=== PATIENT | female | born 1980 | race Caucasian/White ===

== ENCOUNTER 2020-04-23 13:45 | Outpatient (RCR) | payer OTHER, SELFPAY | END 2021-01-07 09:58 | disposition home or self-care (01) | LOC: HO.WCC 13:45 | PROVIDERS: PCP Internal Medicine; Visit Provider Physician Assistant | DX: I87.332 Chronic venous hypertension (idiopathic) with ulcer and inflammation of left lower extremity (principal); L97.822 Non-pressure chronic ulcer of other part of left lower leg with fat layer exposed; L89.624 Pressure ulcer of left heel, stage 4; L89.529 Pressure ulcer of left ankle, unspecified stage; S31.109D Unspecified open wound of abdominal wall, unspecified quadrant without penetration into peritoneal cavity, subsequent encounter; L02.611 Cutaneous abscess of right foot; D59.9 Acquired hemolytic anemia, unspecified; F17.210 Nicotine dependence, cigarettes, uncomplicated; B19.20 Unspecified viral hepatitis C without hepatic coma; K74.60 Unspecified cirrhosis of liver; G62.9 Polyneuropathy, unspecified; Z79.899 Other long term (current) drug therapy | CPT/HCPCS: 10061; 11042; 11043; 11045; 11046; 15271; 15272; 87071; 87186; 87205; 97597; Q4101 ==

== ENCOUNTER 2020-07-30 15:37 | Inpatient (IN) | payer OTHER, SELFPAY ==
[2020-07-30 16:34] VITALS: BP 113/55; PULSE 68; RESP 97; TEMP 37.2; O2SAT 96; BMI 27.4
--- NOTE | 2020-07-30 17:58 | ED.WOUNDLAC ---
HPI - Wound/Laceration General Chief Complaint: Wound/Laceration Stated Complaint: infection? Time Seen by Provider: 07/30/20 23:55 Source: patient Mode of arrival: ambulatory Limitations: no limitations History of Present Illness HPI narrative: 40-year-old female with past medical history of MRSA, end-stage liver disease, CHF, cirrhosis, history of IV drug use and opioid dependence, history of EtOH abuse, history of pelvic fracture from fall, chronic cellulitis and chronic wounds presents with chronic bilateral lower extremity wounds that have not been healing well with foul purulent drainage as well as an umbilical wound that has been chronic since 2019. Patient noted increased swelling and pain as well as copious amounts of purulent drainage pouring from the umbilical site. She states to feel weak, has had chills, and fatigue. Onset (ago): unknown Location: abdomen Extremity Location: bilateral: lower leg Patient tetanus UTD: Yes Associated symptoms: pain and fever Related Data Home Medications Medication Instructions Recorded Confirmed clonidine HCl 0.1 mg PO DAILY 07/30/20 07/30/20 folic acid 1 mg PO DAILY 07/30/20 07/31/20 furosemide 20 mg PO BID 07/30/20 07/31/20 gabapentin 600 mg PO QID 07/30/20 07/31/20 lactulose 10 g PO TID 07/30/20 07/31/20 omeprazole 40 mg PO DAILY 07/30/20 07/31/20 potassium chloride 20 meq PO DAILY 07/30/20 07/31/20 spironolactone 25 mg PO DAILY@0630 07/30/20 07/31/20 topiramate 25 mg PO BID 07/30/20 07/31/20 Allergies Allergy/AdvReac Type Severity Reaction Status Date / Time No Known Allergies Allergy Unverified 03/18/20 14:51 [No Known Allergies*] morphine AdvReac Unknown N/V Verified 04/08/15 00:00 antibiotic ? Allergy Unknown Uncoded 01/05/20 00:00 Review of Systems Review of Systems: Constitutional: Positive Fever, positive Chills ENT/Mouth: No Ear Pain, No Hoarseness, No sore throat Eyes: No Eye Pain, No Swelling, No Redness, No Foreign Body Cardiovascular: No Chest Pain, No SOB Respiratory: No Cough, No Dyspnea Gastrointestinal: No Nausea, No Vomiting, No Diarrhea, positive abdominal Pain secondary to umbilical abscess and lesion which is chronic Genitourinary: No Dysuria, No Hematuria Musculoskeletal: positive joint pain, No Myalgias, No Joint Swelling Skin: Positive bilateral lower extremity wounds that have been chronic, No Skin lacerations, No rash Neuro: No Weakness, No Numbness, No Paresthesias, No Loss of Consciousness, No Dizziness, No Headache Psych: No Anxiety/Panic, No Depression Heme/Lymph: no easy bruising, no Lymphadenopathy Endocrine: No Polyuria, No Polydipsia Yes all other systems are reviewed and are negative [facility] Past Medical History Attestation statement: The following information was validated with the patient. Source: old records reviewed Social History Social History Smoking Status: Current every day smoker Use of substances other than those prescribed or required for medical reasons: Yes Substance Use Type: Opiates Advance Directives: Yes Advance Directives on File: Yes Advance Directives Date on File: 04/02/20 Physical Exam Vital Signs: Vital Signs: Last Vital Signs Temp 99.6 F 07/31/20 00:12 Pulse 74 07/31/20 00:02 Resp 16 07/31/20 00:02 BP 115/51 L 07/31/20 00:02 Pulse Ox 95 07/31/20 00:02 Body Mass Index 27.4 Appearance: Alert. Oriented X3. Moderate distress. Eyes: Pupils equal, round and reactive to light. ENT: Pharynx normal. Neck: Normal inspection. Neck supple. CVS: Normal heart rate and rhythm. Pulses normal. Respiratory: No respiratory distress. Breath sounds normal. Abdomen: Soft and tender, 2 cm in diameter wound circumferential to the umbilicus with serous purulent drainage Skin: Bilateral lower extremity chronic wounds, venous stasis, purulent malodorous drainage noted bilaterally Skin warm and dry. Poor skin condition dry, flaky, onychomycosis to all digits lower extremities Extremities: Bilateral lower extremity edema Neuro: No motor deficit. No sensory deficit. Course Course Course Narrative: 40-year-old female with chronic wounds to the abdomen and bilateral lower extremities presents for evaluation for purulent drainage from all wounds. She has experienced fevers, chills, and fatigue over the past several days. She had her [facility], I did take down the outer layer of dressing that did not remove the blue foam dressing as we do not have the ability to replace this. There is purulent drainage that is malodorous greater weeping to the left than the right. Bilateral lower extremities discolored secondary to hemosiderin venous stasis and lymphedema. Wound to the abdomen is approximately 2 cm in diameter circumferential to the umbilicus, thick purulent malodorous drainage from the site noted. Will order CBC, Chem 7, urinalysis, lactic and cultures. Patient is hypokalemic at 2.7 will replete with 40 mEq p.o., magnesium 1.5 will replete with 2 g IV, patient does have chronic liver disease, cirrhosis and CHF is expected that her liver enzymes are elevated but consistent with prior lab values. Alk-phos is elevated at 268 which is higher than her normal values, urinalysis indicates UTI. As patient does have several sources of infection will treat with ceftriaxone and vancomycin. CT scan of abdomen is negative for abscess. Discussion with hospitalist regarding plan of care, will admit for cellulitis. Consultations Consultation #1: Jacky Kelly Time: 21:37 MDM - Wound/Laceration MDM Narrative Medical decision making narrative: Cellulitis Differential Diagnosis Differential diagnosis: Likely abscess Medical Records Attestation: I reviewed the patient's medical records. Lab Data Attestation: I reviewed the patient's lab results. Result diagrams: 07/30/20 18:34 07/30/20 18:34 Labs: Lab Results 07/30/20 07/30/20 07/30/20 Range/Units 18:34 18:34 18:34 WBC 5.1 (4.8-10.8) X10*3/uL RBC 2.92 L (4.20-5.50) X10*6/uL Hgb 9.0 L (12.0-16.0) g/dl Hct 28.2 L (37-47) % MCV 96.6 (80-98) fL MCH 30.8 (27.0-33.0) pg MCHC 31.9 (31.0-35.0) g/dl RDW 18.2 H (11.0-16.0) % Plt Count 57 L (160-400) X10*3/uL MPV Not Reportable Immature Gran % (Auto) 0.4 (0.0-0.4) % Neut % (Auto) 76.2 H (45-73) % Lymph % (Auto) 14.8 L (20-40) % [place] % (Auto) 7.4 (2-11) % Eos % (Auto) 1.0 (0-4) % Baso % (Auto) 0.2 (0-2) % Lymph # (Auto) 0.8 L (1.2-4.9) X10*3/uL [place] # (Auto) 0.4 (0.1-1.2) X10*3/uL Eos # (Auto) 0.1 (0.0-0.4) X10*3/uL Baso # (Auto) 0.0 (0.0-0.2) X10*3/uL Abs Immat Gran (auto) 0.02 (0.00-0.03) X10*3/uL Absolute Neuts (auto) 3.9 (2.0-8.3) X10*3/uL Absolute Nucleated RBC 0.000 (0.0-0.012) X10*3/uL Nucleated RBC % (auto) 0.0 (0.0-0.2) /100WBC Smear Tech's Comments VERIFIED PT 17.4 H (10.8-13.0) SEC INR 1.5 H (0.9-1.1) APTT 54.5 H (24.1-38.0) SEC Sodium 139 (135-145) mmol/L Potassium 2.7 L (3.3-5.1) mmol/L Chloride 98 (96-108) mmol/L Carbon Dioxide 32 H (22-29) mmol/L Anion Gap 12 (12-20) BUN 7 L (9-16) mg/dL Creatinine 0.63 (0.5-1.4) mg/dL Estim Creat Clear Calc 105.1 Estimated GFR > 60 Random Glucose 67 (60-115) mg/dL Lactic Acid (0.5-2.0) mmol/L Calcium 8.6 (8.4-10.2) mg/dL Magnesium 1.5 L (1.6-2.6) mg/dL Total Bilirubin 2.7 H (0.0-1.0) mg/dL Direct Bilirubin 1.4 H (0.0-0.5) mg/dL AST 131 H (5-31) U/L ALT 18 (0-31) U/L Alkaline Phosphatase 268 H (39-117) U/L Troponin I High Sens (<3.5-17.0) ng/L Total Protein 9.7 H (6.5-8.0) g/dL Albumin 3.0 L (3.5-5.0) g/dL Lipase 93 H (8-78) U/L Urine Color Urine Appearance Urine pH (5.0-8.0) Ur Specific [place] (1.005-1.025) Urine Protein (NEG-TRACE) MG/DL Urine Glucose (UA) (NEG) MG/DL Urine Ketones (NEG) MG/DL Urine Blood (NEG) Urine Nitrite (NEG) Ur Leukocyte Esterase (NEG) Urine RBC (0) /HPF Urine WBC (0-4) /HPF Ur Squamous Epith Cells /LPF Amorphous Sediment /LPF Urine Bacteria /LPF COVID-19 ([facility]) (Negative) COVID-19 Clin Com 07/30/20 07/30/20 07/30/20 Range/Units 18:34 18:34 18:53 WBC (4.8-10.8) X10*3/uL RBC (4.20-5.50) X10*6/uL Hgb (12.0-16.0) g/dl Hct (37-47) % MCV (80-98) fL MCH (27.0-33.0) pg MCHC (31.0-35.0) g/dl RDW (11.0-16.0) % Plt Count (160-400) X10*3/uL MPV Immature Gran % (Auto) (0.0-0.4) % Neut % (Auto) (45-73) % Lymph % (Auto) (20-40) % [place] % (Auto) (2-11) % Eos % (Auto) (0-4) % Baso % (Auto) (0-2) % Lymph # (Auto) (1.2-4.9) X10*3/uL [place] # (Auto) (0.1-1.2) X10*3/uL Eos # (Auto) (0.0-0.4) X10*3/uL Baso # (Auto) (0.0-0.2) X10*3/uL Abs Immat Gran (auto) (0.00-0.03) X10*3/uL Absolute Neuts (auto) (2.0-8.3) X10*3/uL Absolute Nucleated RBC (0.0-0.012) X10*3/uL Nucleated RBC % (auto) (0.0-0.2) /100WBC Smear Tech's Comments PT (10.8-13.0) SEC INR (0.9-1.1) APTT (24.1-38.0) SEC Sodium (135-145) mmol/L Potassium (3.3-5.1) mmol/L Chloride (96-108) mmol/L Carbon Dioxide (22-29) mmol/L Anion Gap (12-20) BUN (9-16) mg/dL Creatinine (0.5-1.4) mg/dL Estim Creat Clear Calc Estimated GFR Random Glucose (60-115) mg/dL Lactic Acid 1.6 (0.5-2.0) mmol/L Calcium (8.4-10.2) mg/dL Magnesium (1.6-2.6) mg/dL Total Bilirubin (0.0-1.0) mg/dL Direct Bilirubin (0.0-0.5) mg/dL AST (5-31) U/L ALT (0-31) U/L Alkaline Phosphatase (39-117) U/L Troponin I High Sens 13.3 (<3.5-17.0) ng/L Total Protein (6.5-8.0) g/dL Albumin (3.5-5.0) g/dL Lipase (8-78) U/L Urine Color YELLOW Urine Appearance HAZY Urine pH 7.0 (5.0-8.0) Ur Specific [place] 1.010 (1.005-1.025) Urine Protein NEG (NEG-TRACE) MG/DL Urine Glucose (UA) NEG (NEG) MG/DL Urine Ketones NEG (NEG) MG/DL Urine Blood NEG (NEG) Urine Nitrite POS H (NEG) Ur Leukocyte Esterase TRACE H (NEG) Urine RBC 0 (0) /HPF Urine WBC 0-2 (0-4) /HPF Ur Squamous Epith Cells TRACE /LPF Amorphous Sediment 1+ /LPF Urine Bacteria 1+ /LPF COVID-19 ([facility]) (Negative) COVID-19 Clin Com 07/31/20 Range/Units 00:36 WBC (4.8-10.8) X10*3/uL RBC (4.20-5.50) X10*6/uL Hgb (12.0-16.0) g/dl Hct (37-47) % MCV (80-98) fL MCH (27.0-33.0) pg MCHC (31.0-35.0) g/dl RDW (11.0-16.0) % Plt Count (160-400) X10*3/uL MPV Immature Gran % (Auto) (0.0-0.4) % Neut % (Auto) (45-73) % Lymph % (Auto) (20-40) % [place] % (Auto) (2-11) % Eos % (Auto) (0-4) % Baso % (Auto) (0-2) % Lymph # (Auto) (1.2-4.9) X10*3/uL [place] # (Auto) (0.1-1.2) X10*3/uL Eos # (Auto) (0.0-0.4) X10*3/uL Baso # (Auto) (0.0-0.2) X10*3/uL Abs Immat Gran (auto) (0.00-0.03) X10*3/uL Absolute Neuts (auto) (2.0-8.3) X10*3/uL Absolute Nucleated RBC (0.0-0.012) X10*3/uL Nucleated RBC % (auto) (0.0-0.2) /100WBC Smear Tech's Comments PT (10.8-13.0) SEC INR (0.9-1.1) APTT (24.1-38.0) SEC Sodium (135-145) mmol/L Potassium (3.3-5.1) mmol/L Chloride (96-108) mmol/L Carbon Dioxide (22-29) mmol/L Anion Gap (12-20) BUN (9-16) mg/dL Creatinine (0.5-1.4) mg/dL Estim Creat Clear Calc Estimated GFR Random Glucose (60-115) mg/dL Lactic Acid (0.5-2.0) mmol/L Calcium (8.4-10.2) mg/dL Magnesium (1.6-2.6) mg/dL Total Bilirubin (0.0-1.0) mg/dL Direct Bilirubin (0.0-0.5) mg/dL AST (5-31) U/L ALT (0-31) U/L Alkaline Phosphatase (39-117) U/L Troponin I High Sens (<3.5-17.0) ng/L Total Protein (6.5-8.0) g/dL Albumin (3.5-5.0) g/dL Lipase (8-78) U/L Urine Color Urine Appearance Urine pH (5.0-8.0) Ur Specific [place] (1.005-1.025) Urine Protein (NEG-TRACE) MG/DL Urine Glucose (UA) (NEG) MG/DL Urine Ketones (NEG) MG/DL Urine Blood (NEG) Urine Nitrite (NEG) Ur Leukocyte Esterase (NEG) Urine RBC (0) /HPF Urine WBC (0-4) /HPF Ur Squamous Epith Cells /LPF Amorphous Sediment /LPF Urine Bacteria /LPF COVID-19 ([facility]) Negative (Negative) COVID-19 Clin Com See Note Imaging Data CT abdomen with contrast: Attestation: I personally reviewed and interpreted this imaging study as follows: Radiologist's impression: EXAMINATION: CT ABDOMEN AND PELVIS WITH CONTRAST CLINICAL INFORMATION: Abdominal abscess. COMPARISON: CT abdomen and pelvis 09/19/2019, hip films 01/14/2020 and lumbar spine radiographs 01/14/2020. TECHNIQUE: Multidetector volumetric images were obtained from the superior aspect of the liver through the pubic symphysis following administration 85 mL of Omnipaque 350 intravenous contrast. Sagittal and coronal reformatted images were obtained on the technologist's workstation. Oral contrast: No This CT examination was performed using dose optimization techniques as appropriate, variously including the following: *Automated exposure control *Adjustment of mA and/or kV according to patient size (this includes techniques or standardized protocols for targeted exams where dose is matched to indication/reason for exam; i.e. extremities or head) *Use of iterative reconstruction technique DLP: 434 mGy-cm FINDINGS: LUNG BASES: The visualized lung bases are unremarkable. LIVER, GALLBLADDER, AND BILIARY TREE: The liver is enlarged measuring 21 cm in greatest length. A tiny cyst is noted in the left lobe of the liver. No focal hepatic lesion or intrahepatic biliary ductal dilatation is present. The common bile duct is dilated at 1.3 cm. Some prominent varices are present behind the umbilicus and I suspect that there is recanalization of the umbilical vein. The gallbladder contains layering gallstones but is otherwise unremarkable with no evidence of wall thickening or obvious pericholecystic inflammatory changes. PANCREAS: Unremarkable. SPLEEN: There is marked splenomegaly with the spleen measuring 16.5 cm in greatest length. ADRENAL GLANDS: Unremarkable. KIDNEYS AND URETERS: The kidneys are normal in size, shape, and attenuation. No hydronephrosis, hydroureter, or calculi seen. No perinephric stranding. BLADDER: Unremarkable. GASTROINTESTINAL TRACT: The small and large bowel are unremarkable. The appendix is unremarkable. ABDOMINAL WALL: Some inflammatory changes are noted in the abdominal wall just above the umbilicus as well as just below the umbilicus. Some surgical clips are present in these regions. No discrete abscess is seen however. LYMPH NODES: Normal. VASCULAR: Unremarkable. PELVIC VISCERA: An anteverted uterus is present. An abnormal adnexal mass is not seen. No free intraperitoneal fluid is present. OSSEOUS STRUCTURES: There is a subacute fracture involving the inferior pubic ramus on the right. There is an associated fracture of the superior pubic ramus on the right as well. These fractures were acute on 01/14/2020. There is sclerosis in the right hemisacrum which is new when compared to the 09/19/2019 study. This could be secondary to healing of an occult fracture. There are endplate compression fractures with depression of the superior endplates of L3 and L4. The L3 fracture was present on the 01/14/2020 study but the L4 fracture was not. There is a large Schmorl's node on the inferior endplate of L5. . CT/CT abdomen pelvis w con IMPRESSION: 1. Marked hepatosplenomegaly with some small periumbilical varices. 2. Inflammatory changes in the abdominal wall around the umbilicus without discrete abscess. 3. Old compression fracture L3 with new compression fracture L4. 4. Chronic pubic rami fracture on the right. 5. Chronic vertebral compression fractures with new compression fractures seen at L4. 6. Possible occult healing right hemisacrum fracture. 7. Cholelithiasis and dilated common bile duct without intrahepatic biliary ductal dilatation. Chest x-ray: Attestation: I personally reviewed and interpreted this imaging study as follows: Radiologist's impression: EXAMINATION: XR CHEST CLINICAL INFORMATION: Abdominal abscess COMPARISON: Chest x-ray 11/23/2019 TECHNIQUE: Frontal portable view of the chest was obtained. 6:53 PM FINDINGS: Heart size enlarged. Mild central pulmonary vascular prominence similar to prior chest x-ray. No acute airspace opacities. No pleural effusion or pneumothorax. XR/XR chest 1V IMPRESSION: No acute abnormality of chest. Cardiomegaly with chronic mild increased central pulmonary vascular markings. No overt pulmonary edema. ECG Data Attestation: I personally reviewed and interpreted this ECG as follows: ECG interpretation date: 07/30/20 ECG interpretation time: 18:32 Prior ECG tracings: available for review Interpretation: Vent. Rate : 068 BPM Atrial Rate : 068 BPM P-R Int : 150 ms QRS Dur : 098 ms QT Int : 524 ms P-R-T Axes : 033 049 027 degrees QTc Int : 557 ms Normal sinus rhythm Left ventricular hypertrophy with repolarization abnormality Prolonged QT Abnormal ECG When compared with ECG of 25-OCT-2019 18:46, Nonspecific T wave abnormality no longer evident in Lateral leads QT has lengthened Discharge Plan Discharge Clinical Impression: Cellulitis, UTI (urinary tract infection) Patient Disposition: Admitted As Inpatient
--- NOTE | 2020-07-30 18:13 | XR_ITS ---
EXAMINATION: XR CHEST CLINICAL INFORMATION: Abdominal abscess COMPARISON: Chest x-ray 11/23/2019 TECHNIQUE: Frontal portable view of the chest was obtained. 6:53 PM FINDINGS: Heart size enlarged. Mild central pulmonary vascular prominence similar to prior chest x-ray. No acute airspace opacities. No pleural effusion or pneumothorax. XR/XR chest 1V IMPRESSION: No acute abnormality of chest. Cardiomegaly with chronic mild increased central pulmonary vascular markings. No overt pulmonary edema.
--- NOTE | 2020-07-30 18:13 | ECG_ITS ---
Test Reason : ABDOM PAIN Blood Pressure : / mmHG Vent. Rate : 068 BPM Atrial Rate : 068 BPM P-R Int : 150 ms QRS Dur : 098 ms QT Int : 524 ms P-R-T Axes : 033 049 027 degrees QTc Int : 557 ms Normal sinus rhythm Left ventricular hypertrophy with repolarization abnormality Prolonged QT Abnormal ECG When compared with ECG of 25-OCT-2019 18:46, Nonspecific T wave abnormality no longer evident in Lateral leads QT has lengthened Referred By: Nay Bangura Electronically Signed By:Jaylen Abad
--- NOTE | 2020-07-30 18:13 | CT_ITS ---
EXAMINATION: CT ABDOMEN AND PELVIS WITH CONTRAST CLINICAL INFORMATION: Abdominal abscess. COMPARISON: CT abdomen and pelvis 09/19/2019, hip films 01/14/2020 and lumbar spine radiographs 01/14/2020. TECHNIQUE: Multidetector volumetric images were obtained from the superior aspect of the liver through the pubic symphysis following administration 85 mL of Omnipaque 350 intravenous contrast. Sagittal and coronal reformatted images were obtained on the technologist's workstation. Oral contrast: No This CT examination was performed using dose optimization techniques as appropriate, variously including the following: *Automated exposure control *Adjustment of mA and/or kV according to patient size (this includes techniques or standardized protocols for targeted exams where dose is matched to indication/reason for exam; i.e. extremities or head) *Use of iterative reconstruction technique DLP: 434 mGy-cm FINDINGS: LUNG BASES: The visualized lung bases are unremarkable. LIVER, GALLBLADDER, AND BILIARY TREE: The liver is enlarged measuring 21 cm in greatest length. A tiny cyst is noted in the left lobe of the liver. No focal hepatic lesion or intrahepatic biliary ductal dilatation is present. The common bile duct is dilated at 1.3 cm. Some prominent varices are present behind the umbilicus and I suspect that there is recanalization of the umbilical vein. The gallbladder contains layering gallstones but is otherwise unremarkable with no evidence of wall thickening or obvious pericholecystic inflammatory changes. PANCREAS: Unremarkable. SPLEEN: There is marked splenomegaly with the spleen measuring 16.5 cm in greatest length. ADRENAL GLANDS: Unremarkable. KIDNEYS AND URETERS: The kidneys are normal in size, shape, and attenuation. No hydronephrosis, hydroureter, or calculi seen. No perinephric stranding. BLADDER: Unremarkable. GASTROINTESTINAL TRACT: The small and large bowel are unremarkable. The appendix is unremarkable. ABDOMINAL WALL: Some inflammatory changes are noted in the abdominal wall just above the umbilicus as well as just below the umbilicus. Some surgical clips are present in these regions. No discrete abscess is seen however. LYMPH NODES: Normal. VASCULAR: Unremarkable. PELVIC VISCERA: An anteverted uterus is present. An abnormal adnexal mass is not seen. No free intraperitoneal fluid is present. OSSEOUS STRUCTURES: There is a subacute fracture involving the inferior pubic ramus on the right. There is an associated fracture of the superior pubic ramus on the right as well. These fractures were acute on 01/14/2020. There is sclerosis in the right hemisacrum which is new when compared to the 09/19/2019 study. This could be secondary to healing of an occult fracture. There are endplate compression fractures with depression of the superior endplates of L3 and L4. The L3 fracture was present on the 01/14/2020 study but the L4 fracture was not. There is a large Schmorl's node on the inferior endplate of L5. . CT/CT abdomen pelvis w con IMPRESSION: 1. Marked hepatosplenomegaly with some small periumbilical varices. 2. Inflammatory changes in the abdominal wall around the umbilicus without discrete abscess. 3. Old compression fracture L3 with new compression fracture L4. 4. Chronic pubic rami fracture on the right. 5. Chronic vertebral compression fractures with new compression fractures seen at L4. 6. Possible occult healing right hemisacrum fracture. 7. Cholelithiasis and dilated common bile duct without intrahepatic biliary ductal dilatation.
[2020-07-30 18:48] LABS: Eosinophils Absolute Auto 0.1 X10*3/uL (0.0-0.4); Imm Gran Abs Auto 0.02 X10*3/uL (0.00-0.03); Imm Gran Pct Auto 0.4 % (0.0-0.4); MANUAL DIFF FLAG SCAN; Neutrophils Percent Auto 76.2 % (45-73); SCAN SMEAR FLAG 1
[2020-07-30 18:49] LABS: Basophils Percent Auto 0.2 % (0-2); Hematocrit 28.2 % (37-47); Lymphocytes Absolute Auto 0.8 X10*3/uL (1.2-4.9); Lymphocytes Percent Auto 14.8 % (20-40); Mean Corpuscular HGB Conc 31.9 g/dl (31.0-35.0); Mean Corpuscular Hemoglobin 30.8 pg (27.0-33.0); Mean Corpuscular Volume 96.6 fL (80-98); Monocytes Absolute Auto 0.4 X10*3/uL (0.1-1.2); Monocytes Percent Auto 7.4 % (2-11); Neutrophils Absolute Auto 3.9 X10*3/uL (2.0-8.3); Red Blood Count 2.92 X10*6/uL (4.20-5.50); Red Cell Distribution Width 18.2 % (11.0-16.0); White Blood Count 5.1 X10*3/uL (4.8-10.8)
[2020-07-30 18:50] LABS: PLT ABN DIST 1; Platelet Count 57 X10*3/uL (160-400)
[2020-07-30 18:52] LABS: INTERNATIONAL NORM RATIO 1.5 (0.9-1.1); Prothrombin Time 17.4 SEC (10.8-13.0)
[2020-07-30 18:54] LABS: Partial Thromboplastin Time 54.5 SEC (24.1-38.0)
[2020-07-30 19:00] LABS: Glucose Urine UA NEG (NEG); Leukocyte Esterase Urine TRACE (NEG); Nitrite Urine POS (NEG); UACC Culture Trigger YES; Urine Blood NEG (NEG); Urine Ketones NEG (NEG); Urine Protein NEG (NEG-TRACE)
[2020-07-30 19:05] LABS: Lactic Acid 1.6 mmol/L (0.5-2.0)
[2020-07-30 19:11] LABS: SLIDE REVIEW VERIFIED
[2020-07-30 19:17] LABS: Alanine Aminotransferase 18 U/L (0-31); Alkaline Phosphatase 268 U/L (39-117); Aspartate Amino Transferase 131 U/L (5-31); Bilirubin Direct 1.4 mg/dL (0.0-0.5); Bilirubin Total 2.7 mg/dL (0.0-1.0); Blood Urea Nitrogen 7 mg/dL (9-16); Calcium 8.6 mg/dL (8.4-10.2); Creatinine Clr Calc Pharmacy 105.1; Estimated Glomerular Filt Rate > 60; Glucose Random 67 mg/dL (60-115); Magnesium 1.5 mg/dL (1.6-2.6); Total Protein 9.7 g/dL (6.5-8.0)
[2020-07-30 19:17] LABS: Appearance Urine HAZY; Color Urine YELLOW
[2020-07-30 19:18] LABS: Bacteria Urine 1+ /LPF; RBC Urine 0 /HPF (0); Squamous Epithelial Cell Urine TRACE /LPF; WBC Urine 0-2 /HPF (0-4)
[2020-07-30 19:19] LABS: Amorphous Sediment Urine 1+ /LPF
[2020-07-30 19:20] LABS: Troponin-I High Sensitivity 13.3 ng/L (<3.5-17.0)
[2020-07-30 19:30] LABS: Anion Gap 12 (12-20); Carbon Dioxide 32 mmol/L (22-29); Chloride 98 mmol/L (96-108); Lipase 93 U/L (8-78); Potassium 2.7 mmol/L (3.3-5.1); Sodium 139 mmol/L (135-145)
--- NOTE | 2020-07-30 19:39 | PC.NURSE ---
wound wash at bedside.
[2020-07-30] MEDS: iohexoL 350 MG/ML 100 ML INFUS..BTL IV (19:42)
[2020-07-30] MEDS: cefTRIAXone sodium 1 GM in 0.9 % Sodium Chloride 50 ML IV (20:42)
[2020-07-30] MEDS: 0.9 % Sodium Chloride 1,000 ML 999 ML IVCONT (20:43)
[2020-07-30 21:27] VITALS: BP 120/61; PULSE 74; RESP 18; O2SAT 97
[2020-07-30] MEDS: Magnesium Sulfate/H2O 2 GM/50 ML PIGGYBACK IV (21:27)
[2020-07-30] MEDS: vancomycin HCL 750 MG in 0.9 % Sodium Chloride 250 ML 265 MG IV (22:38)
[2020-07-30 22:47] VITALS: BP 120/64; PULSE 64; RESP 18; O2SAT 96
[2020-07-31] VITALS (10 sets, daily range): BP systolic 115–143; BP diastolic 51–82; PULSE 65–90; RESP 16–18; TEMP 36.3–37.6; O2SAT 95–99
--- NOTE | 2020-07-31 | US_ITS ---
EXAMINATION: US ABDOMEN LIMITED CLINICAL INFORMATION: Dilated CBD on CAT scan. COMPARISON: CT abdomen and pelvis 07/30/2020. TECHNIQUE: Real-time imaging of the right upper quadrant abdominal viscera. FINDINGS: PANCREAS: Normal. LIVER: The liver is enlarged with increased echogenicity The liver contour is normal. No focal hepatic lesion. There is no intrahepatic biliary duct dilatation seen. GALLBLADDER: The gallbladder is physiologically distended. Multiple mobile gallstones are present. No evidence of gallbladder wall thickening or pericholecystic fluid. COMMON BILE DUCT: Normal in caliber measuring 1.1 cm in diameter. RIGHT KIDNEY: Normal. No hydronephrosis. No renal calculi or focal parenchymal lesions. The kidney measures 12.8 cm in maximum dimension. FREE FLUID: None. US/US abdomen limited IMPRESSION: Hepatomegaly with hepatic steatosis noted no focal lesion seen. Visualized pancreas, gallbladder, CBD and right kidney is unremarkable
--- NOTE | 2020-07-31 | ECG_ITS ---
Test Reason : ABDOM PAIN Blood Pressure : / mmHG Vent. Rate : 069 BPM Atrial Rate : 069 BPM P-R Int : 152 ms QRS Dur : 088 ms QT Int : 524 ms P-R-T Axes : 061 043 038 degrees QTc Int : 561 ms Normal sinus rhythm Possible Left atrial enlargement Left ventricular hypertrophy with repolarization abnormality Prolonged QT Abnormal ECG When compared with ECG of 30-JUL-2020 18:32, No significant change was found Referred By: Lorenzo Holman Electronically Signed By:Jaylen Abad
--- NOTE | 2020-07-31 00:05 | PC.NURSE ---
PATEINT UP TO COMMODE WITH 2 STAFF. SKIN HOT TO TOUCH.
[2020-07-31 01:01] LABS: COVID-19 Test Negative (Negative)
--- NOTE | 2020-07-31 03:43 | PC.NURSE ---
BACK IN BED AFTER USING COMMODE. SMALL AMOUNT OF BLEEDING NOTED FROM UMBILICUS. BLEEDING ALREADY STOPPED BY TIME PATIENT WAS BACK IN BED. REQUESTING CLONIDINE.
[2020-07-31] MEDS: cloNIDine HCL 0.1 MG TABLET PO ×2 (03:57→08:33)
--- NOTE | 2020-07-31 04:56 | P.HPHOSP_ITS ---
History of Present Illness Date of Service: 07/31/20 Chief Complaint: Bilateral LE cellulitis / Periumbilical 40 y/o female 40-year-old female with extensive PMHX who presented from home due to Bilateral LE and periumbilical wounds for evaluation. Patient has a known hx of chronic bilateral lower extremity wounds and periumbilical wound which has been taking care of at the wound care clinic. Patient reports that this has been going one for more than a year without any improvement. Has noticed that recently her wounds have become more painful and associated with a malodorous discharge. Also reports chill and generalized fatigue in the past few days. Patient has a significant hx of End-stage liver disease. Patient denies any chest pain, SOB, nausea or vomiting at present. Patient was seen in the ED, wound dressings were replaced but was noted a malodorous discharge coming from bilateral LE wounds as well as bloody discharge from her periumbilical wound. Patient was given one dose of Vanco and Rocephin. Hgb if 9.0, WBC normal, Platelet of 57, K of 2.7, mag of 1.5. Patient was given 2 g of Mag and 40 mEq of KCL per ED attending. Decision for admission was given. Patient seen and examined at the bedside, laying down in bed in no acute distress. ROS as above otherwise negative. Physical exam positive for Bilateral LE infected wound with surrounding erythema / skin discoloration due to venous s tasis. Periumbilical wound draining bloody discharge and surrounding erythema. PMHX: MRSA, ESLD, CHF, Cirrhosis, Pelvic fracture, chronic cellulitis BLE and chronic wounds PSx: none Toxic habits: IVDA, Alcohol abuse, opioid dependence, Review of Systems Constitutional: Constitutional: Reports as per HPI PMFSH Functional capacity: independent ambulation Social History Smoking Status: Current every day smoker Use of substances other than those prescribed or required for medical reasons: Yes Substance Use Type: Opiates Advance Directives: Yes Advance Directives on File: Yes Advance Directives Date on File: 04/02/20 Meds Allergies Allergy/AdvReac Type Severity Reaction Status Date / Time No Known Allergies Allergy Unverified 03/18/20 14:51 [No Known Allergies*] morphine AdvReac Unknown N/V Verified 04/08/15 00:00 antibiotic ? Allergy Unknown Uncoded 01/05/20 00:00 Home Medications Medication Instructions Recorded Confirmed Type clonidine HCl 0.1 mg PO DAILY 07/30/20 07/30/20 History folic acid 1 mg PO DAILY 07/30/20 07/31/20 History furosemide 20 mg PO BID 07/30/20 07/31/20 History gabapentin 600 mg PO QID 07/30/20 07/31/20 History lactulose 10 g PO TID 07/30/20 07/31/20 History omeprazole 40 mg PO DAILY 07/30/20 07/31/20 History potassium chloride 20 meq PO DAILY 07/30/20 07/31/20 History spironolactone 25 mg PO DAILY@0630 07/30/20 07/31/20 History topiramate 25 mg PO BID 07/30/20 07/31/20 History Physical Exam Vital Signs and Narrative: Vital Signs: Last Vital Signs Temp 99.6 F 07/31/20 00:12 Pulse 90 07/31/20 03:57 Resp 18 07/31/20 03:49 BP 143/67 H 07/31/20 03:57 Pulse Ox 96 07/31/20 03:49 Body Mass Index 27.4 Const: General: cooperative, comfortable and no acute distress Orientation/consciousness: oriented to person, oriented to place and oriented to time HENMT: Head: Yes normal to inspection Eyes: General: appearance normal, both eyes and all related structures Neck: Yes normal visual inspection Chest: Chest palpation & inspection: normal inspection of the chest Resp: Effort & Inspection: normal respiratory effort Auscultation: clear to auscultation bilaterally Cardio: Jugular venous distension: no JVD Rate: regular rate Rhythm: regular rhythm Heart sounds: S1 normal heart sound present and S2 normal heart sound present GI: Inspection: Yes normal to inspection Skin: General skin exam: other (periumbilical wound of approximately 2 cm drcharlene gatito serosanguineous fluid) Wounds: wounds noted (Wounds in bilateral LE draining pus material ) Neuro: General: oriented to person, oriented to place and oriented to time Cognition (Neuro): normal cognition Results Labs CBC and Chem 7: 07/30/20 18:34 07/30/20 18:34 Labs: Laboratory Results - last 24 hr 07/30/20 07/30/20 07/30/20 18:34 18:34 18:34 MCV 96.6 MCH 30.8 MCHC 31.9 RDW 18.2 H Plt Count 57 L MPV Not Reportable Immature Gran % (Auto) 0.4 Neut % (Auto) 76.2 H Lymph % (Auto) 14.8 L [place] % (Auto) 7.4 Eos % (Auto) 1.0 Baso % (Auto) 0.2 Lymph # (Auto) 0.8 L [place] # (Auto) 0.4 Eos # (Auto) 0.1 Baso # (Auto) 0.0 Abs Immat Gran (auto) 0.02 Absolute Neuts (auto) 3.9 Absolute Nucleated RBC 0.000 Nucleated RBC % (auto) 0.0 Smear Tech's Comments VERIFIED PT 17.4 H INR 1.5 H APTT 54.5 H Anion Gap 12 Estim Creat Clear Calc 105.1 Estimated GFR > 60 Random Glucose 67 Lactic Acid Calcium 8.6 Magnesium 1.5 L Total Bilirubin 2.7 H Direct Bilirubin 1.4 H AST 131 H ALT 18 Alkaline Phosphatase 268 H Troponin I High Sens Total Protein 9.7 H Albumin 3.0 L Lipase 93 H Urine Color Urine Appearance Urine pH Ur Specific [place] Urine Protein Urine Glucose (UA) Urine Ketones Urine Blood Urine Nitrite Ur Leukocyte Esterase Urine RBC Urine WBC Ur Squamous Epith Cells Amorphous Sediment Urine Bacteria COVID-19 ([facility]) COVID-19 Clin Com 07/30/20 07/30/20 07/30/20 18:34 18:34 18:53 MCV MCH MCHC RDW Plt Count MPV Immature Gran % (Auto) Neut % (Auto) Lymph % (Auto) [place] % (Auto) Eos % (Auto) Baso % (Auto) Lymph # (Auto) [place] # (Auto) Eos # (Auto) Baso # (Auto) Abs Immat Gran (auto) Absolute Neuts (auto) Absolute Nucleated RBC Nucleated RBC % (auto) Smear Tech's Comments PT INR APTT Anion Gap Estim Creat Clear Calc Estimated GFR Random Glucose Lactic Acid 1.6 Calcium Magnesium Total Bilirubin Direct Bilirubin AST ALT Alkaline Phosphatase Troponin I High Sens 13.3 Total Protein Albumin Lipase Urine Color YELLOW Urine Appearance HAZY Urine pH 7.0 Ur Specific [place] 1.010 Urine Protein NEG Urine Glucose (UA) NEG Urine Ketones NEG Urine Blood NEG Urine Nitrite POS H Ur Leukocyte Esterase TRACE H Urine RBC 0 Urine WBC 0-2 Ur Squamous Epith Cells TRACE Amorphous Sediment 1+ Urine Bacteria 1+ COVID-19 ([facility]) COVID-19 Clin Com 07/31/20 00:36 MCV MCH MCHC RDW Plt Count MPV Immature Gran % (Auto) Neut % (Auto) Lymph % (Auto) [place] % (Auto) Eos % (Auto) Baso % (Auto) Lymph # (Auto) [place] # (Auto) Eos # (Auto) Baso # (Auto) Abs Immat Gran (auto) Absolute Neuts (auto) Absolute Nucleated RBC Nucleated RBC % (auto) Smear Tech's Comments PT INR APTT Anion Gap Estim Creat Clear Calc Estimated GFR Random Glucose Lactic Acid Calcium Magnesium Total Bilirubin Direct Bilirubin AST ALT Alkaline Phosphatase Troponin I High Sens Total Protein Albumin Lipase Urine Color Urine Appearance Urine pH Ur Specific [place] Urine Protein Urine Glucose (UA) Urine Ketones Urine Blood Urine Nitrite Ur Leukocyte Esterase Urine RBC Urine WBC Ur Squamous Epith Cells Amorphous Sediment Urine Bacteria COVID-19 ([facility]) Negative COVID-19 Clin Com See Note Imaging Radiologist's Impressions: Impressions Abdomen/Pelvis CT 07/30/20 18:13 IMPRESSION: 1. Marked hepatosplenomegaly with some small periumbilical varices. 2. Inflammatory changes in the abdominal wall around the umbilicus without discrete abscess. 3. Old compression fracture L3 with new compression fracture L4. 4. Chronic pubic rami fracture on the right. 5. Chronic vertebral compression fractures with new compression fractures seen at L4. 6. Possible occult healing right hemisacrum fracture. 7. Cholelithiasis and dilated common bile duct without intrahepatic biliary ductal dilatation. Chest X-Ray 07/30/20 18:13 IMPRESSION: No acute abnormality of chest. Cardiomegaly with chronic mild increased central pulmonary vascular markings. No overt pulmonary edema. Assessment and Plan (1) Bilateral lower leg cellulitis: Status: Acute Continue with Vancomycin and Rocephin for gram positive and gram neg coverage Follow up Bcx Follow up ID recs Follow up Vascular surgery for evaluation of wounds Wound care consult (2) Hypokalemia: Status: Acute Supplemented per ED. monitor closely Magnesium of 1.5 which was supplemented accordingly (3) End stage liver disease: Status: Acute Continue with current management as ordered (4) Anemia of chronic disease: Status: Acute Hgb of 9.0, stable Continue with monitor for now and transfuse if hgb level <7
[2020-07-31 07:21] LABS: Basophils Percent Auto 0.3 % (0-2); Hematocrit 24.4 % (37-47); Hemoglobin 7.8 g/dl (12.0-16.0); Imm Gran Abs Auto 0.01 X10*3/uL (0.00-0.03); Imm Gran Pct Auto 0.3 % (0.0-0.4); Lymphocytes Absolute Auto 0.2 X10*3/uL (1.2-4.9); Lymphocytes Percent Auto 7.8 % (20-40); MANUAL DIFF FLAG SCAN; Mean Corpuscular Hemoglobin 30.6 pg (27.0-33.0); Mean Corpuscular Volume 95.7 fL (80-98); Monocytes Absolute Auto 0.2 X10*3/uL (0.1-1.2); Monocytes Percent Auto 7.1 % (2-11); Neutrophils Absolute Auto 2.6 X10*3/uL (2.0-8.3); Neutrophils Percent Auto 84.5 % (45-73); PLT CLUMP 1; Red Blood Count 2.55 X10*6/uL (4.20-5.50); Red Cell Distribution Width 18.5 % (11.0-16.0); SCAN SMEAR FLAG 1
[2020-07-31 07:50] LABS: Anion Gap 10 (12-20); Blood Urea Nitrogen 6 mg/dL (9-16); Calcium 7.8 mg/dL (8.4-10.2); Carbon Dioxide 30 mmol/L (22-29); Chloride 103 mmol/L (96-108); Creatinine Clr Calc Pharmacy 112.3; Estimated Glomerular Filt Rate > 60; Glucose Random 67 mg/dL (60-115); Sodium 140 mmol/L (135-145)
[2020-07-31 07:59] LABS: Platelet Count 40 X10*3/uL (160-400); White Blood Count 3.1 X10*3/uL (4.8-10.8)
[2020-07-31 08:00] LABS: SLIDE REVIEW VERIFIED
[2020-07-31] MEDS: Gabapentin 600 MG TABLET PO ×4 (08:31→21:24)
[2020-07-31] MEDS: Lactulose 20 GM/30 ML SOLUTION 10 GM PO ×3 (08:31→21:23)
[2020-07-31] MEDS: Spironolactone 25 MG TABLET PO (08:32)
[2020-07-31] MEDS: Topiramate 25 MG TABLET PO ×2 (08:32→21:24)
[2020-07-31] MEDS: Furosemide 20 MG TABLET PO ×2 (08:32→18:33)
[2020-07-31] MEDS: Folic Acid 1 MG TABLET PO (08:32)
[2020-07-31] MEDS: Omeprazole 40 MG CAPSULE.DR PO (08:32)
[2020-07-31] MEDS: 0.9 % Sodium Chloride Flush 3 ML SYRINGE IVFLUSH ×2 (08:36→18:33)
--- NOTE | 2020-07-31 10:17 | PM.EVENT ---
Event Note Date of Service: 07/31/20 Event Note: Daily Team Note in Brief S Seen and examined in the ED this AM. Endorses concern around her wounds. Tells me she sees the wound care clinic every Sunday and was instructed to come here (do not see any wound care notes on EMR). She reports wound are chronically infected. requesting her methadone O Vitals - last documented and stable Gen - NAD CVS- S1S2 Lungs - no distress Abd - non-tender Skin - multiple wounds - abdomen and lower extremities - do not appear to be any drainage A/P 40 yo F with chronic opiate dependence - on methadone, hep C / cirrhosis, chronic wounds, MRSA Bacteremia who presents with worsening of her wounds. Wound appear chronic in nature without any over acute infections. She does have a history of MRSA in the wounds + bacteremia -- however at this time she has no evidence of sepsis / acutely infected changes. Will stop IV antibiotics and await input from ID / wound care prolonged qt -- could be secondary to hypoK/hypoMg. will recheck ekg prior to methadone
[2020-07-31] MEDS: Potassium Chloride ER 20 MEQ TAB.ER.PRT 60 MEQ PO ×2 (11:34→18:51)
[2020-07-31 13:16] LABS: Magnesium 1.7 mg/dL (1.6-2.6)
[2020-07-31] MEDS: oxyCODONE HCl Immed Release 5 MG TABLET 10 MG PO ×2 (14:31→18:37)
[2020-07-31 15:27] LABS: Magnesium 1.5 mg/dL (1.6-2.6); Potassium 3.4 mmol/L (3.3-5.1)
[2020-07-31] MEDS: Magnesium Sulfate/H2O 2 GM/50 ML PIGGYBACK IV (19:08)
--- NOTE | 2020-07-31 22:16 | W.PM.IDCN ---
History of Present Illness Data of Consult Service Date: 07/31/20 Requesting physician: Wiley Lee Primary Care Provider: Vishal Dietrich MD HPI Reason for consult: wound changes,umbilical area concern ?UTI Patient presents says today from Wound Care with reported purulent areas leg and umbilical area infection concerns She has noted urinalysis greater than 100,000 staph aureus but no dysuria and only 0-2 WBC Umbilical area has had intermittent drainage since 2019 She has had reported fever Review of Systems Review of Systems: Yes all other systems are reviewed and are negative [facility] Past Medical History Functional capacity: independent ambulation Social History Social History Household Members: Family and Children Housing: House Do you presently have visiting nurse or other home services: Yes Smoking Status: Current every day smoker Tobacco Type: Cigarette Packs Per Day: 0.5 Cigarettes Per Day: 10.0 Smoked in Last 30 Days: Yes Patient Interested in Nicotine Replacement: No Patient Given Instructions on How to Stop Smoking: Yes Date Education Initiated: 07/31/20 Second Hand Smoke Exposure: No Use of substances other than those prescribed or required for medical reasons: No Substance Use Type: Opiates Currently Displaying Signs/Symptoms of Drug Intoxication Withdrawal: No Any prior treatment program specific to substance use: Yes Have you been hit, kicked, punched, or otherwise hurt by someone within the past year? If so, by whom?: No Do you feel safe in your current relationship?: Yes Is there a partner from a previous relationship who is making you feel unsafe now?: No Are you made to feel afraid or neglected: No Advance Directives: Yes Advance Directives on File: Yes Advance Directives Date on File: 04/02/20 Do you have thoughts of harming others: None Do you have a plan to hurt others: No Plan Recently lost weight without trying: Yes Meds Allergies Allergy/AdvReac Type Severity Reaction Status Date / Time No Known Allergies Allergy Unverified 03/18/20 14:51 [No Known Allergies*] morphine AdvReac Unknown N/V Verified 04/08/15 00:00 antibiotic ? Allergy Unknown Uncoded 01/05/20 00:00 Home Medications Medication Instructions Recorded Confirmed Type clonidine HCl 0.1 mg PO DAILY 07/30/20 07/30/20 History folic acid 1 mg PO DAILY 07/30/20 07/31/20 History furosemide 20 mg PO BID 07/30/20 07/31/20 History gabapentin 600 mg PO QID 07/30/20 07/31/20 History lactulose 10 g PO TID 07/30/20 07/31/20 History omeprazole 40 mg PO DAILY 07/30/20 07/31/20 History potassium chloride 20 meq PO DAILY 07/30/20 07/31/20 History spironolactone 25 mg PO DAILY@0630 07/30/20 07/31/20 History topiramate 25 mg PO BID 07/30/20 07/31/20 History methadone 120 mg PO DAILY 07/31/20 07/31/20 History Physical Exam Vital Signs: Vital Signs: Last Vital Signs Temp 99.3 F 07/31/20 21:28 Pulse 67 07/31/20 19:43 Resp 16 07/31/20 19:43 BP 125/69 07/31/20 19:43 Pulse Ox 98 07/31/20 19:43 Body Mass Index 27.4 Const: General: cooperative HENMT: Head: Yes normal to inspection Mouth: Normal oral and palatal mucosa present Eyes: General: appearance normal, both eyes and all related structures Resp: Effort & Inspection: normal respiratory effort Cardio: Rate: regular rate Rhythm: regular rhythm GI: Other: chronic fistulous are umbilicus,no cellulitis Palpation (GI): Soft to palpation and nontender Skin: General skin exam: no rashes or lesions noted Extrem: Other: chronic left wound leg,blue dressing Assessment and Plan (1) Bilateral lower leg cellulitis: Problem details: The leg wounds have perhaps some small area of cellultis There doesnt seem to be any real acute cellulitis of any degree and no fever or chills of significance There are no urinary symptoms and only 0-2 WBC in urine Status: Acute Would continue antibiotics for now If not bacteremic or temperature over 100 would give po probable Doxycycline 100 mg bid and possibly Levaquin as well tomorrow for two weeks and stop IV antibiotics Results Labs CBC & Chem 7: 07/31/20 06:48 07/31/20 14:30 Labs: Short CBC 07/31/20 Range/Units 06:48 WBC 3.1 L (4.8-10.8) X10*3/uL Hgb 7.8 L (12.0-16.0) g/dl Hct 24.4 L (37-47) % Plt Count 40 L D (160-400) X10*3/uL BMP 07/31/20 07/31/20 06:48 14:30 Sodium 140 Potassium 3.0 L 3.4 Chloride 103 Carbon Dioxide 30 H BUN 6 L Creatinine 0.59 Calcium 7.8 L D Microbiology Microbiology Results: Microbiology 07/30/20 18:34 Blood - Venous Blood Culture - Preliminary No growth after 24 hours. 07/30/20 18:34 Blood - Venous Blood Culture - Preliminary No growth after 24 hours. 07/30/20 Unknown Urine clean catch - Clean Catch Midstream Urine Culture - Preliminary Staphylococcus aureus
[2020-08-01] VITALS (8 sets, daily range): BP systolic 100–139; BP diastolic 54–70; PULSE 65–79; RESP 16–19; TEMP 36.5–39.1; O2SAT 94–99
--- NOTE | 2020-08-01 | ECG_ITS ---
Test Reason : REPEAT Blood Pressure : / mmHG Vent. Rate : 062 BPM Atrial Rate : 062 BPM P-R Int : 138 ms QRS Dur : 092 ms QT Int : 538 ms P-R-T Axes : 021 038 036 degrees QTc Int : 546 ms Normal sinus rhythm Minimal voltage criteria for LVH, may be normal variant Prolonged QT Abnormal ECG When compared with ECG of 31-JUL-2020 10:45, No significant change was found Referred By: Lorenzo Holman Electronically Signed By:HEIDY MORGAN MD
[2020-08-01] MEDS: 0.9 % Sodium Chloride Flush 3 ML SYRINGE IVFLUSH ×4 (00:08→23:29)
[2020-08-01] MEDS: oxyCODONE HCl Immed Release 5 MG TABLET 10 MG PO ×2 (01:23→05:25)
[2020-08-01] MEDS: Spironolactone 25 MG TABLET PO (05:25)
[2020-08-01 07:19] LABS: Anion Gap 13 (12-20); Blood Urea Nitrogen 8 mg/dL (9-16); Calcium 8.1 mg/dL (8.4-10.2); Carbon Dioxide 24 mmol/L (22-29); Chloride 99 mmol/L (96-108); Creatinine Clr Calc Pharmacy 100.4; Estimated Glomerular Filt Rate > 60; Glucose Random 96 mg/dL (60-115); Magnesium 1.7 mg/dL (1.6-2.6); Potassium 3.6 mmol/L (3.3-5.1); Sodium 132 mmol/L (135-145)
[2020-08-01] MEDS: Furosemide 20 MG TABLET PO ×2 (08:16→16:40)
[2020-08-01] MEDS: Omeprazole 40 MG CAPSULE.DR PO (08:16)
[2020-08-01] MEDS: Folic Acid 1 MG TABLET PO (08:17)
[2020-08-01] MEDS: Gabapentin 600 MG TABLET PO ×4 (08:17→20:03)
[2020-08-01] MEDS: Magnesium Oxide 400 MG TABLET PO ×2 (08:17→16:41)
[2020-08-01] MEDS: Topiramate 25 MG TABLET PO ×2 (08:17→20:03)
[2020-08-01] MEDS: cloNIDine HCL 0.1 MG TABLET PO (08:17)
[2020-08-01] MEDS: Potassium Chloride ER 20 MEQ TAB.ER.PRT 60 MEQ PO (08:17)
[2020-08-01] MEDS: Acetaminophen 325 MG TABLET 650 MG PO (08:26)
[2020-08-01] MEDS: LORazepam 2 MG/ML VIAL 0.25 MG IVPUSH (08:26)
[2020-08-01 08:28] LABS: Hematocrit 24.1 % (37-47); Hemoglobin 7.7 g/dl (12.0-16.0); Mean Corpuscular Volume 97.2 fL (80-98); PLT CLUMP 1; Red Blood Count 2.48 X10*6/uL (4.20-5.50); Red Cell Distribution Width 18.6 % (11.0-16.0)
[2020-08-01 08:29] LABS: PLT ABN DIST 1; White Blood Count 2.9 X10*3/uL (4.8-10.8)
[2020-08-01 08:45] LABS: Alanine Aminotransferase 17 U/L (0-31); Albumin Level 2.7 g/dL (3.5-5.0); Alkaline Phosphatase 225 U/L (39-117); Aspartate Amino Transferase 126 U/L (5-31); Bilirubin Direct 2.4 mg/dL (0.0-0.5); Bilirubin Total 4.1 mg/dL (0.0-1.0); Total Protein 8.3 g/dL (6.5-8.0)
--- NOTE | 2020-08-01 09:14 | P.PNIM_ITS ---
Subjective Subjective Date of Service: 08/01/20 Interval History: seen and examined this AM was feeling feverish earlier, noted to have temp of 102.4 reports leg / abodminal wound pain is tolerable reports nausea, but denies vomiting ROS General - +fevers or chills Cardiovascular - no chest pain Respiratory - no shortness of breath or cough Abdominal- no abdominal pain, +nausea, -ve vomiting, -ve diarrhea Physical Exam Vital Signs: Vital Signs: Last Vital Signs Temp 102.4 F H 08/01/20 08:00 Pulse 75 08/01/20 08:00 Resp 17 08/01/20 08:00 BP 139/70 08/01/20 08:00 Pulse Ox 97 08/01/20 08:00 Body Mass Index 27.4 Const: Other: General - no acute distress, appears comfortable Cardiovascular - regular rate and rhythm, S1-S2 Lungs - normal respiratory effort, clear to auscultation bilaterally, no wheezing Abdomen - soft and non-tender; lucy-umbilical open wound -- no drainange this AM Extremities - no edema bilaterally Neuro - awake and alert, no focal deficits Skin - b/l LE with chronic wounds Objective Data Current Medications Generic Name Dose Route Start Last Admin Trade Name Freq PRN Reason Stop Dose Admin Acetaminophen 650 mg 08/01/20 08:11 08/01/20 08:26 Acetaminophen 325 Mg Tablet PO 650 mg Q6H PRN Administration Fever Clonidine HCl 0.1 mg 07/31/20 09:00 08/01/20 08:17 Clonidine Hcl 0.1 Mg Tablet PO 0.1 mg DAILY MARIANN Administration Protocol Folic Acid 1 mg 07/31/20 09:00 08/01/20 08:17 Folic Acid 1 Mg Tablet PO 1 mg DAILY MARIANN Administration Furosemide 20 mg 07/31/20 08:00 08/01/20 08:16 Furosemide 20 Mg Tablet PO 20 mg BIDWM MARIANN Administration Protocol Gabapentin 600 mg 07/31/20 09:00 08/01/20 08:17 Gabapentin 600 Mg Tablet PO 600 mg QID MARIANN Administration Vancomycin HCl 1,000 mg/ 270 mls @ 270 mls/hr 08/01/20 09:00 Sodium Chloride IV Q12H MARIANN Cefepime HCl 2 gm/ Sodium 50 mls @ 100 mls/hr 08/01/20 09:00 Chloride IV Q12H MARIANN Lactulose 10 gm 07/31/20 09:00 08/01/20 08:18 Lactulose 20 Gm/30 Ml Solution PO Not Given TID [facility] Magnesium Oxide 400 mg 08/01/20 08:30 08/01/20 08:17 Magnesium Oxide 400 Mg Tablet PO 400 mg BIDPC MARIANN Administration Omeprazole 40 mg 07/31/20 09:00 08/01/20 08:16 Omeprazole 40 Mg Capsule.Dr PO 40 mg DAILY MARIANN Administration Oxycodone HCl 10 mg 07/31/20 17:40 08/01/20 05:25 Oxycodone Hcl Immed Release 5 Mg Tablet PO 10 mg Q4H PRN Administration Pain, Severe (Pain Scale 7-10) Pharmacy Consult 1 each 07/30/20 21:27 Consult Rx Vancomycin Dosing MISCELLANE DAILY PRN Consult order Sodium Chloride 3 ml 07/31/20 08:00 08/01/20 08:17 0.9 % Sodium Chloride Flush 3 Ml Syringe IVFLUSH 3 ml QSHIFT [facility] Administration Spironolactone 25 mg 07/31/20 06:30 08/01/20 05:25 Spironolactone 25 Mg Tablet PO 25 mg DAILY@0630 [facility] Administration Protocol Topiramate 25 mg 07/31/20 09:00 08/01/20 08:17 Topiramate 25 Mg Tablet PO 25 mg BID MARIANN Administration Labs CBC & Chem 7: 08/01/20 06:18 08/01/20 06:18 Microbiology Microbiology Results: Microbiology 07/30/20 Unknown Urine clean catch - Clean Catch Midstream Urine Culture - Final Methicillin Res Staph Aureus 07/30/20 18:34 Blood - Venous Blood Culture - Preliminary No growth after 24 hours. 07/30/20 18:34 Blood - Venous Blood Culture - Preliminary No growth after 24 hours. Assessment and Plan (1) Anemia of chronic disease: Status: Acute (2) End stage liver disease: Status: Acute (3) Bilateral lower leg cellulitis: Status: Acute Assessment and Plan: This is a 40 yo F who reports she was sent from the [facility] [place] clinic for worsening of her chronic wounds. 1. Chronic bilateral LE and abdominal wounds, cellulitis plan was for transition to PO antibiotics today, however she spiked a temp. Will start vancomcyin / cefepime and redraw blood cx. Initial blood cx negative @ 24 hours ID input appreciate Wound Care consult pending 2. Prolonged QTC suspected secondary to electrolyte abnormalities will recheck EKG and restart Methadone if QTC improved. Continue telemonitor 3. Cirrhosis Compensated at this time; Continue her diuretics + lactulose 4. Chronic Opiate dependence on methadone, will continue pending repeat EKG 5. HypoK / HypoMg keep K > 4 and Mg > 2 replete IV mag and PO K today 6. Pyuria MRSA in the urine -- has no symptoms at this time; in either case -- on vacomcyin for her cellulitis 7. Chronic Anemia monitor no indication for transfusion at this time Full Code Cannot get pharmacological due to low platelets / anemia; Cannot tolerate mechanical due to chronic wounds; will ambulate as much as possible
[2020-08-01] MEDS: cefEPime HCl 2 GM in 0.9 % Sodium Chloride 50 ML IV ×2 (09:49→20:02)
[2020-08-01] MEDS: vancomycin HCL 1,000 MG in 0.9 % Sodium Chloride 250 ML 270 MG IV ×2 (10:35→21:18)
[2020-08-01] MEDS: Lactulose 20 GM/30 ML SOLUTION 10 GM PO ×2 (14:22→20:03)
--- NOTE | 2020-08-01 16:19 | MHC.CM.PN ---
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 SHE USES A CANE, WALKER, AND A WHEEL CHAIR TO GET TO AND FROM WOUND CARE APPOINTMENTS HERE AT [facility] [place]. HER METHADONE IS DELIVERED DAILY, AND SHE IS ACTIVE WITH [facility] REFERRAL PLACED FOR AGENCY TO FOLLOW. HCP IS ON FILE AND VERIFIED. CASE MANAGEMENT FOLLOWING FOR DC NEEDS.
--- NOTE | 2020-08-01 17:00 | PC.NURSE ---
Addendum entered by Sanjana Mina RN 08/01/20 20:16: patient reports nose bleed did not stop throughout a day,spitting blood often,Dr. Rand notified Original Note: P-nose bleed ,small amt of bleeding noted I-patient reports picking her nose and cleaning it e-cold wet compress applied in right nostril,will monitor
--- NOTE | 2020-08-01 20:45 | PM.EVENT ---
Event Note Date of Service: 08/01/20 Event Note: Advised by nursing staff of nosemarielaed. Patient states she scratched her nose earlier in the day and it began bleeding. She states she has had nosebleeds in the past. She was regurgitating some blood/clot-most recently large clot was spit up. Nose is packed now with gauze and bleeding seems to have stopped. Noted anemia and thrombocytopenia on labs. Given the epistaxis have ordered a type and screen and will order platelets and 1 unit of blood overnight. Advised her to leave packing in and to not touch it.
--- NOTE | 2020-08-01 21:10 | PC.NURSE ---
E-patient seen by Dr. Rand,reports nose bleed stpped now,transfusion ordered,type and screen done
[2020-08-02] VITALS (12 sets, daily range): BP systolic 98–129; BP diastolic 52–71; PULSE 61–80; RESP 16–20; TEMP 36–37.2; O2SAT 94–100
--- NOTE | 2020-08-02 | ECG_ITS ---
Test Reason : QTC CHECK Blood Pressure : / mmHG Vent. Rate : 069 BPM Atrial Rate : 069 BPM P-R Int : 154 ms QRS Dur : 098 ms QT Int : 484 ms P-R-T Axes : 035 026 025 degrees QTc Int : 518 ms Normal sinus rhythm Cannot rule out Anterior infarct , age undetermined Prolonged QT Abnormal ECG When compared with ECG of 31-JUL-2020 14:14, No significant change was found Referred By: Lorenzo Holman Electronically Signed By:HEIDY MORGAN MD
[2020-08-02] MEDS: Spironolactone 25 MG TABLET PO (05:30)
[2020-08-02 07:12] LABS: Hemoglobin 8.5 g/dl (12.0-16.0)
[2020-08-02 07:14] LABS: Hematocrit 26.4 % (37-47); Mean Corpuscular HGB Conc 32.2 g/dl (31.0-35.0); Mean Corpuscular Hemoglobin 31.7 pg (27.0-33.0); Mean Corpuscular Volume 98.5 fL (80-98); PLT CLUMP 1; Red Blood Count 2.68 X10*6/uL (4.20-5.50); Red Cell Distribution Width 18.4 % (11.0-16.0)
[2020-08-02 07:40] LABS: PLT ABN DIST 1
[2020-08-02] MEDS: 0.9 % Sodium Chloride Flush 3 ML SYRINGE IVFLUSH ×3 (08:04→23:10)
[2020-08-02] MEDS: Topiramate 25 MG TABLET PO ×2 (08:04→22:01)
[2020-08-02] MEDS: Folic Acid 1 MG TABLET PO (08:05)
[2020-08-02] MEDS: cloNIDine HCL 0.1 MG TABLET PO (08:05)
[2020-08-02] MEDS: Gabapentin 600 MG TABLET PO ×4 (08:05→22:01)
[2020-08-02] MEDS: Lactulose 20 GM/30 ML SOLUTION 10 GM PO ×3 (08:05→22:01)
[2020-08-02] MEDS: Omeprazole 40 MG CAPSULE.DR PO (08:05)
[2020-08-02] MEDS: Furosemide 20 MG TABLET PO ×2 (08:05→18:21)
[2020-08-02] MEDS: Magnesium Oxide 400 MG TABLET PO ×2 (08:05→18:21)
[2020-08-02] MEDS: cefEPime HCl 2 GM in 0.9 % Sodium Chloride 50 ML IV ×2 (08:06→22:01)
[2020-08-02 08:10] LABS: White Blood Count 3.2 X10*3/uL (4.8-10.8)
[2020-08-02 08:11] LABS: Platelet Count 42 X10*3/uL (160-400)
[2020-08-02 08:20] LABS: Magnesium 1.7 mg/dL (1.6-2.6)
[2020-08-02 08:44] LABS: HIV AB/AG Nonreactive (Nonreactive); HIV Num 1 0.21 S/CO (0.00-0.99)
--- NOTE | 2020-08-02 09:49 | HO.WOUNDCONS ---
History of Present Illness Data of Consult Service Date: 08/02/20 Requesting physician: Loren Kelly Primary Care Provider: Vishal Dietrich MD HPI Reason for consult: leg wounds; umbilical wound 40 year old female known to wound clinic for chronic leg wounds getting Apligraf skin substitute weekly, history of liver disease/cirrhosis, chronic anemia, ?IVDA presented to wound clinic Sunday with foul smell eminating from wounds. Abdomen was distended more than usual with dilated umbilicus and new palpable indurated area LUQ adjuxta umbilicus. +BS in lower quadrant. Patient with severe nausea and vomiting x 3 days by report. Concern for abscess and need for ABD CT was expressed. Upon further investigation, the left leg wound had declined since last visit one week ago and at that time necrotic tissue was seen, aggressively debrided in the clinic with strict instructions for proceed directly to the ED. Report was given to ED triage by me. Over the weekend, ABD CT showed no abscess, hepatosplenomegaly on follow up ultrasound. She was seen by ID and placed on empiric Vanco and Rocephin. Notes indicate transition to doxy and Levaquin if improved but patient TMax yesterday 102F. Blood cultures thus far negative but pending in relation to temperature spike. Patient feeling better with appetite. Epistaxis remains intermittently problematic. PMFSH Functional capacity: independent ambulation Social History Household Members: Family and Children Housing: House Do you presently have visiting nurse or other home services: Yes Smoking Status: Current every day smoker Tobacco Type: Cigarette Packs Per Day: 0.5 Cigarettes Per Day: 10.0 Smoked in Last 30 Days: Yes Patient Interested in Nicotine Replacement: No Patient Given Instructions on How to Stop Smoking: Yes Date Education Initiated: 07/31/20 Second Hand Smoke Exposure: No Use of substances other than those prescribed or required for medical reasons: No Substance Use Type: Opiates Currently Displaying Signs/Symptoms of Drug Intoxication Withdrawal: No Any prior treatment program specific to substance use: Yes Have you been hit, kicked, punched, or otherwise hurt by someone within the past year? If so, by whom?: No Do you feel safe in your current relationship?: Yes Is there a partner from a previous relationship who is making you feel unsafe now?: No Are you made to feel afraid or neglected: No Advance Directives: Yes Advance Directives on File: Yes Advance Directives Date on File: 04/02/20 Do you have thoughts of harming others: None Do you have a plan to hurt others: No Plan Recently lost weight without trying: Yes service: No Current occupational status: disabled Meds Allergies Allergy/AdvReac Type Severity Reaction Status Date / Time No Known Allergies Allergy Unverified 03/18/20 14:51 [No Known Allergies*] morphine AdvReac Unknown N/V Verified 04/08/15 00:00 antibiotic ? Allergy Unknown Uncoded 01/05/20 00:00 Home Medications Medication Instructions Recorded Confirmed Type clonidine HCl 0.1 mg PO DAILY 07/30/20 07/30/20 History folic acid 1 mg PO DAILY 07/30/20 07/31/20 History furosemide 20 mg PO BID 07/30/20 07/31/20 History gabapentin 600 mg PO QID 07/30/20 07/31/20 History lactulose 10 g PO TID 07/30/20 07/31/20 History omeprazole 40 mg PO DAILY 07/30/20 07/31/20 History potassium chloride 20 meq PO DAILY 07/30/20 07/31/20 History spironolactone 25 mg PO DAILY@0630 07/30/20 07/31/20 History topiramate 25 mg PO BID 07/30/20 07/31/20 History methadone 120 mg PO DAILY 07/31/20 07/31/20 History Physical Exam Vital Signs and Narrative: Vital Signs: Last Vital Signs Temp 98.7 F 08/02/20 07:30 Pulse 79 08/02/20 07:30 Resp 16 08/02/20 07:30 BP 118/68 08/02/20 07:30 Pulse Ox 95 08/02/20 07:30 Body Mass Index 27.4 Dressing removed by me. Left heel wound unchanged. Patient noted to be appropriately floating heels before removal of dressings. Left anterior tibial wound looking decent, pink base, new tissue along superior edges. No recurrence of necrosis or purulence with hyrdrofera blue about inferior aspect of wound bed. No obvious cellulitis though slight odor is appreciated. Edema of the left leg is londstanding. Left calf wound largely unchanged. The umbilicus does not track. A tissue culture was obtained of purulent material at the base of the umbilicus and will likely be polymicrobial with skin michele. There was no tracking, undermining or full thickness wound identified. Again, no purulence is expressible through the umbilicus. No erythema or edema about the umbilicus to suggest cellulitis. I did not see her right leg today. Results Labs CBC and Chem 7: 08/02/20 06:09 08/01/20 06:18 Labs: Laboratory Results - last 24 hr 08/01/20 08/01/20 08/02/20 21:00 21:00 06:09 MCV 98.5 H MCH 31.7 MCHC 32.2 RDW 18.4 H Plt Count 42 L MPV Not Reportable Absolute Nucleated RBC 0.000 Nucleated RBC % (auto) 0.0 Magnesium HIV 1&2 Ab/P24 Ag 4thGn Nonreactive Blood Type AB Positive Antibody Screen NEGATIVE Crossmatch See Detail 08/02/20 06:09 MCV MCH MCHC RDW Plt Count MPV Absolute Nucleated RBC Nucleated RBC % (auto) Magnesium 1.7 HIV 1&2 Ab/P24 Ag 4thGn Blood Type Antibody Screen Crossmatch Assessment and Plan (1) Non-pressure chronic ulcer of other part of left lower leg with necrosis of muscle: Start date: 08/02/20 Problem details: left anterior tibial leg Status: Acute See wound care instructions to include topical dressings. Avoid maceration of umbilicus using DCD beneath foam and change daily with appropriate topical hygiene with each dressing change. Umbilical culture sent but expected to be polymicrobial. From wound care perspective, no indication to summon general surgery as tibial wound has stabilized. Agree with ID that transition to oral antibiotics appropriate so long as blood cultures remain normal. Anemia, bleeding and liver issues deferred to medical team. Consider application of KRISTEN wrap to left lower extremity to control edema. Wound discharge instructions as per orders. Thank you for the courtesy of this consultation.
[2020-08-02] MEDS: vancomycin HCL 1,000 MG in 0.9 % Sodium Chloride 250 ML 270 MG IV ×2 (10:30→23:03)
--- NOTE | 2020-08-02 12:56 | MHC.CM.PN ---
PATIENT BEING MONITORED FOR HEMODYNAMIC STABILITY PRIOR TO RETURN HOME WITH [facility].
--- NOTE | 2020-08-02 14:03 | P.PNIM_ITS ---
Subjective Subjective Date of Service: 08/02/20 Interval History: seen and examined this AM overnight events reviewed this AM, no further nose bleeds she is hoping for d/c tomorrow if blood cx negative ROS General - +fevers or chills Cardiovascular - no chest pain Respiratory - no shortness of breath or cough Abdominal- no abdominal pain, +nausea, -ve vomiting, -ve diarrhea Physical Exam Vital Signs: Vital Signs: Last Vital Signs Temp 97.7 F 08/02/20 11:23 Pulse 63 08/02/20 11:23 Resp 19 08/02/20 11:23 BP 99/55 L 08/02/20 11:23 Pulse Ox 95 08/02/20 11:23 Body Mass Index 27.4 Const: Other: General - no acute distress, appears comfortable Cardiovascular - regular rate and rhythm, S1-S2 Lungs - normal respiratory effort, clear to auscultation bilaterally, no wheezing Abdomen - soft and non-tender; lucy-umbilical open wound -- no drainange this AM Extremities - no edema bilaterally Neuro - awake and alert, no focal deficits Skin - b/l LE with chronic wounds Objective Data Current Medications Generic Name Dose Route Start Last Admin Trade Name Freq PRN Reason Stop Dose Admin Acetaminophen 650 mg 08/01/20 08:11 08/01/20 08:26 Acetaminophen 325 Mg Tablet PO 650 mg Q6H PRN Administration Fever Clonidine HCl 0.1 mg 07/31/20 09:00 08/02/20 08:05 Clonidine Hcl 0.1 Mg Tablet PO 0.1 mg DAILY MARIANN Administration Protocol Folic Acid 1 mg 07/31/20 09:00 08/02/20 08:05 Folic Acid 1 Mg Tablet PO 1 mg DAILY MARIANN Administration Furosemide 20 mg 07/31/20 08:00 08/02/20 08:05 Furosemide 20 Mg Tablet PO 20 mg BIDWM MARIANN Administration Protocol Gabapentin 600 mg 07/31/20 09:00 08/02/20 08:05 Gabapentin 600 Mg Tablet PO 600 mg QID MARIANN Administration Vancomycin HCl 1,000 mg/ 270 mls @ 270 mls/hr 08/01/20 09:00 08/02/20 11:40 Sodium Chloride IV Infused Q12H MARIANN Infusion Cefepime HCl 2 gm/ Sodium 50 mls @ 100 mls/hr 08/01/20 09:00 08/02/20 10:23 Chloride IV Infused Q12H MARIANN Infusion Lactulose 10 gm 07/31/20 09:00 08/02/20 08:05 Lactulose 20 Gm/30 Ml Solution PO 10 gm TID MARIANN Administration Magnesium Oxide 400 mg 08/01/20 08:30 08/02/20 08:05 Magnesium Oxide 400 Mg Tablet PO 400 mg BIDPC MARIANN Administration Methadone HCl 120 mg 08/01/20 10:25 08/02/20 08:05 Methadone Hcl 1 Mg/0.1 Ml Oral.Conc PO 120 mg DAILY AMRIANN Administration Omeprazole 40 mg 07/31/20 09:00 08/02/20 08:05 Omeprazole 40 Mg Capsule. PO 40 mg DAILY MARIANN Administration Pharmacy Consult 1 each 07/30/20 21:27 Consult Rx Vancomycin Dosing MISCELLANE DAILY PRN Consult order Sodium Chloride 3 ml 07/31/20 08:00 08/02/20 08:04 0.9 % Sodium Chloride Flush 3 Ml Syringe IVFLUSH 3 ml QSHIFT [facility] Administration Spironolactone 25 mg 07/31/20 06:30 08/02/20 05:30 Spironolactone 25 Mg Tablet PO 25 mg DAILY@0630 [facility] Administration Protocol Topiramate 25 mg 07/31/20 09:00 08/02/20 08:04 Topiramate 25 Mg Tablet PO 25 mg BID MARIANN Administration Labs CBC & Chem 7: 08/02/20 14:41 08/02/20 14:41 Microbiology Microbiology Results: Microbiology 08/01/20 08:13 Blood - Venous Blood Culture - Preliminary No growth after 24 hours. 08/01/20 08:10 Blood - Venous Blood Culture - Preliminary No growth after 24 hours. 07/30/20 18:34 Blood - Venous Blood Culture - Preliminary No growth after 48 hours. 07/30/20 18:34 Blood - Venous Blood Culture - Preliminary No growth after 48 hours. 07/30/20 Unknown Urine clean catch - Clean Catch Midstream Urine Culture - Final Methicillin Res Staph Aureus Assessment and Plan (1) Anemia of chronic disease: Status: Acute (2) End stage liver disease: Status: Acute (3) Bilateral lower leg cellulitis: Status: Acute Assessment and Plan: This is a 40 yo F who reports she was sent from the [facility] for worsening of her chronic wounds. 1. Chronic bilateral LE and abdominal wounds, cellulitis repeat cx from 08/01/2019 -- negative @ 24 hours continue vancomcyin/cefepime; monitor renal function / vancomcyin trough ID follow up Wound Care input appreciated 2. Prolonged QTC QTC stable with her methadone monitor on tele monitor lytes -- Keep K > 4, Mg >2 3. Cirrhosis Compensated at this time; Continue her diuretics + lactulose 4. Chronic Opiate dependence continue methadone 5. HypoK / HypoMg keep K > 4 and Mg > 2 po K 6. Pyuria MRSA in the urine -- has no symptoms at this time; in either case -- on vacomcyin for her cellulitis 7. Chronic Anemia, thrombocytpenia s/p 1 unit prbc/plts due to epistaxis Full Code Cannot get pharmacological due to low platelets / anemia; Cannot tolerate mechanical due to chronic wounds; will ambulate as much as possible
[2020-08-02 14:56] LABS: Hematocrit 25.9 % (37-47); Hemoglobin 8.4 g/dl (12.0-16.0); Mean Corpuscular HGB Conc 32.4 g/dl (31.0-35.0); Mean Corpuscular Hemoglobin 32.1 pg (27.0-33.0); Mean Corpuscular Volume 98.9 fL (80-98); Platelet Count 51 X10*3/uL (160-400); Red Blood Count 2.62 X10*6/uL (4.20-5.50); Red Cell Distribution Width 18.4 % (11.0-16.0); White Blood Count 3.2 X10*3/uL (4.8-10.8)
[2020-08-02 15:19] LABS: Alanine Aminotransferase 18 U/L (0-31); Albumin Level 2.7 g/dL (3.5-5.0); Alkaline Phosphatase 205 U/L (39-117); Anion Gap 10 (12-20); Aspartate Amino Transferase 118 U/L (5-31); Bilirubin Direct 3.2 mg/dL (0.0-0.5); Bilirubin Total 5.1 mg/dL (0.0-1.0); Blood Urea Nitrogen 9 mg/dL (9-16); Calcium 8.3 mg/dL (8.4-10.2); Carbon Dioxide 26 mmol/L (22-29); Chloride 101 mmol/L (96-108); Estimated Glomerular Filt Rate > 60; Glucose Random 84 mg/dL (60-115); Potassium 3.6 mmol/L (3.3-5.1); Sodium 133 mmol/L (135-145); Total Protein 8.1 g/dL (6.5-8.0)
[2020-08-02] MEDS: Potassium Chloride ER 20 MEQ TAB.ER.PRT 60 MEQ PO (16:19)
[2020-08-02] MEDS: Sodium Chloride 0.65 % Nasal 44 ML SPRBTL 1 SPRAY NOSTRIL-B (22:16)
[2020-08-02 22:39] LABS: Vancomycin Trough 16.9 mcg/mL (10.0-20.0)
[2020-08-03] VITALS: BP 109/61; PULSE 69; RESP 19; TEMP 36.6; O2SAT 98
[2020-08-03 04:00] VITALS: BP 146/78; PULSE 78; RESP 19; TEMP 36.6; O2SAT 96
[2020-08-03 05:32] VITALS: BP 146/78; PULSE 78
[2020-08-03] MEDS: Spironolactone 25 MG TABLET PO (05:32)
[2020-08-03 08:00] VITALS: BP 107/58; PULSE 62; RESP 18; TEMP 36.4; O2SAT 100
[2020-08-03] MEDS: Folic Acid 1 MG TABLET PO (08:05)
[2020-08-03] MEDS: Omeprazole 40 MG CAPSULE.DR PO (08:05)
[2020-08-03] MEDS: Lactulose 20 GM/30 ML SOLUTION 10 GM PO (08:05)
[2020-08-03] MEDS: Topiramate 25 MG TABLET PO (08:06)
[2020-08-03] MEDS: Gabapentin 600 MG TABLET PO (08:06)
[2020-08-03] MEDS: cloNIDine HCL 0.1 MG TABLET PO (08:06)
[2020-08-03] MEDS: Magnesium Oxide 400 MG TABLET PO (08:06)
[2020-08-03] MEDS: cefEPime HCl 2 GM in 0.9 % Sodium Chloride 50 ML IV (08:06)
[2020-08-03] MEDS: 0.9 % Sodium Chloride Flush 3 ML SYRINGE IVFLUSH (08:06)
[2020-08-03] MEDS: Furosemide 20 MG TABLET PO (08:06)
[2020-08-03] MEDS: vancomycin HCL 1,000 MG in 0.9 % Sodium Chloride 250 ML 270 MG IV (10:51)
--- NOTE | 2020-08-03 11:15 | PM.DS ---
DS: Providers Provider Date of Service: 08/03/20 Date of admission: 07/31/20 04:56 Primary care physician: Vishal Dietrich MD Consults: 07/31/20 06:07 Consult to Infectious Diseases Routine Consulting Provider: Infectious Disease Reason for consultation: Bilateral LE, periumbilical cellulitis Has provider been notified: No Consult to Wound Care Provider Routine Consulting Provider: [facility] Reason for consultation: Bilateral LE and periumbilical wounds Has provider been notified: No DS: Diagnosis Discharge Diagnosis (1) Anemia of chronic disease: Status: Acute (2) End stage liver disease: Status: Acute (3) Bilateral lower leg cellulitis: Status: Acute DS: Medications Discharge Medications Home Medications: Home Medications Medication Instructions Recorded Confirmed clonidine HCl 0.1 mg PO DAILY 07/30/20 07/30/20 folic acid 1 mg PO DAILY 07/30/20 07/31/20 furosemide 20 mg PO BID 07/30/20 07/31/20 gabapentin 600 mg PO QID 07/30/20 07/31/20 lactulose 10 g PO TID 07/30/20 07/31/20 omeprazole 40 mg PO DAILY 07/30/20 07/31/20 potassium chloride 20 meq PO DAILY 07/30/20 07/31/20 spironolactone 25 mg PO DAILY@0630 07/30/20 07/31/20 topiramate 25 mg PO BID 07/30/20 07/31/20 methadone 120 mg PO DAILY 07/31/20 07/31/20 DS: Summary Hospital Course Hospital Course: HPI by Dr. Kelly 40-year-old female with extensive PMHX who presented from home due to Bilateral LE and periumbilical wounds for evaluation. Patient has a known hx of chronic bilateral lower extremity wounds and periumbilical wound which has been taking care of at the wound care clinic. Patient reports that this has been going one for more than a year without any improvement. Has noticed that recently her wounds have become more painful and associated with a malodorous discharge. Also reports chill and generalized fatigue in the past few days. Patient has a significant hx of End-stage liver disease. Patient denies any chest pain, SOB, nausea or vomiting at present. Patient was seen in the ED, wound dressings were replaced but was noted a malodorous discharge coming from bilateral LE wounds as well as bloody discharge from her periumbilical wound. Patient was given one dose of Vanco and Rocephin. Hgb if 9.0, WBC normal, Platelet of 57, K of 2.7, mag of 1.5. Patient was given 2 g of Mag and 40 mEq of KCL per ED attending. Decision for admission was given. Patient seen and examined at the bedside, laying down in bed in no acute distress. ROS as above otherwise negative. Physical exam positive for Bilateral LE infected wound with surrounding erythema / skin discoloration due to venous stasis. Periumbilical wound draining bloody discharge and surrounding erythema. Hospital course: Chronic bilateral LE and abdominal wounds, cellulitis--seen [facility] and sent here. She has been on Vancomycin and Cefepime. Blood cultures have been negative. Wound cultures growing Staph Aureus. Has been seen by ID and given no bacteremia, recommend oral Doxycycline. Will discharge with PO Doxy and follow up with with wound clinic. 2. 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 Cirrhosis Compensated at this time; Continue her diuretics + lactulose 4. Chronic Opiate dependence continue methadone 5. HypoK / HypoMg--Corrected 6. Pyuria MRSA in the urine -- has no symptoms at this time; in either case -- Will treat with Doxy as above 7. Chronic Anemia, thrombocytpenia s/p 1 unit prbc/plts due to epistaxis Time Spent with Patient Time attestation: Total time spent providing and/or coordinating discharge services: Discharge coordination time: Greater than 30 minutes Physical Exam Vital Signs: Vital Signs: Last Vital Signs Temp 97.5 F 08/03/20 08:00 Pulse 62 08/03/20 08:00 Resp 18 08/03/20 08:00 BP 107/58 L 08/03/20 08:00 Pulse Ox 100 08/03/20 08:00 Body Mass Index 27.4 Const: Other: General - no acute distress, appears comfortable Cardiovascular - regular rate and rhythm, S1-S2 Lungs - normal respiratory effort, clear to auscultation bilaterally, no wheezing Abdomen - soft and non-tender; lucy-umbilical open wound -- no drainange this AM Extremities - no edema bilaterally Neuro - awake and alert, no focal deficits Skin - b/l LE with chronic wounds General: cooperative, comfortable and no acute distress Orientation/consciousness: oriented to person, oriented to place and oriented to time Neuro: General: oriented to person, oriented to place and oriented to time DS: Data Data Completed and Pending Labs on day of discharge: Laboratory Tests 07/30/20 07/30/20 07/30/20 18:34 18:34 18:34 WBC 5.1 RBC 2.92 L Hgb 9.0 L Hct 28.2 L MCV 96.6 MCH 30.8 MCHC 31.9 RDW 18.2 H Plt Count 57 L MPV Not Reportable Immature Gran % (Auto) 0.4 Neut % (Auto) 76.2 H Lymph % (Auto) 14.8 L [place] % (Auto) 7.4 Eos % (Auto) 1.0 Baso % (Auto) 0.2 Lymph # (Auto) 0.8 L [place] # (Auto) 0.4 Eos # (Auto) 0.1 Baso # (Auto) 0.0 Abs Immat Gran (auto) 0.02 Absolute Neuts (auto) 3.9 Absolute Nucleated RBC 0.000 Nucleated RBC % (auto) 0.0 Smear Tech's Comments VERIFIED PT 17.4 H INR 1.5 H APTT 54.5 H Sodium 139 Potassium 2.7 L Chloride 98 Carbon Dioxide 32 H Anion Gap 12 BUN 7 L Creatinine 0.63 Estim Creat Clear Calc 105.1 Estimated GFR > 60 Random Glucose 67 Lactic Acid Calcium 8.6 Magnesium 1.5 L Total Bilirubin 2.7 H Direct Bilirubin 1.4 H AST 131 H ALT 18 Alkaline Phosphatase 268 H Troponin I High Sens Total Protein 9.7 H Albumin 3.0 L Lipase 93 H Urine Color Urine Appearance Urine pH Ur Specific [place] Urine Protein Urine Glucose (UA) Urine Ketones Urine Blood Urine Nitrite Ur Leukocyte Esterase Urine RBC Urine WBC Ur Squamous Epith Cells Amorphous Sediment Urine Bacteria Vancomycin Trough COVID-19 ([facility]) COVID-19 Clin Com HIV 1&2 Ab/P24 Ag 4thGn Blood Type Antibody Screen Direct Antiglob Test MIO, Polyspecific Crossmatch Crossmatch ([facility]) 07/30/20 07/30/20 07/30/20 18:34 18:34 18:53 WBC RBC Hgb Hct MCV MCH MCHC RDW Plt Count MPV Immature Gran % (Auto) Neut % (Auto) Lymph % (Auto) [place] % (Auto) Eos % (Auto) Baso % (Auto) Lymph # (Auto) [place] # (Auto) Eos # (Auto) Baso # (Auto) Abs Immat Gran (auto) Absolute Neuts (auto) Absolute Nucleated RBC Nucleated RBC % (auto) Smear Tech's Comments PT INR APTT Sodium Potassium Chloride Carbon Dioxide Anion Gap BUN Creatinine Estim Creat Clear Calc Estimated GFR Random Glucose Lactic Acid 1.6 Calcium Magnesium Total Bilirubin Direct Bilirubin AST ALT Alkaline Phosphatase Troponin I High Sens 13.3 Total Protein Albumin Lipase Urine Color YELLOW Urine Appearance HAZY Urine pH 7.0 Ur Specific [place] 1.010 Urine Protein NEG Urine Glucose (UA) NEG Urine Ketones NEG Urine Blood NEG Urine Nitrite POS H Ur Leukocyte Esterase TRACE H Urine RBC 0 Urine WBC 0-2 Ur Squamous Epith Cells TRACE Amorphous Sediment 1+ Urine Bacteria 1+ Vancomycin Trough COVID-19 ([facility]) COVID-19 Clin Com HIV 1&2 Ab/P24 Ag 4thGn Blood Type Antibody Screen Direct Antiglob Test MIO, Polyspecific Crossmatch Crossmatch ([facility]) 07/31/20 07/31/20 07/31/20 00:36 06:48 06:48 WBC 3.1 L RBC 2.55 L Hgb 7.8 L Hct 24.4 L MCV 95.7 MCH 30.6 MCHC 32.0 RDW 18.5 H Plt Count 40 L D MPV Not Reportable Immature Gran % (Auto) 0.3 Neut % (Auto) 84.5 H Lymph % (Auto) 7.8 L [place] % (Auto) 7.1 Eos % (Auto) 0.0 Baso % (Auto) 0.3 Lymph # (Auto) 0.2 L [place] # (Auto) 0.2 Eos # (Auto) 0.0 Baso # (Auto) 0.0 Abs Immat Gran (auto) 0.01 Absolute Neuts (auto) 2.6 Absolute Nucleated RBC 0.000 Nucleated RBC % (auto) 0.0 Smear Tech's Comments VERIFIED PT INR APTT Sodium 140 Potassium 3.0 L Chloride 103 Carbon Dioxide 30 H Anion Gap 10 L BUN 6 L Creatinine 0.59 Estim Creat Clear Calc 112.3 Estimated GFR > 60 Random Glucose 67 Lactic Acid Calcium 7.8 L D Magnesium 1.7 Total Bilirubin Direct Bilirubin AST ALT Alkaline Phosphatase Troponin I High Sens Total Protein Albumin Lipase Urine Color Urine Appearance Urine pH Ur Specific [place] Urine Protein Urine Glucose (UA) Urine Ketones Urine Blood Urine Nitrite Ur Leukocyte Esterase Urine RBC Urine WBC Ur Squamous Epith Cells Amorphous Sediment Urine Bacteria Vancomycin Trough COVID-19 ([facility]) Negative COVID-19 Clin Com See Note HIV 1&2 Ab/P24 Ag 4thGn Blood Type Antibody Screen Direct Antiglob Test MIO, Polyspecific Crossmatch Crossmatch ([facility]) 07/31/20 08/01/20 08/01/20 14:30 06:18 06:18 WBC 2.9 L RBC 2.48 L Hgb 7.7 L Hct 24.1 L MCV 97.2 MCH 31.0 MCHC 32.0 RDW 18.6 H Plt Count TNP MPV Not Reportable Immature Gran % (Auto) Neut % (Auto) Lymph % (Auto) [place] % (Auto) Eos % (Auto) Baso % (Auto) Lymph # (Auto) [place] # (Auto) Eos # (Auto) Baso # (Auto) Abs Immat Gran (auto) Absolute Neuts (auto) Absolute Nucleated RBC 0.000 Nucleated RBC % (auto) 0.0 Smear Tech's Comments PT INR APTT Sodium 132 L Potassium 3.4 3.6 Chloride 99 Carbon Dioxide 24 Anion Gap 13 BUN 8 L Creatinine 0.66 Estim Creat Clear Calc 100.4 Estimated GFR > 60 Random Glucose 96 D Lactic Acid Calcium 8.1 L Magnesium 1.5 L 1.7 Total Bilirubin 4.1 H Direct Bilirubin 2.4 H AST 126 H ALT 17 Alkaline Phosphatase 225 H Troponin I High Sens Total Protein 8.3 H Albumin 2.7 L Lipase Urine Color Urine Appearance Urine pH Ur Specific [place] Urine Protein Urine Glucose (UA) Urine Ketones Urine Blood Urine Nitrite Ur Leukocyte Esterase Urine RBC Urine WBC Ur Squamous Epith Cells Amorphous Sediment Urine Bacteria Vancomycin Trough COVID-19 ([facility]) COVID-19 Clin Com HIV 1&2 Ab/P24 Ag 4thGn Blood Type Antibody Screen Direct Antiglob Test MIO, Polyspecific Crossmatch Crossmatch ([facility]) 08/01/20 08/01/20 08/02/20 21:00 21:00 06:09 WBC 3.2 L RBC 2.68 L Hgb 8.5 L Hct 26.4 L MCV 98.5 H MCH 31.7 MCHC 32.2 RDW 18.4 H Plt Count 42 L MPV Not Reportable Immature Gran % (Auto) Neut % (Auto) Lymph % (Auto) [place] % (Auto) Eos % (Auto) Baso % (Auto) Lymph # (Auto) [place] # (Auto) Eos # (Auto) Baso # (Auto) Abs Immat Gran (auto) Absolute Neuts (auto) Absolute Nucleated RBC 0.000 Nucleated RBC % (auto) 0.0 Smear Tech's Comments PT INR APTT Sodium Potassium Chloride Carbon Dioxide Anion Gap BUN Creatinine Estim Creat Clear Calc Estimated GFR Random Glucose Lactic Acid Calcium Magnesium Total Bilirubin Direct Bilirubin AST ALT Alkaline Phosphatase Troponin I High Sens Total Protein Albumin Lipase Urine Color Urine Appearance Urine pH Ur Specific [place] Urine Protein Urine Glucose (UA) Urine Ketones Urine Blood Urine Nitrite Ur Leukocyte Esterase Urine RBC Urine WBC Ur Squamous Epith Cells Amorphous Sediment Urine Bacteria Vancomycin Trough COVID-19 ([facility]) COVID-19 Clin Com HIV 1&2 Ab/P24 Ag 4thGn Nonreactive Blood Type AB Positive Antibody Screen NEGATIVE Direct Antiglob Test NEGATIVE MIO, Polyspecific POSITIVE A Crossmatch See Detail Crossmatch ([facility]) See Detail 08/02/20 08/02/20 08/02/20 06:09 14:41 14:41 WBC 3.2 L RBC 2.62 L Hgb 8.4 L Hct 25.9 L MCV 98.9 H MCH 32.1 MCHC 32.4 RDW 18.4 H Plt Count 51 L MPV Not Reportable Immature Gran % (Auto) Neut % (Auto) Lymph % (Auto) [place] % (Auto) Eos % (Auto) Baso % (Auto) Lymph # (Auto) [place] # (Auto) Eos # (Auto) Baso # (Auto) Abs Immat Gran (auto) Absolute Neuts (auto) Absolute Nucleated RBC 0.000 Nucleated RBC % (auto) 0.0 Smear Tech's Comments PT INR APTT Sodium 133 L Potassium 3.6 Chloride 101 Carbon Dioxide 26 Anion Gap 10 L BUN 9 Creatinine 0.69 Estim Creat Clear Calc 96.0 Estimated GFR > 60 Random Glucose 84 Lactic Acid Calcium 8.3 L Magnesium 1.7 Total Bilirubin 5.1 H Direct Bilirubin 3.2 H AST 118 H ALT 18 Alkaline Phosphatase 205 H Troponin I High Sens Total Protein 8.1 H Albumin 2.7 L Lipase Urine Color Urine Appearance Urine pH Ur Specific [place] Urine Protein Urine Glucose (UA) Urine Ketones Urine Blood Urine Nitrite Ur Leukocyte Esterase Urine RBC Urine WBC Ur Squamous Epith Cells Amorphous Sediment Urine Bacteria Vancomycin Trough COVID-19 ([facility]) COVID-19 Clin Com HIV 1&2 Ab/P24 Ag 4thGn Blood Type Antibody Screen Direct Antiglob Test MIO, Polyspecific Crossmatch Crossmatch ([facility]) 08/02/20 21:54 WBC RBC Hgb Hct MCV MCH MCHC RDW Plt Count MPV Immature Gran % (Auto) Neut % (Auto) Lymph % (Auto) [place] % (Auto) Eos % (Auto) Baso % (Auto) Lymph # (Auto) [place] # (Auto) Eos # (Auto) Baso # (Auto) Abs Immat Gran (auto) Absolute Neuts (auto) Absolute Nucleated RBC Nucleated RBC % (auto) Smear Tech's Comments PT INR APTT Sodium Potassium Chloride Carbon Dioxide Anion Gap BUN Creatinine Estim Creat Clear Calc Estimated GFR Random Glucose Lactic Acid Calcium Magnesium Total Bilirubin Direct Bilirubin AST ALT Alkaline Phosphatase Troponin I High Sens Total Protein Albumin Lipase Urine Color Urine Appearance Urine pH Ur Specific [place] Urine Protein Urine Glucose (UA) Urine Ketones Urine Blood Urine Nitrite Ur Leukocyte Esterase Urine RBC Urine WBC Ur Squamous Epith Cells Amorphous Sediment Urine Bacteria Vancomycin Trough 16.9 COVID-19 ([facility]) COVID-19 Clin Com HIV 1&2 Ab/P24 Ag 4thGn Blood Type Antibody Screen Direct Antiglob Test MIO, Polyspecific Crossmatch Crossmatch ([facility]) Preliminary micro results at discharge 08/01/20 08:10 Blood Culture - Preliminary Blood - Venous No growth after 48 hours. 08/01/20 08:13 Blood Culture - Preliminary Blood - Venous No growth after 48 hours. 08/02/20 09:25 Routine Culture - Preliminary Abdomen Staphylococcus aureus 07/30/20 18:34 Blood Culture - Preliminary Blood - Venous No growth after 48 hours. 07/30/20 18:34 Blood Culture - Preliminary Blood - Venous No growth after 48 hours. Discharge Plan Discharge Anticipated Discharge Date/Time: 08/03/20 11:07 Patient Disposition: Home, Self-Care Referrals: [facility] [Outside] Vishal Dietrich MD [Primary Care Provider] - Discharge Medications: New doxycycline hyclate 100 mg capsule 100 mg PO BID Qty: 20 RF: 0 Continued clonidine HCl 0.1 mg tablet 0.1 mg PO DAILY RF: 0 gabapentin 600 mg tablet 600 mg PO QID RF: 0 topiramate 25 mg tablet 25 mg PO BID RF: 0 omeprazole 40 mg capsule,delayed release(DR/EC) 40 mg PO DAILY RF: 0 spironolactone 25 mg tablet 25 mg PO DAILY@0630 RF: 0 folic acid 1 mg tablet 1 mg PO DAILY RF: 0 furosemide 20 mg tablet 20 mg PO BID RF: 0 lactulose 10 gram/15 mL solution 10 g PO TID RF: 0 potassium chloride 20 mEq tablet extended release 20 meq PO DAILY RF: 0 methadone 10 mg/mL Concentrate 120 mg PO DAILY RF: 0 Discharge Orders: Discharge Order (Routine); Ordered 08/03/20 Ordered By: Jose Kemp Diet: advance to usual diet Activity on Discharge: As tolerated Stand Alone Forms: Patient Portal Discharge page Visit Report Forms: Patient Portal Discharge page Care Plan Goals: prevent hospitalization, resolution of infection Health Concerns: history of liver disease and alcohol use Plan of Treatment: Take Doxycyline as recommended and follow up with you Doctor in a week, call for appointment, avoid alcohol at all cost. Return to wound clinic as usual
[2020-08-03 11:40] VITALS: BP 99/56; PULSE 60; RESP 18; TEMP 36.2; O2SAT 98
== END 2020-08-03 15:22 | disposition home or self-care (01) | DRG 383 ==
LOC: HO.ED 23:57 → HO.EDOVER 07-31 05:05 → HO.S3 07-31 15:10
PROVIDERS: Family Medicine; Internal Medicine; Nurse Practitioner Family; Admitting Provider Internal Medicine; Emergency Provider Internal Medicine; PCP Internal Medicine; Visit Provider Internal Medicine
DX: L03.116 Cellulitis of left lower limb (principal); D69.6 Thrombocytopenia, unspecified; F11.20 Opioid dependence, uncomplicated; K72.90 Hepatic failure, unspecified without coma; E83.42 Hypomagnesemia; L97.823 Non-pressure chronic ulcer of other part of left lower leg with necrosis of muscle; N39.0 Urinary tract infection, site not specified; L03.115 Cellulitis of right lower limb; L98.499 Non-pressure chronic ulcer of skin of other sites with unspecified severity; L97.919 Non-pressure chronic ulcer of unspecified part of right lower leg with unspecified severity; R94.31 Abnormal electrocardiogram [ECG] [EKG]; F17.210 Nicotine dependence, cigarettes, uncomplicated; B95.62 Methicillin resistant Staphylococcus aureus infection as the cause of diseases classified elsewhere; Z71.6 Tobacco abuse counseling; Z20.822 Contact with and (suspected) exposure to COVID-19; E87.6 Hypokalemia; D63.8 Anemia in other chronic diseases classified elsewhere; Z79.899 Other long term (current) drug therapy
CPT/HCPCS: 36415; 71045; 74177; 76705; 80048; 80076; 80202; 81001; 81003; 83605; 83690; 83735; 84132; 84484; 85025; 85027; 85610; 85730; 86850; 86880; 86900; 86901; 86920; 86922; 87040; 87071; 87086; 87088; 87147; 87186; 87205; 87389; 87635; 93005; 99285; J0692; J0696; J2060; J3370; J3475; P9016; P9035; Q9967

== ENCOUNTER 2020-11-29 | Outpatient (REF) | payer OTHER, SELFPAY | END 2020-11-29 00:01 | disposition home or self-care (01) | LOC: HO.LNP | PROVIDERS: Visit Provider Internal Medicine Endocrinology, Diabetes & Metabolism | DX: Z13.89 Encounter for screening for other disorder (principal) ==

== ENCOUNTER 2020-11-30 07:49 | Emergency (ER) | payer OTHER, SELFPAY ==
[2020-11-30] VITALS (7 sets, daily range): BP systolic 115–128; BP diastolic 47–59; PULSE 88–95; RESP 15–17; TEMP 37.2–37.6; O2SAT 94–98; BMI 26.6
--- NOTE | ~2020-11-30 | XR_ITS ---
EXAMINATION: XR CHEST CLINICAL INFORMATION: Weakness and lightheadedness COMPARISON: Chest 07/30/2020 TECHNIQUE: Frontal view of the chest was obtained. FINDINGS: The lungs are expanded and clear of acute pneumonic process. There is mild cardiomegaly with increased pulmonary vascularity suggestive congestion. No gross bony abnormality seen. XR/XR chest 1V IMPRESSION: Cardiomegaly with mild pulmonary vascular congestion.
--- NOTE | ~2020-11-30 | CT_ITS ---
EXAMINATION: CT ABDOMEN AND PELVIS WITH CONTRAST CLINICAL INFORMATION: Abdominal pain. Draining wound. Question ascites. COMPARISON: Previous CT of the abdomen and pelvis 07/30/2020 and abdominal ultrasound July 2020 TECHNIQUE: Multidetector volumetric images were obtained from the superior aspect of the liver through the pubic symphysis following administration 85 mL of Omnipaque 350 intravenous contrast. Sagittal and coronal reformatted images were obtained on the technologist's workstation. Oral contrast: Yes This CT examination was performed using dose optimization techniques as appropriate, variously including the following: *Automated exposure control *Adjustment of mA and/or kV according to patient size (this includes techniques or standardized protocols for targeted exams where dose is matched to indication/reason for exam; i.e. extremities or head) *Use of iterative reconstruction technique DLP: 524 mGy-cm FINDINGS: LUNG BASES: There is a 3 mm right lower lobe nodule axial image 26 series 4 and increased peribronchial or centrilobular attenuation in the right lower lobe as well. These findings are new from previous exam July 2020. This may represent airways disease. LIVER, GALLBLADDER, AND BILIARY TREE: The liver is enlarged. The liver is slightly low in attenuation suggestive of fatty infiltration. No focal liver lesion is seen. There are gallstones in the gallbladder. There is no intrahepatic biliary duct dilatation. The common bile duct is slightly dilated measuring 1.2 cm. This is similar to previous exams. Main portal vein is prominent measuring 1.5 cm. There are upper abdominal varices. PANCREAS: Unremarkable. SPLEEN: The spleen is enlarged and measures 17 cm in length. ADRENAL GLANDS: Unremarkable. KIDNEYS AND URETERS: The kidneys are normal in size, shape, and attenuation. No hydronephrosis, hydroureter, or calculi seen. No perinephric stranding. BLADDER: Unremarkable. GASTROINTESTINAL TRACT: The small and large bowel are unremarkable. ABDOMINAL WALL: There is diastasis of the rectus muscles. There is question of previous lower abdominal wall hernia repair. There is asymmetric increased fluid in the right lower abdominal wall overlying the abdominal wall musculature. This measures 3 x 13 x 8 cm in dimension. There is adjacent skin thickening and stranding of the surrounding fat. Appearance is suggestive cellulitis. There are scattered areas of a symmetric appearing subcutaneous edema suggestive of a generalized anasarca. No ascites is seen. LYMPH NODES: There is shotty retroperitoneal lymphadenopathy. No enlarged lymph nodes are seen. VASCULAR: There are varices. The abdominal aorta is normal in caliber. PELVIC VISCERA: Unremarkable. OSSEOUS STRUCTURES: There is old right pubic rami fractures there is an old right sacral fracture. There are compression fractures of the L3-L4 and L5 vertebral bodies that appear unchanged. There are degenerative changes of the spine. CT/CT abdomen pelvis w con IMPRESSION: Cellulitis of the right lower quadrant abdominal wall. There is asymmetric fluid overlying the abdominal wall musculature measuring 3 x 13 x 8 cm questionable for focal abscess. This could be better evaluated with ultrasound to see if this would be amenable to drainage. Hepatosplenomegaly and varices. Gallstones. Stable common bile duct dilatation. No ascites. Stable bone findings.
--- NOTE | 2020-11-30 08:20 | PC.NURSE ---
Midlevel at bed side.
--- NOTE | 2020-11-30 08:32 | ECG_ITS ---
Test Reason : NOSE BLEED Blood Pressure : / mmHG Vent. Rate : 092 BPM Atrial Rate : 092 BPM P-R Int : 150 ms QRS Dur : 084 ms QT Int : 370 ms P-R-T Axes : 043 060 043 degrees QTc Int : 457 ms Normal sinus rhythm Cannot rule out Anterior infarct (cited on or before 02-AUG-2020) Abnormal ECG When compared with ECG of 02-AUG-2020 14:28, Nonspecific T wave abnormality now evident in Lateral leads Referred By: Lynn Sigala Electronically Signed By:Jaylen Abad
--- NOTE | 2020-11-30 08:59 | ED_ITS ---
History of Present Illness General Chief Complaint: Epistaxis Stated Complaint: NOSEBLEED Time Seen by Provider: 11/30/20 07:54 Source: patient Mode of arrival: ambulatory History of Present Illness HPI Narrative: 40-year-old female with past medical history bilateral lower extremity wounds on Doxycycline, periumbilical wound, end-stage liver disease, cirrhosis, chronic opiate dependence, MRSA, CHF, IV drug abuse, EtOH abuse, presenting to the ED complaining of intermittent epistaxis x3 days, fever T-max 102?, generalized fatigue/weakness, lightheadedness, abdominal distension x 2 weeks, and drainage from umbilical wound. Reports fall at home secondary to leg weakness as is mostly wheelchair bound, denies head trauma or LOC, landed on buttock. Denies taking anticoagulation. Admits epistaxis began again around 5:45AM today. Denies CP, SOB, vomiting, diarrhea, LE edema Location: Yes bilateral nares Related Data Home Medications Medication Instructions Recorded Confirmed clonidine HCl 0.1 mg PO DAILY 07/30/20 07/30/20 folic acid 1 mg PO DAILY 07/30/20 07/31/20 furosemide 20 mg PO BID 07/30/20 07/31/20 gabapentin 600 mg PO QID 07/30/20 07/31/20 lactulose 10 g PO TID 07/30/20 07/31/20 omeprazole 40 mg PO DAILY 07/30/20 07/31/20 potassium chloride 20 meq PO DAILY 07/30/20 07/31/20 spironolactone 25 mg PO DAILY@0630 07/30/20 07/31/20 topiramate 25 mg PO BID 07/30/20 07/31/20 methadone 120 mg PO DAILY 07/31/20 07/31/20 Previous Rx's Medication Instructions Recorded doxycycline hyclate 100 mg PO BID #20 cap 08/03/20 Allergies Allergy/AdvReac Type Severity Reaction Status Date / Time No Known Allergies Allergy Unverified 03/18/20 14:51 [No Known Allergies*] morphine AdvReac Unknown N/V Verified 04/08/15 00:00 antibiotic ? Allergy Unknown Uncoded 01/05/20 00:00 Review of Systems Review of Systems: Constitutional: + Fever, No Chills, + Fatigue, + Malaise ENT/Mouth: + epistaxis, No Nasal Congestion, No Sinus Pain, No sore throat, No Rhinorrhea Eyes: No Eye Pain, No Vision Changes Cardiovascular: No Chest Pain, No SOB, No Edema, No Palpitations Respiratory: No Cough, No Dyspnea Gastrointestinal: + Nausea, No Vomiting, No Diarrhea, + Abdominal pain Genitourinary: No Dysuria, No Urinary Frequency, No Hematuria, No Flank Pain Musculoskeletal: No joint pain, No Myalgias, No Joint Swelling Skin: +wounds Neuro: + Weakness, No Numbness, No Loss of Consciousness, + lightheadedness, No Headache Yes all other systems are reviewed and are negative [facility] Past Medical History Attestation statement: The following information was validated with the patient. Social History Social History Household Members: Family and Children Housing: House Do you presently have visiting nurse or other home services: Yes Alcohol intake: current Alcohol intake frequency: 0-2 drinks per day Cigarette Packs Per Day: 0.5 Cigarettes Per Day: 10.0 Second Hand Smoke Exposure: No Use of substances other than those prescribed or required for medical reasons: No Substance Use Type: Opiates Advance Directives: Yes Advance Directives on File: Yes Advance Directives Date on File: 04/02/20 Patient : No service: No Current occupational status: disabled Physical Exam Vital Signs: Vital Signs: Last Vital Signs Temp 99.3 F 11/30/20 12:55 Pulse 94 11/30/20 12:55 Resp 17 11/30/20 12:55 BP 128/57 L 11/30/20 12:55 Pulse Ox 94 11/30/20 12:55 Body Mass Index 26.6 Const: Other: Jaundice General: ill appearing chronically Orientation/consciousness: patient oriented x3 Limitations: no limitations HENMT: Other: Bilateral nare bleeding source not visualize with clot in posterior pharynx with active posterior bleeding. Clot removed with suction and forceps Head: Yes normal to inspection Ears: hearing grossly normal bilaterally General nose exam: Normal external nose present and Epistaxis present bilaterally posterior source, active bleeding, clots present and source not visualized Face and sinus: Yes normal facial exam Throat: Yes uvula midline Eyes: General: appearance normal, both eyes and all related structures EOM: EOMs intact bilaterally Neck: Neck: Yes normal visual inspection and Yes no lymphadenopathy Resp: Effort & Inspection: normal respiratory effort, not labored and no stridor Cardio: Rate: regular rate Heart sounds: S1 normal heart sound present and S2 normal heart sound present GI: Other: Periumbilical wound with drainage. No surrounding cellulitis or erythema. Warm to touch Inspection: Yes normal to inspection Palpation (GI): Soft to palpation, Tenderness to palpation present (GI) (Periumbilical), no guarding and not rigid Skin: Other: Chronic wounds to bilateral lower extremities without cellulitis, drainage, fluctuance or induration. No LE edema Rashes: no rashes Neuro: General: patient oriented x3, tone normal and moves all extremities Extrem: General: Yes no pedal edema Course Course Course Narrative: Patient initially refusing nasal packing. Afrin attempted with slowing of bleed -anemic with H&H of 6.1/17.9, and platelets low 26,000 > 2 units RBCs and 1 unit of platelets ordered. Rhinorocket placed in left nare -lactic acid elevated to 2.1 likely from anemia/ETOH abuse and cirrhosis rather than severe sepsis. Empiric IV Zosyn ordered -Mg low 1.3 >2g IV repletion ordered, bilirubin/AST chronically elevated UA negative, COVID negative XR chest 1V IMPRESSION: Cardiomegaly with mild pulmonary vascular congestion. -1023--still slow bleed to posterior pharynx, TXA used intransally to R nare. Patient is hemodynamically stable -1049--[facility] transfer line called -1107--spoke to ENT Dr. Christine, plan for patient to be ED to ED transfer they will consult on case. Images transferred to [facility]. CTAP pending at this time. -blood consent signed and in patient's chart -1158-- CT abdomen pelvis w con IMPRESSION: Cellulitis of the right lower quadrant abdominal wall. There is asymmetric fluid overlying the abdominal wall musculature measuring 3 x 13 x 8 cm questionable for focal abscess. This could be better evaluated with ultrasound to see if this would be amenable to drainage. Hepatosplenomegaly and varices. Gallstones. Stable common bile duct dilatation. No ascites. Stable bone findings. >> IV Vancomycin added MDM - Epistaxis MDM Narrative Medical decision making narrative: 40-year-old female with past medical history bilateral lower extremity wounds on Doxycycline, periumbilical wound, end-stage liver disease, cirrhosis, chronic opiate dependence, MRSA, CHF, IV drug abuse, EtOH abuse, presenting to the ED complaining of intermittent epistaxis x3 days, fever T-max 102?, generalized fatigue/weakness, lightheadedness, abdominal distension x 2 weeks, and drainage from umbilical wound. On exam VSS, NAD, chronically ill appearing, physical exam as above, bilateral posterior epistaxis with active bleeding, chronic bilateral lower extremity wounds, weeping wound to abdomen. Concern for anemia vs acute on chronically infected wounds vs underlying umbilical/abdomen abscess vs acsites. Low concern for severe sepsis at this time Plan: Labs, UA, CXR, CTAP, lactic/blood cultures, epistaxis control Medical Records Attestation: I reviewed the patient's medical records. Lab Data Attestation: I reviewed the patient's lab results. Result diagrams: 11/30/20 09:03 11/30/20 09:03 Labs: Lab Results 11/30/20 11/30/20 11/30/20 Range/Units 09:03 09:03 09:03 WBC 2.4 L (4.8-10.8) X10*3/uL RBC 1.81 L D (4.20-5.50) X10*6/uL Hgb 6.1 L* D (12.0-16.0) g/dl Hct 17.9 L* D (37-47) % MCV 98.9 H (80-98) fL MCH 33.7 H (27.0-33.0) pg MCHC 34.1 (31.0-35.0) g/dl RDW 19.8 H (11.0-16.0) % Plt Count 26 L D (160-400) X10*3/uL MPV Not Reportable Immature Gran % (Auto) 2.1 H (0.0-0.4) % Neut % (Auto) 70.6 (45-73) % Lymph % (Auto) 12.0 L (20-40) % [place] % (Auto) 14.5 H (2-11) % Eos % (Auto) 0.4 (0-4) % Baso % (Auto) 0.4 (0-2) % Lymph # (Auto) 0.3 L (1.2-4.9) X10*3/uL [place] # (Auto) 0.4 (0.1-1.2) X10*3/uL Eos # (Auto) 0.0 (0.0-0.4) X10*3/uL Baso # (Auto) 0.0 (0.0-0.2) X10*3/uL Abs Immat Gran (auto) 0.05 H (0.00-0.03) X10*3/uL Absolute Neuts (auto) 1.7 L (2.0-8.3) X10*3/uL Absolute Nucleated RBC 0.000 (0.0-0.012) X10*3/uL Nucleated RBC % (auto) 0.0 (0.0-0.2) /100WBC Smear Tech's Comments VERIFIED PT 20.5 H (10.8-13.0) SEC INR 1.7 H (0.9-1.1) APTT 48.3 H (24.1-38.0) SEC Sodium 129 L (135-145) mmol/L Potassium 3.5 (3.3-5.1) mmol/L Chloride 96 (96-108) mmol/L Carbon Dioxide 26 (22-29) mmol/L Anion Gap 11 L (12-20) BUN 7 L (9-16) mg/dL Creatinine 0.67 (0.5-1.4) mg/dL Estim Creat Clear Calc 97.6 Estimated GFR > 60 Random Glucose 77 (60-115) mg/dL Lactic Acid (0.5-2.0) mmol/L Lactic Acid Fup @ 2Hr (0.5-2.0) mmol/L Calcium 8.5 (8.4-10.2) mg/dL Magnesium 1.3 L* (1.6-2.6) mg/dL Total Bilirubin 2.9 H (0.0-1.0) mg/dL Direct Bilirubin 2.0 H (0.0-0.5) mg/dL AST 141 H (5-31) U/L ALT 28 (0-31) U/L Alkaline Phosphatase 178 H (39-117) U/L Troponin I High Sens (<3.5-17.0) ng/L B-Natriuretic Peptide (<100) pg/mL Total Protein 8.3 H (6.5-8.0) g/dL Albumin 2.5 L (3.5-5.0) g/dL Lipase 78 (8-78) U/L Urine Color Urine Appearance Urine pH (5.0-8.0) Ur Specific Edwards (1.005-1.025) Urine Protein (NEG-TRACE) MG/DL Urine Glucose (UA) (NEG) MG/DL Urine Ketones (NEG) MG/DL Urine Blood (NEG) Urine Nitrite (NEG) Ur Leukocyte Esterase (NEG) Urine Opiates Screen (Not Detect) Ur Barbiturates Screen (Not Detect) Ur Phencyclidine Scrn (Not Detect) Ur Amphetamines Screen (Not Detect) U Benzodiazepines Scrn (Not Detect) Urine Cocaine Screen (Not Detect) U Marijuana (THC) Screen (Not Detect) COVID-19 ([facility]UARDO) (Negative) COVID-19 Clin Com Blood Type Antibody Screen Crossmatch (AHG) 11/30/20 11/30/20 11/30/20 Range/Units 09:03 09:03 09:15 WBC (4.8-10.8) X10*3/uL RBC (4.20-5.50) X10*6/uL Hgb (12.0-16.0) g/dl Hct (37-47) % MCV (80-98) fL MCH (27.0-33.0) pg MCHC (31.0-35.0) g/dl RDW (11.0-16.0) % Plt Count (160-400) X10*3/uL MPV Immature Gran % (Auto) (0.0-0.4) % Neut % (Auto) (45-73) % Lymph % (Auto) (20-40) % [place] % (Auto) (2-11) % Eos % (Auto) (0-4) % Baso % (Auto) (0-2) % Lymph # (Auto) (1.2-4.9) X10*3/uL [place] # (Auto) (0.1-1.2) X10*3/uL Eos # (Auto) (0.0-0.4) X10*3/uL Baso # (Auto) (0.0-0.2) X10*3/uL Abs Immat Gran (auto) (0.00-0.03) X10*3/uL Absolute Neuts (auto) (2.0-8.3) X10*3/uL Absolute Nucleated RBC (0.0-0.012) X10*3/uL Nucleated RBC % (auto) (0.0-0.2) /100WBC Smear Tech's Comments PT (10.8-13.0) SEC INR (0.9-1.1) APTT (24.1-38.0) SEC Sodium (135-145) mmol/L Potassium (3.3-5.1) mmol/L Chloride (96-108) mmol/L Carbon Dioxide (22-29) mmol/L Anion Gap (12-20) BUN (9-16) mg/dL Creatinine (0.5-1.4) mg/dL Estim Creat Clear Calc Estimated GFR Random Glucose (60-115) mg/dL Lactic Acid 2.1 H* (0.5-2.0) mmol/L Lactic Acid Fup @ 2Hr (0.5-2.0) mmol/L Calcium (8.4-10.2) mg/dL Magnesium (1.6-2.6) mg/dL Total Bilirubin (0.0-1.0) mg/dL Direct Bilirubin (0.0-0.5) mg/dL AST (5-31) U/L ALT (0-31) U/L Alkaline Phosphatase (39-117) U/L Troponin I High Sens 8.6 (<3.5-17.0) ng/L B-Natriuretic Peptide 88 (<100) pg/mL Total Protein (6.5-8.0) g/dL Albumin (3.5-5.0) g/dL Lipase (8-78) U/L Urine Color YELLOW Urine Appearance CLEAR Urine pH 6.0 (5.0-8.0) Ur Specific Edwards <= 1.005 (1.005-1.025) Urine Protein NEG (NEG-TRACE) MG/DL Urine Glucose (UA) NEG (NEG) MG/DL Urine Ketones NEG (NEG) MG/DL Urine Blood NEG (NEG) Urine Nitrite NEG (NEG) Ur Leukocyte Esterase NEG (NEG) Urine Opiates Screen (Not Detect) Ur Barbiturates Screen (Not Detect) Ur Phencyclidine Scrn (Not Detect) Ur Amphetamines Screen (Not Detect) U Benzodiazepines Scrn (Not Detect) Urine Cocaine Screen (Not Detect) U Marijuana (THC) Screen (Not Detect) COVID-19 ([facility]ARDO) (Negative) COVID-19 Clin Com Blood Type Antibody Screen Crossmatch (AHG) 11/30/20 11/30/20 11/30/20 Range/Units 09:15 09:17 09:55 WBC (4.8-10.8) X10*3/uL RBC (4.20-5.50) X10*6/uL Hgb (12.0-16.0) g/dl Hct (37-47) % MCV (80-98) fL MCH (27.0-33.0) pg MCHC (31.0-35.0) g/dl RDW (11.0-16.0) % Plt Count (160-400) X10*3/uL MPV Immature Gran % (Auto) (0.0-0.4) % Neut % (Auto) (45-73) % Lymph % (Auto) (20-40) % [place] % (Auto) (2-11) % Eos % (Auto) (0-4) % Baso % (Auto) (0-2) % Lymph # (Auto) (1.2-4.9) X10*3/uL [place] # (Auto) (0.1-1.2) X10*3/uL Eos # (Auto) (0.0-0.4) X10*3/uL Baso # (Auto) (0.0-0.2) X10*3/uL Abs Immat Gran (auto) (0.00-0.03) X10*3/uL Absolute Neuts (auto) (2.0-8.3) X10*3/uL Absolute Nucleated RBC (0.0-0.012) X10*3/uL Nucleated RBC % (auto) (0.0-0.2) /100WBC Smear Tech's Comments PT (10.8-13.0) SEC INR (0.9-1.1) APTT (24.1-38.0) SEC Sodium (135-145) mmol/L Potassium (3.3-5.1) mmol/L Chloride (96-108) mmol/L Carbon Dioxide (22-29) mmol/L Anion Gap (12-20) BUN (9-16) mg/dL Creatinine (0.5-1.4) mg/dL Estim Creat Clear Calc Estimated GFR Random Glucose (60-115) mg/dL Lactic Acid (0.5-2.0) mmol/L Lactic Acid Fup @ 2Hr (0.5-2.0) mmol/L Calcium (8.4-10.2) mg/dL Magnesium (1.6-2.6) mg/dL Total Bilirubin (0.0-1.0) mg/dL Direct Bilirubin (0.0-0.5) mg/dL AST (5-31) U/L ALT (0-31) U/L Alkaline Phosphatase (39-117) U/L Troponin I High Sens (<3.5-17.0) ng/L B-Natriuretic Peptide (<100) pg/mL Total Protein (6.5-8.0) g/dL Albumin (3.5-5.0) g/dL Lipase (8-78) U/L Urine Color Urine Appearance Urine pH (5.0-8.0) Ur Specific Edwards (1.005-1.025) Urine Protein (NEG-TRACE) MG/DL Urine Glucose (UA) (NEG) MG/DL Urine Ketones (NEG) MG/DL Urine Blood (NEG) Urine Nitrite (NEG) Ur Leukocyte Esterase (NEG) Urine Opiates Screen Not Detected (Not Detect) Ur Barbiturates Screen Not Detected (Not Detect) Ur Phencyclidine Scrn Not Detected (Not Detect) Ur Amphetamines Screen Not Detected (Not Detect) U Benzodiazepines Scrn Not Detected (Not Detect) Urine Cocaine Screen Not Detected (Not Detect) U Marijuana (THC) Screen Not Detected (Not Detect) COVID-19 ([facility]ARDO) Negative (Negative) COVID-19 Clin Com See Note Blood Type AB Positive Antibody Screen NEGATIVE Crossmatch (AHG) See Detail 11/30/20 Range/Units 11:25 WBC (4.8-10.8) X10*3/uL RBC (4.20-5.50) X10*6/uL Hgb (12.0-16.0) g/dl Hct (37-47) % MCV (80-98) fL MCH (27.0-33.0) pg MCHC (31.0-35.0) g/dl RDW (11.0-16.0) % Plt Count (160-400) X10*3/uL MPV Immature Gran % (Auto) (0.0-0.4) % Neut % (Auto) (45-73) % Lymph % (Auto) (20-40) % [place] % (Auto) (2-11) % Eos % (Auto) (0-4) % Baso % (Auto) (0-2) % Lymph # (Auto) (1.2-4.9) X10*3/uL [place] # (Auto) (0.1-1.2) X10*3/uL Eos # (Auto) (0.0-0.4) X10*3/uL Baso # (Auto) (0.0-0.2) X10*3/uL Abs Immat Gran (auto) (0.00-0.03) X10*3/uL Absolute Neuts (auto) (2.0-8.3) X10*3/uL Absolute Nucleated RBC (0.0-0.012) X10*3/uL Nucleated RBC % (auto) (0.0-0.2) /100WBC Smear Tech's Comments PT (10.8-13.0) SEC INR (0.9-1.1) APTT (24.1-38.0) SEC Sodium (135-145) mmol/L Potassium (3.3-5.1) mmol/L Chloride (96-108) mmol/L Carbon Dioxide (22-29) mmol/L Anion Gap (12-20) BUN (9-16) mg/dL Creatinine (0.5-1.4) mg/dL Estim Creat Clear Calc Estimated GFR Random Glucose (60-115) mg/dL Lactic Acid (0.5-2.0) mmol/L Lactic Acid Fup @ 2Hr 1.2 (0.5-2.0) mmol/L Calcium (8.4-10.2) mg/dL Magnesium (1.6-2.6) mg/dL Total Bilirubin (0.0-1.0) mg/dL Direct Bilirubin (0.0-0.5) mg/dL AST (5-31) U/L ALT (0-31) U/L Alkaline Phosphatase (39-117) U/L Troponin I High Sens (<3.5-17.0) ng/L B-Natriuretic Peptide (<100) pg/mL Total Protein (6.5-8.0) g/dL Albumin (3.5-5.0) g/dL Lipase (8-78) U/L Urine Color Urine Appearance Urine pH (5.0-8.0) Ur Specific Edwards (1.005-1.025) Urine Protein (NEG-TRACE) MG/DL Urine Glucose (UA) (NEG) MG/DL Urine Ketones (NEG) MG/DL Urine Blood (NEG) Urine Nitrite (NEG) Ur Leukocyte Esterase (NEG) Urine Opiates Screen (Not Detect) Ur Barbiturates Screen (Not Detect) Ur Phencyclidine Scrn (Not Detect) Ur Amphetamines Screen (Not Detect) U Benzodiazepines Scrn (Not Detect) Urine Cocaine Screen (Not Detect) U Marijuana (THC) Screen (Not Detect) COVID-19 ([facility]) (Negative) COVID-19 Clin Com Blood Type Antibody Screen Crossmatch (AHG) Critical Care Time Critical Care Time Critical Care Time: Yes Total Critical Care Time: 90 Attestation: I spend 90 minutes of critical care time with this patient, transfu sing, nasal packing, medical consult with ENT, transferring to tertiary care center, reassessing and reevaluating, IVF, IV medications Discharge Plan Discharge Clinical Impression: Epistaxis, Anemia Patient Disposition: er [facility] Transfer Details: ENT Dr. Christine, auto accept transfer to [facility] Prescriptions: No Action clonidine HCl 0.1 mg tablet 0.1 mg PO DAILY RF: 0 gabapentin 600 mg tablet 600 mg PO QID RF: 0 topiramate 25 mg tablet 25 mg PO BID RF: 0 omeprazole 40 mg capsule,delayed release(DR/EC) 40 mg PO DAILY RF: 0 spironolactone 25 mg tablet 25 mg PO DAILY@0630 RF: 0 folic acid 1 mg tablet 1 mg PO DAILY RF: 0 furosemide 20 mg tablet 20 mg PO BID RF: 0 lactulose 10 gram/15 mL solution 10 g PO TID RF: 0 potassium chloride 20 mEq tablet extended release 20 meq PO DAILY RF: 0 methadone 10 mg/mL Concentrate 120 mg PO DAILY RF: 0 doxycycline hyclate 100 mg capsule 100 mg PO BID Qty: 20 RF: 0 Interventions: Acute Care Transfer Worksheet (ED) Last Done: 11/30/20 13:29 Discharge Date/Time: 11/30/20 13:25
--- NOTE | 2020-11-30 09:00 | PC.NURSE ---
Patient has had nose clamp put on multiple times but patient will not leave it on to be effect. Pt is constantly blowing nose and spitting blood. Pt refuses to have nasal packing.
[2020-11-30] MEDS: Oxymetazoline HCl 0.05 % Nasal 15 ML SPRAY 2 SPRAY NOSTRIL-B (09:15)
[2020-11-30 09:19] LABS: Basophils Percent Auto 0.4 % (0-2); Eosinophils Percent Auto 0.4 % (0-4); INTERNATIONAL NORM RATIO 1.7 (0.9-1.1); Imm Gran Abs Auto 0.05 X10*3/uL (0.00-0.03); Imm Gran Pct Auto 2.1 % (0.0-0.4); Lymphocytes Absolute Auto 0.3 X10*3/uL (1.2-4.9); MANUAL DIFF FLAG SCAN; Mean Corpuscular HGB Conc 34.1 g/dl (31.0-35.0); Mean Corpuscular Hemoglobin 33.7 pg (27.0-33.0); Mean Corpuscular Volume 98.9 fL (80-98); Monocytes Absolute Auto 0.4 X10*3/uL (0.1-1.2); Monocytes Percent Auto 14.5 % (2-11); Neutrophils Absolute Auto 1.7 X10*3/uL (2.0-8.3); Neutrophils Percent Auto 70.6 % (45-73); Prothrombin Time 20.5 SEC (10.8-13.0); Red Blood Count 1.81 X10*6/uL (4.20-5.50); Red Cell Distribution Width 19.8 % (11.0-16.0); SCAN SMEAR FLAG 1
[2020-11-30 09:20] LABS: White Blood Count 2.4 X10*3/uL (4.8-10.8)
[2020-11-30 09:21] LABS: Platelet Count 26 X10*3/uL (160-400)
[2020-11-30 09:22] LABS: Partial Thromboplastin Time 48.3 SEC (24.1-38.0)
[2020-11-30 09:25] LABS: Hematocrit 17.9 % (37-47); Hemoglobin 6.1 g/dl (12.0-16.0)
--- NOTE | 2020-11-30 09:30 | PC.NURSE ---
midlevel at bedside working with pt to stop nose bleed. Afrin nasal spray given by midlevel.
[2020-11-30 09:34] LABS: Appearance Urine CLEAR; Color Urine YELLOW; Glucose Urine UA NEG (NEG); Leukocyte Esterase Urine NEG (NEG); Nitrite Urine NEG (NEG); Specific Gravity - Urine <= 1.005 (1.005-1.025); Urine Blood NEG (NEG); Urine Ketones NEG (NEG); Urine Protein NEG (NEG-TRACE)
[2020-11-30 09:41] LABS: Lactic Acid 2.1 mmol/L (0.5-2.0)
[2020-11-30 09:43] LABS: COVID-19 Test Negative (Negative)
[2020-11-30 09:48] LABS: B Type Natriuretic Peptide 88 pg/mL (<100); SLIDE REVIEW VERIFIED; Troponin-I High Sensitivity 8.6 ng/L (<3.5-17.0)
[2020-11-30 09:49] LABS: Alanine Aminotransferase 28 U/L (0-31); Albumin Level 2.5 g/dL (3.5-5.0); Alkaline Phosphatase 178 U/L (39-117); Anion Gap 11 (12-20); Aspartate Amino Transferase 141 U/L (5-31); Bilirubin Total 2.9 mg/dL (0.0-1.0); Blood Urea Nitrogen 7 mg/dL (9-16); Calcium 8.5 mg/dL (8.4-10.2); Carbon Dioxide 26 mmol/L (22-29); Chloride 96 mmol/L (96-108); Creatinine Clr Calc Pharmacy 97.6; Estimated Glomerular Filt Rate > 60; Glucose Random 77 mg/dL (60-115); Lipase 78 U/L (8-78); Magnesium 1.3 mg/dL (1.6-2.6); Potassium 3.5 mmol/L (3.3-5.1); Sodium 129 mmol/L (135-145); Total Protein 8.3 g/dL (6.5-8.0)
[2020-11-30 09:55] LABS: Amphetamine Screen Urine Not Detected (Not Detect); Barbiturates, Urine Not Detected (Not Detect); Benzodiazepines Screen Urine Not Detected (Not Detect); Cannabinoid Screen Urine Not Detected (Not Detect); Cocaine Screen Urine Not Detected (Not Detect); Opiate Screen Urine Not Detected (Not Detect); Phencyclidine Screen Urine Not Detected (Not Detect)
--- NOTE | 2020-11-30 10:45 | PC.NURSE ---
Nose bleed has slowed down significantly after left nare was packed per midlevel, and tranexamic acid per midlevel. pt tolerated well
[2020-11-30] MEDS: iohexoL 350 MG/ML 100 ML INFUS..BTL IV (10:49)
--- NOTE | 2020-11-30 10:51 | PC.NURSE ---
@1049AM LETTY GRUBBS REQUESTS CALL OUT TO [facility] PT [place] LINE KRISHNA ANSWERS, TAKES PT INFO, CALL BACK NUMBER AND ASKS TO SPEAK WITH ROMIE. ROMIE TAKES OVER CALL RIGHT AWAY.
[2020-11-30] MEDS: Tranexamic Acid 1,000 MG/10 ML VIAL 500 MG INTRANASAL (10:52)
[2020-11-30] MEDS: Piperacillin Sodium/Tazobactam 3.375 GM in 0.9 % Sodium Chloride 50 ML IV (10:59)
[2020-11-30] MEDS: ondansetron HCL 4 MG/2 ML VIAL IVPUSH (10:59)
[2020-11-30 11:12] LABS: Reflex Lactate? Lactic Acid Added
[2020-11-30] MEDS: Magnesium Sulfate/H2O 2 GM/50 ML PIGGYBACK IV (11:41)
--- NOTE | 2020-11-30 11:55 | PC.NURSE ---
Patient is lying in bed resting quietly. blood transfusion continues to infuse. No adverse reactions noted.
[2020-11-30 12:03] LABS: ~Lactic Acid-LAB USE ONLY 1.2 mmol/L (0.5-2.0)
--- NOTE | 2020-11-30 12:10 | PC.NURSE ---
Patient remains in bed resting quietly. pt shows no adverse reaction noted to transfusion. Nose bleed controlled at this time.
[2020-11-30] MEDS: Morphine Sulfate 2 MG/ML CARTRIDGE IVPUSH (12:31)
[2020-11-30] MEDS: 0.9 % Sodium Chloride 250 ML 999 ML IV (12:38)
[2020-11-30] MEDS: Metoclopramide HCl 10 MG/2 ML VIAL IVPUSH (12:41)
--- NOTE | 2020-11-30 13:11 | PC.NURSE ---
[facility] here to transport patient to [facility]. Report given to ems crew. Blood continues to infuse. Pt is alert and oriented. Pt states pain is better after the morphine after morpine.
--- NOTE | 2020-11-30 13:27 | PC.NURSE ---
Report called to NOELLE Harrison at [facility].
== END 2020-11-30 13:25 | disposition short-term general hospital (02) ==
PROVIDERS: Physician Assistant; Emergency Provider Emergency Medicine
DX: R04.0 Epistaxis (principal); D64.9 Anemia, unspecified; R60.0 Localized edema; I50.9 Heart failure, unspecified; F11.20 Opioid dependence, uncomplicated; F17.210 Nicotine dependence, cigarettes, uncomplicated; Z71.6 Tobacco abuse counseling; Z79.899 Other long term (current) drug therapy; Z20.822 Contact with and (suspected) exposure to COVID-19
CPT/HCPCS: 36415; 36430; 71045; 74177; 80048; 80076; 80307; 81003; 83605; 83690; 83735; 83880; 84484; 85025; 85610; 85730; 86850; 86900; 86901; 86920; 86922; 87040; 87635; 93005; 96361; 96365; 96375; 99285; J2270; J2405; J2543; J2765; J3475; P9016; Q9967

== ENCOUNTER 2020-12-21 08:15 | Inpatient (IN) | payer OTHER, SELFPAY ==
[2020-12-21] VITALS (29 sets, daily range): BP systolic 82–127; BP diastolic 34–66; PULSE 14–116; RESP 14–27; TEMP 36.9–38.1; O2SAT 97–99; BMI 45.7; BMI 27.4
--- NOTE | ~2020-12-21 | CT_ITS ---
EXAMINATION: CT CHEST WITH CONTRAST CLINICAL INFORMATION: Sepsis. Rule out pneumonia. COMPARISON: Previous chest x-ray 11/30/2020 TECHNIQUE: Multidetector volumetric CT imaging of the chest was obtained after the administration of 85 mL of Omnipaque [address] of the chest, abdomen and pelvis without immediate adverse reactions. Axial MIP volume rendering provided. Sagittal and coronal reformatted images were obtained. This CT examination was performed using dose optimization techniques as appropriate, variously including the following: *Automated exposure control *Adjustment of mA and/or kV according to patient size (this includes techniques or standardized protocols for targeted exams where dose is matched to indication/reason for exam; i.e. extremities or head) *Use of iterative reconstruction technique DLP: 214 mGy-cm FINDINGS: ROLLED GOLD PLATER: Unremarkable LUNGS: There is dependent atelectasis at the lung bases. No evidence of pneumonia is seen. There is a 4 mm right lower lobe nodule axial image 22 series 5. There is a 3 mm peripheral or subpleural right lower lobe nodule adjacent to the fissure axial image 22 series 5. There is a 3 mm left lower lobe nodule axial image 21 series 5. There is a 2 mm right lower lobe nodule axial image 33 series 5. MEDIASTINUM: The heart is slightly enlarged. The mediastinum is otherwise normal. PLEURA: There is no pleural effusion. No pleural mass or thickening. AXILLA: No lymphadenopathy. OSSEOUS STRUCTURES: There are mild T7 and T8 vertebral body compression fractures. There are old left lateral rib fractures. CT/CT chest w con IMPRESSION: No evidence of pneumonia. Subsegmental atelectasis at the lung bases. Small bilateral lower lobe nodules, largest measuring 4 mm in the right lower lobe. According to the UPDATED 2017 Fleischner Society recommendations, the advised follow-up imaging for less than 6 mm nodule: Low risk, no chest CT follow up high-risk, optional chest CT follow-up in one year. Enlarged heart. Mild T7 and T8 vertebral body compression fractures.
--- NOTE | ~2020-12-21 | CT_ITS ---
EXAMINATION: CT ABDOMEN AND PELVIS WITH CONTRAST CLINICAL INFORMATION: Sepsis. Evaluate for source of infection. History of abdominal wall abscess. COMPARISON: Previous CT of the abdomen and pelvis 11/30/2020 TECHNIQUE: Multidetector volumetric images were obtained from the superior aspect of the liver through the pubic symphysis following administration 85 mL of Omnipaque 350 intravenous contrast. Sagittal and coronal reformatted images were obtained on the technologist's workstation. Oral contrast: Yes This CT examination was performed using dose optimization techniques as appropriate, variously including the following: *Automated exposure control *Adjustment of mA and/or kV according to patient size (this includes techniques or standardized protocols for targeted exams where dose is matched to indication/reason for exam; i.e. extremities or head) *Use of iterative reconstruction technique DLP: 576 mGy-cm FINDINGS: LIVER, GALLBLADDER, AND BILIARY TREE: The liver is enlarged. There is hypertrophy of the left lobe and caudate lobe. There is a small 5 mm low-attenuation lesion in the lateral segment of the left lobe of the liver. This is stable from previous exams and may represent a cyst. No other focal liver lesion is seen. There are gallstones in the gallbladder. Gallbladder wall is normal-appearing. The gallbladder is upper normal in size. There is no intrahepatic biliary duct dilatation. Common bile duct is prominent measuring 10 mm. No common bile duct stone is seen by CT. The main portal vein is prominent measuring 15 mm. There are upper abdominal varices. Findings are suggestive of portal hypertension. PANCREAS: Unremarkable. SPLEEN: The spleen is enlarged measuring 16.5 cm in length. ADRENAL GLANDS: Unremarkable. KIDNEYS AND URETERS: The kidneys are normal in size, shape, and attenuation. No hydronephrosis, hydroureter, or calculi seen. No perinephric stranding. BLADDER: There is a Dubois catheter in the bladder. The bladder is empty. GASTROINTESTINAL TRACT: The small and large bowel are unremarkable. The appendix ABDOMINAL WALL: There is diastasis of the rectus muscles. There is question of previous lower abdominal wall hernia repair. There is evidence of diffuse anasarca. There is a increased skin thickening and stranding of the fat in the periumbilical region questionable for cellulitis. A focal fluid collection/abscess is not seen. LYMPH NODES: There is shotty retroperitoneal lymphadenopathy in the abdomen, pelvis and bilateral inguinal regions. No enlarged lymph nodes are seen. VASCULAR: The abdominal aorta is normal in caliber. There is evidence of portal hypertension and varices. PELVIC VISCERA: Unremarkable. OSSEOUS STRUCTURES: There are old L3, L4 and L5 vertebral body compression fractures. There are old right superior and inferior pubic rami fractures. There is an old right sacral fracture. These appear unchanged. CT/CT abdomen pelvis w con IMPRESSION: Enlarged liver and spleen, portal hypertension and varices. No ascites. Upper normal-size gallbladder with gallstones. Slightly dilated common bile duct similar to previous exam. No common bile duct stone seen by CT. If there is clinical concern for cholecystitis, HIDA scan or ultrasound would be recommended. Skin thickening and stranding of the fat in the periumbilical region questionable for cellulitis. There is diffuse anasarca. No focal abdominal wall fluid collection seen. Old lumbar, sacral and right pubic ramus fractures.
--- NOTE | ~2020-12-21 | CT_ITS ---
EXAMINATION: CT LEFT LOWER LEG CLINICAL INFORMATION: Ulcer on the heel. Concern for osteomyelitis COMPARISON: Plain film exam left lower leg 02/12/2020 TECHNIQUE: Axial images obtained from the through the hindfoot. Coronal and sagittal reformatted images are performed at CT scanner. No IV contrast was given. FINDINGS: There is soft tissue gas at the plantar surface of the foot at the heel with focal ulceration of the soft tissues. This is a deep ulceration extending to the cortical surface of the calcaneus. There is no focal abscess. No focal fluid collection. There is generalized edema throughout the lower leg. There is diffuse osteopenia. The deep ulceration of the heel extends to the surface of the calcaneus. There is subtle loss of the cortical line of the calcaneus in this area concerning for early osteomyelitis, image 192/216 series 7, sagittal image 81/123 series 8. No other area of bone destruction. CT/CT lower leg LT wo con IMPRESSION: Deep soft tissue ulceration at the heel extending to the cortical surface of the calcaneus. There is focal bone destruction of the cortex at this area consistent with osteomyelitis of the calcaneus.
[2020-12-21 08:47] LABS: White Blood Count 11.8 X10*3/uL (4.8-10.8)
[2020-12-21 08:49] LABS: Mean Corpuscular HGB Conc 35.2 g/dl (31.0-35.0); Mean Corpuscular Hemoglobin 33.8 pg (27.0-33.0); Mean Corpuscular Volume 96.2 fL (80-98); Red Cell Distribution Width 25.1 % (11.0-16.0)
[2020-12-21 09:01] LABS: Hemoglobin 4.4 g/dl (12.0-16.0)
[2020-12-21 09:02] LABS: Hematocrit 12.5 % (37-47); PLT ABN DIST 1; Platelet Count 28 X10*3/uL (160-400)
[2020-12-21 09:19] LABS: Alkaline Phosphatase 255 U/L (39-117); Anion Gap 16 (12-20); Bilirubin Total 3.6 mg/dL (0.0-1.0); Blood Urea Nitrogen 11 mg/dL (9-16); Carbon Dioxide 17 mmol/L (22-29); Chloride 98 mmol/L (96-108); Creatinine Clr Calc Pharmacy 119.5; Estimated Glomerular Filt Rate > 60; Glucose Random 118 mg/dL (60-115); Potassium 3.5 mmol/L (3.3-5.1); Sodium 127 mmol/L (135-145); Total Protein 7.2 g/dL (6.5-8.0)
[2020-12-21 09:22] LABS: Troponin-I High Sensitivity 16.5 ng/L (<3.5-17.0)
[2020-12-21 09:24] LABS: Band Neutrophils Percent 7 % (3-5); Lymphocytes Absolute Manual 0.2 X10*3/uL (0.6-4.8); Lymphocytes Percent Manual 2 % (20-40); Monocytes Absolute Manual 0.1 X10*3/uL (0.0-1.2); Monocytes Percent Manual 1 % (2-11); Neutrophils Absolute Manual 11.4 X10*3/uL (2.2-7.9); Neutrophils Percent Manual 90 % (45-73)
[2020-12-21 09:27] LABS: Hypochromasia 2+ (15-30) /OIF; Macrocytosis 2+ (15-30) /OIF; Polychromasia 1+ (0-2) /OIF; RBC Morphology NOTED
[2020-12-21 09:28] LABS: Ovalocytes 1+ (5-14) /OIF
[2020-12-21 09:29] LABS: Target Cells 1+ (5-14) /OIF; Tear Drop Cells 1+ (0-2) /OIF
[2020-12-21 09:31] LABS: Platelet Estimate DECREASED (NORMAL); Platelet Morphology Comment NORMAL
[2020-12-21 09:32] LABS: Schistocytes 1+ (0-2) /OIF
[2020-12-21 09:50] LABS: Alanine Aminotransferase 42 U/L (0-31); Aspartate Amino Transferase 223 U/L (5-31)
--- NOTE | 2020-12-21 10:17 | ECG_ITS ---
Test Reason : WEAKNESS Blood Pressure : / mmHG Vent. Rate : 112 BPM Atrial Rate : 112 BPM P-R Int : 146 ms QRS Dur : 088 ms QT Int : 350 ms P-R-T Axes : 061 057 029 degrees QTc Int : 477 ms Sinus tachycardia Otherwise normal ECG When compared with ECG of 30-NOV-2020 08:52, Nonspecific T wave abnormality no longer evident in Lateral leads Referred By: Presley Carter Electronically Signed By:Jaylen Abad
--- NOTE | 2020-12-21 10:19 | ED.GENADULT ---
HPI - General Adult General Chief complaint: Wound/Laceration Stated complaint: LLL WOUND/?INF, ? DT'S,BLEEDING FROM MOUTH Time Seen by Provider: 12/21/20 09:07 Source: patient Mode of arrival: EMS Limitations: no limitations History of Present Illness HPI narrative: 40-year-old female with cirrhosis of the liver who presents emergency department for evaluation of weakness, increased peripheral lower extremity edema, dark stools and fever. The patient states that she has been feeling very weak over the last 3-4 days. She has noted dark tarry stools. She states that she has chronic anemia and gets transfusions when her hemoglobin drops below 7.9. She states that approximately 1 and half weeks prior she had 3 units of blood transfused by her regulatory and compliance technician. She states that she is feeling extremely weak and is having difficulty getting out of bed secondary to her weakness. She has had constant nausea with 2-3 episodes of vomiting per day. She states that yesterday she developed a fever of 101.4? F orally. The patient has chronic leg wounds and is in wound care. She states she was on antibiotics approximately 1 month ago for leg infections. The patient continues to drink alcohol. She states she drinks 7 nips per day. Related Data Home Medications Medication Instructions Recorded Confirmed clonidine HCl 0.1 mg PO DAILY 07/30/20 12/21/20 folic acid 1 mg PO DAILY 07/30/20 12/21/20 furosemide 20 mg PO BID 07/30/20 12/21/20 gabapentin 600 mg PO QID 07/30/20 12/21/20 lactulose 10 g PO TID 07/30/20 12/21/20 potassium chloride 20 meq PO BID 07/30/20 12/21/20 spironolactone 25 mg PO BID 07/30/20 12/21/20 topiramate 25 mg PO BID 07/30/20 12/21/20 omeprazole 20 mg PO BID 12/21/20 12/21/20 ondansetron HCl 1 tab PO Q8H PRN 12/21/20 12/21/20 Allergies Allergy/AdvReac Type Severity Reaction Status Date / Time No Known Allergies Allergy Unverified 03/18/20 14:51 [No Known Allergies*] morphine AdvReac Unknown N/V Verified 04/08/15 00:00 antibiotic ? Allergy Unknown Uncoded 07/06/20 00:00 Review of Systems Review of Systems: Yes all other systems are reviewed and are negative [facility] Past Medical History [facility] Narrative: Past medical history: Anemia of chronic disease, end-stage liver disease, hypokalemia, bilateral lower extremity edema, bilateral lower extremity cellulitis, UTIs, alcohol use disorder. Social history: The patient does smoke cigarettes daily, she drinks alcohol daily and states she has 7 nips of alcohol per day, she denies drug use but does have a history of opiate abuse and was on methadone in the past which she states was recently stopped. Social History Social History Household Members: Family and Children Housing: House Do you presently have visiting nurse or other home services: Yes Alcohol intake: current Alcohol intake frequency: 0-2 drinks per day Patient Tobacco Use Status: Current everyday Tobacco user Cigarette Packs Per Day: 0.5 Cigarettes Per Day: 10.0 Second Hand Smoke Exposure: No Use of substances other than those prescribed or required for medical reasons: No Substance Use Type: Opiates Advance Directives: Yes Advance Directives Information Provided: Yes Advance Directives on File: No Advance Directives Date on File: 04/02/20 service: No Current occupational status: disabled Physical Exam Vital Signs: Vital Signs: Last Vital Signs Temp 98.7 F 12/21/20 17:29 Pulse 90 12/21/20 17:29 Resp 18 12/21/20 17:29 BP 101/41 L 12/21/20 17:29 Pulse Ox 99 12/21/20 08:24 Body Mass Index 27.4 Const: Other: Very pleasant and cooperative, chronically ill-appearing, icteric sclera, jaundice, answers all questions appropriately HENMT: Head: Yes normal to inspection, Yes normocephalic and Yes atraumatic Ears: external ears normal General nose exam: Normal external nose present Face and sinus: Yes normal facial exam Mouth: Normal oral and palatal mucosa present Throat: Yes posterior oropharynx normal Eyes: Periorbital: periorbital findings normal Eyelids: Yes eyelids normal Conjunctivae: conjunctivae normal Sclerae: scleral abnormal bilateral (Icteric) Corneas: corneas normal Pupils: Equal, round and reactive pupils present Direct Ophthalmoscopy: normal light reflex Neck: Neck: Yes full ROM, Yes no lymphadenopathy, Yes no meningeal signs, Yes trachea midline and Yes supple Chest: Chest palpation & inspection: normal inspection of the chest and normal palpation of entire chest wall Resp: Effort & Inspection: normal respiratory effort and able to speak in complete sentences Auscultation: clear to auscultation bilaterally Cardio: Rate: regular rate Rhythm: regular rhythm Heart sounds: S1 normal heart sound present, S2 normal heart sound present and Murmur heart sound present systolic II/ and at the left sternal border GI: Inspection: Yes normal to inspection Palpation (GI): Soft to palpation, nontender, no guarding, not rigid and No hepatosplenomegaly present Rectal Exam - Female: Abnormal stool present (Brown stool, Hemoccult positive) : General: Yes no CVA tenderness Back/Spine/Pelvis: Back: no CVA tenderness Cervical Spine: normal cervical lordosis Thoracic/Lumbar Spine: thoracic and lumbar spine normal to inspection Neuro: General: no meningeal signs Cranial nerves: Yes CN's II-XII intact bilaterally and Yes Equal, round and reactive pupils present Cognition (Neuro): normal cognition Motor exam (neuro): 5/5 motor strength present throughout Extrem: Other: 2+ pitting edema, symmetric, skin very dry and flaking in both legs, left lower extremity has 2 pretibial wound which do not appear to be affected, left heel has a ulcer with necrotic appearing tissue, no clear erythema or increased warmth Psych: Appearance: well kempt Mental Status: mental status grossly normal Speech and movement: Normal speech and movement present Affect: normal affect Attitude: cooperative Thought process: Normal thought process present Thought content: Normal thought content present Course Course Course Narrative: 40-year-old female with history of end-stage liver disease, cirrhosis who continues to drink alcohol who presents emergency department for evaluation of severe weakness, nausea, dark stools and fever. Temperature of 100.6? and elevated pulse of 116, she has a low blood pressure of 106/48 with a map of 67. Physical examination is consistent with her end-stage liver disease, rectal exam did reveal brown stool which was Hemoccult positive. Patient has significant lower extremity swelling with breakdown of the skin bilateral with no obvious signs of cellulitis. I ordered a CBC, CMP, PT/INR, PTT, lactic acid, COVID-19 test, and blood cultures x2. 1034: Laboratory evaluation The patient is severely anemic with an H&H of 4.4 and 12.5 the low platelet count of 28. The patient has chronic anemia and her regulatory and compliance technician transfuse as her when her hemoglobin drops below 7.9. Patient's sodium is low at 127, this is probably secondary to fluid retention caused by her cirrhosis. Patient's LFTs were elevated with an AST of 223, ALT of 42 and alk-phos of 255. These elevations are consistent with her continued alcohol use. Lactic acid is markedly elevated at 5.0 I suspect that this is multifactorial secondary to her cirrhosis and secondary to sepsis. The patient will need to be transfused, I ordered 3 units of packed red blood cells to be transfused. I will give each unit over 1 hour. She will probably need some IV Lasix after the 2nd unit is started. Given her fluid overload status, I do not think that a normal saline fluid boluses appropriate and blood is the more appropriate fluid to correct her deficits and to treat potential hypotension from sepsis. The patient was ordered to get Zosyn 4.5 mg IV and vancomycin 1500 mg IV for sepsis. I will discuss the patient's presentation with the covering hospitalist. 1337: I did discuss the patient's presentation with the covering hospitalist, Christelle Smith and with the covering pressurizer, Dr. Cordoba. The pressurizer recommended that the patient receive Protonix bolus and drip and octreotide bolus and drip. The patient will be admitted to the [facility] for further treatment. 1731: The patient did receive 3 units of packed red blood cells and the patient still having episodes hypotension. I did discuss the patient's presentation with the covering splicing supervisor, Dr. Carrasco who recommended that the patient get a 4th unit packed red blood cells, 1 unit of FFP and 1 unit of platelets. At the end of my shift, a disposition is not been recent on this patient and the patient's care was turned over to my colleague, Dr. Samantha Deal. Medical Decision Making Lab Data Result diagrams: 12/21/20 08:39 12/21/20 08:39 Labs: Lab Results 12/21/20 12/21/20 12/21/20 Range/Units 08:39 08:39 08:39 WBC 11.8 H (4.8-10.8) X10*3/uL RBC 1.30 L D (4.20-5.50) X10*6/uL Hgb 4.4 L* D (12.0-16.0) g/dl Hct 12.5 L* D (37-47) % MCV 96.2 (80-98) fL MCH 33.8 H (27.0-33.0) pg MCHC 35.2 H (31.0-35.0) g/dl RDW 25.1 H (11.0-16.0) % Plt Count 28 L (160-400) X10*3/uL MPV Not Reportable Immature Gran % (Auto) Cancelled Neut % (Auto) Cancelled Lymph % (Auto) Cancelled Mcleod % (Auto) Cancelled Eos % (Auto) Cancelled Baso % (Auto) Cancelled Lymph # (Auto) Cancelled Mcleod # (Auto) Cancelled Eos # (Auto) Cancelled Baso # (Auto) Cancelled Abs Immat Gran (auto) Cancelled Absolute Neuts (auto) Cancelled Absolute Nucleated RBC 0.000 (0.0-0.012) X10*3/uL Nucleated RBC % (auto) 0.0 (0.0-0.2) /100WBC Neutrophils % (Manual) 90 H (45-73) % Band Neutrophils % 7 H (3-5) % Lymphocytes % (Manual) 2 L (20-40) % Monocytes % (Manual) 1 L (2-11) % Abs Neuts (Manual) 11.4 H (2.2-7.9) X10*3/uL Lymphocytes # (Manual) 0.2 L (0.6-4.8) X10*3/uL Monocytes # (Manual) 0.1 (0.0-1.2) X10*3/uL Platelet Estimate DECREASED (NORMAL) Plt Morphology Comment NORMAL RBC Morphology NOTED Polychromasia 1+ (0-2) /OIF Hypochromasia 2+ (15-30) /OIF Macrocytosis 2+ (15-30) /OIF Target Cells 1+ (5-14) /OIF Tear Drop Cells 1+ (0-2) /OIF Ovalocytes 1+ (5-14) /OIF [place] Cells 1+ ( /OIF Schistocytes 1+ (0-2) /OIF Absolute Retic 0.058 (0.026-0.095) X10*6/uL Percent Retic 4.3 H (0.5-1.8) % Immature Retic Fraction 21.9 H (3.0-15.9) % Retic Hgb Equivalent 32.8 (30.0-35.0) pg Sodium 127 L (135-145) mmol/L Potassium 3.5 (3.3-5.1) mmol/L Chloride 98 (96-108) mmol/L Carbon Dioxide 17 L (22-29) mmol/L Anion Gap 16 (12-20) BUN 11 D (9-16) mg/dL Creatinine 0.73 (0.5-1.4) mg/dL Estim Creat Clear Calc 119.5 Estimated GFR > 60 Random Glucose 118 H D (60-115) mg/dL Lactic Acid 5.0 H* (0.5-2.0) mmol/L Lactic Acid Fup @ 2Hr (0.5-2.0) mmol/L Calcium 7.0 L D (8.4-10.2) mg/dL Total Bilirubin 3.6 H (0.0-1.0) mg/dL AST 223 H (5-31) U/L ALT 42 H (0-31) U/L Alkaline Phosphatase 255 H D (39-117) U/L Lactate Dehydrogenase 232 H (122-220) U/L Troponin I High Sens (<3.5-17.0) ng/L Total Protein 7.2 (6.5-8.0) g/dL Albumin 2.0 L (3.5-5.0) g/dL Urine Color Urine Appearance Urine pH (5.0-8.0) Ur Specific Dell (1.005-1.025) Urine Protein (NEG-TRACE) MG/DL Urine Glucose (UA) (NEG) MG/DL Urine Ketones (NEG) MG/DL Urine Blood (NEG) Urine Nitrite (NEG) Ur Leukocyte Esterase (NEG) COVID-19 ([facility]UARDO) (Negative) COVID-19 Clin Com Blood Type Antibody Screen MIO, Polyspecific Positive MIO Work-up Crossmatch (AHG) 12/21/20 12/21/20 12/21/20 Range/Units 08:39 09:09 10:38 WBC (4.8-10.8) X10*3/uL RBC (4.20-5.50) X10*6/uL Hgb (12.0-16.0) g/dl Hct (37-47) % MCV (80-98) fL MCH (27.0-33.0) pg MCHC (31.0-35.0) g/dl RDW (11.0-16.0) % Plt Count (160-400) X10*3/uL MPV Immature Gran % (Auto) Neut % (Auto) Lymph % (Auto) Mcleod % (Auto) Eos % (Auto) Baso % (Auto) Lymph # (Auto) Mcleod # (Auto) Eos # (Auto) Baso # (Auto) Abs Immat Gran (auto) Absolute Neuts (auto) Absolute Nucleated RBC (0.0-0.012) X10*3/uL Nucleated RBC % (auto) (0.0-0.2) /100WBC Neutrophils % (Manual) (45-73) % Band Neutrophils % (3-5) % Lymphocytes % (Manual) (20-40) % Monocytes % (Manual) (2-11) % Abs Neuts (Manual) (2.2-7.9) X10*3/uL Lymphocytes # (Manual) (0.6-4.8) X10*3/uL Monocytes # (Manual) (0.0-1.2) X10*3/uL Platelet Estimate (NORMAL) Plt Morphology Comment RBC Morphology Polychromasia /OIF Hypochromasia /OIF Macrocytosis /OIF Target Cells /OIF Tear Drop Cells /OIF Ovalocytes /OIF [place] Cells /OIF Schistocytes /OIF Absolute Retic (0.026-0.095) X10*6/uL Percent Retic (0.5-1.8) % Immature Retic Fraction (3.0-15.9) % Retic Hgb Equivalent (30.0-35.0) pg Sodium (135-145) mmol/L Potassium (3.3-5.1) mmol/L Chloride (96-108) mmol/L Carbon Dioxide (22-29) mmol/L Anion Gap (12-20) BUN (9-16) mg/dL Creatinine (0.5-1.4) mg/dL Estim Creat Clear Calc Estimated GFR Random Glucose (60-115) mg/dL Lactic Acid (0.5-2.0) mmol/L Lactic Acid Fup @ 2Hr (0.5-2.0) mmol/L Calcium (8.4-10.2) mg/dL Total Bilirubin (0.0-1.0) mg/dL AST (5-31) U/L ALT (0-31) U/L Alkaline Phosphatase (39-117) U/L Lactate Dehydrogenase (122-220) U/L Troponin I High Sens 16.5 D (<3.5-17.0) ng/L Total Protein (6.5-8.0) g/dL Albumin (3.5-5.0) g/dL Urine Color Urine Appearance Urine pH (5.0-8.0) Ur Specific Dell (1.005-1.025) Urine Protein (NEG-TRACE) MG/DL Urine Glucose (UA) (NEG) MG/DL Urine Ketones (NEG) MG/DL Urine Blood (NEG) Urine Nitrite (NEG) Ur Leukocyte Esterase (NEG) COVID-19 (EDUARDO) Negative (Negative) COVID-19 Clin Com See Note Blood Type AB Positive Antibody Screen NEGATIVE MIO, Polyspecific NEGATIVE Positive MIO Work-up TNP Crossmatch (AHG) See Detail 12/21/20 12/21/20 Range/Units 11:45 12:42 WBC (4.8-10.8) X10*3/uL RBC (4.20-5.50) X10*6/uL Hgb (12.0-16.0) g/dl Hct (37-47) % MCV (80-98) fL MCH (27.0-33.0) pg MCHC (31.0-35.0) g/dl RDW (11.0-16.0) % Plt Count (160-400) X10*3/uL MPV Immature Gran % (Auto) Neut % (Auto) Lymph % (Auto) Mcleod % (Auto) Eos % (Auto) Baso % (Auto) Lymph # (Auto) Mcleod # (Auto) Eos # (Auto) Baso # (Auto) Abs Immat Gran (auto) Absolute Neuts (auto) Absolute Nucleated RBC (0.0-0.012) X10*3/uL Nucleated RBC % (auto) (0.0-0.2) /100WBC Neutrophils % (Manual) (45-73) % Band Neutrophils % (3-5) % Lymphocytes % (Manual) (20-40) % Monocytes % (Manual) (2-11) % Abs Neuts (Manual) (2.2-7.9) X10*3/uL Lymphocytes # (Manual) (0.6-4.8) X10*3/uL Monocytes # (Manual) (0.0-1.2) X10*3/uL Platelet Estimate (NORMAL) Plt Morphology Comment RBC Morphology Polychromasia /OIF Hypochromasia /OIF Macrocytosis /OIF Target Cells /OIF Tear Drop Cells /OIF Ovalocytes /OIF [place] Cells /OIF Schistocytes /OIF Absolute Retic (0.026-0.095) X10*6/uL Percent Retic (0.5-1.8) % Immature Retic Fraction (3.0-15.9) % Retic Hgb Equivalent (30.0-35.0) pg Sodium (135-145) mmol/L Potassium (3.3-5.1) mmol/L Chloride (96-108) mmol/L Carbon Dioxide (22-29) mmol/L Anion Gap (12-20) BUN (9-16) mg/dL Creatinine (0.5-1.4) mg/dL Estim Creat Clear Calc Estimated GFR Random Glucose (60-115) mg/dL Lactic Acid (0.5-2.0) mmol/L Lactic Acid Fup @ 2Hr 3.6 H* (0.5-2.0) mmol/L Calcium (8.4-10.2) mg/dL Total Bilirubin (0.0-1.0) mg/dL AST (5-31) U/L ALT (0-31) U/L Alkaline Phosphatase (39-117) U/L Lactate Dehydrogenase (122-220) U/L Troponin I High Sens (<3.5-17.0) ng/L Total Protein (6.5-8.0) g/dL Albumin (3.5-5.0) g/dL Urine Color YELLOW Urine Appearance CLEAR Urine pH 6.5 (5.0-8.0) Ur Specific Dell <= 1.005 (1.005-1.025) Urine Protein NEG (NEG-TRACE) MG/DL Urine Glucose (UA) NEG (NEG) MG/DL Urine Ketones NEG (NEG) MG/DL Urine Blood NEG (NEG) Urine Nitrite NEG (NEG) Ur Leukocyte Esterase NEG (NEG) COVID-19 ([facility]) (Negative) COVID-19 Clin Com Blood Type Antibody Screen MIO, Polyspecific Positive MIO Work-up Crossmatch (AHG) ECG Data Attestation: I personally reviewed and interpreted this ECG as follows: Interpretation: 1102: Sinus tachycardia with a rate of 112, normal IL interval, QRS duration with a prolonged QTC interval of 477 milliseconds, no ST segment elevation, no ST segment depression, no T-wave abnormalities, no PACs, no PVCs, besides the tachycardia this is a normal EKG. Critical Care Time Critical Care Time Critical Care Time: Yes Total Critical Care Time: 80 Attestation: Critical Care: The patient was critically ill with a high probability of imminent or life threatening deterioration. I spent greater than 30 minutes of discontinuous time evaluating the patient,delivering critical care at the bedside, discussing and evaluating pertinent data with consultants. Critical care time does not include time spent performing separately billable procedures or teaching. Total time spent performing critical care was 80 minutes. Discharge Plan Discharge Clinical Impression: Acute gastrointestinal bleeding, End stage liver disease, Acute anemia, Acute hypotension Patient Disposition: Admitted As Inpatient
[2020-12-21] MEDS: Piperacillin Sodium/Tazobactam 4.5 GM in 0.9 % Sodium Chloride 100 ML IV (10:30)
[2020-12-21 10:43] LABS: Reflex Lactate? Lactic Acid Added
[2020-12-21] MEDS: vancomycin HCL 1,500 MG in 0.9 % Sodium Chloride 500 ML 333.33 MG IV (10:58)
[2020-12-21] MEDS: ondansetron HCL 4 MG/2 ML VIAL IVPUSH ×3 (10:58→22:49)
[2020-12-21 11:40] LABS: COVID-19 Test Negative (Negative)
[2020-12-21] MEDS: Acetaminophen 325 MG TABLET 975 MG PO (11:58)
[2020-12-21 12:12] LABS: ~Lactic Acid-LAB USE ONLY 3.6 mmol/L (0.5-2.0)
[2020-12-21 12:54] LABS: Glucose Urine UA NEG (NEG); Leukocyte Esterase Urine NEG (NEG); Nitrite Urine NEG (NEG); PH 6.5 (5.0-8.0); Specific Gravity - Urine <= 1.005 (1.005-1.025); Urine Blood NEG (NEG); Urine Ketones NEG (NEG); Urine Protein NEG (NEG-TRACE)
[2020-12-21 12:58] LABS: Appearance Urine CLEAR; Color Urine YELLOW
[2020-12-21] MEDS: Pantoprazole Sodium 40 MG/10 ML VIAL 80 MG IVPUSH (13:12)
[2020-12-21] MEDS: Octreotide Acetate 100 MCG/ML AMPUL 50 MCG IVPUSH (13:12)
[2020-12-21] MEDS: Furosemide 40 MG/4 ML VIAL IVPUSH (13:12)
[2020-12-21] MEDS: Octreotide Acetate 500 MCG in 0.9 % Sodium Chloride 500 ML 50.1 MCG IVCONT (13:25)
[2020-12-21] MEDS: Pantoprazole Sodium 80 MG in 0.9 % Sodium Chloride 80 ML 10 MG IV (13:25)
[2020-12-21 13:46] LABS: Reflex Lactate? 2 Y
--- NOTE | 2020-12-21 13:48 | PM.GICN ---
History of Present Illness Data of Consult Service Date: 12/21/20 Requesting physician: Christelle Smith Primary Care Provider: Antoine Ghosh MD HPI Reason for consult: anemia 40-year-old female with hx of substance abuse, alcohol use, cirrhosis, hemolytic anemia and splenomegaly who I am seeing for assessment of anemia. Patient said she came today as she felt tired and weak over last few days. She gets intermittent blood transfusions at [facility] and last one was 2-3 weeks ago. she had episodes of unprovoked bilious emesis with no coffee grounds. She admits to daily nose bleeds and bleeding gums sometimes. she has poor mobility due to her leg edema and has VNA twice a week, relatives cook food for her. She has mild lower abdominal discomfort, denies urine retention although >200 cc urine when brown placed. she denies dysphagia or heartburn. she said she has intermittent black stools but no fresh rectal bleeding. The patient continues to drink alcohol. She states she drinks 7 nips per day. Prior tests: EGD/colon 08/2019--?gastric varix vs fold, internal hemorrhoids, tortuous colon CTA 08/2019--cirrhosis, with hepatosplenomegaly, small gastric varices, gastrorenal shunt Review of Systems Review of Systems: Constitutional : No Weight loss, No Fever, No Chills ENT/Mouth : No sore throat, No Rhinorrhea Eyes: No Swelling, No Redness Cardiovascular : No Chest Pain, No SOB, No Edema Respiratory : No Cough, No Sputum, No Wheezing Gastrointestinal : see HPI Genitourinary : NO Dysuria, No Urinary Frequency, No Hematuria, No Urgency Musculoskeletal : No joint pain, No Myalgias, No Joint Swelling Skin : + Skin Lesions, + rash Neuro : + Weakness, No Numbness, + Dizziness, No Headache Psych : No Anxiety/Panic, No Depression Heme/Lymph: + Bruising, No Lymphadenopathy Endocrine : No Polyuria, No Polydipsia All other systems reviewed and are negative. Yes all other systems are reviewed and are negative [facility] Social History Social History Household Members: Family and Children Housing: House Do you presently have visiting nurse or other home services: Yes Alcohol intake: current Alcohol intake frequency: 0-2 drinks per day Patient Tobacco Use Status: Current everyday Tobacco user Cigarette Packs Per Day: 0.5 Cigarettes Per Day: 10.0 Second Hand Smoke Exposure: No Use of substances other than those prescribed or required for medical reasons: No Substance Use Type: Opiates Advance Directives: Yes Advance Directives Information Provided: Yes Advance Directives on File: No Advance Directives Date on File: 04/02/20 service: No Current occupational status: disabled Meds Allergies Allergy/AdvReac Type Severity Reaction Status Date / Time No Known Allergies Allergy Unverified 03/18/20 14:51 [No Known Allergies*] morphine AdvReac Unknown N/V Verified 04/08/15 00:00 antibiotic ? Allergy Unknown Uncoded 01/05/20 00:00 Active Medications: Current Medications Generic Name Dose Route Start Last Admin Trade Name Freq PRN Reason Stop Dose Admin Pantoprazole Sodium 80 mg/ 100 mls @ 10 mls/hr 12/21/20 12:30 12/21/20 13:25 Sodium Chloride IV 8 mg/hr .Q10H MARIANN 10 mls/hr Administration 8 MG/HR Octreotide Acetate 500 mcg/ 501 mls @ 50.1 mls/hr 12/21/20 13:00 12/21/20 13:25 Sodium Chloride IVCONT 50 mcg/hr .Q10H MARIANN 50.1 mls/hr Administration 50 MCG/HR Pharmacy Consult 1 each 12/21/20 10:20 Consult Rx Vancomycin Dosing MISCELLANE DAILY PRN Consult order Pharmacy Consult 1 each 12/21/20 12:37 Consult Rx Perform Med Rec MISCELLANE ONCE PRN Consult order Home Medications Medication Instructions Recorded Confirmed Last Taken Type clonidine HCl 0.1 mg PO DAILY 07/30/20 12/21/20 12/21/20 History folic acid 1 mg PO DAILY 07/30/20 12/21/20 12/21/20 History furosemide 20 mg PO BID 07/30/20 12/21/20 12/21/20 History gabapentin 600 mg PO QID 07/30/20 12/21/20 12/21/20 History lactulose 10 g PO TID 07/30/20 12/21/20 12/21/20 History potassium chloride 20 meq PO BID 07/30/20 12/21/20 12/21/20 History spironolactone 25 mg PO BID 07/30/20 12/21/20 12/21/20 History topiramate 25 mg PO BID 07/30/20 12/21/20 12/21/20 History omeprazole 20 mg PO BID 12/21/20 12/21/20 12/21/20 History ondansetron HCl 1 tab PO Q8H PRN 12/21/20 12/21/20 Unknown History Physical Exam Vital Signs: Vital Signs: Last Vital Signs Temp 100.4 F 12/21/20 11:54 Pulse 116 H 12/21/20 11:54 Resp 20 12/21/20 11:54 BP 109/48 L 12/21/20 11:54 Pulse Ox 99 12/21/20 08:24 Body Mass Index 27.4 Const: Other: pleasant and cooperative, chronically ill-appearing, icteric sclera, jaundice, answers all questions appropriately HENMT: Head: Yes normal to inspection, Yes normocephalic and Yes atraumatic Ears: external ears normal General nose exam: Normal external nose present Face and sinus: Yes normal facial exam Mouth: Normal oral and palatal mucosa present Throat: Yes posterior oropharynx normal Eyes: Periorbital: periorbital findings normal Eyelids: Yes eyelids normal Conjunctivae: conjunctivae normal Sclerae: scleral abnormal bilateral (Icteric) Corneas: corneas normal Pupils: Equal, round and reactive pupils present Direct Ophthalmoscopy: normal light reflex Neck: Neck: Yes full ROM, Yes no lymphadenopathy, Yes no meningeal signs, Yes trachea midline and Yes supple Chest: Chest palpation & inspection: normal inspection of the chest and normal palpation of entire chest wall Resp: Effort & Inspection: normal respiratory effort and able to speak in complete sentences Auscultation: clear to auscultation bilaterally Cardio: Rate: regular rate Rhythm: regular rhythm Heart sounds: S1 normal heart sound present, S2 normal heart sound present and Murmur heart sound present systolic II/ and at the left sternal border GI: Other: shifting dullness Inspection: Yes distended Palpation (GI): Soft to palpation, nontender, no guarding, not rigid and No hepatosplenomegaly present Rectal Exam - Female: Abnormal stool present (Brown stool, Hemoccult positive) : General: Yes no CVA tenderness Back/Spine/Pelvis: Back: no CVA tenderness Cervical Spine: normal cervical lordosis Thoracic/Lumbar Spine: thoracic and lumbar spine normal to inspection Neuro: General: no meningeal signs Cranial nerves: Yes CN's II-XII intact bilaterally and Yes Equal, round and reactive pupils present Cognition (Neuro): normal cognition Motor exam (neuro): 5/5 motor strength present throughout Extrem: Other: ulcer over left agustin, lipodermatosclerosis with thickened dry skin Psych: Appearance: well kempt Mental Status: mental status grossly normal Speech and movement: Normal speech and movement present Affect: normal affect Attitude: cooperative Thought process: Normal thought process present Thought content: Normal thought content present Results Labs CBC & Chem 7: 12/21/20 08:39 12/21/20 08:39 Labs: Short CBC 12/21/20 Range/Units 08:39 WBC 11.8 H (4.8-10.8) X10*3/uL Hgb 4.4 L* D (12.0-16.0) g/dl Hct 12.5 L* D (37-47) % Plt Count 28 L (160-400) X10*3/uL BMP 12/21/20 08:39 Sodium 127 L Potassium 3.5 Chloride 98 Carbon Dioxide 17 L BUN 11 D Creatinine 0.73 Calcium 7.0 L D Liver Function 12/21/20 Range/Units 08:39 Total Bilirubin 3.6 H (0.0-1.0) mg/dL AST 223 H (5-31) U/L ALT 42 H (0-31) U/L Alkaline Phosphatase 255 H D (39-117) U/L Albumin 2.0 L (3.5-5.0) g/dL Urine 12/21/20 Range/Units 12:42 Urine Color YELLOW Urine Appearance CLEAR Urine pH 6.5 (5.0-8.0) Ur Specific [place] <= 1.005 (1.005-1.025) Urine Protein NEG (NEG-TRACE) MG/DL Urine Glucose (UA) NEG (NEG) MG/DL CT A/P- prsonally reviewed, cirrhosis noted with varices, enlarged spleen Assessment and Plan (1) Acute anemia: Status: Acute (2) Anemia of chronic disease: Status: Acute (3) End stage liver disease: Status: Acute 1/ Multifactorial 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 She may have GI injury or ulceration from her alcohol use and general debility. PLAN: 1/ octretoide gtt, already given ABx by ED for her leg ulcers 2/ IV PPI BID 3/ transfuse target 8-9 g/dl 4/ check Vit C, iron studies, peripheral smear, LDH, haptoglobin, b12/folate 5/ plan for EGd tomorrow, 6/ may need ENT review if recurrent epistaxis noted in house, but her plts are pretty low, may benefit from doptelet but risk of clots has to be balanced out ---pls give her pack of plts just before her EGD 7/ social work assessment Procedures Date of Service Date of Service: 12/21/20
--- NOTE | 2020-12-21 14:01 | PHA.MEDREC ---
Pharmacy Consult ? Medication Reconciliation Pharmacy has completed the medication reconciliation. PT did not state she takes methadone.
[2020-12-21 14:36] LABS: Eos%MD 0.1 %; IG%MD 1.3 %; Immature Retic Fraction 21.9 % (3.0-15.9); Lymph%MD 3.5 %; Mono%MD 7.1 %; Retic HGB Equivalent 32.8 pg (30.0-35.0); Reticulocyte Percent 4.3 % (0.5-1.8); Reticulocytes Absolute 0.058 X10*6/uL (0.026-0.095)
[2020-12-21 15:02] LABS: Lactate Dehydrogenase 232 U/L (122-220)
--- NOTE | 2020-12-21 15:08 | PC.NURSE ---
bp increasing as blood transfuses. aware.
[2020-12-21] MEDS: iohexoL 350 MG/ML 100 ML INFUS..BTL IV (16:03)
--- NOTE | 2020-12-21 17:10 | PC.NURSE ---
pt aware of plan of care for more blood products. ok to continue to hold protonix per md mobley limited iv access
--- NOTE | 2020-12-21 18:05 | PC.NURSE ---
pt rolled and cleaned. sat up for dinner. 4th rbc continues to infuse
--- NOTE | 2020-12-21 19:49 | PC.NURSE ---
pt is a&o, no sob or chest pain. provider in to assess pt. medicated per mar. will continue to monitor.
--- NOTE | 2020-12-21 20:04 | MHC.CM.PN ---
Cm met with admitted patient, bed assignment pending. Patient admits to daily etoh use and a hx of opiate/heroin with methadone. Pt states she has been off methadone for 16 days. States they kicked her out of the program. States she missed 3 consecutive appointments secondary to being ill. Pt denies that ETOH abuse has caused her illness and debilitated condition. Pt states she lives with her 15 year old son and his father. States her son's father cooks, cleans and shops for food. States he drives her to appointments. States her daughter used to care for her, but has moved to the [facility]. Pt states she has VNA services twice a week from the [facility]. Pt has extensive lower leg wounds and necrosis on her L heel. Pt states she goes to the wound center for care, but has missed appointments secondary to being ill. Pt uses a walker, but states she hasn't been able to ambulate for about 1 1/2 weeks due to swelling in her lower legs. Pt states she would like to speak to someone about drug/ETOH rehab. Explained that staff from the CARE team will see her during her hospital stay. Pt may need STR. Pt may need MAT. D/C plan is unsure at this time, pending PT and CARE team recommendations. CM will follow for d/c needs.
--- NOTE | 2020-12-21 20:12 | PC.NURSE ---
medicated per mar for nausea.
--- NOTE | 2020-12-21 20:41 | P.HPHOSP_ITS ---
History of Present Illness Date of Service: 12/21/20 Chief Complaint: Generalized Weakness 40-year-old female with a past medical history of end-stage liver disease , bilateral lower extremity lymphedema, chronic leg ulcers, history of bilateral leg wounds with cellulitis-follows with Wound Clinic, history of anemia-received blood transfusion past, history of epistaxis, thrombocytopenia, opiate dependence on methadone-lasting and 16 days ago, alcohol abuse; presented to the hospital with a chief complaint of generalized weakness. Patient reports that she has lost taking her methadone about 16 days ago and has been drinking alcohol to counter any withdrawal. Patient reports he has been feeling generalized weakness and subjective fevers at home. Reports that her legs have been swelling gradually worsening over the past week and noted discharge on her left heel ulcer;. Patient mentioned that she missed last 2 appointments for wound clinic. Patient denies any chest pain palpitations. Reports mild lightheadedness and dizziness. Denies any headaches or blurry visions. Denies any focal weakness. Denies any falls or trauma. Patient reported that last night she had an episode of black stool. Patient mentions he has been having nausea vomiting over the past few days complains of abdominal discomfort. Denies any blood in the vomitus. Reports poorl oral intake. denies any urinary symptoms ER course: I spoke to Dr. Samantha Deal in the ER who who mentioned that she received the patient in sign-out. The doctor prior to her noted that patient has severe anemia, brown stool on rectal exam, CT chest showed no evidence of pneumonia Urinalysis negative for infection Leg wound noted to have discharge-concern for cellulitis given vancomycin and Zosyn Patient blood pressure was on the soft side in the ER. Subsequently gradually improved to low 100s systolic. ER physician discussed with the ICU attending Dr. Carrasco; reportedly who has evaluated the patient and recommended admission to the general medical floor; [facility] Medical History (Updated 12/25/20 @ 09:54 by Shyla Trent MD) Bacteremia Ulcer of left heel Social History Household Members: Children Household Members Other:: 1 Housing: House Do you presently have visiting nurse or other home services: Yes Alcohol intake: current Alcohol intake frequency: 3 or more drinks per day Patient Tobacco Use Status: Current everyday Tobacco user Tobacco use type: Cigarette Cigarette Packs Per Day: 0.5 Second Hand Smoke Exposure: No Use of substances other than those prescribed or required for medical reasons: No Substance Use Type: Opiates Currently Displaying Signs/Symptoms of Drug Intoxication Withdrawal: No Have you been hit, kicked, punched, or otherwise hurt by someone within the past year? If so, by whom?: No Are you DNR?: Yes Advance Directives: Yes Advance Directives Information Provided: Yes Advance Directives on File: No Advance Directives Date on File: 04/02/20 Do you have thoughts of harming others: None Do you have a plan to hurt others: No Plan service: No Current occupational status: disabled Meds Allergies Allergy/AdvReac Type Severity Reaction Status Date / Time No Known Allergies Allergy Unverified 03/18/20 14:51 [No Known Allergies*] morphine AdvReac Unknown N/V Verified 04/08/15 00:00 antibiotic ? Allergy Unknown Uncoded 01/05/20 00:00 Active Medications: Current Medications Generic Name Dose Route Start Last Admin Trade Name Anai PRN Reason Stop Dose Admin Clonidine HCl 0.1 mg 12/22/20 09:00 Clonidine Hcl 0.1 Mg Tablet PO DAILY MARIANN Protocol Folic Acid 1 mg 12/22/20 09:00 Folic Acid 1 Mg Tablet PO 12/25/20 08:59 DAILY MARIANN Gabapentin 600 mg 12/21/20 21:00 Gabapentin 600 Mg Tablet PO QID MARIANN Pantoprazole Sodium 80 mg/ 100 mls @ 10 mls/hr 12/21/20 12:30 12/21/20 14:00 Sodium Chloride IV 0 mg/hr .Q10H MARIANN 0 mls/hr Infusion 8 MG/HR Octreotide Acetate 500 mcg/ 501 mls @ 50.1 mls/hr 12/21/20 13:00 12/21/20 13:25 Sodium Chloride IVCONT 50 mcg/hr .Q10H MARIANN 50.1 mls/hr Administration 50 MCG/HR Pantoprazole Sodium 80 mg/ 120 mls @ 12 mls/hr 12/21/20 20:30 Sodium Chloride IV 12/24/20 20:28 .Q10H MARIANN 8 MG/HR Vancomycin HCl 1,000 mg/ 270 mls @ 270 mls/hr 12/21/20 20:30 Sodium Chloride IV Q12H MARIANN Piperacillin Sod/Tazobactam 50 mls @ 100 mls/hr 12/21/20 20:30 Sod 3.375 gm/ Sodium Chloride IV Q6H MARIANN Octreotide Acetate 500 mcg/ 501 mls @ 50.1 mls/hr 12/21/20 20:39 Sodium Chloride IVCONT 12/24/20 20:29 .Q10H MARIANN 50 MCG/HR Lactulose 10 gm 12/21/20 21:00 Lactulose 20 Gm/30 Ml Solution PO TID [facility] Multivitamins 1 tab 12/22/20 09:00 B-Complex With Vitamin C Tablet PO DAILY [facility] Pharmacy Consult 1 each 12/21/20 12:37 Consult Rx Perform Med Rec MISCELLANE ONCE PRN Consult order Potassium Chloride 20 meq 12/21/20 21:00 Potassium Chloride Er 20 Meq Tab.Er.Prt PO BID [facility] Thiamine HCl 100 mg 12/22/20 09:00 Thiamine Hcl 100 Mg Tablet PO 12/25/20 08:59 DAILY [facility] Topiramate 25 mg 12/21/20 21:00 Topiramate 25 Mg Tablet PO BID [facility] Home Medications Medication Instructions Recorded Confirmed Last Taken Type clonidine HCl 0.1 mg PO DAILY 07/30/20 12/21/20 12/21/20 History folic acid 1 mg PO DAILY 07/30/20 12/21/20 12/21/20 History furosemide 20 mg PO BID 07/30/20 12/21/20 12/21/20 History gabapentin 600 mg PO QID 07/30/20 12/21/20 12/21/20 History lactulose 10 g PO TID 07/30/20 12/21/20 12/21/20 History potassium chloride 20 meq PO BID 07/30/20 12/21/20 12/21/20 History spironolactone 25 mg PO BID 07/30/20 12/21/20 12/21/20 History topiramate 25 mg PO BID 07/30/20 12/21/20 12/21/20 History omeprazole 20 mg PO BID 12/21/20 12/21/20 12/21/20 History ondansetron HCl 1 tab PO Q8H PRN 12/21/20 12/21/20 Unknown History Physical Exam Vital Signs and Narrative: Vital Signs: Last Vital Signs Temp 98.9 F 12/21/20 20:30 Pulse 92 12/21/20 20:30 Resp 18 12/21/20 20:30 BP 116/64 12/21/20 20:30 Pulse Ox 99 12/21/20 08:24 Body Mass Index 27.4 Gen: Appears be in no acute distress HEENT: NCAT, Moist mucosa. Pulmonary: Vesicular breath sounds, fair air entry CVS: Normal S1-S2 Abdomen: BS+, Soft, distended, hepatomegaly LEs, diffusely tender, no guarding no rigidity Extremities: Warm well perfused; bilateral chronic leg lymphedema noted; right lower extremity has healing ulcer noted on the dorsum of the foot; Left lower extremity-has multiple ulcers on the anterior agustin; also noted ulcer on the heel of the left foot, open wound, having purulent discharge, noted eschar is tissue, no crepitus on exam but limited exam secondary to severe swell ing/lymphedema. Neuro: Alert and awake. Oriented x3, mentating well, no asterixis, a Results Labs CBC and Chem 7: 12/25/20 03:53 12/25/20 03:53 Labs: Laboratory Results - last 24 hr 12/21/20 12/21/20 12/21/20 08:39 08:39 08:39 MCV 96.2 MCH 33.8 H MCHC 35.2 H RDW 25.1 H Plt Count 28 L MPV Not Reportable Immature Gran % (Auto) Cancelled Neut % (Auto) Cancelled Lymph % (Auto) Cancelled [place] % (Auto) Cancelled Eos % (Auto) Cancelled Baso % (Auto) Cancelled Lymph # (Auto) Cancelled [place] # (Auto) Cancelled Eos # (Auto) Cancelled Baso # (Auto) Cancelled Abs Immat Gran (auto) Cancelled Absolute Neuts (auto) Cancelled Absolute Nucleated RBC 0.000 Nucleated RBC % (auto) 0.0 Neutrophils % (Manual) 90 H Band Neutrophils % 7 H Lymphocytes % (Manual) 2 L Monocytes % (Manual) 1 L Abs Neuts (Manual) 11.4 H Lymphocytes # (Manual) 0.2 L Monocytes # (Manual) 0.1 Platelet Estimate DECREASED Plt Morphology Comment NORMAL RBC Morphology NOTED Polychromasia 1+ (0-2) Hypochromasia 2+ (15-30) Macrocytosis 2+ (15-30) Target Cells 1+ (5-14) Tear Drop Cells 1+ (0-2) Ovalocytes 1+ (5-14) Traer Cells 1+ ( Schistocytes 1+ (0-2) Absolute Retic 0.058 Percent Retic 4.3 H Immature Retic Fraction 21.9 H Retic Hgb Equivalent 32.8 Anion Gap 16 Estim Creat Clear Calc 119.5 Estimated GFR > 60 Random Glucose 118 H D Lactic Acid 5.0 H* Lactic Acid Fup @ 2Hr Calcium 7.0 L D Total Bilirubin 3.6 H AST 223 H ALT 42 H Alkaline Phosphatase 255 H D Lactate Dehydrogenase 232 H Troponin I High Sens Total Protein 7.2 Albumin 2.0 L Urine Color Urine Appearance Urine pH Ur Specific [place] Urine Protein Urine Glucose (UA) Urine Ketones Urine Blood Urine Nitrite Ur Leukocyte Esterase COVID-19 ([facility]) COVID-19 Clin Com Blood Type Antibody Screen MIO, Polyspecific Positive MIO Work-up Crossmatch ([facility]) 12/21/20 12/21/20 12/21/20 08:39 09:09 10:38 MCV MCH MCHC RDW Plt Count MPV Immature Gran % (Auto) Neut % (Auto) Lymph % (Auto) [place] % (Auto) Eos % (Auto) Baso % (Auto) Lymph # (Auto) [place] # (Auto) Eos # (Auto) Baso # (Auto) Abs Immat Gran (auto) Absolute Neuts (auto) Absolute Nucleated RBC Nucleated RBC % (auto) Neutrophils % (Manual) Band Neutrophils % Lymphocytes % (Manual) Monocytes % (Manual) Abs Neuts (Manual) Lymphocytes # (Manual) Monocytes # (Manual) Platelet Estimate Plt Morphology Comment RBC Morphology Polychromasia Hypochromasia Macrocytosis Target Cells Tear Drop Cells Ovalocytes Kevyn Cells Schistocytes Absolute Retic Percent Retic Immature Retic Fraction Retic Hgb Equivalent Anion Gap Estim Creat Clear Calc Estimated GFR Random Glucose Lactic Acid Lactic Acid Fup @ 2Hr Calcium Total Bilirubin AST ALT Alkaline Phosphatase Lactate Dehydrogenase Troponin I High Sens 16.5 D Total Protein Albumin Urine Color Urine Appearance Urine pH Ur Specific [place] Urine Protein Urine Glucose (UA) Urine Ketones Urine Blood Urine Nitrite Ur Leukocyte Esterase COVID-19 ([facility]) Negative COVID-19 Clin Com See Note Blood Type AB Positive Antibody Screen NEGATIVE MIO, Polyspecific NEGATIVE Positive MIO Work-up TNP Crossmatch ([facility]) See Detail 12/21/20 12/21/20 11:45 12:42 MCV MCH MCHC RDW Plt Count MPV Immature Gran % (Auto) Neut % (Auto) Lymph % (Auto) [place] % (Auto) Eos % (Auto) Baso % (Auto) Lymph # (Auto) [place] # (Auto) Eos # (Auto) Baso # (Auto) Abs Immat Gran (auto) Absolute Neuts (auto) Absolute Nucleated RBC Nucleated RBC % (auto) Neutrophils % (Manual) Band Neutrophils % Lymphocytes % (Manual) Monocytes % (Manual) Abs Neuts (Manual) Lymphocytes # (Manual) Monocytes # (Manual) Platelet Estimate Plt Morphology Comment RBC Morphology Polychromasia Hypochromasia Macrocytosis Target Cells Tear Drop Cells Ovalocytes Traer Cells Schistocytes Absolute Retic Percent Retic Immature Retic Fraction Retic Hgb Equivalent Anion Gap Estim Creat Clear Calc Estimated GFR Random Glucose Lactic Acid Lactic Acid Fup @ 2Hr 3.6 H* Calcium Total Bilirubin AST ALT Alkaline Phosphatase Lactate Dehydrogenase Troponin I High Sens Total Protein Albumin Urine Color YELLOW Urine Appearance CLEAR Urine pH 6.5 Ur Specific [place] <= 1.005 Urine Protein NEG Urine Glucose (UA) NEG Urine Ketones NEG Urine Blood NEG Urine Nitrite NEG Ur Leukocyte Esterase NEG COVID-19 ([facility]) COVID-19 Clin Com Blood Type Antibody Screen MIO, Polyspecific Positive MIO Work-up Crossmatch ([facility]) Imaging Radiologist's Impressions: Impressions Abdomen/Pelvis CT 12/21/20 14:16 IMPRESSION: Enlarged liver and spleen, portal hypertension and varices. No ascites. Upper normal-size gallbladder with gallstones. Slightly dilated common bile duct similar to previous exam. No common bile duct stone seen by CT. If there is clinical concern for cholecystitis, HIDA scan or ultrasound would be recommended. Skin thickening and stranding of the fat in the periumbilical region questionable for cellulitis. There is diffuse anasarca. No focal abdominal wall fluid collection seen. Old lumbar, sacral and right pubic ramus fractures. Chest CT 12/21/20 14:16 IMPRESSION: No evidence of pneumonia. Subsegmental atelectasis at the lung bases. Small bilateral lower lobe nodules, largest measuring 4 mm in the right lower lobe. According to the UPDATED 2017 Fleischner Society recommendations, the advised follow-up imaging for less than 6 mm nodule: Low risk, no chest CT follow up high-risk, optional chest CT follow-up in one year. Enlarged heart. Mild T7 and T8 vertebral body compression fractures. Assessment and Plan (1) Acute gastrointestinal bleeding: Status: Acute 40-year-old female with a past medical history of end-stage liver disease , bilateral lower extremity lymphedema, chronic leg ulcers, history of bilateral leg wounds with cellulitis-follows with Wound Clinic, history of anemia-received blood transfusion past, history of epistaxis, thrombocytopenia, opiate dependence on methadone-lasting and 16 days ago, alcohol abuse; presented to the hospital with a chief complaint of generalized weakness. Anemia/ GI bleed: Patient denies any hematemesis. Reports 1 episode of black stool yesterday. Also consult for possible hemolysis. Appears that patient has been chronically losing blood. Patient was initially saw blood pressure. Liver mentating well. Blood pressure improved. Patient received 3 units of PRBC. Patient is also given 1 unit of platelets and 1U fresh frozen plasma. Spoke to the gastroenterology Dr. Cordoba was evaluated the patient at bedside-> mentioned less concern for variceal bleed at the moment. Recommended octreotide drip, Protonix drip. Also concerned for Hemolysis; noted she states diets, tear drop cells, but cells on the peripheral smear; Will consult Hematology. Will obtain iron, folate, B12 levels, LDH, haptoglobin. Severe thrombocytopenia: Patient's platelet currently 28. Patient being transfused 1Uplatelets. Grossly nonfocal exam. Abdominal discomfort/nausea/vomiting: Patient denies any blood in the vomitus. Patient has been drinking alcohol. Likely alcoholic gastritis. Patient is on IV ppi. Patient noted to have hepatomegaly. History of liver cirrhosis/ Transaminitis: Likely in setting of alcohol use. Patient liver enzymes slightly increased compared to prior numbers. Will continue to monitor. Currently patient has no signs of hepatic encephalopathy. Alcohol abuse: Patient reports that she has been drinking alcohol daily prior to coming in. Will give the patient on CIWA protocol with Ativan. Continue thiamine, folate and multivitamins. seizure precautions History of opiate dependence on methadone: Patient reports that her last dose of methadone was 16 days ago. Will consult Addiction Medicine for further recommendations. Monitor for withdrawals. Bilateral leg wounds/left heel ulcer with purulent discharge: No crepitus noted on exam. Dark eschar is tissue noted on the heel ulcer. Patient follows with Wound Clinic. Will consult General surgery. Will obtain CT of the leg/heel----> CT Leg showed findings concerning for osteomyelitis of calcaneus. Continue IV vancomycin and Zosyn pt has Hx MRSA in the Wound Will also consult ID Bacteremia: Blood cx grew GNR; pt on IV Abx. Vitals stable. Periumbilical wound/cellulitis: Patient on antibiotics as mentioned. Hyponatremia: Multifactorial. Patient currently asymptomatic. Will keep the patient on normal saline at 50 cc/hour. Nephrology consult. Repeat levels. Lactic acidosis: Patient on IV fluids hold home diuretics for now Peripheral edema/enlarged heart on the CT scan: Will obtain an echocardiogram. Patient currently denies any chest pain or shortness of breath. Patient also noted to be hypoalbuminemic: Patient would benefit high protein diet once resumed on the right. Patient has chronic lymphedema; patient on diuretics at home Pulmonary nodules: Recommended outpatient follow-up with the PCP for surveillance CT scans. Vertebral compression fractures: Patient currently denies any pain. Grossly nonfocal. Recommended outpatient neurosurgery follow-up. The a Patient currently mentating well. Discussed in detail about the plan of care with the patient. Patient expressed agreement to the above plan. Patient reported that she has gone through a lot and does not want to be resuscitated. Patient decided to be DNR DNI. I also tried to reach the patient's healthcare proxy Ms. Rob on phone number [phone]-not reachable, no voice message available. DVT prophylaxis: Unable to use SCD boots secondary to Leg wounds. Unable to use pharmacologic agents secondary to anemia/thrombocytopenia. Code status: DNR/DNI Quality Stroke Does the patient have a stroke diagnosis?: No VTE Prior VTE?: No VTE Risk Level:: Medical - moderate - high VTE Device Contraindication: N/A - Device Ordered VTE Drug Contraindication: N/A - Med Ordered
--- NOTE | 2020-12-21 20:50 | PC.NURSE ---
pt back from ct. pt placed back on monitor
[2020-12-21 22:15] LABS: Basophils Percent Auto 0.1 % (0-2); Hemoglobin 8.4 g/dl (12.0-16.0); Lymphocytes Absolute Auto 0.3 X10*3/uL (1.2-4.9); MANUAL DIFF FLAG SCAN; Neutrophils Percent Auto 87.2 % (45-73); SCAN SMEAR FLAG 1
[2020-12-21 22:17] LABS: Eosinophils Percent Auto 0.5 % (0-4); Hematocrit 23.9 % (37-47); Imm Gran Abs Auto 0.07 X10*3/uL (0.00-0.03); Imm Gran Pct Auto 0.9 % (0.0-0.4); Lymphocytes Percent Auto 4.1 % (20-40); Mean Corpuscular HGB Conc 35.1 g/dl (31.0-35.0); Mean Corpuscular Hemoglobin 32.1 pg (27.0-33.0); Mean Corpuscular Volume 91.2 fL (80-98); Monocytes Absolute Auto 0.5 X10*3/uL (0.1-1.2); Monocytes Percent Auto 7.2 % (2-11); Neutrophils Absolute Auto 6.6 X10*3/uL (2.0-8.3); PLT ABN DIST 1; Red Blood Count 2.62 X10*6/uL (4.20-5.50); Red Cell Distribution Width 19.5 % (11.0-16.0)
[2020-12-21 22:40] LABS: Platelet Count 28 X10*3/uL (160-400); White Blood Count 7.5 X10*3/uL (4.8-10.8)
[2020-12-21 22:41] LABS: SLIDE REVIEW VERIFIED
[2020-12-21 22:42] LABS: ~Lactic Acid-LAB USE ONLY 2.9 mmol/L (0.5-2.0)
[2020-12-21] MEDS: Piperacillin Sodium/Tazobactam 3.375 GM in 0.9 % Sodium Chloride 50 ML IV (22:53)
[2020-12-21] MEDS: 0.9 % Sodium Chloride 1,000 ML 50 ML IVCONT (22:56)
--- NOTE | 2020-12-21 23:09 | PC.NURSE ---
MEDICATION DELAY DUE TO IV ACCESS/COMPARABILITY AND BLOOD PRODUCTS RUNNING. PT REPOSITIONED FOR COMFORT. DRESSING/REDRESSED, CLEAN DRY AND INTACT.
--- NOTE | 2020-12-21 23:12 | PC.NURSE ---
PT REPOSITIONED FOR COMFORT
[2020-12-22] VITALS (18 sets, daily range): BP systolic 86–126; BP diastolic 41–70; PULSE 85–108; RESP 12–22; TEMP 36.5–37.7; O2SAT 90–100
[2020-12-22] MEDS: vancomycin HCL 1,000 MG in 0.9 % Sodium Chloride 250 ML 270 MG IV (01:04)
[2020-12-22] MEDS: Octreotide Acetate 500 MCG in 0.9 % Sodium Chloride 500 ML 50.1 MCG IVCONT ×3 (01:06→20:13)
--- NOTE | 2020-12-22 01:06 | PC.NURSE ---
zancomycin mixed with ns 25occ and the ns bag will not scan.
[2020-12-22] MEDS: Potassium Chloride ER 20 MEQ TAB.ER.PRT PO ×3 (01:17→20:01)
[2020-12-22] MEDS: Lactulose 20 GM/30 ML SOLUTION 10 GM PO ×4 (01:17→20:00)
[2020-12-22] MEDS: LORazepam 1 MG TABLET PO ×2 (01:17→11:54)
[2020-12-22] MEDS: Gabapentin 600 MG TABLET PO ×4 (01:18→20:01)
[2020-12-22] MEDS: Topiramate 25 MG TABLET PO ×3 (01:18→20:01)
--- NOTE | 2020-12-22 01:23 | PC.NURSE ---
pt vomited yellow, pt has a cough and thick clear sputum .
[2020-12-22] MEDS: Piperacillin Sodium/Tazobactam 3.375 GM in 0.9 % Sodium Chloride 50 ML IV ×3 (03:17→20:00)
[2020-12-22] MEDS: ondansetron HCL 4 MG/2 ML VIAL IVPUSH ×2 (03:23→07:22)
--- NOTE | 2020-12-22 03:33 | PC.NURSE ---
pt medicated for nausea, no vomiting.
[2020-12-22] MEDS: Pantoprazole Sodium 80 MG in 0.9 % Sodium Chloride 80 ML 10 MG IV ×2 (06:41→17:13)
[2020-12-22 07:45] LABS: Iron 42 mcg/dL (30-160); Lactate Dehydrogenase 242 U/L (122-220); Percent Iron Saturation 40 % (15-50); Total Iron Binding Capacity 106 mcg/dL (228-428); Unsaturated Iron Binding 64 ug/dL
--- NOTE | 2020-12-22 08:30 | CA_ITS ---
Transthoracic Echocardiogram Patient (Last, First, Middle): Priscilla Hsu, Gender: Female Date of : 1980 Age: 40 Procedure Date: 12/22/2020 Procedure Type: Transthoracic Echocardiogram Location: [facility] Height: 157.48 cm Weight: 68.04 kg BSA: 1.69 m2 Heart Rate: bpm BP: 121 / 53 mmHg Ems Manager: NICKO Referring MD: Thony Raymond MD Symptoms: SOB; peripheral edema; Cardiomegaly on CT Study Quality: Fair Conclusions: - Normal left ventricular size and systolic function. - Diastolic function is indeterminate on the basis of available data. - Normal right ventricular cavity size and systolic function. - The left atrium is moderately dilated. - Mild pulmonary hypertension is present. Findings Procedure Information Contrast agent, definity, is being given per protocol without apparent complications. Left Ventricle Normal left ventricular size and systolic function. The visually estimated ejection fraction is between 55-60%. There is no evidence of regional wall motion abnormalities. Diastolic function is indeterminate on the basis of available data. Right Ventricle Normal right ventricular cavity size and systolic function. Atria The left atrium is moderately dilated. There is no evidence of interatrial shunt by color Doppler. The right atrium is mildly dilated. Aortic Valve The aortic valve structure and function is likely normal. There is no aortic valve stenosis. There is no aortic valve regurgitation. Mitral Valve Normal mitral valve structure and function. There is mild mitral valve regurgitation. There is no mitral valve stenosis. Pulmonic Valve The pulmonic valve is likely normal. Tricuspid Valve Normal tricuspid valve structure and function. There is trace tricuspid valve regurgitation. Moderately elevated right atrial pressure. Mild pulmonary hypertension is present. Great Vessels All visible segments of the aorta are normal in size. The visualized portions of the pulmonary artery and branches are normal. Venous The inferior vena cava is dilated and collapses less than 50% with inspiration. Pericardium/Pleural There is no evidence of pericardial effusion. Measurements 2D Linear Measurements IVSd: 0.84 0.6-0.9/0.6-1.0 cm LVIDd: 4.99 3.9-5.3/4.2-5.9 cm LVIDd Index: 2.95 2.4-3.2/2.2-3.1 cm/m2 LVIDs: 3.19 2.0-3.6 cm LVPWd: 0.98 0.7-1.1 cm Ao Root: 2.90 2.1-3.5 cm LA Diam: 3.90 2.7-3.8/3.0-4.0 cm LAIDs Index: 2.31 1.5-2.3 cm/m2 LV Mass: 198.65 67-162/88-224 g LV Mass Index: 117.55 43-95/49-115 g/m2 LVOT Diam: 2.00 3.0+(-)1.3 cm 2D Systolic Function EF 4C: 47.60 >55% EF 2C: 61.60 >55% Mitral Valve MV Pk E: 1.34 MV PK A: 1.26 MV Decel Time: 104.00 E/A: 1.10 E'Lateral: 12.40 E'Medial: 7.40 E/E' Med: 18.10 E/E' Lat: 10.80 PHT: 30.00 MVA PHT: 7.33 Decel Crosby: 12.93 Aortic Valve AoV Pk Sha: 2.26 AoV Mn Sha: 1.69 AoV VTI: 0.47 AoV Pk Grad: 20.00 Aov Mn Grad: 12.00 KENJI Cont.VTI: 2.24 LVOT LVOT Pk Sha: 1.77 LVOT Mn Sha: 1.17 LVOT VTI: 0.34 LVOT Pk Grad: 13.00 LVOT Mn Grad: 6.00 LVOT Diam: 2.00 LVOT Area: 3.14 Diastolic Function MV Pk E: 1.34 MV Pk A: 1.26 E/A: 1.10 E'Medial: 7.40 E/E' Med: 18.10 E' Laterial: 12.40 E/E' Lat: 10.80 Tricuspid Valve TR Pk Sha: 2.82 TR Pk Grad: 32.00 RA Press: 8.00 RVSP: 40.00 Great Vessels Aorta Ao Root-2D: 2.90 2.0-3.7 cm Ao Asc: 3.10 2.1-3.4 cm Updated in Other Vendor System with Status of Final Jaylen Abad MD electronically signed on 12/22/2020 1:44:57 PM with status of Final
[2020-12-22 09:29] LABS: Folate 18.5 ng/mL (> or = 4.0); Vitamin B12 > 2000 pg/mL (200-900)
--- NOTE | 2020-12-22 09:58 | PC.NURSE ---
CALLED TO GIVE REPORT RN WILL CALL BACK
--- NOTE | 2020-12-22 10:41 | PC.NURSE ---
repot given to hamilton whitehead
--- NOTE | 2020-12-22 11:09 | HO.ADDICT_ITS ---
History of Present Illness Date of Service: 12/22/2020 Chief Complaint: Anemia Reason for Consult: Alcohol use disorder hx of opioid use disorder--previously on methadone Discussed with referring provider: No Sources of Information: patient interviewed and chart reviewed HPI Narrative: Per hospitalist H&P: Course Narrative: 40-year-old female with history of end-stage liver disease, cirrhosis who continues to drink alcohol who presents emergency department for evaluation of severe weakness, nausea, dark stools and fever. Temperature of 100.6? and elevated pulse of 116, she has a low blood pressure of 106/48 with a map of 67. Physical examination is consistent with her end-stage liver disease, rectal exam did reveal brown stool which was Hemoccult positive. Patient has significant lower extremity swelling with breakdown of the skin bilateral with no obvious signs of cellulitis Consult requested to eval and treat AUD and OUD. Patient seen in room 19 of ED. she is awake, alert, pleasant and engaged in interview. Patient sitting upright in a recliner with legs elevated, wounds on her legs were recently wrapped. Patient appearing much older than stated age. Substance use history: -patient reports that she was prescribed long-term opioids following surgery, and was suddenly unable to continue receiving prescriptions as her providers office was abruptly closed (2007) -she reports that she started using heroin when she could not find a provider and he used heroin for about 7 months before starting methadone in 2008. -she reports she has been on methadone up until a little over 2 weeks ago when she reports she was unable to go to the clinic due to her health issues and states that she was ?discharged?. At that time she was on 110 mg of methadone -patient reports that she experienced significant opioid withdrawal at home, states that she bought ?a couple of Percocet since to help me out but that in work ?. She denies any heroin use and denies any additional opioid use -she reports that this is when she started to increase her drinking and is currently drinking anywhere from 7-20 nips of absolute vodka every day. Prior to that she reports that she was a ?social drinker? but was not drinking quite as much as she is now She denies any opioid withdrawal symptoms, denies cravings, and reports that she does not want to restart methadone. Denies alcohol withdrawal sx Review of Systems Constitutional: Reports difficulty sleeping, Reports malaise and Reports weakness Comments: difficulty ambulating r/t wounds/edema on lower legs Skin/Breast: Reports as per HPI Reports weakness Diagnostics Vital Signs (24Hr): Vital Signs - 24 hr 12/21/20 11:54 12/21/20 14:17 12/21/20 14:20 Temperature 100.4 F 99.3 F 99.3 F Pulse Rate 116 H 100 100 Respiratory Rate 20 18 18 Blood Pressure 109/48 L 82/34 L 82/34 L Pulse Oximetry 12/21/20 14:21 12/21/20 14:36 12/21/20 15:40 Temperature 99.3 F 99.3 F 99.2 F Pulse Rate 100 92 92 Respiratory Rate 18 18 18 Blood Pressure 82/34 L 92/36 L 100/42 L Pulse Oximetry 12/21/20 15:42 12/21/20 16:13 12/21/20 16:28 Temperature 99.2 F 99.3 F 99.3 F Pulse Rate 92 90 95 Respiratory Rate 18 18 18 Blood Pressure 100/42 L 95/36 L 95/37 L Pulse Oximetry 12/21/20 16:55 12/21/20 16:57 12/21/20 17:29 Temperature 98.7 F 98.7 F 98.7 F Pulse Rate 90 90 90 Respiratory Rate 14 14 18 Blood Pressure 100/43 L 100/43 L 101/41 L Pulse Oximetry 12/21/20 17:45 12/21/20 17:48 12/21/20 18:25 Temperature 98.7 F 98.7 F 98.7 F Pulse Rate 91 91 91 Respiratory Rate 14 14 20 Blood Pressure 98/47 L 98/47 L 116/58 L Pulse Oximetry 12/21/20 18:27 12/21/20 18:49 12/21/20 19:20 Temperature 98.7 F Pulse Rate 91 93 Respiratory Rate 20 21 H Blood Pressure 116/58 L 109/55 L 116/65 Pulse Oximetry 12/21/20 19:42 12/21/20 20:02 12/21/20 20:30 Temperature 98.8 F 98.5 F 98.9 F Pulse Rate 95 14 L 92 Respiratory Rate 27 H 18 18 Blood Pressure 123/66 116/59 L 116/64 Pulse Oximetry 12/21/20 21:01 12/21/20 23:01 12/21/20 23:14 Temperature 98.7 F 99.7 F 99.4 F Pulse Rate 96 100 102 H Respiratory Rate 22 H 18 16 Blood Pressure 116/66 125/65 127/65 Pulse Oximetry 97 12/21/20 23:30 12/21/20 23:42 12/22/20 02:27 Temperature 99.4 F 99.4 F Pulse Rate 98 99 108 H Respiratory Rate 16 16 20 Blood Pressure 127/65 120/64 126/60 Pulse Oximetry 98 12/22/20 02:53 12/22/20 07:18 12/22/20 07:27 Temperature 99.5 F Pulse Rate 104 H 102 H 99 Respiratory Rate 16 15 13 Blood Pressure 121/53 L 119/70 125/63 Pulse Oximetry 92 92 100 Body Mass Index 27.4 Labs Results: 12/21/20 22:08 12/21/20 08:39 Labs: Laboratory Results - last 48 hr 12/21/20 12/21/20 12/21/20 08:39 08:39 08:39 WBC 11.8 H RBC 1.30 L D Hgb 4.4 L* D Hct 12.5 L* D MCV 96.2 MCH 33.8 H MCHC 35.2 H RDW 25.1 H Plt Count 28 L MPV Not Reportable Immature Gran % (Auto) Cancelled Neut % (Auto) Cancelled Lymph % (Auto) Cancelled [place] % (Auto) Cancelled Eos % (Auto) Cancelled Baso % (Auto) Cancelled Lymph # (Auto) Cancelled [place] # (Auto) Cancelled Eos # (Auto) Cancelled Baso # (Auto) Cancelled Abs Immat Gran (auto) Cancelled Absolute Neuts (auto) Cancelled Absolute Nucleated RBC 0.000 Nucleated RBC % (auto) 0.0 Neutrophils % (Manual) 90 H Band Neutrophils % 7 H Lymphocytes % (Manual) 2 L Monocytes % (Manual) 1 L Abs Neuts (Manual) 11.4 H Lymphocytes # (Manual) 0.2 L Monocytes # (Manual) 0.1 Platelet Estimate DECREASED Plt Morphology Comment NORMAL RBC Morphology NOTED Polychromasia 1+ (0-2) Hypochromasia 2+ (15-30) Macrocytosis 2+ (15-30) Target Cells 1+ (5-14) Tear Drop Cells 1+ (0-2) Ovalocytes 1+ (5-14) Bruno Cells 1+ ( Schistocytes 1+ (0-2) Smear Tech's Comments Absolute Retic 0.058 Percent Retic 4.3 H Immature Retic Fraction 21.9 H Retic Hgb Equivalent 32.8 Sodium 127 L Potassium 3.5 Chloride 98 Carbon Dioxide 17 L Anion Gap 16 BUN 11 D Creatinine 0.73 Estim Creat Clear Calc 119.5 Estimated GFR > 60 Random Glucose 118 H D Lactic Acid 5.0 H* Lactic Acid Fup @ 2Hr Lactic Acid Fup @ 4Hr Calcium 7.0 L D Iron TIBC % Saturation Unsat Iron Binding Total Bilirubin 3.6 H AST 223 H ALT 42 H Alkaline Phosphatase 255 H D Lactate Dehydrogenase 232 H Troponin I High Sens Total Protein 7.2 Albumin 2.0 L Vitamin B12 Folate Urine Color Urine Appearance Urine pH Ur Specific [place] Urine Protein Urine Glucose (UA) Urine Ketones Urine Blood Urine Nitrite Ur Leukocyte Esterase COVID-19 ([facility]) COVID-19 Clin Com Blood Type Antibody Screen MIO, Polyspecific Positive MIO Work-up Crossmatch ([facility]) 12/21/20 12/21/20 12/21/20 08:39 09:09 10:38 WBC RBC Hgb Hct MCV MCH MCHC RDW Plt Count MPV Immature Gran % (Auto) Neut % (Auto) Lymph % (Auto) [place] % (Auto) Eos % (Auto) Baso % (Auto) Lymph # (Auto) [place] # (Auto) Eos # (Auto) Baso # (Auto) Abs Immat Gran (auto) Absolute Neuts (auto) Absolute Nucleated RBC Nucleated RBC % (auto) Neutrophils % (Manual) Band Neutrophils % Lymphocytes % (Manual) Monocytes % (Manual) Abs Neuts (Manual) Lymphocytes # (Manual) Monocytes # (Manual) Platelet Estimate Plt Morphology Comment RBC Morphology Polychromasia Hypochromasia Macrocytosis Target Cells Tear Drop Cells Ovalocytes Bruno Cells Schistocytes Smear Tech's Comments Absolute Retic Percent Retic Immature Retic Fraction Retic Hgb Equivalent Sodium Potassium Chloride Carbon Dioxide Anion Gap BUN Creatinine Estim Creat Clear Calc Estimated GFR Random Glucose Lactic Acid Lactic Acid Fup @ 2Hr Lactic Acid Fup @ 4Hr Calcium Iron TIBC % Saturation Unsat Iron Binding Total Bilirubin AST ALT Alkaline Phosphatase Lactate Dehydrogenase Troponin I High Sens 16.5 D Total Protein Albumin Vitamin B12 Folate Urine Color Urine Appearance Urine pH Ur Specific [place] Urine Protein Urine Glucose (UA) Urine Ketones Urine Blood Urine Nitrite Ur Leukocyte Esterase COVID-19 ([facility]) Negative COVID-19 Clin Com See Note Blood Type AB Positive Antibody Screen NEGATIVE MIO, Polyspecific NEGATIVE Positive MIO Work-up TNP Crossmatch ([facility]) See Detail 12/21/20 12/21/20 12/21/20 11:45 12:42 22:08 WBC 7.5 RBC 2.62 L D Hgb 8.4 L D Hct 23.9 L D MCV 91.2 D MCH 32.1 MCHC 35.1 H RDW 19.5 H Plt Count 28 L MPV TNP Immature Gran % (Auto) 0.9 H Neut % (Auto) 87.2 H Lymph % (Auto) 4.1 L [place] % (Auto) 7.2 Eos % (Auto) 0.5 Baso % (Auto) 0.1 Lymph # (Auto) 0.3 L [place] # (Auto) 0.5 Eos # (Auto) 0.0 Baso # (Auto) 0.0 Abs Immat Gran (auto) 0.07 H Absolute Neuts (auto) 6.6 Absolute Nucleated RBC 0.000 Nucleated RBC % (auto) 0.0 Neutrophils % (Manual) Band Neutrophils % Lymphocytes % (Manual) Monocytes % (Manual) Abs Neuts (Manual) Lymphocytes # (Manual) Monocytes # (Manual) Platelet Estimate Plt Morphology Comment RBC Morphology Polychromasia Hypochromasia Macrocytosis Target Cells Tear Drop Cells Ovalocytes Bruno Cells Schistocytes Smear Tech's Comments VERIFIED Absolute Retic Percent Retic Immature Retic Fraction Retic Hgb Equivalent Sodium Potassium Chloride Carbon Dioxide Anion Gap BUN Creatinine Estim Creat Clear Calc Estimated GFR Random Glucose Lactic Acid Lactic Acid Fup @ 2Hr 3.6 H* Lactic Acid Fup @ 4Hr Calcium Iron TIBC % Saturation Unsat Iron Binding Total Bilirubin AST ALT Alkaline Phosphatase Lactate Dehydrogenase Troponin I High Sens Total Protein Albumin Vitamin B12 Folate Urine Color YELLOW Urine Appearance CLEAR Urine pH 6.5 Ur Specific [place] <= 1.005 Urine Protein NEG Urine Glucose (UA) NEG Urine Ketones NEG Urine Blood NEG Urine Nitrite NEG Ur Leukocyte Esterase NEG COVID-19 ([facility]) COVID-19 Clin Com Blood Type Antibody Screen MIO, Polyspecific Positive MIO Work-up Crossmatch ([facility]) 12/21/20 12/22/20 12/22/20 22:09 06:46 06:46 WBC RBC Hgb Hct MCV MCH MCHC RDW Plt Count MPV Immature Gran % (Auto) Neut % (Auto) Lymph % (Auto) [place] % (Auto) Eos % (Auto) Baso % (Auto) Lymph # (Auto) [place] # (Auto) Eos # (Auto) Baso # (Auto) Abs Immat Gran (auto) Absolute Neuts (auto) Absolute Nucleated RBC Nucleated RBC % (auto) Neutrophils % (Manual) Band Neutrophils % Lymphocytes % (Manual) Monocytes % (Manual) Abs Neuts (Manual) Lymphocytes # (Manual) Monocytes # (Manual) Platelet Estimate Plt Morphology Comment RBC Morphology Polychromasia Hypochromasia Macrocytosis Target Cells Tear Drop Cells Ovalocytes Bruno Cells Schistocytes Smear Tech's Comments Absolute Retic Percent Retic Immature Retic Fraction Retic Hgb Equivalent Sodium Potassium Chloride Carbon Dioxide Anion Gap BUN Creatinine Estim Creat Clear Calc Estimated GFR Random Glucose Lactic Acid Lactic Acid Fup @ 2Hr Lactic Acid Fup @ 4Hr 2.9 H* Calcium Iron 42 TIBC 106 L % Saturation 40 Unsat Iron Binding 64 Total Bilirubin AST ALT Alkaline Phosphatase Lactate Dehydrogenase 242 H Troponin I High Sens Total Protein Albumin Vitamin B12 > 2000 H Folate 18.5 Urine Color Urine Appearance Urine pH Ur Specific [place] Urine Protein Urine Glucose (UA) Urine Ketones Urine Blood Urine Nitrite Ur Leukocyte Esterase COVID-19 ([facility]) COVID-19 Clin Com Blood Type Antibody Screen MIO, Polyspecific Positive MIO Work-up Crossmatch ([facility]) Imaging Radiology Impressions: ITS Impressions Abdomen/Pelvis CT 12/21/20 14:16 IMPRESSION: Enlarged liver and spleen, portal hypertension and varices. No ascites. Upper normal-size gallbladder with gallstones. Slightly dilated common bile duct similar to previous exam. No common bile duct stone seen by CT. If there is clinical concern for cholecystitis, HIDA scan or ultrasound would be recommended. Skin thickening and stranding of the fat in the periumbilical region questionable for cellulitis. There is diffuse anasarca. No focal abdominal wall fluid collection seen. Old lumbar, sacral and right pubic ramus fractures. Chest CT 12/21/20 14:16 IMPRESSION: No evidence of pneumonia. Subsegmental atelectasis at the lung bases. Small bilateral lower lobe nodules, largest measuring 4 mm in the right lower lobe. According to the UPDATED 2017 Fleischner Society recommendations, the advised follow-up imaging for less than 6 mm nodule: Low risk, no chest CT follow up high-risk, optional chest CT follow-up in one year. Enlarged heart. Mild T7 and T8 vertebral body compression fractures. Lower Extremity CT 12/21/20 20:55 IMPRESSION: Deep soft tissue ulceration at the heel extending to the cortical surface of the calcaneus. There is focal bone destruction of the cortex at this area consistent with osteomyelitis of the calcaneus. Mental Status Exam Mental Status Exam Patient Appearance: Unkempt Patient Orientation: Person, Place, Time and Situation Level of Consciousness: Awake, Appropriate and Alert Patient Behavior: Appropriate Mood Description: Appropriate Affect Description: Appropriate Speech Pattern: Clear Thought Content: positive for Circumstantial and positive for Goal Oriented Judgement: Fair Medications Medications Current Medications Generic Name Dose Route Start Last Admin Trade Name Adanq PRN Reason Stop Dose Admin Clonidine HCl 0.1 mg 12/22/20 09:00 Clonidine Hcl 0.1 Mg Tablet PO DAILY MARIANN Protocol Folic Acid 1 mg 12/22/20 09:00 Folic Acid 1 Mg Tablet PO 12/25/20 08:59 DAILY MARIANN Gabapentin 600 mg 12/21/20 21:00 12/22/20 01:18 Gabapentin 600 Mg Tablet PO 600 mg QID MARIANN Administration Piperacillin Sod/Tazobactam 50 mls @ 100 mls/hr 12/21/20 20:30 12/22/20 07:04 Sod 3.375 gm/ Sodium Chloride IV Infused Q6H MARIANN Infusion Octreotide Acetate 500 mcg/ 501 mls @ 50.1 mls/hr 12/21/20 23:00 12/22/20 10:11 Sodium Chloride IVCONT 50 mcg/hr .Q10H MARIANN 50.1 mls/hr Administration 50 MCG/HR Sodium Chloride 1,000 mls @ 50 mls/hr 12/21/20 21:00 12/21/20 22:56 Ns IVCONT 50 mls/hr .Q20H MARIANN Administration Pantoprazole Sodium 80 mg/ 100 mls @ 10 mls/hr 12/21/20 21:00 12/22/20 06:41 Sodium Chloride IV 8 mg/hr .Q10H MARIANN 10 mls/hr Administration 8 MG/HR Vancomycin HCl 1,000 mg/ 270 mls @ 270 mls/hr 12/22/20 13:00 Sodium Chloride IV Q12H MARIANN Lactulose 10 gm 12/21/20 21:00 12/22/20 01:17 Lactulose 20 Gm/30 Ml Solution PO 10 gm TID MARIANN Administration Lorazepam 1 mg 12/21/20 20:55 12/22/20 01:17 Lorazepam 1 Mg Tablet PO 12/25/20 20:54 1 mg Q4H PRN Administration Breakthrough alcohol withdrawa Multivitamins 1 tab 12/22/20 09:00 B-Complex With Vitamin C Tablet PO DAILY MARIANN Ondansetron HCl 4 mg 12/22/20 01:27 12/22/20 07:22 Ondansetron Hcl 4 Mg/2 Ml Vial IVPUSH 4 mg Q8H PRN Administration Nausea and Vomiting Pharmacy Consult 1 each 12/21/20 12:37 Consult Rx Perform Med Rec MISCELLANE ONCE PRN Consult order Potassium Chloride 20 meq 12/21/20 21:00 12/22/20 01:17 Potassium Chloride Er 20 Meq Tab.Er.Prt PO 20 meq BID MARIANN Administration Sodium Chloride 3 ml 12/22/20 00:00 12/22/20 01:20 0.9 % Sodium Chloride Flush 3 Ml Syringe IVFLUSH Not Given QSHIFT MARIANN Thiamine HCl 100 mg 12/22/20 09:00 Thiamine Hcl 100 Mg Tablet PO 12/25/20 08:59 DAILY MARIANN Topiramate 25 mg 12/21/20 21:00 12/22/20 01:18 Topiramate 25 Mg Tablet PO 25 mg BID MARIANN Administration Allergies Allergies Allergy/AdvReac Type Severity Reaction Status Date / Time No Known Allergies Allergy Unverified 03/18/20 14:51 [No Known Allergies*] morphine AdvReac Unknown N/V Verified 04/08/15 00:00 antibiotic ? Allergy Unknown Uncoded 01/05/20 00:00 Assessment & Plan Assessment & Plan (1) Opioid use disorder: Status: Acute Code(s): F11.99 - Opioid use, unspecified with unspecified opioid-induced disorder Recommendations: * no acute withdrawal sx. declines any MOUD. * Will reassess once on medical floor and provide resources as appropriate (2) Alcohol use disorder: Status: Acute Recommendations: * Currently on CIWA * will follow up on medical floor regarding appropriate tx options including recovery supports Greater than 50% of the session was spent on counseling and/or coordination of care [facility] Social History Social History Household Members: Family and Children Housing: House Do you presently have visiting nurse or other home services: Yes Alcohol intake: current Alcohol intake frequency: 0-2 drinks per day Patient Tobacco Use Status: Current everyday Tobacco user Cigarette Packs Per Day: 0.5 Cigarettes Per Day: 10.0 Second Hand Smoke Exposure: No Use of substances other than those prescribed or required for medical reasons: No Substance Use Type: Opiates Advance Directives: Yes Advance Directives Information Provided: Yes Advance Directives on File: No Advance Directives Date on File: 04/02/20 service: No Current occupational status: disabled
[2020-12-22] MEDS: 0.9 % Sodium Chloride Flush 3 ML SYRINGE IVFLUSH ×3 (11:22→20:01)
[2020-12-22] MEDS: cloNIDine HCL 0.1 MG TABLET PO (11:55)
[2020-12-22] MEDS: Thiamine HCL 100 MG TABLET PO (11:56)
--- NOTE | 2020-12-22 11:56 | P.PNIM_ITS ---
Subjective Subjective Date of Service: 12/22/20 Interval History: leg pain Cardiovascular Cardiovascular: Reports no additional cardiovascular complaints Genitourinary Genitourinary: Reports no additional female genitourinary complaints Physical Exam Vital Signs: Vital Signs: Last Vital Signs Temp 97.7 F 12/22/20 11:17 Pulse 97 12/22/20 11:17 Resp 17 12/22/20 11:17 BP 123/67 12/22/20 11:55 Pulse Ox 98 12/22/20 11:17 Body Mass Index 27.4 General: AO X 3, ill appearing Resp: CTA bilateral CVS: S1,S2,RRR GI: soft, non tender, non distended Neuro: motor grossly intact Psych: appropriate affect lymphedema, with RLE ulcer Objective Data Current Medications Generic Name Dose Route Start Last Admin Trade Name Adanq PRN Reason Stop Dose Admin Clonidine HCl 0.1 mg 12/22/20 09:00 12/22/20 11:55 Clonidine Hcl 0.1 Mg Tablet PO 0.1 mg DAILY MARIANN Administration Protocol Folic Acid 1 mg 12/22/20 09:00 Folic Acid 1 Mg Tablet PO 12/25/20 08:59 DAILY MARIANN Gabapentin 600 mg 12/21/20 21:00 12/22/20 01:18 Gabapentin 600 Mg Tablet PO 600 mg QID MARIANN Administration Piperacillin Sod/Tazobactam 50 mls @ 100 mls/hr 12/21/20 20:30 12/22/20 07:04 Sod 3.375 gm/ Sodium Chloride IV Infused Q6H MARIANN Infusion Octreotide Acetate 500 mcg/ 501 mls @ 50.1 mls/hr 12/21/20 23:00 12/22/20 10:11 Sodium Chloride IVCONT 50 mcg/hr .Q10H MARIANN 50.1 mls/hr Administration 50 MCG/HR Sodium Chloride 1,000 mls @ 50 mls/hr 12/21/20 21:00 12/21/20 22:56 Ns IVCONT 50 mls/hr .Q20H MARIANN Administration Pantoprazole Sodium 80 mg/ 100 mls @ 10 mls/hr 12/21/20 21:00 12/22/20 06:41 Sodium Chloride IV 8 mg/hr .Q10H MARIANN 10 mls/hr Administration 8 MG/HR Vancomycin HCl 1,000 mg/ 270 mls @ 270 mls/hr 12/22/20 13:00 Sodium Chloride IV Q12H MARIANN Lactulose 10 gm 12/21/20 21:00 12/22/20 01:17 Lactulose 20 Gm/30 Ml Solution PO 10 gm TID MARIANN Administration Lorazepam 1 mg 12/21/20 20:55 12/22/20 11:54 Lorazepam 1 Mg Tablet PO 12/25/20 20:54 1 mg Q4H PRN Administration Breakthrough alcohol withdrawa Multivitamins 1 tab 12/22/20 09:00 B-Complex With Vitamin C Tablet PO DAILY MARIANN Ondansetron HCl 4 mg 12/22/20 01:27 12/22/20 07:22 Ondansetron Hcl 4 Mg/2 Ml Vial IVPUSH 4 mg Q8H PRN Administration Nausea and Vomiting Pharmacy Consult 1 each 12/21/20 12:37 Consult Rx Perform Med Rec MISCELLANE ONCE PRN Consult order Potassium Chloride 20 meq 12/21/20 21:00 12/22/20 01:17 Potassium Chloride Er 20 Meq Tab.Er.Prt PO 20 meq BID MARIANN Administration Sodium Chloride 3 ml 12/22/20 00:00 12/22/20 11:22 0.9 % Sodium Chloride Flush 3 Ml Syringe IVFLUSH 3 ml QSHIFT MARIANN Administration Thiamine HCl 100 mg 12/22/20 09:00 Thiamine Hcl 100 Mg Tablet PO 12/25/20 08:59 DAILY MARIANN Topiramate 25 mg 12/21/20 21:00 12/22/20 01:18 Topiramate 25 Mg Tablet PO 25 mg BID MARIANN Administration Labs CBC & Chem 7: 12/21/20 22:08 12/21/20 08:39 Labs: Laboratory Results - last 24 hr 12/21/20 12/21/20 12/21/20 08:39 08:39 09:09 WBC 11.8 H RBC 1.30 L D Hgb 4.4 L* D Hct 12.5 L* D MCV 96.2 MCH 33.8 H MCHC 35.2 H RDW 25.1 H Plt Count 28 L MPV Immature Gran % (Auto) Cancelled Neut % (Auto) Cancelled Lymph % (Auto) Cancelled Roberts % (Auto) Cancelled Eos % (Auto) Cancelled Baso % (Auto) Cancelled Lymph # (Auto) Cancelled Roberts # (Auto) Cancelled Eos # (Auto) Cancelled Baso # (Auto) Cancelled Abs Immat Gran (auto) Cancelled Absolute Neuts (auto) Cancelled Absolute Nucleated RBC 0.000 Nucleated RBC % (auto) 0.0 Neutrophils % (Manual) 90 H Band Neutrophils % 7 H Lymphocytes % (Manual) 2 L Monocytes % (Manual) 1 L Abs Neuts (Manual) 11.4 H Lymphocytes # (Manual) 0.2 L Monocytes # (Manual) 0.1 Platelet Estimate DECREASED Plt Morphology Comment NORMAL RBC Morphology NOTED Polychromasia 1+ (0-2) Hypochromasia 2+ (15-30) Macrocytosis 2+ (15-30) Target Cells 1+ (5-14) Tear Drop Cells 1+ (0-2) Ovalocytes 1+ (5-14) Kevyn Cells 1+ ( Schistocytes 1+ (0-2) Smear Tech's Comments Absolute Retic 0.058 Percent Retic 4.3 H Immature Retic Fraction 21.9 H Retic Hgb Equivalent 32.8 Lactic Acid Fup @ 2Hr Lactic Acid Fup @ 4Hr Iron TIBC % Saturation Unsat Iron Binding Lactate Dehydrogenase 232 H Vitamin B12 Folate Urine Color Urine Appearance Urine pH Ur Specific [place] Urine Protein Urine Glucose (UA) Urine Ketones Urine Blood Urine Nitrite Ur Leukocyte Esterase Blood Type AB Positive Antibody Screen NEGATIVE MIO, Polyspecific NEGATIVE Positive MIO Work-up TNP Crossmatch ([facility]) See Detail 12/21/20 12/21/20 12/21/20 11:45 12:42 22:08 WBC 7.5 RBC 2.62 L D Hgb 8.4 L D Hct 23.9 L D MCV 91.2 D MCH 32.1 MCHC 35.1 H RDW 19.5 H Plt Count 28 L MPV TNP Immature Gran % (Auto) 0.9 H Neut % (Auto) 87.2 H Lymph % (Auto) 4.1 L Roberts % (Auto) 7.2 Eos % (Auto) 0.5 Baso % (Auto) 0.1 Lymph # (Auto) 0.3 L Roberts # (Auto) 0.5 Eos # (Auto) 0.0 Baso # (Auto) 0.0 Abs Immat Gran (auto) 0.07 H Absolute Neuts (auto) 6.6 Absolute Nucleated RBC 0.000 Nucleated RBC % (auto) 0.0 Neutrophils % (Manual) Band Neutrophils % Lymphocytes % (Manual) Monocytes % (Manual) Abs Neuts (Manual) Lymphocytes # (Manual) Monocytes # (Manual) Platelet Estimate Plt Morphology Comment RBC Morphology Polychromasia Hypochromasia Macrocytosis Target Cells Tear Drop Cells Ovalocytes Kevyn Cells Schistocytes Smear Tech's Comments VERIFIED Absolute Retic Percent Retic Immature Retic Fraction Retic Hgb Equivalent Lactic Acid Fup @ 2Hr 3.6 H* Lactic Acid Fup @ 4Hr Iron TIBC % Saturation Unsat Iron Binding Lactate Dehydrogenase Vitamin B12 Folate Urine Color YELLOW Urine Appearance CLEAR Urine pH 6.5 Ur Specific [place] <= 1.005 Urine Protein NEG Urine Glucose (UA) NEG Urine Ketones NEG Urine Blood NEG Urine Nitrite NEG Ur Leukocyte Esterase NEG Blood Type Antibody Screen MIO, Polyspecific Positive MIO Work-up Crossmatch ([facility]) 12/21/20 12/22/20 12/22/20 22:09 06:46 06:46 WBC RBC Hgb Hct MCV MCH MCHC RDW Plt Count MPV Immature Gran % (Auto) Neut % (Auto) Lymph % (Auto) Roberts % (Auto) Eos % (Auto) Baso % (Auto) Lymph # (Auto) Roberts # (Auto) Eos # (Auto) Baso # (Auto) Abs Immat Gran (auto) Absolute Neuts (auto) Absolute Nucleated RBC Nucleated RBC % (auto) Neutrophils % (Manual) Band Neutrophils % Lymphocytes % (Manual) Monocytes % (Manual) Abs Neuts (Manual) Lymphocytes # (Manual) Monocytes # (Manual) Platelet Estimate Plt Morphology Comment RBC Morphology Polychromasia Hypochromasia Macrocytosis Target Cells Tear Drop Cells Ovalocytes Ranger Cells Schistocytes Smear Tech's Comments Absolute Retic Percent Retic Immature Retic Fraction Retic Hgb Equivalent Lactic Acid Fup @ 2Hr Lactic Acid Fup @ 4Hr 2.9 H* Iron 42 TIBC 106 L % Saturation 40 Unsat Iron Binding 64 Lactate Dehydrogenase 242 H Vitamin B12 > 2000 H Folate 18.5 Urine Color Urine Appearance Urine pH Ur Specific [place] Urine Protein Urine Glucose (UA) Urine Ketones Urine Blood Urine Nitrite Ur Leukocyte Esterase Blood Type Antibody Screen MIO, Polyspecific Positive MIO Work-up Crossmatch ([facility]) Microbiology Microbiology Results: Microbiology 12/21/20 08:39 Blood Culture - Preliminary Blood - Venous 12/21/20 09:09 Blood Culture - Preliminary Blood - Venous Quality Stroke Does the patient have a stroke diagnosis?: No VTE Prior VTE?: No VTE Risk Level:: Medical - moderate - high VTE Device Contraindication: N/A - Device Ordered VTE Drug Contraindication: Treatment Not Tolerated (gi bleed) Assessment and Plan (1) Acute gastrointestinal bleeding: Status: Acute Assessment and Plan: 40F presented with weakness found to have severe anemia and hypotension acute blood loss anemia with hypotension s/p 3 units prbcs montitor, EGD octreotide, ppi liver cirrhosis stable GNR bacteremia zosyn, follow up cultures opiate dependence addiction team following lower extremity lymphedema and ulcers vanc, zosyn ID eval hyponatremia monitor nephro eval
[2020-12-22] MEDS: Folic Acid 1 MG TABLET PO (11:58)
--- NOTE | 2020-12-22 12:38 | PM.EVENT ---
Event Note Date of Service: 12/22/20 Event Note: 41-year-old female with a past medical history of end-stage liver disease , bilateral lower extremity lymphedema, chronic leg ulcers, history of bilateral leg wounds with cellulitis-follows with Wound Clinic, history of anemia-received blood transfusion past, history of epistaxis, thrombocytopenia, opiate dependence on methadone-lasting and 16 days ago, alcohol abuse; presented to the hospital with a chief complaint of generalized weakness. Hyponatremai : Hypervolemic MEt acidosis - lactic acidosis ESLD with low albumin Sepsis Anemia Urine / serum osm Urine NA ordered Will give NA bicarb 650 TID x 6 doses will help with acidosis and Na ( Retirement pt needs Na restriction ) Fluid restriction of 1.2 liters NA level Q12 hrly F/u Hb Thx Full consult to follow Dr. Terry
[2020-12-22 13:51] LABS: Osmolality, Serum 296 mosm/kg (281-305)
--- NOTE | 2020-12-22 13:51 | P.CONGS_ITS ---
History of Present Illness Consult details Consult date: 12/22/20 Narrative: [age] year female referred to me because of bilateral leg ulcers. She has multiple medical problems including end-stage liver disease and alcohol abuse. She has chronic lymphedema both lower extremities and has multiple ulcers. She is actually following the wound clinic as well. She says that her lower extremity edema worsened about a few days ago. She was also admitted with some episodes of melena. She had anemia and low platelets on admission. She does state that she has had this ulcers on the legs for many months now. She is bed ridden as well. Review of Systems Constitutional: Constitutional: Denies chills and Reports fatigue Cardiovascular: Cardiovascular: Denies chest pain and Reports dyspnea Respiratory: Respiratory: Reports dyspnea Gastrointestinal: Gastrointestinal: Denies abdominal pain Genitourinary: Genitourinary: Denies difficulty voiding Neurologic: Denies confusion Psychiatric: Psychiatric: Denies confusion and Denies paranoia Endocrine: Endocrine: Reports fatigue PMFSH Past Medical History Medical History (Updated 12/25/20 @ 09:54 by Shyla Trent MD) Bacteremia Ulcer of left heel Social History Social History Household Members: Children Household Members Other:: 1 Housing: House Do you presently have visiting nurse or other home services: Yes Alcohol intake: current Alcohol intake frequency: 3 or more drinks per day Patient Tobacco Use Status: Current everyday Tobacco user Tobacco use type: Cigarette Cigarette Packs Per Day: 0.5 Second Hand Smoke Exposure: No Use of substances other than those prescribed or required for medical reasons: No Substance Use Type: Opiates Currently Displaying Signs/Symptoms of Drug Intoxication Withdrawal: No Have you been hit, kicked, punched, or otherwise hurt by someone within the past year? If so, by whom?: No Are you DNR?: Yes Advance Directives: Yes Advance Directives Information Provided: Yes Advance Directives on File: No Advance Directives Date on File: 04/02/20 Do you have thoughts of harming others: None Do you have a plan to hurt others: No Plan service: No Current occupational status: disabled Meds Allergies Allergy/AdvReac Type Severity Reaction Status Date / Time No Known Allergies Allergy Unverified 03/18/20 14:51 [No Known Allergies*] morphine AdvReac Unknown N/V Verified 04/08/15 00:00 antibiotic ? Allergy Unknown Uncoded 01/05/20 00:00 Active Medications: Current Medications Generic Name Dose Route Start Last Admin Trade Name Anai PRN Reason Stop Dose Admin Clonidine HCl 0.1 mg 12/22/20 09:00 12/22/20 11:55 Clonidine Hcl 0.1 Mg Tablet PO 0.1 mg DAILY MARIANN Administration Protocol Folic Acid 1 mg 12/22/20 09:00 12/22/20 11:58 Folic Acid 1 Mg Tablet PO 12/25/20 08:59 1 mg DAILY MARIANN Administration Gabapentin 600 mg 12/21/20 21:00 12/22/20 11:58 Gabapentin 600 Mg Tablet PO 600 mg QID MARIANN Administration Piperacillin Sod/Tazobactam 50 mls @ 100 mls/hr 12/21/20 20:30 12/22/20 12:23 Sod 3.375 gm/ Sodium Chloride IV Not Given Q6H MARIANN Octreotide Acetate 500 mcg/ 501 mls @ 50.1 mls/hr 12/21/20 23:00 12/22/20 10:11 Sodium Chloride IVCONT 50 mcg/hr .Q10H MARIANN 50.1 mls/hr Administration 50 MCG/HR Sodium Chloride 1,000 mls @ 50 mls/hr 12/21/20 21:00 12/21/20 22:56 Ns IVCONT 50 mls/hr .Q20H MARIANN Administration Pantoprazole Sodium 80 mg/ 100 mls @ 10 mls/hr 12/21/20 21:00 12/22/20 06:41 Sodium Chloride IV 8 mg/hr .Q10H MARIANN 10 mls/hr Administration 8 MG/HR Vancomycin HCl 1,000 mg/ 270 mls @ 270 mls/hr 12/22/20 13:00 Sodium Chloride IV Q12H MARIANN Lactulose 10 gm 12/21/20 21:00 12/22/20 12:00 Lactulose 20 Gm/30 Ml Solution PO 10 gm TID MARIANN Administration Lorazepam 1 mg 12/21/20 20:55 12/22/20 11:54 Lorazepam 1 Mg Tablet PO 12/25/20 20:54 1 mg Q4H PRN Administration Breakthrough alcohol withdrawa Multivitamins 1 tab 12/22/20 09:00 12/22/20 12:08 B-Complex With Vitamin C Tablet PO 1 tab DAILY MARIANN Administration Ondansetron HCl 4 mg 12/22/20 01:27 12/22/20 07:22 Ondansetron Hcl 4 Mg/2 Ml Vial IVPUSH 4 mg Q8H PRN Administration Nausea and Vomiting Pharmacy Consult 1 each 12/21/20 12:37 Consult Rx Perform Med Rec MISCELLANE ONCE PRN Consult order Potassium Chloride 20 meq 12/21/20 21:00 12/22/20 11:59 Potassium Chloride Er 20 Meq Tab.Er.Prt PO 20 meq BID MARIANN Administration Sodium Bicarbonate 650 mg 12/22/20 15:00 Sodium Bicarbonate 650 Mg Tablet PO 12/24/20 09:01 TID MARIANN Sodium Chloride 3 ml 12/22/20 00:00 12/22/20 11:22 0.9 % Sodium Chloride Flush 3 Ml Syringe IVFLUSH 3 ml QSHIFT MARIANN Administration Thiamine HCl 100 mg 12/22/20 09:00 12/22/20 11:56 Thiamine Hcl 100 Mg Tablet PO 12/25/20 08:59 100 mg DAILY MARIANN Administration Topiramate 25 mg 12/21/20 21:00 12/22/20 12:08 Topiramate 25 Mg Tablet PO 25 mg BID MARIANN Administration Home Medications Medication Instructions Recorded Confirmed Last Taken Type clonidine HCl 0.1 mg PO DAILY 07/30/20 12/21/20 12/21/20 History folic acid 1 mg PO DAILY 07/30/20 12/21/20 12/21/20 History furosemide 20 mg PO BID 07/30/20 12/21/20 12/21/20 History gabapentin 600 mg PO QID 07/30/20 12/21/20 12/21/20 History lactulose 10 g PO TID 07/30/20 12/21/20 12/21/20 History potassium chloride 20 meq PO BID 07/30/20 12/21/20 12/21/20 History spironolactone 25 mg PO BID 07/30/20 12/21/20 12/21/20 History topiramate 25 mg PO BID 07/30/20 12/21/20 12/21/20 History omeprazole 20 mg PO BID 12/21/20 12/21/20 12/21/20 History ondansetron HCl 1 tab PO Q8H PRN 12/21/20 12/21/20 Unknown History Physical Exam Vital Signs: Vital Signs: Last Vital Signs Temp 97.7 F 12/22/20 11:17 Pulse 97 12/22/20 11:17 Resp 17 12/22/20 11:17 BP 123/67 12/22/20 11:55 Pulse Ox 98 12/22/20 11:17 Body Mass Index 27.4 Const: General: No confusion Orientation/consciousness: No confusion Resp: Effort & Inspection: normal respiratory effort Cardio: Rhythm: regular rhythm GI: Palpation (GI): Soft to palpation and nontender Neuro: General: No confusion Extrem: Other: She has multiple clean ulcers on both lower legs. On the left leg, she has this large ulceration, clean, with good granulation on the anterior aspect, measuring about 8 cm x 4 cm. She has other smaller ulcers on lower leg as above. There was note of left heel ulcer with necrotic tissue, about 3 x 4 cm, with foul smell. On the right foot at the dorsum is note of a small 2 cm ulcer, clean as well but deep and seems to be involving the entire full- thickness skin. Results Labs Result diagrams: 12/27/20 04:28 12/27/20 04:28 Labs: Abnormal lab results 12/21/20 12/21/20 12/21/20 Range/Units 08:39 08:39 09:09 WBC 11.8 H (4.8-10.8) X10*3/uL RBC 1.30 L D (4.20-5.50) X10*6/uL Hgb 4.4 L* D (12.0-16.0) g/dl Hct 12.5 L* D (37-47) % MCH 33.8 H (27.0-33.0) pg MCHC 35.2 H (31.0-35.0) g/dl RDW 25.1 H (11.0-16.0) % Plt Count 28 L (160-400) X10*3/uL Immature Gran % (Auto) (0.0-0.4) % Neut % (Auto) (45-73) % Lymph % (Auto) (20-40) % Lymph # (Auto) (1.2-4.9) X10*3/uL Abs Immat Gran (auto) (0.00-0.03) X10*3/uL Neutrophils % (Manual) 90 H (45-73) % Band Neutrophils % 7 H (3-5) % Lymphocytes % (Manual) 2 L (20-40) % Monocytes % (Manual) 1 L (2-11) % Abs Neuts (Manual) 11.4 H (2.2-7.9) X10*3/uL Lymphocytes # (Manual) 0.2 L (0.6-4.8) X10*3/uL Percent Retic 4.3 H (0.5-1.8) % Immature Retic Fraction 21.9 H (3.0-15.9) % Lactic Acid Fup @ 4Hr (0.5-2.0) mmol/L TIBC (228-428) mcg/dL Lactate Dehydrogenase 232 H (122-220) U/L Vitamin B12 (200-900) pg/mL Crossmatch ([facility]) See Detail 12/21/20 12/21/20 12/22/20 Range/Units 22:08 22:09 06:46 WBC (4.8-10.8) X10*3/uL RBC 2.62 L D (4.20-5.50) X10*6/uL Hgb 8.4 L D (12.0-16.0) g/dl Hct 23.9 L D (37-47) % MCH (27.0-33.0) pg MCHC 35.1 H (31.0-35.0) g/dl RDW 19.5 H (11.0-16.0) % Plt Count 28 L (160-400) X10*3/uL Immature Gran % (Auto) 0.9 H (0.0-0.4) % Neut % (Auto) 87.2 H (45-73) % Lymph % (Auto) 4.1 L (20-40) % Lymph # (Auto) 0.3 L (1.2-4.9) X10*3/uL Abs Immat Gran (auto) 0.07 H (0.00-0.03) X10*3/uL Neutrophils % (Manual) (45-73) % Band Neutrophils % (3-5) % Lymphocytes % (Manual) (20-40) % Monocytes % (Manual) (2-11) % Abs Neuts (Manual) (2.2-7.9) X10*3/uL Lymphocytes # (Manual) (0.6-4.8) X10*3/uL Percent Retic (0.5-1.8) % Immature Retic Fraction (3.0-15.9) % Lactic Acid Fup @ 4Hr 2.9 H* (0.5-2.0) mmol/L TIBC 106 L (228-428) mcg/dL Lactate Dehydrogenase 242 H (122-220) U/L Vitamin B12 (200-900) pg/mL Crossmatch ([facility]) 12/22/20 Range/Units 06:46 WBC (4.8-10.8) X10*3/uL RBC (4.20-5.50) X10*6/uL Hgb (12.0-16.0) g/dl Hct (37-47) % MCH (27.0-33.0) pg MCHC (31.0-35.0) g/dl RDW (11.0-16.0) % Plt Count (160-400) X10*3/uL Immature Gran % (Auto) (0.0-0.4) % Neut % (Auto) (45-73) % Lymph % (Auto) (20-40) % Lymph # (Auto) (1.2-4.9) X10*3/uL Abs Immat Gran (auto) (0.00-0.03) X10*3/uL Neutrophils % (Manual) (45-73) % Band Neutrophils % (3-5) % Lymphocytes % (Manual) (20-40) % Monocytes % (Manual) (2-11) % Abs Neuts (Manual) (2.2-7.9) X10*3/uL Lymphocytes # (Manual) (0.6-4.8) X10*3/uL Percent Retic (0.5-1.8) % Immature Retic Fraction (3.0-15.9) % Lactic Acid Fup @ 4Hr (0.5-2.0) mmol/L TIBC (228-428) mcg/dL Lactate Dehydrogenase (122-220) U/L Vitamin B12 > 2000 H (200-900) pg/mL Crossmatch ([facility]) Short CBC 12/21/20 12/21/20 Range/Units 08:39 22:08 WBC 11.8 H 7.5 (4.8-10.8) X10*3/uL Hgb 4.4 L* D 8.4 L D (12.0-16.0) g/dl Hct 12.5 L* D 23.9 L D (37-47) % Plt Count 28 L 28 L (160-400) X10*3/uL Urine 12/21/20 Range/Units 12:42 Urine Color YELLOW Urine Appearance CLEAR Urine pH 6.5 (5.0-8.0) Ur Specific [place] <= 1.005 (1.005-1.025) Urine Protein NEG (NEG-TRACE) MG/DL Urine Glucose (UA) NEG (NEG) MG/DL All other labs normal. Assessment and Plan (1) Ulcer of left heel: Status: Acute She has multiple chronic ulceration on the left lower leg as well as the right foot. These appear to be clean and are not draining at this time. However, on the left heel is note of a pressure ulcer at least a stage 3-4. The bone is actually palpable ready and this may represent osteomyelitis. This is a pressure ulcer from her being bedbound. There was note of nonviable gangrenous tissue so I had to do sharp excisional debridement add bedside with scissors to excise as much of nonviable tissue as possible including the gangrenous areas. This was about a 3 x 4 cm area on the left heel. I then applied wet to dry dressings and wrapped the area with thick gauze D's. I wrapped the entire leg as well on both sides with Kerlix rolls because of the presence of other multiple ulcers. I have instructed the nursing staff to keep her heel off of the bed with pillows under the calf. I can check on this periodically here while she is in the hospital. Procedures Date of Service Date of Service: 12/27/20
--- NOTE | 2020-12-22 14:14 | PC.NURSE ---
PATIENT HAS NORMAL SALINE RUNNING AT 50 ML/HR, OCTREOTIDE RUNNING AT 50 MCG/HR AND PROTONIX RUNNING AT 8 MG/HR. DR. WINSTON AWARE. PATIENT ARRIIVED TO [facility] WITH A FRESHLY CHANGED DRESSING TO LEFT FOOT AND THIS RN WAS TOLD THE WOUND WAS BLEEDING PROFUSELY. SONIA CURRENTLYL C/D/I.
--- NOTE | 2020-12-22 14:17 | PC.NURSE ---
Skin/wound assessment completed today. Patient has 2 ulcers on left anterior lower extremity, left calcaneus, and right foot. Dr. Polo debrided the left heel removing eschar and tissue. A compression bandage was placed on heel wound due to excessive bleeding, bleeding has slowed down. Silver Alginate was applied to all wounds w/ EPC cream and dressed with gauze and roll gauze.
--- NOTE | 2020-12-22 14:42 | P.BOP_ITS ---
Brief Operative Note Date of Service: 12/22/20 Pre-op diagnosis: anemia Post-op diagnosis: same Procedure: see op note Surgeon: Simon Cordoba MD Anesthesia: MAC Was an Veterinary Virus Serum Inspector used for this Procedure?: No Estimated blood loss (mL): 0 Condition: stable Disposition: PACU
--- NOTE | 2020-12-22 14:42 | MHC.SHP ---
Pre-Procedural Eval Section A The patient is an INPATIENT: Yes The History & Physical has been completed within 30 days and I have reviewed it.: Yes Section B Chief Complaint: Anemia Allergies: Allergies Allergy/AdvReac Type Severity Reaction Status Date / Time No Known Allergies Allergy Unverified 03/18/20 14:51 [No Known Allergies*] morphine AdvReac Unknown N/V Verified 04/08/15 00:00 antibiotic ? Allergy Unknown Uncoded 01/05/20 00:00 Plan Diagnosis/Plan: Unchanged I have reviewed the history and physical and performed a pertinent physical examination on my patient. No changes have occurred unless specified.
--- NOTE | 2020-12-22 14:43 | W.PM.OPN ---
Operative Note Operative Note Date of Service: 12/22/20 Narrative: Procedure Description: EGD FLEXIBLE TRANSORAL UPPER GASTROINTESTINAL ENDOSCOPY UPPER ENDOSCOPY Consent: Indications for the procedure and potential complications of bleeding, perforation, reaction to medications and missed diagnosis were discussed with the patient and informed consent was obtained. Instrument: Olympus GIF H 190 J mid size upper endoscope Monitoring: Vital signs and clinical assessment, continuous EKG monitoring, Pulse oximetry, Carbon Dioxide monitoring and blood pressure monitoring were done throughout the procedure. Procedure: The patient was placed in the left lateral decubitis position and pre-procedure medications were administered and a bite block was placed. The endoscope was inserted into the mouth and advanced under direct vision to the third part of duodenum. A careful inspection was made as the upper endoscope was withdrawn including a retroflexed examination of the proximal stomach; Findings and interventions are described below. Findings: Larynx:normal Esophagus: GE junction at 38 cm, diaphragm hiatus at 38 cm, x 2 flat varices seen, no red smith or bleeding stigmata seen. small inlet patch noted. Stomach: Mosaic pattern noted consistent with portal hypertensive gastropathy. Grade 2 flap valve on retroflexed examination of the cardia., no gastric varix seen Duodenum: Normal bulb and descending duodenum, small fresh clot seen but no bleeding source suspect from oropharyngeal or nasal source Intervention: none Impression/Findings: portal hypertensive gastropathy flat varices inlet patch PLAN: suspect anemia from losses from her wounds, epistaxis and hemolysis, hypersplenism, low plts and poor nutrition,cont supportive care as doing. If overt GI bleeding then would repeat EGD keep on low dose PPI consider saline nasal spray
[2020-12-22 14:46] LABS: Creatinine Urine 69.71 mg/dL
[2020-12-22 14:49] LABS: Osmolality Urine 332 mosm/kg (373-1093)
--- NOTE | 2020-12-22 14:56 | PC.NURSE ---
anesthesiologist had patient sign a form stating she is a full resuscitaiton during the endoscopy. report given to 0R nurse and anesthesiologist.
--- NOTE | 2020-12-22 15:00 | P.CONAN_ITS ---
[facility] Active Problems Active Problems: All Active Problems (Updated 12/22/20 @ 13:57 by Lars barry MD) Ulcer of left heel (Acute) Alcohol use disorder (Acute) Opioid use disorder (Acute) Acute hypotension (Acute) Acute gastrointestinal bleeding (Acute) Acute anemia (Acute) Non-pressure chronic ulcer of other part of left lower leg with necrosis of muscle (Acute) Anemia of chronic disease (Acute) End stage liver disease (Acute) Hypokalemia (Acute) Bilateral lower leg cellulitis (Acute) Cellulitis (Acute) UTI (urinary tract infection) (Acute) Past Medical History Medical History (Updated 12/22/20 @ 13:57 by Lars Polo MD) Ulcer of left heel Social History Social History Household Members: Family and Children Housing: House Do you presently have visiting nurse or other home services: Yes Alcohol intake: current Alcohol intake frequency: 3 or more drinks per day Patient Tobacco Use Status: Current everyday Tobacco user Cigarette Packs Per Day: 0.5 Cigarettes Per Day: 10.0 Second Hand Smoke Exposure: No Use of substances other than those prescribed or required for medical reasons: No Substance Use Type: Opiates Have you been hit, kicked, punched, or otherwise hurt by someone within the past year? If so, by whom?: No Are you DNR?: Yes Advance Directives: Yes Advance Directives Information Provided: Yes Advance Directives on File: No Advance Directives Date on File: 04/02/20 service: No Current occupational status: disabled Meds Allergies Allergy/AdvReac Type Severity Reaction Status Date / Time No Known Allergies Allergy Unverified 03/18/20 14:51 [No Known Allergies*] morphine AdvReac Unknown N/V Verified 04/08/15 00:00 antibiotic ? Allergy Unknown Uncoded 01/05/20 00:00 Active Medications: Current Medications Generic Name Dose Route Start Last Admin Trade Name Adanq PRN Reason Stop Dose Admin Clonidine HCl 0.1 mg 12/22/20 09:00 12/22/20 11:55 Clonidine Hcl 0.1 Mg Tablet PO 0.1 mg DAILY MARIANN Administration Protocol Folic Acid 1 mg 12/22/20 09:00 12/22/20 11:58 Folic Acid 1 Mg Tablet PO 12/25/20 08:59 1 mg DAILY MARIANN Administration Gabapentin 600 mg 12/21/20 21:00 12/22/20 14:21 Gabapentin 600 Mg Tablet PO Not Given QID MARIANN Piperacillin Sod/Tazobactam 50 mls @ 100 mls/hr 12/21/20 20:30 12/22/20 12:23 Sod 3.375 gm/ Sodium Chloride IV Not Given Q6H MARIANN Octreotide Acetate 500 mcg/ 501 mls @ 50.1 mls/hr 12/21/20 23:00 12/22/20 10:11 Sodium Chloride IVCONT 50 mcg/hr .Q10H MARIANN 50.1 mls/hr Administration 50 MCG/HR Sodium Chloride 1,000 mls @ 50 mls/hr 12/21/20 21:00 12/21/20 22:56 Ns IVCONT 50 mls/hr .Q20H MARIANN Administration Pantoprazole Sodium 80 mg/ 100 mls @ 10 mls/hr 12/21/20 21:00 12/22/20 06:41 Sodium Chloride IV 8 mg/hr .Q10H MARIANN 10 mls/hr Administration 8 MG/HR Vancomycin HCl 1,000 mg/ 270 mls @ 270 mls/hr 12/22/20 13:00 Sodium Chloride IV Q12H MARIANN Lactulose 10 gm 12/21/20 21:00 12/22/20 12:00 Lactulose 20 Gm/30 Ml Solution PO 10 gm TID MARIANN Administration Lorazepam 1 mg 12/21/20 20:55 12/22/20 11:54 Lorazepam 1 Mg Tablet PO 12/25/20 20:54 1 mg Q4H PRN Administration Breakthrough alcohol withdrawa Multivitamins 1 tab 12/22/20 09:00 12/22/20 12:08 B-Complex With Vitamin C Tablet PO 1 tab DAILY MARIANN Administration Ondansetron HCl 4 mg 12/22/20 01:27 12/22/20 07:22 Ondansetron Hcl 4 Mg/2 Ml Vial IVPUSH 4 mg Q8H PRN Administration Nausea and Vomiting Pharmacy Consult 1 each 12/21/20 12:37 Consult Rx Perform Med Rec MISCELLANE ONCE PRN Consult order Potassium Chloride 20 meq 12/21/20 21:00 12/22/20 11:59 Potassium Chloride Er 20 Meq Tab.Er.Prt PO 20 meq BID MARIANN Administration Sodium Bicarbonate 650 mg 12/22/20 15:00 Sodium Bicarbonate 650 Mg Tablet PO 12/24/20 09:01 TID [facility] Sodium Chloride 3 ml 12/22/20 00:00 12/22/20 11:22 0.9 % Sodium Chloride Flush 3 Ml Syringe IVFLUSH 3 ml QSHIFT [facility] Administration Thiamine HCl 100 mg 12/22/20 09:00 12/22/20 11:56 Thiamine Hcl 100 Mg Tablet PO 12/25/20 08:59 100 mg DAILY MARIANN Administration Topiramate 25 mg 12/21/20 21:00 12/22/20 12:08 Topiramate 25 Mg Tablet PO 25 mg BID MARIANN Administration Home Medications Medication Instructions Recorded Confirmed Last Taken Type clonidine HCl 0.1 mg PO DAILY 07/30/20 12/21/20 12/21/20 History folic acid 1 mg PO DAILY 07/30/20 12/21/20 12/21/20 History furosemide 20 mg PO BID 07/30/20 12/21/20 12/21/20 History gabapentin 600 mg PO QID 07/30/20 12/21/20 12/21/20 History lactulose 10 g PO TID 07/30/20 12/21/20 12/21/20 History potassium chloride 20 meq PO BID 07/30/20 12/21/20 12/21/20 History spironolactone 25 mg PO BID 07/30/20 12/21/20 12/21/20 History topiramate 25 mg PO BID 07/30/20 12/21/20 12/21/20 History omeprazole 20 mg PO BID 12/21/20 12/21/20 12/21/20 History ondansetron HCl 1 tab PO Q8H PRN 12/21/20 12/21/20 Unknown History Exam Exam Date and Time: December 22, 2020 1500 Height,Weight and Vital Signs: Height 5 ft 2 in Weight 68.039 kg Last Vital Signs Temp 99.2 F 12/22/20 13:59 Pulse 96 12/22/20 13:59 Resp 18 12/22/20 13:59 BP 110/65 12/22/20 13:59 Pulse Ox 95 12/22/20 13:59 Pertinent Lab Results Pertinent Lab Results: Laboratory Tests 12/21/20 12/21/20 12/21/20 08:39 08:39 08:39 WBC 11.8 H RBC 1.30 L D Hgb 4.4 L* D Hct 12.5 L* D MCV 96.2 MCH 33.8 H MCHC 35.2 H RDW 25.1 H Plt Count 28 L MPV Not Reportable Immature Gran % (Auto) Cancelled Neut % (Auto) Cancelled Lymph % (Auto) Cancelled [place] % (Auto) Cancelled Eos % (Auto) Cancelled Baso % (Auto) Cancelled Lymph # (Auto) Cancelled [place] # (Auto) Cancelled Eos # (Auto) Cancelled Baso # (Auto) Cancelled Abs Immat Gran (auto) Cancelled Absolute Neuts (auto) Cancelled Absolute Nucleated RBC 0.000 Nucleated RBC % (auto) 0.0 Neutrophils % (Manual) 90 H Band Neutrophils % 7 H Lymphocytes % (Manual) 2 L Monocytes % (Manual) 1 L Abs Neuts (Manual) 11.4 H Lymphocytes # (Manual) 0.2 L Monocytes # (Manual) 0.1 Platelet Estimate DECREASED Plt Morphology Comment NORMAL RBC Morphology NOTED Polychromasia 1+ (0-2) Hypochromasia 2+ (15-30) Macrocytosis 2+ (15-30) Target Cells 1+ (5-14) Tear Drop Cells 1+ (0-2) Ovalocytes 1+ (5-14) [place] Cells 1+ ( Schistocytes 1+ (0-2) Smear Tech's Comments Absolute Retic 0.058 Percent Retic 4.3 H Immature Retic Fraction 21.9 H Retic Hgb Equivalent 32.8 Sodium 127 L Potassium 3.5 Chloride 98 Carbon Dioxide 17 L Anion Gap 16 BUN 11 D Creatinine 0.73 Estim Creat Clear Calc 119.5 Estimated GFR > 60 Random Glucose 118 H D Osmolality Lactic Acid 5.0 H* Lactic Acid Fup @ 2Hr Lactic Acid Fup @ 4Hr Calcium 7.0 L D Iron TIBC % Saturation Unsat Iron Binding Total Bilirubin 3.6 H AST 223 H ALT 42 H Alkaline Phosphatase 255 H D Lactate Dehydrogenase 232 H Troponin I High Sens Total Protein 7.2 Albumin 2.0 L Vitamin B12 Folate Urine Color Urine Appearance Urine pH Ur Specific [place] Urine Protein Urine Glucose (UA) Urine Ketones Urine Blood Urine Nitrite Ur Leukocyte Esterase Urine Osmolality Ur Random Sodium Urine Creatinine COVID-19 ([facility]) COVID-19 Clin Com Blood Type Antibody Screen MIO, Polyspecific Positive MIO Work-up Crossmatch ([facility]) 12/21/20 12/21/20 12/21/20 08:39 09:09 10:38 WBC RBC Hgb Hct MCV MCH MCHC RDW Plt Count MPV Immature Gran % (Auto) Neut % (Auto) Lymph % (Auto) [place] % (Auto) Eos % (Auto) Baso % (Auto) Lymph # (Auto) [place] # (Auto) Eos # (Auto) Baso # (Auto) Abs Immat Gran (auto) Absolute Neuts (auto) Absolute Nucleated RBC Nucleated RBC % (auto) Neutrophils % (Manual) Band Neutrophils % Lymphocytes % (Manual) Monocytes % (Manual) Abs Neuts (Manual) Lymphocytes # (Manual) Monocytes # (Manual) Platelet Estimate Plt Morphology Comment RBC Morphology Polychromasia Hypochromasia Macrocytosis Target Cells Tear Drop Cells Ovalocytes [place] Cells Schistocytes Smear Tech's Comments Absolute Retic Percent Retic Immature Retic Fraction Retic Hgb Equivalent Sodium Potassium Chloride Carbon Dioxide Anion Gap BUN Creatinine Estim Creat Clear Calc Estimated GFR Random Glucose Osmolality Lactic Acid Lactic Acid Fup @ 2Hr Lactic Acid Fup @ 4Hr Calcium Iron TIBC % Saturation Unsat Iron Binding Total Bilirubin AST ALT Alkaline Phosphatase Lactate Dehydrogenase Troponin I High Sens 16.5 D Total Protein Albumin Vitamin B12 Folate Urine Color Urine Appearance Urine pH Ur Specific [place] Urine Protein Urine Glucose (UA) Urine Ketones Urine Blood Urine Nitrite Ur Leukocyte Esterase Urine Osmolality Ur Random Sodium Urine Creatinine COVID-19 ([facility]) Negative COVID-19 Clin Com See Note Blood Type AB Positive Antibody Screen NEGATIVE MIO, Polyspecific NEGATIVE Positive MIO Work-up TNP Crossmatch ([facility]) See Detail 12/21/20 12/21/20 12/21/20 11:45 12:42 22:08 WBC 7.5 RBC 2.62 L D Hgb 8.4 L D Hct 23.9 L D MCV 91.2 D MCH 32.1 MCHC 35.1 H RDW 19.5 H Plt Count 28 L MPV TNP Immature Gran % (Auto) 0.9 H Neut % (Auto) 87.2 H Lymph % (Auto) 4.1 L [place] % (Auto) 7.2 Eos % (Auto) 0.5 Baso % (Auto) 0.1 Lymph # (Auto) 0.3 L [place] # (Auto) 0.5 Eos # (Auto) 0.0 Baso # (Auto) 0.0 Abs Immat Gran (auto) 0.07 H Absolute Neuts (auto) 6.6 Absolute Nucleated RBC 0.000 Nucleated RBC % (auto) 0.0 Neutrophils % (Manual) Band Neutrophils % Lymphocytes % (Manual) Monocytes % (Manual) Abs Neuts (Manual) Lymphocytes # (Manual) Monocytes # (Manual) Platelet Estimate Plt Morphology Comment RBC Morphology Polychromasia Hypochromasia Macrocytosis Target Cells Tear Drop Cells Ovalocytes [place] Cells Schistocytes Smear Tech's Comments VERIFIED Absolute Retic Percent Retic Immature Retic Fraction Retic Hgb Equivalent Sodium Potassium Chloride Carbon Dioxide Anion Gap BUN Creatinine Estim Creat Clear Calc Estimated GFR Random Glucose Osmolality Lactic Acid Lactic Acid Fup @ 2Hr 3.6 H* Lactic Acid Fup @ 4Hr Calcium Iron TIBC % Saturation Unsat Iron Binding Total Bilirubin AST ALT Alkaline Phosphatase Lactate Dehydrogenase Troponin I High Sens Total Protein Albumin Vitamin B12 Folate Urine Color YELLOW Urine Appearance CLEAR Urine pH 6.5 Ur Specific [place] <= 1.005 Urine Protein NEG Urine Glucose (UA) NEG Urine Ketones NEG Urine Blood NEG Urine Nitrite NEG Ur Leukocyte Esterase NEG Urine Osmolality Ur Random Sodium Urine Creatinine COVID-19 ([facility]) COVID-19 Clin Com Blood Type Antibody Screen MIO, Polyspecific Positive MIO Work-up Crossmatch ([facility]) 12/21/20 12/22/20 12/22/20 22:09 06:46 06:46 WBC RBC Hgb Hct MCV MCH MCHC RDW Plt Count MPV Immature Gran % (Auto) Neut % (Auto) Lymph % (Auto) [place] % (Auto) Eos % (Auto) Baso % (Auto) Lymph # (Auto) [place] # (Auto) Eos # (Auto) Baso # (Auto) Abs Immat Gran (auto) Absolute Neuts (auto) Absolute Nucleated RBC Nucleated RBC % (auto) Neutrophils % (Manual) Band Neutrophils % Lymphocytes % (Manual) Monocytes % (Manual) Abs Neuts (Manual) Lymphocytes # (Manual) Monocytes # (Manual) Platelet Estimate Plt Morphology Comment RBC Morphology Polychromasia Hypochromasia Macrocytosis Target Cells Tear Drop Cells Ovalocytes [place] Cells Schistocytes Smear Tech's Comments Absolute Retic Percent Retic Immature Retic Fraction Retic Hgb Equivalent Sodium Potassium Chloride Carbon Dioxide Anion Gap BUN Creatinine Estim Creat Clear Calc Estimated GFR Random Glucose Osmolality Lactic Acid Lactic Acid Fup @ 2Hr Lactic Acid Fup @ 4Hr 2.9 H* Calcium Iron 42 TIBC 106 L % Saturation 40 Unsat Iron Binding 64 Total Bilirubin AST ALT Alkaline Phosphatase Lactate Dehydrogenase 242 H Troponin I High Sens Total Protein Albumin Vitamin B12 > 2000 H Folate 18.5 Urine Color Urine Appearance Urine pH Ur Specific [place] Urine Protein Urine Glucose (UA) Urine Ketones Urine Blood Urine Nitrite Ur Leukocyte Esterase Urine Osmolality Ur Random Sodium Urine Creatinine COVID-19 ([facility]) COVID-19 Clin Com Blood Type Antibody Screen MIO, Polyspecific Positive MIO Work-up Crossmatch ([facility]) 12/22/20 12/22/20 12/22/20 12:56 Unknown Unknown WBC RBC Hgb Hct MCV MCH MCHC RDW Plt Count MPV Immature Gran % (Auto) Neut % (Auto) Lymph % (Auto) [place] % (Auto) Eos % (Auto) Baso % (Auto) Lymph # (Auto) [place] # (Auto) Eos # (Auto) Baso # (Auto) Abs Immat Gran (auto) Absolute Neuts (auto) Absolute Nucleated RBC Nucleated RBC % (auto) Neutrophils % (Manual) Band Neutrophils % Lymphocytes % (Manual) Monocytes % (Manual) Abs Neuts (Manual) Lymphocytes # (Manual) Monocytes # (Manual) Platelet Estimate Plt Morphology Comment RBC Morphology Polychromasia Hypochromasia Macrocytosis Target Cells Tear Drop Cells Ovalocytes [place]ev[place] Cells Schistocytes Smear Tech's Comments Absolute Retic Percent Retic Immature Retic Fraction Retic Hgb Equivalent Sodium Potassium Chloride Carbon Dioxide Anion Gap BUN Creatinine Estim Creat Clear Calc Estimated GFR Random Glucose Osmolality 296 Lactic Acid Lactic Acid Fup @ 2Hr Lactic Acid Fup @ 4Hr Calcium Iron TIBC % Saturation Unsat Iron Binding Total Bilirubin AST ALT Alkaline Phosphatase Lactate Dehydrogenase Troponin I High Sens Total Protein Albumin Vitamin B12 Folate Urine Color Urine Appearance Urine pH Ur Specific [place] Urine Protein Urine Glucose (UA) Urine Ketones Urine Blood Urine Nitrite Ur Leukocyte Esterase Urine Osmolality 332 L Ur Random Sodium 26.0 Urine Creatinine 69.71 COVID-19 ([facility]) COVID-19 Clin Com Blood Type Antibody Screen MIO, Polyspecific Positive MIO Work-up Crossmatch ([facility]) Airway Mallampati Class: II (No teeth) TM Dist: >3cm Neck ROM: Full Heart: rrr Lungs: cta Assessment and Plan Assessment Anesthesia Assessment: Anesthesia Plan Discussed and Chart Reviewed Final Anesthetic Review NPO: Yes ASA Class: III Final Preanesthetic Review: No Changes in Pt Med Stat and Consent Obtained/Reviewed Patient Risk: Intermediate Procedure Risk: Intermediate Anesthetic Plan Anesthetic Plan: MAC: Disposition: Standard PACU
--- NOTE | 2020-12-22 16:29 | W.PM.IDCN ---
History of Present Illness Data of Consult Service Date: 12/22/20 Requesting physician: Kenny Miller Primary Care Provider: Antoine Ghosh MD HPI Reason for consult: bacteremia She presents with weakness. She has had fatigue for a week. She has no nausea or vomiting. She has leg swelling and redness Review of Systems Review of Systems: Yes all other systems are reviewed and are negative PMFSH Past Medical History Medical History (Updated 12/22/20 @ 16:33 by Mary Gutierrez MD) Bacteremia Ulcer of left heel Family History Family history: reviewed and not pertinent Social History Social History Household Members: Family and Children Housing: House Do you presently have visiting nurse or other home services: Yes Alcohol intake: current Alcohol intake frequency: 3 or more drinks per day Patient Tobacco Use Status: Current everyday Tobacco user Cigarette Packs Per Day: 0.5 Cigarettes Per Day: 10.0 Second Hand Smoke Exposure: No Use of substances other than those prescribed or required for medical reasons: No Substance Use Type: Opiates Have you been hit, kicked, punched, or otherwise hurt by someone within the past year? If so, by whom?: No Are you DNR?: Yes Advance Directives: Yes Advance Directives Information Provided: Yes Advance Directives on File: No Advance Directives Date on File: 04/02/20 service: No Current occupational status: disabled Meds Allergies Allergy/AdvReac Type Severity Reaction Status Date / Time No Known Allergies Allergy Unverified 03/18/20 14:51 [No Known Allergies*] morphine AdvReac Unknown N/V Verified 04/08/15 00:00 antibiotic ? Allergy Unknown Uncoded 01/05/20 00:00 Active Medications: Current Medications Generic Name Dose Route Start Last Admin Trade Name Freq PRN Reason Stop Dose Admin Clonidine HCl 0.1 mg 12/22/20 09:00 12/22/20 11:55 Clonidine Hcl 0.1 Mg Tablet PO 0.1 mg DAILY MARIANN Administration Protocol Folic Acid 1 mg 12/22/20 09:00 12/22/20 11:58 Folic Acid 1 Mg Tablet PO 12/25/20 08:59 1 mg DAILY MARIANN Administration Gabapentin 600 mg 12/21/20 21:00 12/22/20 14:21 Gabapentin 600 Mg Tablet PO Not Given QID MARIANN Piperacillin Sod/Tazobactam 50 mls @ 100 mls/hr 12/21/20 20:30 12/22/20 12:23 Sod 3.375 gm/ Sodium Chloride IV Not Given Q6H MARIANN Octreotide Acetate 500 mcg/ 501 mls @ 50.1 mls/hr 12/21/20 23:00 12/22/20 10:11 Sodium Chloride IVCONT 50 mcg/hr .Q10H MARIANN 50.1 mls/hr Administration 50 MCG/HR Sodium Chloride 1,000 mls @ 50 mls/hr 12/21/20 21:00 12/21/20 22:56 Ns IVCONT 50 mls/hr .Q20H MARIANN Administration Pantoprazole Sodium 80 mg/ 100 mls @ 10 mls/hr 12/21/20 21:00 12/22/20 06:41 Sodium Chloride IV 8 mg/hr .Q10H MARIANN 10 mls/hr Administration 8 MG/HR Vancomycin HCl 1,000 mg/ 270 mls @ 270 mls/hr 12/22/20 13:00 Sodium Chloride IV Q12H MARIANN Lactulose 10 gm 12/21/20 21:00 12/22/20 12:00 Lactulose 20 Gm/30 Ml Solution PO 10 gm TID MARIANN Administration Lorazepam 1 mg 12/21/20 20:55 12/22/20 11:54 Lorazepam 1 Mg Tablet PO 12/25/20 20:54 1 mg Q4H PRN Administration Breakthrough alcohol withdrawa Multivitamins 1 tab 12/22/20 09:00 12/22/20 12:08 B-Complex With Vitamin C Tablet PO 1 tab DAILY MARIANN Administration Ondansetron HCl 4 mg 12/22/20 01:27 12/22/20 07:22 Ondansetron Hcl 4 Mg/2 Ml Vial IVPUSH 4 mg Q8H PRN Administration Nausea and Vomiting Pharmacy Consult 1 each 12/21/20 12:37 Consult Rx Perform Med Rec MISCELLANE ONCE PRN Consult order Potassium Chloride 20 meq 12/21/20 21:00 12/22/20 11:59 Potassium Chloride Er 20 Meq Tab.Er.Prt PO 20 meq BID MARIANN Administration Sodium Bicarbonate 650 mg 12/22/20 15:00 Sodium Bicarbonate 650 Mg Tablet PO 12/24/20 09:01 TID MARIANN Sodium Chloride 3 ml 12/22/20 00:00 12/22/20 11:22 0.9 % Sodium Chloride Flush 3 Ml Syringe IVFLUSH 3 ml QSHIFT MARIANN Administration Thiamine HCl 100 mg 12/22/20 09:00 12/22/20 11:56 Thiamine Hcl 100 Mg Tablet PO 12/25/20 08:59 100 mg DAILY MARIANN Administration Topiramate 25 mg 12/21/20 21:00 12/22/20 12:08 Topiramate 25 Mg Tablet PO 25 mg BID MARIANN Administration Home Medications Medication Instructions Recorded Confirmed Last Taken Type clonidine HCl 0.1 mg PO DAILY 07/30/20 12/21/20 12/21/20 History folic acid 1 mg PO DAILY 07/30/20 12/21/20 12/21/20 History furosemide 20 mg PO BID 07/30/20 12/21/20 12/21/20 History gabapentin 600 mg PO QID 07/30/20 12/21/20 12/21/20 History lactulose 10 g PO TID 07/30/20 12/21/20 12/21/20 History potassium chloride 20 meq PO BID 07/30/20 12/21/20 12/21/20 History spironolactone 25 mg PO BID 07/30/20 12/21/20 12/21/20 History topiramate 25 mg PO BID 07/30/20 12/21/20 12/21/20 History omeprazole 20 mg PO BID 12/21/20 12/21/20 12/21/20 History ondansetron HCl 1 tab PO Q8H PRN 12/21/20 12/21/20 Unknown History Physical Exam Vital Signs: Vital Signs: Last Vital Signs Temp 99.2 F 12/22/20 13:59 Pulse 96 12/22/20 13:59 Resp 18 12/22/20 13:59 BP 110/65 12/22/20 13:59 Pulse Ox 95 12/22/20 13:59 Body Mass Index 27.4 Const: General: cooperative HENMT: Head: Yes normal to inspection Mouth: Normal oral and palatal mucosa present Resp: Effort & Inspection: normal respiratory effort Cardio: Rate: regular rate Rhythm: regular rhythm GI: Palpation (GI): Soft to palpation and nontender Skin: General skin exam: no rashes or lesions noted Results Labs CBC & Chem 7: 12/21/20 22:08 12/21/20 08:39 Labs: Short CBC 12/21/20 Range/Units 22:08 WBC 7.5 (4.8-10.8) X10*3/uL Hgb 8.4 L D (12.0-16.0) g/dl Hct 23.9 L D (37-47) % Plt Count 28 L (160-400) X10*3/uL Microbiology Microbiology Results: Microbiology 12/21/20 08:39 Blood - Venous Blood Culture - Preliminary 12/21/20 09:09 Blood - Venous Blood Culture - Preliminary Assessment and Plan (1) Ulcer of left heel: Status: Acute (2) End stage liver disease: Status: Acute (3) Bilateral lower leg cellulitis: Status: Acute (4) UTI (urinary tract infection): Qualifiers: Hematuria presence: with hematuria Urinary tract infection type: acute cystitis Qualified Code(s): N30.01 - Acute cystitis with hematuria Status: Acute (5) Bacteremia: Status: Acute gram negative bacteremia there is concern over leg or SBP source Would continue Piperacillin/Tazobactam duration to be determined Check eschar eval per Surgery
[2020-12-22] MEDS: 0.9 % Sodium Chloride 1,000 ML 50 ML IVCONT (17:08)
[2020-12-22] MEDS: Sodium Bicarbonate 650 MG TABLET PO ×2 (17:10→20:01)
[2020-12-23] VITALS (9 sets, daily range): BP systolic 88–117; BP diastolic 54–71; PULSE 86–95; RESP 12–19; TEMP 36.4–38.7; O2SAT 94–99; BMI 27.4
[2020-12-23 01:12] LABS: Vancomycin Trough 18.4 mcg/mL (10.0-20.0)
[2020-12-23] MEDS: Piperacillin Sodium/Tazobactam 3.375 GM in 0.9 % Sodium Chloride 50 ML IV ×4 (02:15→20:55)
[2020-12-23] MEDS: Pantoprazole Sodium 80 MG in 0.9 % Sodium Chloride 80 ML 10 MG IV (02:17)
[2020-12-23] MEDS: 0.9 % Sodium Chloride 1,000 ML 50 ML IVCONT (05:40)
[2020-12-23] MEDS: Octreotide Acetate 500 MCG in 0.9 % Sodium Chloride 500 ML 50.1 MCG IVCONT (05:40)
[2020-12-23 06:00] LABS: Hemoglobin 7.4 g/dl (12.0-16.0); PLT ABN DIST 1; Red Blood Count 2.31 X10*6/uL (4.20-5.50)
[2020-12-23 06:01] LABS: Hematocrit 21.5 % (37-47); Mean Corpuscular HGB Conc 34.4 g/dl (31.0-35.0); Mean Corpuscular Volume 93.1 fL (80-98); Red Cell Distribution Width 20.6 % (11.0-16.0); White Blood Count 4.1 X10*3/uL (4.8-10.8)
[2020-12-23 06:12] LABS: Platelet Count 23 X10*3/uL (160-400)
[2020-12-23 06:41] LABS: Anion Gap 9 (12-20); Blood Urea Nitrogen 7 mg/dL (9-16); Carbon Dioxide 21 mmol/L (22-29); Chloride 108 mmol/L (96-108); Creatinine Clr Calc Pharmacy 89.5; Estimated Glomerular Filt Rate > 60; Glucose Fasting 103 mg/dL (60-99); Sodium 135 mmol/L (135-145)
[2020-12-23 07:32] LABS: Alanine Aminotransferase 28 U/L (0-31); Albumin Level 1.9 g/dL (3.5-5.0); Alkaline Phosphatase 187 U/L (39-117); Aspartate Amino Transferase 125 U/L (5-31); Bilirubin Direct 3.5 mg/dL (0.0-0.5); Bilirubin Total 5.4 mg/dL (0.0-1.0); Total Protein 6.4 g/dL (6.5-8.0)
[2020-12-23] MEDS: 0.9 % Sodium Chloride Flush 3 ML SYRINGE IVFLUSH ×3 (07:42→20:55)
[2020-12-23] MEDS: Potassium Chloride ER 20 MEQ TAB.ER.PRT PO ×2 (07:43→20:54)
[2020-12-23] MEDS: cloNIDine HCL 0.1 MG TABLET PO (07:43)
[2020-12-23] MEDS: Thiamine HCL 100 MG TABLET PO (07:44)
[2020-12-23] MEDS: Gabapentin 600 MG TABLET PO ×3 (07:44→20:54)
[2020-12-23] MEDS: Sodium Bicarbonate 650 MG TABLET PO ×3 (07:45→20:54)
[2020-12-23] MEDS: Topiramate 25 MG TABLET PO ×2 (07:45→20:54)
[2020-12-23] MEDS: LORazepam 1 MG TABLET PO ×2 (07:46→20:57)
[2020-12-23] MEDS: Folic Acid 1 MG TABLET PO (07:46)
--- NOTE | 2020-12-23 08:27 | PM.PNGS ---
Subjective Subjective Date of Service: 12/23/20 Interval history: Describes some pain both lower extremities Otherwise says she feels the same No events reported overnight Physical Exam Vital Signs: Vital Signs: Last Vital Signs Temp 99.4 F 12/23/20 07:00 Pulse 88 12/23/20 07:43 Resp 18 12/23/20 07:00 BP 109/57 L 12/23/20 07:43 Pulse Ox 99 12/23/20 07:00 Body Mass Index 27.4 Laboratory Results - last 24 hr 12/21/20 12/22/20 12/22/20 09:09 06:46 12:56 WBC RBC Hgb Hct MCV MCH MCHC RDW Plt Count MPV Absolute Nucleated RBC Nucleated RBC % (a uto) Sodium Potassium Chloride Carbon Dioxide Anion Gap BUN Creatinine Estim Creat Clear Calc Estimated GFR Fasting Glucose Osmolality 296 Calcium Total Bilirubin Direct Bilirubin AST ALT Alkaline Phosphata se Total Protein Albumin Vitamin B12 > 2000 H Folate 18.5 Urine Osmolality Ur Random Sodium Urine Creatinine Vancomycin Trough Blood Type AB Positive Antibody Screen NEGATIVE MIO, Polyspecific NEGATIVE Positive MIO Work- up TNP Crossmatch (G) See Detail 12/22/20 12/22/20 12/23/20 Unknown Unknown 00:11 WBC RBC Hgb Hct MCV MCH MCHC RDW Plt Count MPV Absolute Nucleated RBC Nucleated RBC % (a uto) Sodium Potassium Chloride Carbon Dioxide Anion Gap BUN Creatinine Estim Creat Clear Calc Estimated GFR Fasting Glucose Osmolality Calcium Total Bilirubin Direct Bilirubin AST ALT Alkaline Phosphata se Total Protein Albumin Vitamin B12 Folate Urine Osmolality 332 L Ur Random Sodium 26.0 Urine Creatinine 69.71 Vancomycin Trough 18.4 Blood Type Antibody Screen MIO, Polyspecific Positive MIO Work- up Crossmatch ([facility]) 12/23/20 12/23/20 05:24 05:24 WBC 4.1 L RBC 2.31 L Hgb 7.4 L Hct 21.5 L MCV 93.1 MCH 32.0 MCHC 34.4 RDW 20.6 H Plt Count 23 L MPV TNP Absolute Nucleated RBC 0.000 Nucleated RBC % (a uto) 0.0 Sodium 135 Potassium 3.0 L Chloride 108 Carbon Dioxide 21 L Anion Gap 9 L BUN 7 L Creatinine 0.74 Estim Creat Clear Calc 89.5 Estimated GFR > 60 Fasting Glucose 103 H Osmolality Calcium 6.0 L* D Total Bilirubin 5.4 H Direct Bilirubin 3.5 H AST 125 H ALT 28 Alkaline Phosphata se 187 H D Total Protein 6.4 L Albumin 1.9 L Vitamin B12 Folate Urine Osmolality Ur Random Sodium Urine Creatinine Vancomycin Trough Blood Type Antibody Screen MIO, Polyspecific Positive MIO Work- up Crossmatch ([facility]) Const: Other: Appears very frail but communicative General: no acute distress Resp: Effort & Inspection: normal respiratory effort Cardio: Rate: regular rate GI: Palpation (GI): Soft to palpation Extrem: Other: Left heel ulcer debrided yesterday - looks much better this morning, viable tissue noted, minimal bleeding Progress Note: A&P Assessment and plan (1) Ulcer of left heel: Status: Acute Assessment and Plan: Sharp excisional debridement done yesterday in view of gangrenous tissue Ulcer seems to extend to the calcaneus Better looking and granulating tissue seen today Wet to dry dressings applied Foot wrapped in thick dressings and Kerlix roll Elevate heel off of bed Patient also has anemia and low platelets from chronic liver disease She has multiple other ulcers both lower legs, clean - continue same wound care Fall Risk Details Current Medications: Current Medications Generic Name Dose Route Start Last Admin Trade Name Freq PRN Reason Stop Dose Admin Clonidine HCl 0.1 mg 12/22/20 09:00 12/23/20 07:43 Clonidine Hcl 0.1 Mg Tablet PO 0.1 mg DAILY MARIANN Administration Protocol Folic Acid 1 mg 12/22/20 09:00 12/23/20 07:46 Folic Acid 1 Mg Tablet PO 12/25/20 08:59 1 mg DAILY MARIANN Administration Gabapentin 600 mg 12/21/20 21:00 12/23/20 07:44 Gabapentin 600 Mg Tablet PO 600 mg QID MARIANN Administration Piperacillin Sod/Tazobactam 50 mls @ 100 mls/hr 12/21/20 20:30 12/23/20 07:42 Sod 3.375 gm/ Sodium Chloride IV 100 mls/hr Q6H MARIANN Administration Octreotide Acetate 500 mcg/ 501 mls @ 50.1 mls/hr 12/21/20 23:00 12/23/20 05:40 Sodium Chloride IVCONT 50 mcg/hr .Q10H MARIANN 50.1 mls/hr Administration 50 MCG/HR Sodium Chloride 1,000 mls @ 50 mls/hr 12/21/20 21:00 12/23/20 05:40 Ns IVCONT 50 mls/hr .Q20H MARIANN Administration Pantoprazole Sodium 80 mg/ 100 mls @ 10 mls/hr 12/21/20 21:00 12/23/20 02:17 Sodium Chloride IV 8 mg/hr .Q10H MARIANN 10 mls/hr Administration 8 MG/HR Lactulose 10 gm 12/21/20 21:00 12/23/20 07:43 Lactulose 20 Gm/30 Ml Solution PO Not Given TID MARIANN Lorazepam 1 mg 12/21/20 20:55 12/23/20 07:46 Lorazepam 1 Mg Tablet PO 12/25/20 20:54 1 mg Q4H PRN Administration Breakthrough alcohol withdrawa Multivitamins 1 tab 12/22/20 09:00 12/23/20 07:44 B-Complex With Vitamin C Tablet PO 1 tab DAILY MARIANN Administration Ondansetron HCl 4 mg 12/22/20 01:27 12/22/20 07:22 Ondansetron Hcl 4 Mg/2 Ml Vial IVPUSH 4 mg Q8H PRN Administration Nausea and Vomiting Pharmacy Consult 1 each 12/21/20 12:37 Consult Rx Perform Med Rec MISCELLANE ONCE PRN Consult order Potassium Chloride 20 meq 12/21/20 21:00 12/23/20 07:43 Potassium Chloride Er 20 Meq Tab.Er.Prt PO 20 meq BID MARIANN Administration Sodium Bicarbonate 650 mg 12/22/20 15:00 12/23/20 07:45 Sodium Bicarbonate 650 Mg Tablet PO 12/24/20 09:01 650 mg TID MARIANN Administration Sodium Chloride 3 ml 12/22/20 00:00 12/23/20 07:42 0.9 % Sodium Chloride Flush 3 Ml Syringe IVFLUSH 3 ml QSHIFT MARIANN Administration Thiamine HCl 100 mg 12/22/20 09:00 12/23/20 07:44 Thiamine Hcl 100 Mg Tablet PO 12/25/20 08:59 100 mg DAILY MARIANN Administration Topiramate 25 mg 12/21/20 21:00 12/23/20 07:45 Topiramate 25 Mg Tablet PO 25 mg BID MARIANN Administration Time Spent With Patient Time: Total time spent is greater than 50% in coordination of care (as documented) at patient's floor/unit and/or counseling patient: Time with patient: 15 - 24 minutes Procedures Date of Service Date of Service: 12/23/20 Quality Stroke Does the patient have a stroke diagnosis?: No VTE Prior VTE?: No VTE Risk Level:: Medical - moderate - high VTE Device Contraindication: N/A - Device Ordered VTE Drug Contraindication: Treatment Not Tolerated (gi bleed)
[2020-12-23] MEDS: Omeprazole 40 MG CAPSULE.DR PO (08:43)
--- NOTE | 2020-12-23 10:17 | HO.POSTANES ---
Post Anesthesia Evaluation Post Anesthesia Evaluation Vital Signs: Vital Signs Temp Pulse Resp BP Pulse Ox 12/23/20 07:43 88 109/57 L 12/23/20 07:00 99.4 F 88 18 109/57 L 99 12/23/20 03:00 98.8 F 86 12 107/59 L 97 12/22/20 23:15 99.6 F 93 14 110/54 L 94 Anesthesia: Monitored Mental Status: Awake Pain Control: Satisfactory Nausea/Vomiting: None Hydration: Adequate Anesthesia-Related Issues: No Anes. Related Issues
--- NOTE | 2020-12-23 11:58 | P.PNIM_ITS ---
Subjective Subjective Date of Service: 12/23/20 Interval History: weak Cardiovascular Cardiovascular: Reports no additional cardiovascular complaints Respiratory Respiratory: Reports no additional respiratory complaints Physical Exam Vital Signs: Vital Signs: Last Vital Signs Temp 99.5 F 12/23/20 11:00 Pulse 90 12/23/20 11:00 Resp 18 12/23/20 11:00 BP 104/59 L 12/23/20 11:00 Pulse Ox 94 12/23/20 11:00 Body Mass Index 27.4 General: AO X 3, ill appearing Resp: CTA bilateral CVS: S1,S2,RRR GI: soft, non tender, non distended Neuro: motor grossly intact Psych: appropriate affect lymphedema, with ulcers Objective Data Current Medications Generic Name Dose Route Start Last Admin Trade Name Freq PRN Reason Stop Dose Admin Clonidine HCl 0.1 mg 12/22/20 09:00 12/23/20 07:43 Clonidine Hcl 0.1 Mg Tablet PO 0.1 mg DAILY MARIANN Administration Protocol Folic Acid 1 mg 12/22/20 09:00 12/23/20 07:46 Folic Acid 1 Mg Tablet PO 12/25/20 08:59 1 mg DAILY MARIANN Administration Gabapentin 600 mg 12/21/20 21:00 12/23/20 07:44 Gabapentin 600 Mg Tablet PO 600 mg QID MARIANN Administration Piperacillin Sod/Tazobactam 50 mls @ 100 mls/hr 12/21/20 20:30 12/23/20 08:50 Sod 3.375 gm/ Sodium Chloride IV Infused Q6H MARIANN Infusion Lactulose 10 gm 12/21/20 21:00 12/23/20 07:43 Lactulose 20 Gm/30 Ml Solution PO Not Given TID MARIANN Lorazepam 1 mg 12/21/20 20:55 12/23/20 07:46 Lorazepam 1 Mg Tablet PO 12/25/20 20:54 1 mg Q4H PRN Administration Breakthrough alcohol withdrawa Multivitamins 1 tab 12/22/20 09:00 12/23/20 07:44 B-Complex With Vitamin C Tablet PO 1 tab DAILY MARIANN Administration Omeprazole 40 mg 12/23/20 16:30 12/23/20 08:43 Omeprazole 40 Mg Capsule. PO 40 mg BID@0630,8050 MARIANN Administration Ondansetron HCl 4 mg 12/22/20 01:27 12/22/20 07:22 Ondansetron Hcl 4 Mg/2 Ml Vial IVPUSH 4 mg Q8H PRN Administration Nausea and Vomiting Pharmacy Consult 1 each 12/21/20 12:37 Consult Rx Perform Med Rec MISCELLANE ONCE PRN Consult order Potassium Chloride 20 meq 12/21/20 21:00 12/23/20 07:43 Potassium Chloride Er 20 Meq Tab.Er.Prt PO 20 meq BID MARIANN Administration Sodium Bicarbonate 650 mg 12/22/20 15:00 12/23/20 07:45 Sodium Bicarbonate 650 Mg Tablet PO 12/24/20 09:01 650 mg TID MARIANN Administration Sodium Chloride 3 ml 12/22/20 00:00 12/23/20 07:42 0.9 % Sodium Chloride Flush 3 Ml Syringe IVFLUSH 3 ml QSHIFT MARIANN Administration Spironolactone 25 mg 12/23/20 21:00 Spironolactone 25 Mg Tablet PO BID MARIANN Protocol Thiamine HCl 100 mg 12/22/20 09:00 12/23/20 07:44 Thiamine Hcl 100 Mg Tablet PO 12/25/20 08:59 100 mg DAILY MARIANN Administration Topiramate 25 mg 12/21/20 21:00 12/23/20 07:45 Topiramate 25 Mg Tablet PO 25 mg BID MARIANN Administration Labs CBC & Chem 7: 12/23/20 05:24 12/23/20 05:24 Labs: Laboratory Results - last 24 hr 12/21/20 12/22/20 12/22/20 09:09 12:56 Unknown WBC RBC Hgb Hct MCV MCH MCHC RDW Plt Count MPV Absolute Nucleated RBC Nucleated RBC % (auto) Sodium Potassium Chloride Carbon Dioxide Anion Gap BUN Creatinine Estim Creat Clear Calc Estimated GFR Fasting Glucose Osmolality 296 Calcium Total Bilirubin Direct Bilirubin AST ALT Alkaline Phosphatase Total Protein Albumin Urine Osmolality 332 L Ur Random Sodium Urine Creatinine Vancomycin Trough Blood Type AB Positive Antibody Screen NEGATIVE MIO, Polyspecific NEGATIVE Positive MIO Work-up TNP Crossmatch ([facility]) See Detail 12/22/20 12/23/20 12/23/20 Unknown 00:11 05:24 WBC 4.1 L RBC 2.31 L Hgb 7.4 L Hct 21.5 L MCV 93.1 MCH 32.0 MCHC 34.4 RDW 20.6 H Plt Count 23 L MPV TNP Absolute Nucleated RBC 0.000 Nucleated RBC % (auto) 0.0 Sodium Potassium Chloride Carbon Dioxide Anion Gap BUN Creatinine Estim Creat Clear Calc Estimated GFR Fasting Glucose Osmolality Calcium Total Bilirubin Direct Bilirubin AST ALT Alkaline Phosphatase Total Protein Albumin Urine Osmolality Ur Random Sodium 26.0 Urine Creatinine 69.71 Vancomycin Trough 18.4 Blood Type Antibody Screen MIO, Polyspecific Positive MIO Work-up Crossmatch ([facility]) 12/23/20 05:24 WBC RBC Hgb Hct MCV MCH MCHC RDW Plt Count MPV Absolute Nucleated RBC Nucleated RBC % (auto) Sodium 135 Potassium 3.0 L Chloride 108 Carbon Dioxide 21 L Anion Gap 9 L BUN 7 L Creatinine 0.74 Estim Creat Clear Calc 89.5 Estimated GFR > 60 Fasting Glucose 103 H Osmolality Calcium 6.0 L* D Total Bilirubin 5.4 H Direct Bilirubin 3.5 H AST 125 H ALT 28 Alkaline Phosphatase 187 H D Total Protein 6.4 L Albumin 1.9 L Urine Osmolality Ur Random Sodium Urine Creatinine Vancomycin Trough Blood Type Antibody Screen MIO, Polyspecific Positive MIO Work-up Crossmatch ([facility]) Microbiology Microbiology Results: Microbiology 12/21/20 08:39 Blood Culture - Preliminary Blood - Venous Gram negative bayron 12/21/20 09:09 Blood Culture - Preliminary Blood - Venous Gram negative bayron Quality Stroke Does the patient have a stroke diagnosis?: No VTE Prior VTE?: No VTE Risk Level:: Medical - moderate - high VTE Device Contraindication: N/A - Device Ordered VTE Drug Contraindication: Treatment Not Tolerated (gi bleed) Assessment and Plan (1) Acute gastrointestinal bleeding: Status: Acute Assessment and Plan: 40F presented with weakness found to have severe anemia and hypotension acute blood loss anemia with hypotension s/p 3 units prbcs EGD with no clear bleeding source, stable varices, portal gastropathy change to oral ppi monitori liver cirrhosis aldactone, outpaitent follow up GNR bacteremia zosyn, follow up cultures ?source - skin vs GI - no obsvious ascites to drain opiate dependence addiction team following, does not want ORT lower extremity lymphedema and ulcers zosyn ID and surgery following hyponatremia resolved
--- NOTE | 2020-12-23 12:06 | PM.PNNEP ---
Subjective Subjective Date of Service: 12/23/20 Interval history: weak NA an bicarb better Physical Exam Vital Signs: Vital Signs: Last Vital Signs Temp 99.5 F 12/23/20 11:00 Pulse 90 12/23/20 11:00 Resp 18 12/23/20 11:00 BP 104/59 L 12/23/20 11:00 Pulse Ox 94 12/23/20 11:00 Body Mass Index 27.4 General: AO X 3, ill appearing Resp: CTA bilateral CVS: S1,S2,RRR GI: soft, non tender, non distended Neuro: motor grossly intact Psych: appropriate affect lymphedema, with ulcers Objective Data Labs CBC & Chem 7: 12/23/20 05:24 12/23/20 05:24 Labs: Laboratory Results - last 24 hr 12/21/20 12/22/20 12/22/20 09:09 12:56 Unknown WBC RBC Hgb Hct MCV MCH MCHC RDW Plt Count MPV Absolute Nucleated RBC Nucleated RBC % (auto) Sodium Potassium Chloride Carbon Dioxide Anion Gap BUN Creatinine Estim Creat Clear Calc Estimated GFR Fasting Glucose Osmolality 296 Calcium Total Bilirubin Direct Bilirubin AST ALT Alkaline Phosphatase Total Protein Albumin Urine Osmolality 332 L Ur Random Sodium Urine Creatinine Vancomycin Trough Blood Type AB Positive Antibody Screen NEGATIVE MIO, Polyspecific NEGATIVE Positive MIO Work-up TNP Crossmatch (G) See Detail 12/22/20 12/23/20 12/23/20 Unknown 00:11 05:24 WBC 4.1 L RBC 2.31 L Hgb 7.4 L Hct 21.5 L MCV 93.1 MCH 32.0 MCHC 34.4 RDW 20.6 H Plt Count 23 L MPV TNP Absolute Nucleated RBC 0.000 Nucleated RBC % (auto) 0.0 Sodium Potassium Chloride Carbon Dioxide Anion Gap BUN Creatinine Estim Creat Clear Calc Estimated GFR Fasting Glucose Osmolality Calcium Total Bilirubin Direct Bilirubin AST ALT Alkaline Phosphatase Total Protein Albumin Urine Osmolality Ur Random Sodium 26.0 Urine Creatinine 69.71 Vancomycin Trough 18.4 Blood Type Antibody Screen MIO, Polyspecific Positive MIO Work-up Crossmatch ([facility]) 12/23/20 05:24 WBC RBC Hgb Hct MCV MCH MCHC RDW Plt Count MPV Absolute Nucleated RBC Nucleated RBC % (auto) Sodium 135 Potassium 3.0 L Chloride 108 Carbon Dioxide 21 L Anion Gap 9 L BUN 7 L Creatinine 0.74 Estim Creat Clear Calc 89.5 Estimated GFR > 60 Fasting Glucose 103 H Osmolality Calcium 6.0 L* D Total Bilirubin 5.4 H Direct Bilirubin 3.5 H AST 125 H ALT 28 Alkaline Phosphatase 187 H D Total Protein 6.4 L Albumin 1.9 L Urine Osmolality Ur Random Sodium Urine Creatinine Vancomycin Trough Blood Type Antibody Screen MIO, Polyspecific Positive MIO Work-up Crossmatch ([facility]) Microbiology Microbiology Results: Microbiology 12/21/20 08:39 Blood - Venous Blood Culture - Preliminary Gram negative bayron 12/21/20 09:09 Blood - Venous Blood Culture - Preliminary Gram negative bayron Assessment & Plan Time Spent With Patient Time: 1. Hyponatremia in the setting of ESLD/ diuretic use - resolved Fluid restriction 1.5 liters 2. Metabolic Acidosis in the setting of Lactic acidosis/ Topomax use 3. Hypokalemis Can restart Aldactone F/u mag levels Can restart Lasix before d/c Thx Total time spent is greater than 50% in coordination of care (as documented) at patient's floor/unit and/or counseling patient: Procedures Date of Service Date of Service: 12/23/20 Progress Note: Quality Stroke Does the patient have a stroke diagnosis?: No
[2020-12-23 17:36] LABS: Haptoglobin 115 mg/dL (43-212)
[2020-12-23 17:36] LABS: Haptoglobin 116 mg/dL (43-212)
[2020-12-23] MEDS: Spironolactone 25 MG TABLET PO (20:54)
--- NOTE | 2020-12-23 22:55 | CONS_ITS ---
DATE OF SERVICE: 12/22/2020 REASON FOR CONSULTATION: Consult requested by the medical team to evaluate and help in management of patient with hyponatremia and metabolic acidosis. HISTORY OF PRESENT ILLNESS: Patient is a 40-year-old female with past medical history of end-stage liver disease; history of bilateral lower extremity edema; chronic ulcers, followed up at wound clinic; anemia, receiving blood transfusion; history of epistaxis; thrombocytopenia; opiate dependence, who presented to the hospital with chief complaint of generalized weakness. Patient apparently lost her methadone about 16 days ago and has been drinking alcohol withdrawal. She had generalized weakness and subjective fever. She has had leg swelling, which worsened over the last week. She apparently missed appointments with the wound clinic. She did not have any chest pain or palpitation. She did have mild dizziness and lightheadedness. There is no blurry vision or focal weakness. Patient was evaluated in the ER and apparently she complained of having nausea and vomiting for a few days. She did have 1 episode of black stool. Chest CT did not show any evidence of pneumonia. She was evaluated by the ICU, she was hypotensive, but she was downgraded and advised to be admitted to the floor. Renal consult has been requested as she had hyponatremia. She is also acidotic with an elevated lactic acid level. REVIEW OF SYSTEMS: As noted above. Other systems are reviewed and negative. PAST MEDICAL HISTORY: History of alcohol abuse; end-stage liver disease; bilateral lower extremity lymphedema; chronic ulcers; methadone treatment; anemia, has been chronic and requiring blood transfusion; history of epistaxis; thrombocytopenia; opioid dependence, on methadone. PERSONAL AND SOCIAL HISTORY: Patient continues to smoke. Currently, alcohol user. Does not use drugs at the present time. ALLERGIES: PATIENT HAS ALLERGIES TO MORPHINE AND QUESTION OF ALLERGIES TO SOME ANTIBIOTIC, WE DO NOT KNOW THE NAME OF THE ANTIBIOTICS. HOME MEDICATIONS: Include clonidine, folic acid furosemide, gabapentin, lactulose, potassium chloride, spironolactone, topiramate, omeprazole, and ondansetron. PHYSICAL EXAMINATION: GENERAL: Patient is resting in the bed. Awake, alert, oriented x3, in no significant distress. VITAL SIGNS: Blood pressure was 123/67, pulse 97, afebrile. HEENT: Exam shows pupils equal bilaterally and reactive to light. No jugular venous distention noted. NECK: Supple. No thyromegaly is noted. Mucosa moist. There is no scleral icterus or conjunctival congestion. CARDIOVASCULAR SYSTEM: S1, S2 without rub or murmur. RESPIRATORY SYSTEM: Air entry decreased in the bases. No crepitation or rhonchi is noted. EXTREMITIES: Showed chronic changes with lymphedema. LABORATORY DATA: Labs done today. Sodium 127, potassium 3.5, chloride 98, CO2 of 17, BUN 11, creatinine 0.73, glucose 118. Hemoglobin 8.5, hematocrit 23.9, WBC is 7.5, platelets 28. IMPRESSION: 1. Middle-aged female with hyponatremia. Hyponatremia in this patient is likely hypoosmolar. She probably has increased total body fluid. I do not have serum and urine osmolality and urine sodium to comment on the possibility of syndrome of inappropriate antidiuretic hormone secretion. She was on diuretics, Lasix, and spironolactone, which could have contributed to hyponatremia as she has been on a low-solute diet. We should rule out adrenal disease and thyroid disease. 2. Metabolic acidosis, which is a combination of lactic acidosis plus possibility of Topamax-induced metabolic acidosis. 3. Anemia/thrombocytopenia. 4. End-stage liver disease. 5. Substance abuse in the past with methadone. 6. Alcohol abuse. RECOMMENDATIONS: At this juncture, I have taken the liberty to send urine for sodium osmolality and a serum osmolality. I recommend fluid restriction in this patient of around 1.5 L per day. Spironolactone and Lasix are presently on hold. Antibiotic, as per medical team. We need to give potassium as needed. We will continue to follow the patient closely. Thank you for allowing me to participate in the medical management of this patient. MD JU Severino/JACKIE / [id number]
[2020-12-24] VITALS (12 sets, daily range): BP systolic 94–114; BP diastolic 49–65; PULSE 65–91; RESP 18–20; TEMP 37.1–37.9; O2SAT 94–99
--- NOTE | 2020-12-24 02:06 | PC.NURSE ---
Addendum entered by Mojgan Lane RN 12/24/20 02:44: Left heel dsg reinforced @ 0230. Original Note: Pt's left heel and agustin dsg found to be saturated with sanguineous and purulent drainage upon start to shift. Per day shift RN report, dsg had been last changed by lead caster helper around 1400. Dsg changed at 2100 and reinforced w/ pressure dressing d/t bleeding. Bleeding slowed for now. BP still soft at 104/63. All other VSS.
[2020-12-24] MEDS: Piperacillin Sodium/Tazobactam 3.375 GM in 0.9 % Sodium Chloride 50 ML IV ×2 (02:22→07:45)
[2020-12-24] MEDS: Omeprazole 40 MG CAPSULE.DR PO ×2 (05:27→16:54)
[2020-12-24 06:29] LABS: Mean Corpuscular Volume 93.6 fL (80-98); White Blood Count 3.4 X10*3/uL (4.8-10.8)
[2020-12-24 06:31] LABS: Mean Corpuscular HGB Conc 33.8 g/dl (31.0-35.0); Mean Corpuscular Hemoglobin 31.7 pg (27.0-33.0); Mean Platelet Volume 12.3 fL (9.4-12.3); Red Blood Count 2.18 X10*6/uL (4.20-5.50); Red Cell Distribution Width 20.7 % (11.0-16.0)
[2020-12-24 06:39] LABS: PLT ABN DIST 1; Platelet Count 21 X10*3/uL (160-400)
[2020-12-24 06:41] LABS: Hemoglobin 6.9 g/dl (12.0-16.0)
[2020-12-24 06:42] LABS: Hematocrit 20.4 % (37-47)
[2020-12-24 07:08] LABS: Anion Gap 11 (12-20); Blood Urea Nitrogen 6 mg/dL (9-16); Calcium 6.3 mg/dL (8.4-10.2); Carbon Dioxide 20 mmol/L (22-29); Chloride 107 mmol/L (96-108); Creatinine Clr Calc Pharmacy 93.3; Estimated Glomerular Filt Rate > 60; Glucose Fasting 90 mg/dL (60-99); Potassium 3.5 mmol/L (3.3-5.1); Sodium 134 mmol/L (135-145)
[2020-12-24] MEDS: 0.9 % Sodium Chloride Flush 3 ML SYRINGE IVFLUSH ×3 (07:42→20:29)
[2020-12-24] MEDS: oxyCODONE HCl Immed Release 5 MG TABLET PO ×2 (07:58→12:43)
[2020-12-24] MEDS: Lactulose 20 GM/30 ML SOLUTION 10 GM PO ×3 (07:59→20:28)
[2020-12-24] MEDS: cloNIDine HCL 0.1 MG TABLET PO (07:59)
[2020-12-24] MEDS: Gabapentin 600 MG TABLET PO ×4 (07:59→20:25)
[2020-12-24] MEDS: Topiramate 25 MG TABLET PO ×2 (07:59→20:28)
[2020-12-24] MEDS: Spironolactone 25 MG TABLET PO ×2 (07:59→20:28)
[2020-12-24] MEDS: Potassium Chloride ER 20 MEQ TAB.ER.PRT PO ×2 (07:59→20:25)
[2020-12-24] MEDS: Folic Acid 1 MG TABLET PO (07:59)
[2020-12-24] MEDS: Sodium Bicarbonate 650 MG TABLET PO (07:59)
[2020-12-24] MEDS: Thiamine HCL 100 MG TABLET PO (07:59)
[2020-12-24] MEDS: LORazepam 1 MG TABLET PO ×2 (08:07→12:43)
--- NOTE | 2020-12-24 09:27 | MHC.CM.PN ---
dc plan is to return home c wound ctr visits and vna which are previous svcs vs. STR pending a PT eval. cm to cont. to follow.
--- NOTE | 2020-12-24 11:01 | P.CNHO_ITS ---
Subjective - Subjective Chief complaint: Consult for: Multifactorial anemia. Patient: new to practice Consult date: 12/24/20 Requesting Physician: [place]. Primary Care Provider: Antoine Ghosh MD Medical Summary: DIAGNOSIS: Multifactorial anemia. Hemolytic anemia. Liver disease. HPI - Consult Narrative Reason for consult: Consult for: Hemolytic anemia. Narrative: Priscilla Hsu is an unfortunate 40 year old lady, , alcohol abuse; presented to the hospital with a chief complaint of generalized weakness. Patient last took her methadone about 16 days ago and has been drinking alcohol to counter any withdrawal. Patient has been feeling generalized weakness and subjective fevers at home. Reported lower extremity edema, gradually worsening over the past week. She noted discharge on her left heel ulcer;. Patient mentioned that she missed last 2 appointments for wound clinic. Reports mild lightheadedness and dizziness. Denies any headaches or blurry visions. Patient denies any chest pain palpitations. Denies any focal weakness. Denies any falls or trauma. Patient reported that the night before she came in, she had an episode of black stool. She has been having complains of abdominal discomfort. Denies any blood in the vomitus. Reports poor oral intake.nausea vomiting over the past few days. She denied any urinary symptoms She was noted to have severe anemia, brown stool on rectal exam. CBC on admission: WBC 11.8, HGB 4.4, HCT 12.5, PLT 28. CT chest showed no evidence of pneumonia. Urinalysis negative for infection. Leg wound noted to have discharge-concern for cellulitis given vancomycin and Zosyn Her blood pressure was on the lower side initially. Subsequently gradually improved to low 100s systolic. Past medical history of: End-stage liver disease , bilateral lower extremity lymphedema, chronic leg ulcers, history of bilateral leg wounds with cellulitis-follows with Wound Clinic, history of anemia-received blood transfusion past, history of epistaxis, thrombocytopenia, opiate dependence on methadone-lasting and 16 days ago Review of Systems - Neurologic Reports weakness, Denies confusion PMFSH Medical History: Medical History (Last Updated 12/22/20 @ 16:33 by Mary Gutierrez MD) Bacteremia Ulcer of left heel Family history: reviewed and not pertinent Social History: Social History (Last Reviewed 12/22/20 @ 16:31 by Mary Gutierrez MD) Living Situation History: Household Members: Children Household Members Other:: 1 Housing: House Do you presently have visiting nurse or other home services: Yes Alcohol History: Alcohol intake: current Alcohol History Details: Alcohol intake frequency: 3 or more drinks per day Tobacco History: Patient Tobacco Use Status: Current everyday Tobacco Tobacco use type: Cigarette Cigarette Packs Per Day: 0.5 Second Hand Smoke Exposure: No Substance Use History: Use of substances other than those prescribed or required for medical reasons : No Substance Use Type: Opiates Currently Displaying Signs/Symptoms of Drug Intoxication Withdrawal: No Domestic Abuse History: Have you been hit, kicked, punched, or otherwise hurt by someone within the past year? If so, by whom?: No Advance Directives: Are you DNR?: Yes Advance Directives: Yes Advance Directives Information Provided: Yes Advance Directives on File: No Advance Directives Date on File: 04/02/20 Homicidal Assessment: Do you have thoughts of harming others: None Do you have a plan to hurt others: No Plan Occupation Assessmet: service: No Current occupational status: disabled Home Medications and Allergies Current Medications: Current Medications Generic Name Dose Route Start Last Admin Trade Name Freq PRN Reason Stop Dose Admin Clonidine HCl 0.1 mg 12/22/20 09:00 12/24/20 07:59 Clonidine Hcl 0.1 Mg Tablet PO 0.1 mg DAILY MARIANN Administration Protocol Folic Acid 1 mg 12/22/20 09:00 12/24/20 07:59 Folic Acid 1 Mg Tablet PO 12/25/20 08:59 1 mg DAILY MARIANN Administration Gabapentin 600 mg 12/21/20 21:00 12/24/20 07:59 Gabapentin 600 Mg Tablet PO 600 mg QID MARIANN Administration Piperacillin Sod/Tazobactam 50 mls @ 100 mls/hr 12/21/20 20:30 12/24/20 08:28 Sod 3.375 gm/ Sodium Chloride IV Infused Q6H MARIANN Infusion Lactulose 10 gm 12/21/20 21:00 12/24/20 07:59 Lactulose 20 Gm/30 Ml Solution PO 10 gm TID MARIANN Administration Lorazepam 1 mg 12/21/20 20:55 12/24/20 08:07 Lorazepam 1 Mg Tablet PO 12/25/20 20:54 1 mg Q4H PRN Administration Breakthrough alcohol withdrawa Multivitamins 1 tab 12/22/20 09:00 12/24/20 07:59 B-Complex With Vitamin C Tablet PO 1 tab DAILY MARIANN Administration Omeprazole 40 mg 12/23/20 16:30 12/24/20 05:27 Omeprazole 40 Mg Capsule. PO 40 mg BID@6874,3280 MARIANN Administration Ondansetron HCl 4 mg 12/22/20 01:27 12/22/20 07:22 Ondansetron Hcl 4 Mg/2 Ml Vial IVPUSH 4 mg Q8H PRN Administration Nausea and Vomiting Oxycodone HCl 5 mg 12/24/20 07:47 12/24/20 07:58 Oxycodone Hcl Immed Release 5 Mg Tablet PO 5 mg Q4H PRN Administration Pain, Mild (Pain Scale 1-3) Pharmacy Consult 1 each 12/21/20 12:37 Consult Rx Perform Med Rec MISCELLANE ONCE PRN Consult order Potassium Chloride 20 meq 12/21/20 21:00 12/24/20 07:59 Potassium Chloride Er 20 Meq Tab.Er.Prt PO 20 meq BID MARIANN Administration Sodium Chloride 3 ml 12/22/20 00:00 12/24/20 07:42 0.9 % Sodium Chloride Flush 3 Ml Syringe IVFLUSH 3 ml QSHIFT MARIANN Administration Spironolactone 25 mg 12/23/20 21:00 12/24/20 07:59 Spironolactone 25 Mg Tablet PO 25 mg BID MARIANN Administration Protocol Thiamine HCl 100 mg 12/22/20 09:00 12/24/20 07:59 Thiamine Hcl 100 Mg Tablet PO 12/25/20 08:59 100 mg DAILY MARIANN Administration Topiramate 25 mg 12/21/20 21:00 12/24/20 07:59 Topiramate 25 Mg Tablet PO 25 mg BID MARIANN Administration Home Medications Medication Instructions Recorded Confirmed Type clonidine HCl 0.1 mg PO DAILY 07/30/20 12/21/20 History folic acid 1 mg PO DAILY 07/30/20 12/21/20 History furosemide 20 mg PO BID 07/30/20 12/21/20 History gabapentin 600 mg PO QID 07/30/20 12/21/20 History lactulose 10 g PO TID 07/30/20 12/21/20 History potassium chloride 20 meq PO BID 07/30/20 12/21/20 History spironolactone 25 mg PO BID 07/30/20 12/21/20 History topiramate 25 mg PO BID 07/30/20 12/21/20 History omeprazole 20 mg PO BID 12/21/20 12/21/20 History ondansetron HCl 1 tab PO Q8H PRN 12/21/20 12/21/20 History Allergies Allergy/AdvReac Type Severity Reaction Status Date / Time No Known Allergies Allergy Unverified 03/18/20 14:51 [No Known Allergies*] morphine AdvReac Unknown N/V Verified 04/08/15 00:00 antibiotic ? Allergy Unknown Uncoded 01/05/20 00:00 Physical Exam Vital signs: Vital Signs Temp 99.0 F 12/24/20 10:15 Pulse 81 12/24/20 10:15 Resp 18 12/24/20 10:15 BP 102/53 L 12/24/20 10:15 Pulse Ox 96 12/24/20 07:43 Intake & Output 12/23/20 12/24/20 12/24/20 18:59 06:59 18:59 Intake Total 638.182 / 1258.182 620 / 1258.182 50 / 50 Output Total 250 / 1050 800 / 1050 Balance 388.182 / 208.182 -180 / 208.182 50 / 50 Urine Output (Average ml/kg/hr) 0.31 0.98 0.98 Intake: Intake, Oral Amount 520 / 520 Intake (Blood Product) Amount 0 / 0 Red Blood Cells (E0336) Unit 0 / 0 [id number] Intake, IV Amount 638.182 / 738.182 100 / 738.182 50 / 50 Pantoprazole Sodium 80 mg In 0. 100 / 100 9 % Sodium Chloride 80 ml @ 8 MG/HR 10 mls/hr IV .Q10H MARIANN Rx #:[id number] Piperacillin Sodium/Tazobactam 96.667 / 196.667 100 / 196.667 50 / 50 3.375 gm In 0.9 % Sodium Chloride 50 ml @ 100 mls/hr IV Q6H MARIANN Rx#:[id number] 0.9 % Sodium Chloride 1,000 ml 100 / 100 @ 50 mls/hr IVCONT .Q20H MARIANN Rx #:[id number] Octreotide Acetate 500 mcg In 0 341.515 / 341.515 .9 % Sodium Chloride 500 ml @ 50 MCG/HR 50.1 mls/hr IVCONT . Q10H [facility] Rx#:[id number] Output: Output, Urine Amount (Catheter) 250 / 1050 800 / 1050 Urethral 250 / 1050 800 / 1050 Other: Urine [place] Urine Color Yellow [place] Last Bowel Movement 12/23/20 12/23/20 Weight 68.039 kg Weight 68.039 kg Hem/Onc Consult Result - Labs CBC & Chem 7: 12/27/20 04:28 12/27/20 04:28 Labs: Short CBC 12/24/20 Range/Units 05:37 WBC 3.4 L (4.8-10.8) X10*3/uL Hgb 6.9 L* (12.0-16.0) g/dl Hct 20.4 L* (37-47) % Plt Count 21 L (160-400) X10*3/uL BMP 12/24/20 05:37 Sodium 134 L Potassium 3.5 Chloride 107 Carbon Dioxide 20 L BUN 6 L Creatinine 0.71 Calcium 6.3 L Assessment and Plan (1) Acute anemia Status: Acute This is an unfortunate 40-year-old lady, with history of end-stage liver disease, previous history of anemia and thrombocytopenia. She now presented with acute blood loss anemia with hypotension. Hemoglobin was down to 4.4. Hematocrit 12.5. PLT 28. She has so far received 4 units prbcs She underwent EGD on 12/22, with no clear bleeding source, stable varices, portal gastropathy. She has been switched over 2 oral ppi. She has a history of autoimmune hemolytic anemia, pancytopenia, hepatitis-C and hypersplenism who has frequent admissions to the hospital with severe anemia. She was being followed in Hematology Oncology here, until about 2018. She now follows or Dr. Bowen at [facility]. Apparently, she had a bone marrow last year which was normal. She was advised to discontinue prednisone. She has been on a regimen of weekly to twice a month blood transfusion. Her kidney functions are normal and liver functions are stable. EGD last year revealed nonbleeding gastric varix and colonoscopy revealed hyperplastic polyp. Patient has multifactorial anemia: Combination of he hemolysis, anemia of chronic disease, liver disease and possibly occult GI blood losses. PLAN: Agree with blood transfusion, as you are doing. Her baseline hemoglobin is between 7-9 gram/dL. She can follow-up with her bus driver/monitor at [facility] upon discharge. Thank you for this consultation. CC: Paul Pickard.
--- NOTE | 2020-12-24 11:22 | HO.PM.IMPN ---
Subjective Subjective Date of Service: 12/24/20 Interval History: weak, leg pain Cardiovascular Cardiovascular: Reports no additional cardiovascular complaints Respiratory Respiratory: Reports no additional respiratory complaints Physical Exam Vital Signs: Vital Signs: Last Vital Signs Temp 99.0 F 12/24/20 10:15 Pulse 81 12/24/20 10:15 Resp 18 12/24/20 10:15 BP 102/53 L 12/24/20 10:15 Pulse Ox 96 12/24/20 07:43 Body Mass Index 27.4 General: AO X 3, ill appearing Resp: CTA bilateral CVS: S1,S2,RRR GI: soft, non tender, non distended Neuro: motor grossly intact Psych: appropriate affect lymphedema, with ulcers Objective Data Current Medications Generic Name Dose Route Start Last Admin Trade Name Adanq PRN Reason Stop Dose Admin Clonidine HCl 0.1 mg 12/22/20 09:00 12/24/20 07:59 Clonidine Hcl 0.1 Mg Tablet PO 0.1 mg DAILY MARIANN Administration Protocol Folic Acid 1 mg 12/22/20 09:00 12/24/20 07:59 Folic Acid 1 Mg Tablet PO 12/25/20 08:59 1 mg DAILY MARIANN Administration Gabapentin 600 mg 12/21/20 21:00 12/24/20 07:59 Gabapentin 600 Mg Tablet PO 600 mg QID MARIANN Administration Piperacillin Sod/Tazobactam 50 mls @ 100 mls/hr 12/21/20 20:30 12/24/20 08:28 Sod 3.375 gm/ Sodium Chloride IV Infused Q6H MARIANN Infusion Lactulose 10 gm 12/21/20 21:00 12/24/20 07:59 Lactulose 20 Gm/30 Ml Solution PO 10 gm TID MARIANN Administration Lorazepam 1 mg 12/21/20 20:55 12/24/20 08:07 Lorazepam 1 Mg Tablet PO 12/25/20 20:54 1 mg Q4H PRN Administration Breakthrough alcohol withdrawa Multivitamins 1 tab 12/22/20 09:00 12/24/20 07:59 B-Complex With Vitamin C Tablet PO 1 tab DAILY MARIANN Administration Omeprazole 40 mg 12/23/20 16:30 12/24/20 05:27 Omeprazole 40 Mg Capsule.Dr PO 40 mg BID@0630,9470 MARIANN Administration Ondansetron HCl 4 mg 12/22/20 01:27 12/22/20 07:22 Ondansetron Hcl 4 Mg/2 Ml Vial IVPUSH 4 mg Q8H PRN Administration Nausea and Vomiting Oxycodone HCl 5 mg 12/24/20 07:47 12/24/20 07:58 Oxycodone Hcl Immed Release 5 Mg Tablet PO 5 mg Q4H PRN Administration Pain, Mild (Pain Scale 1-3) Pharmacy Consult 1 each 12/21/20 12:37 Consult Rx Perform Med Rec MISCELLANE ONCE PRN Consult order Potassium Chloride 20 meq 12/21/20 21:00 12/24/20 07:59 Potassium Chloride Er 20 Meq Tab.Er.Prt PO 20 meq BID MARIANN Administration Sodium Chloride 3 ml 12/22/20 00:00 12/24/20 07:42 0.9 % Sodium Chloride Flush 3 Ml Syringe IVFLUSH 3 ml QSHIFT MARIANN Administration Spironolactone 25 mg 12/23/20 21:00 12/24/20 07:59 Spironolactone 25 Mg Tablet PO 25 mg BID MARIANN Administration Protocol Thiamine HCl 100 mg 12/22/20 09:00 12/24/20 07:59 Thiamine Hcl 100 Mg Tablet PO 12/25/20 08:59 100 mg DAILY MARIANN Administration Topiramate 25 mg 12/21/20 21:00 12/24/20 07:59 Topiramate 25 Mg Tablet PO 25 mg BID MARIANN Administration Labs CBC & Chem 7: 12/24/20 05:37 12/24/20 05:37 Labs: Laboratory Results - last 24 hr 12/21/20 12/21/20 12/22/20 08:39 09:09 06:46 WBC RBC Hgb Hct MCV MCH MCHC RDW Plt Count MPV Absolute Nucleated RBC Nucleated RBC % (auto) Haptoglobin 116 115 Sodium Potassium Chloride Carbon Dioxide Anion Gap BUN Creatinine Estim Creat Clear Calc Estimated GFR Fasting Glucose Calcium Blood Type AB Positive Antibody Screen NEGATIVE MIO, Polyspecific NEGATIVE Positive MIO Work-up TNP Crossmatch ([facility]) See Detail 12/24/20 12/24/20 05:37 05:37 WBC 3.4 L RBC 2.18 L Hgb 6.9 L* Hct 20.4 L* MCV 93.6 MCH 31.7 MCHC 33.8 RDW 20.7 H Plt Count 21 L MPV 12.3 Absolute Nucleated RBC 0.000 Nucleated RBC % (auto) 0.0 Haptoglobin Sodium 134 L Potassium 3.5 Chloride 107 Carbon Dioxide 20 L Anion Gap 11 L BUN 6 L Creatinine 0.71 Estim Creat Clear Calc 93.3 Estimated GFR > 60 Fasting Glucose 90 Calcium 6.3 L Blood Type Antibody Screen MIO, Polyspecific Positive MIO Work-up Crossmatch ([facility]) Microbiology Microbiology Results: Microbiology 12/21/20 08:39 Blood Culture - Final Blood - Venous Klebsiella pneumoniae 12/21/20 09:09 Blood Culture - Final Blood - Venous Klebsiella pneumoniae Quality Stroke Does the patient have a stroke diagnosis?: No VTE Prior VTE?: No VTE Risk Level:: Medical - moderate - high VTE Device Contraindication: N/A - Device Ordered VTE Drug Contraindication: Treatment Not Tolerated (gi bleed) Assessment and Plan (1) Acute gastrointestinal bleeding: Status: Acute Assessment and Plan: 40F presented with weakness found to have severe anemia and hypotension acute blood loss anemia with hypotension s/p 3 units prbcs EGD with no clear bleeding source, stable varices, portal gastropathy changed to oral ppi monitor cbc, decreased to 6.9 today, will transfuse 4th unit anemia likely multifactorial, with element of inflammation, blood loss from legs as well as GI, hypersplenism liver cirrhosis aldactone, outpatient follow up klebsiella pneumonia bacteremia will change to ceftriaxone ?source - skin vs GI - no obvious ascites to drain opiate dependence addiction team following, does not want ORT lower extremity lymphedema and ulcers ceftriaxone ID and surgery following hyponatremia resolved
[2020-12-24] MEDS: cefTRIAXone sodium 1 GM in 0.9 % Sodium Chloride 50 ML IV (12:47)
--- NOTE | 2020-12-24 13:17 | MHC.RECOVRN ---
T/w met with pt in 483 to discuss recovery supports and medications for substance use disorders. Pt previously seen by Mary Leyva APRN while in the ED. Pt is currently experiencing pain and nausea. Pt utilizing prn oxycodone. Pt interested in possibly starting Suboxone, pt educated regarding this medication as well as the limited STRs that would accept pt while on MOUD. Pt adamantly states I would go home before I go to [facility]. Pt would like to continue not on MOUD in order to possibly have more options for STRs. Case discussed with pts RN as well as Mary Leyva APRN.
--- NOTE | 2020-12-24 13:54 | MHC.CLN ---
F/U PT WITH INCREASED NUTRITION RISK R/T PRESSURE INJURIES DIET RX: REGULAR-APPROPRIAE PT RECEIVING ENSURE TID AND SALIMA BID TO INCREASE KCALS AND PROMOTE WOUND HEALING SUPPLEMENT PROVIDES 1210KCALS, 65G PROTEIN MONITOR PO INTAKE CLOSELY
--- NOTE | 2020-12-24 14:06 | P.PNID_ITS ---
Subjective Subjective Date of Service: 12/24/20 Interval History: she has no complaints she doesnt want to go to [facility] for IV antibiotics Critical Care Time (minutes): 15 Objective Data Labs CBC & Chem 7: 12/25/20 03:53 12/25/20 03:53 Labs: Laboratory Results - last 24 hr 12/21/20 12/21/20 12/22/20 08:39 09:09 06:46 WBC RBC Hgb Hct MCV MCH MCHC RDW Plt Count MPV Absolute Nucleated RBC Nucleated RBC % (auto) Haptoglobin 116 115 Sodium Potassium Chloride Carbon Dioxide Anion Gap BUN Creatinine Estim Creat Clear Calc Estimated GFR Fasting Glucose Calcium Blood Type AB Positive Antibody Screen NEGATIVE MIO, Polyspecific NEGATIVE Positive MIO Work-up TNP Crossmatch ([facility]) See Detail 12/24/20 12/24/20 05:37 05:37 WBC 3.4 L RBC 2.18 L Hgb 6.9 L* Hct 20.4 L* MCV 93.6 MCH 31.7 MCHC 33.8 RDW 20.7 H Plt Count 21 L MPV 12.3 Absolute Nucleated RBC 0.000 Nucleated RBC % (auto) 0.0 Haptoglobin Sodium 134 L Potassium 3.5 Chloride 107 Carbon Dioxide 20 L Anion Gap 11 L BUN 6 L Creatinine 0.71 Estim Creat Clear Calc 93.3 Estimated GFR > 60 Fasting Glucose 90 Calcium 6.3 L Blood Type Antibody Screen MIO, Polyspecific Positive MIO Work-up Crossmatch ([facility]) Microbiology Microbiology Results: Microbiology 12/21/20 08:39 Blood - Venous Blood Culture - Final Klebsiella pneumoniae 12/21/20 09:09 Blood - Venous Blood Culture - Final Klebsiella pneumoniae Physical Exam Vital Signs: Vital Signs: Last Vital Signs Temp 98.7 F 12/24/20 12:49 Pulse 78 12/24/20 12:49 Resp 18 12/24/20 12:49 BP 100/54 L 12/24/20 12:49 Pulse Ox 96 12/24/20 11:24 Body Mass Index 27.4 Const: General: cooperative HENMT: Head: Yes normal to inspection Mouth: Normal oral and palatal mucosa present Resp: Effort & Inspection: normal respiratory effort Cardio: Rate: regular rate Rhythm: regular rhythm GI: Palpation (GI): Soft to palpation and nontender Extrem: Other: calcaneous dark area Assessment and Plan Assessment and plan (1) Bacteremia: Problem details: Klebsiella blood Osteomyelitis calcaneous Status: Acute Assessment and Plan: Would give IV Ceftriaxone for 6 weeks Would give po antibiotics after as well Surgical debridement as needed (2) Ulcer of left heel: Status: Acute Time Spent With Patient Time: Total time spent is greater than 50% in coordination of care (as documented) at patient's floor/unit and/or counseling patient: Time with patient: 15 - 24 minutes
--- NOTE | 2020-12-24 16:42 | PM.PNGS ---
Subjective Subjective Date of Service: 12/24/20 Interval history: no new events has pain on both lower extremities tolerating oral intake Physical Exam Vital Signs: Vital Signs: Last Vital Signs Temp 100.2 F 12/24/20 15:48 Pulse 83 12/24/20 15:48 Resp 19 12/24/20 15:48 BP 96/57 L 12/24/20 15:48 Pulse Ox 99 12/24/20 15:48 Body Mass Index 27.4 Const: Other: appears frail Resp: Other: a litle short of breath Cardio: Rate: regular rate GI: Palpation (GI): Soft to palpation and nontender Extrem: Other: left heel ulcer - with hematoma, no active bleeding; other ulcers on lower extremities clean Progress Note: A&P Assessment and plan (1) Ulcer of left heel: Status: Acute Assessment and Plan: dressings changed - I applied alginate dressings, wrapped foot in Joshua roll all other ulcers also covered with alginate continue same wound care daily - seen with wound care nurse Yoana has other multiple medical issues related to alcohol liver disease coagulopathic management as per medical service Fall Risk Details Current Medications: Current Medications Generic Name Dose Route Start Last Admin Trade Name Freq PRN Reason Stop Dose Admin Clonidine HCl 0.1 mg 12/22/20 09:00 12/24/20 07:59 Clonidine Hcl 0.1 Mg Tablet PO 0.1 mg DAILY MARIANN Administration Protocol Folic Acid 1 mg 12/22/20 09:00 12/24/20 07:59 Folic Acid 1 Mg Tablet PO 12/25/20 08:59 1 mg DAILY MARIANN Administration Gabapentin 600 mg 12/21/20 21:00 12/24/20 12:43 Gabapentin 600 Mg Tablet PO 600 mg QID MARIANN Administration Ceftriaxone Sodium 1 gm/ 50 mls @ 100 mls/hr 12/24/20 12:00 12/24/20 13:26 Sodium Chloride IV Infused Q24H MARIANN Infusion Lactulose 10 gm 12/21/20 21:00 12/24/20 14:02 Lactulose 20 Gm/30 Ml Solution PO 10 gm TID MARIANN Administration Lorazepam 1 mg 12/21/20 20:55 12/24/20 12:43 Lorazepam 1 Mg Tablet PO 12/25/20 20:54 1 mg Q4H PRN Administration Breakthrough alcohol withdrawa Multivitamins 1 tab 12/22/20 09:00 12/24/20 07:59 B-Complex With Vitamin C Tablet PO 1 tab DAILY MARIANN Administration Omeprazole 40 mg 12/23/20 16:30 12/24/20 05:27 Omeprazole 40 Mg Capsule. PO 40 mg BID@9399,4536 MARIANN Administration Ondansetron HCl 4 mg 12/22/20 01:27 12/22/20 07:22 Ondansetron Hcl 4 Mg/2 Ml Vial IVPUSH 4 mg Q8H PRN Administration Nausea and Vomiting Oxycodone HCl 5 mg 12/24/20 07:47 12/24/20 12:43 Oxycodone Hcl Immed Release 5 Mg Tablet PO 5 mg Q4H PRN Administration Pain, Mild (Pain Scale 1-3) Pharmacy Consult 1 each 12/21/20 12:37 Consult Rx Perform Med Rec MISCELLANE ONCE PRN Consult order Potassium Chloride 20 meq 12/21/20 21:00 12/24/20 07:59 Potassium Chloride Er 20 Meq Tab.Er.Prt PO 20 meq BID MARIANN Administration Sodium Chloride 3 ml 12/22/20 00:00 12/24/20 07:42 0.9 % Sodium Chloride Flush 3 Ml Syringe IVFLUSH 3 ml QSHIFT MARIANN Administration Spironolactone 25 mg 12/23/20 21:00 12/24/20 07:59 Spironolactone 25 Mg Tablet PO 25 mg BID MARIANN Administration Protocol Thiamine HCl 100 mg 12/22/20 09:00 12/24/20 07:59 Thiamine Hcl 100 Mg Tablet PO 12/25/20 08:59 100 mg DAILY MARIANN Administration Topiramate 25 mg 12/21/20 21:00 12/24/20 07:59 Topiramate 25 Mg Tablet PO 25 mg BID MARIANN Administration Time Spent With Patient Time: Total time spent is greater than 50% in coordination of care (as documented) at patient's floor/unit and/or counseling patient: Time with patient: 15 - 24 minutes Procedures Date of Service Date of Service: 12/24/20 Quality Stroke Does the patient have a stroke diagnosis?: No VTE Prior VTE?: No VTE Risk Level:: Medical - moderate - high VTE Device Contraindication: N/A - Device Ordered VTE Drug Contraindication: Treatment Not Tolerated (gi bleed)
--- NOTE | 2020-12-24 22:04 | PM.EVENT ---
Event Note Date of Service: 12/25/20 Event Note: Bleeding heel ulcer: The patient is status post debridement, has dressing in place, RN mentioned around 10:00 p.m. that patient heel ulcer is bleeding profusely; dressing changes and pressure applied; bleeding is getting under control; discussed with general surgery Dr. Jory lara who recommended tight bandage dressing; Patient has a low platelets-will transfuse 2 unit and one FFP. shyla R5:45Am:the wound site is Still leaking Blood;fibrinogen level is 259 and normal PTT; Spoke to Dr Shyla Daniels-> Recommneded more platelet transfusion. Anemia: Patient's hemoglobin was 6.9 this morning. Received 1 unit of blood. Will obtain stat CBC if hemoglobin <7 will transfuse another unit. the Follow up hgb 7.2 and then 7.0; Will transfuse one unit pRBC.
[2020-12-24 22:46] LABS: Basophils Percent Auto 0.2 % (0-2); Eosinophils Percent Auto 0.7 % (0-4); MANUAL DIFF FLAG SCAN; SCAN SMEAR FLAG 1
[2020-12-24 22:48] LABS: Hematocrit 21.4 % (37-47); Hemoglobin 7.2 g/dl (12.0-16.0); Imm Gran Abs Auto 0.03 X10*3/uL (0.00-0.03); Imm Gran Pct Auto 0.7 % (0.0-0.4); Lymphocytes Absolute Auto 0.4 X10*3/uL (1.2-4.9); Lymphocytes Percent Auto 9.6 % (20-40); Mean Corpuscular HGB Conc 33.6 g/dl (31.0-35.0); Mean Corpuscular Volume 95.1 fL (80-98); Monocytes Absolute Auto 0.5 X10*3/uL (0.1-1.2); Monocytes Percent Auto 10.1 % (2-11); Neutrophils Absolute Auto 3.5 X10*3/uL (2.0-8.3); Neutrophils Percent Auto 78.7 % (45-73); Red Blood Count 2.25 X10*6/uL (4.20-5.50); Red Cell Distribution Width 20.9 % (11.0-16.0); White Blood Count 4.5 X10*3/uL (4.8-10.8)
[2020-12-24 22:50] LABS: PLT ABN DIST 1; Platelet Count 24 X10*3/uL (160-400)
[2020-12-24 22:59] LABS: SLIDE REVIEW VERIFIED
[2020-12-25] VITALS (25 sets, daily range): BP systolic 85–112; BP diastolic 49–68; PULSE 76–99; RESP 14–20; TEMP 36.8–38.9; O2SAT 96–99
[2020-12-25 04:06] LABS: PLT CLUMP 1
[2020-12-25 04:08] LABS: Hematocrit 20.6 % (37-47); Mean Corpuscular Volume 94.1 fL (80-98); Platelet Count 25 X10*3/uL (160-400); Red Blood Count 2.19 X10*6/uL (4.20-5.50); Red Cell Distribution Width 21.2 % (11.0-16.0); White Blood Count 4.8 X10*3/uL (4.8-10.8)
[2020-12-25 04:33] LABS: Anion Gap 10 (12-20); Blood Urea Nitrogen 5 mg/dL (9-16); Calcium 6.2 mg/dL (8.4-10.2); Carbon Dioxide 20 mmol/L (22-29); Chloride 104 mmol/L (96-108); Creatinine Clr Calc Pharmacy 94.6; Estimated Glomerular Filt Rate > 60; Glucose Fasting 114 mg/dL (60-99); Potassium 3.7 mmol/L (3.3-5.1); Sodium 130 mmol/L (135-145)
[2020-12-25 05:11] LABS: Fibrinogen 259 MG/DL (259-690); INTERNATIONAL NORM RATIO 2.1 (0.9-1.1); Prothrombin Time 24.6 SEC (10.8-13.0)
[2020-12-25] MEDS: Omeprazole 40 MG CAPSULE.DR PO ×2 (06:34→16:01)
--- NOTE | 2020-12-25 07:40 | PC.NURSE ---
At initial assessment on 12/25 - patient's left foot dressing saturated with blood. Dressing taken down and redressed with surgicel, gauze and wrapped. Dish Technician at bedside and reached out to Dr. Polo - he recommended we do a pinpoint dressing with some pressure, wrap and reinforce as needed. Pt platelets also low at 24 - Dr. Raymond ordered platelets (administered this morning). Per hospitalist's request this RN reached out to the on-call doctor about the ongoing bleeding. Dr Trent was contacted and was updated on patient and then she spoke directly with Dr. Raymond. After their conversation this RN has been instructed to give the blood products as follows: platelets, FFP, RBC.
[2020-12-25] MEDS: Lactulose 20 GM/30 ML SOLUTION 10 GM PO ×3 (08:58→22:06)
[2020-12-25] MEDS: cloNIDine HCL 0.1 MG TABLET PO (08:59)
[2020-12-25] MEDS: Gabapentin 600 MG TABLET PO ×4 (08:59→22:07)
[2020-12-25] MEDS: Potassium Chloride ER 20 MEQ TAB.ER.PRT PO ×2 (08:59→22:06)
[2020-12-25] MEDS: Topiramate 25 MG TABLET PO ×2 (08:59→22:07)
[2020-12-25] MEDS: Spironolactone 25 MG TABLET PO ×2 (08:59→22:07)
[2020-12-25] MEDS: 0.9 % Sodium Chloride Flush 3 ML SYRINGE IVFLUSH ×3 (08:59→22:08)
--- NOTE | 2020-12-25 09:38 | P.PNGS_ITS ---
Subjective Subjective Date of Service: 12/25/20 Interval history: Pt is doing ok this morning, awake and alert without any significant specific complaints. she has wounds on her legs which have been bleeding continuously oozing due to her low plateltets and raw surface area. Plts 21-25 despite receiveing several transfusions. Her baseline liver dysfunction is the main cause. Physical Exam Vital Signs: Vital Signs: Last Vital Signs Temp 99.0 F 12/25/20 09:16 Pulse 92 12/25/20 09:16 Resp 18 12/25/20 09:16 BP 102/54 L 12/25/20 09:16 Pulse Ox 99 12/25/20 07:25 Body Mass Index 27.4 Skin: Other: Her leg wounds are wrapped in pressure gauze wraps and have been reinforced. no active bleeding oozing going on through this last layer of dressing. Progress Note: A&P Assessment and plan (1) Thrombocytopenia: Status: Acute Assessment and Plan: 40 year old female with bleeding lower leg wounds due mainly to coagulopathy specifically thrombocytopenia from liver disease - if we decide pt is to have fu ll care then recommend platelet transfusions to reach numbers closer to 50 to allow for clotting. cont with dressing reinforcement. will take down pressure dressing when lab numbers reflect better coagulation status. recommend - first platelets, second FFP ( ok to be just under 2) and then blood. doesnt make sense to transfuse blood until coag factors better. Lastly discuss with heme about other meds to improve function of platelets once numbers are at a better threshold -? Amicar Fall Risk Details Current Medications: Current Medications Generic Name Dose Route Start Last Admin Trade Name Anai PRN Reason Stop Dose Admin Clonidine HCl 0.1 mg 12/22/20 09:00 12/25/20 08:59 Clonidine Hcl 0.1 Mg Tablet PO 0.1 mg DAILY MARIANN Administration Protocol Gabapentin 600 mg 12/21/20 21:00 12/25/20 08:59 Gabapentin 600 Mg Tablet PO 600 mg QID MARIANN Administration Ceftriaxone Sodium 1 gm/ 50 mls @ 100 mls/hr 12/24/20 12:00 12/24/20 13:26 Sodium Chloride IV Infused Q24H MARIANN Infusion Lactulose 10 gm 12/21/20 21:00 12/25/20 08:58 Lactulose 20 Gm/30 Ml Solution PO 10 gm TID MARIANN Administration Lorazepam 1 mg 12/21/20 20:55 12/24/20 12:43 Lorazepam 1 Mg Tablet PO 12/25/20 20:54 1 mg Q4H PRN Administration Breakthrough alcohol withdrawa Multivitamins 1 tab 12/22/20 09:00 12/25/20 08:59 B-Complex With Vitamin C Tablet PO 1 tab DAILY MARIANN Administration Omeprazole 40 mg 12/23/20 16:30 12/25/20 06:34 Omeprazole 40 Mg Capsule.Dr PO 40 mg BID@0630,5010 MARIANN Administration Ondansetron HCl 4 mg 12/22/20 01:27 12/22/20 07:22 Ondansetron Hcl 4 Mg/2 Ml Vial IVPUSH 4 mg Q8H PRN Administration Nausea and Vomiting Oxycodone HCl 5 mg 12/24/20 07:47 12/24/20 12:43 Oxycodone Hcl Immed Release 5 Mg Tablet PO 5 mg Q4H PRN Administration Pain, Mild (Pain Scale 1-3) Pharmacy Consult 1 each 12/21/20 12:37 Consult Rx Perform Med Rec MISCELLANE ONCE PRN Consult order Potassium Chloride 20 meq 12/21/20 21:00 12/25/20 08:59 Potassium Chloride Er 20 Meq Tab.Er.Prt PO 20 meq BID MARIANN Administration Sodium Chloride 3 ml 12/22/20 00:00 12/25/20 08:59 0.9 % Sodium Chloride Flush 3 Ml Syringe IVFLUSH 3 ml QSHIFT MARIANN Administration Spironolactone 25 mg 12/23/20 21:00 12/25/20 08:59 Spironolactone 25 Mg Tablet PO 25 mg BID MARIANN Administration Protocol Topiramate 25 mg 12/21/20 21:00 12/25/20 08:59 Topiramate 25 Mg Tablet PO 25 mg BID MARIANN Administration Time Spent With Patient Time: Total time spent is greater than 50% in coordination of care (as documented) at patient's floor/unit and/or counseling patient: Time with patient: Greater than 35 minutes Procedures Date of Service Date of Service: 12/25/20 Quality Stroke Does the patient have a stroke diagnosis?: No VTE Prior VTE?: No VTE Risk Level:: Medical - moderate - high VTE Device Contraindication: N/A - Device Ordered VTE Drug Contraindication: Treatment Not Tolerated (gi bleed)
[2020-12-25] MEDS: cefTRIAXone sodium 1 GM in 0.9 % Sodium Chloride 50 ML IV (12:24)
[2020-12-25] MEDS: vancomycin HCL 1,000 MG in 0.9 % Sodium Chloride 250 ML 270 MG IV (12:33)
--- NOTE | 2020-12-25 12:41 | P.PNIM_ITS ---
Subjective Subjective Date of Service: 12/25/20 Interval History: significant oozing from RLE this AM Cardiovascular Cardiovascular: Reports no additional cardiovascular complaints Respiratory Respiratory: Reports no additional respiratory complaints Physical Exam Vital Signs: Vital Signs: Last Vital Signs Temp 99.3 F 12/25/20 12:22 Pulse 92 12/25/20 12:22 Resp 18 12/25/20 12:22 BP 105/68 12/25/20 12:22 Pulse Ox 98 12/25/20 11:41 Body Mass Index 27.4 General: AO X 3, ill appearing Resp: CTA bilateral CVS: S1,S2,RRR GI: soft, non tender, non distended Neuro: motor grossly intact Psych: appropriate affect lymphedema, with ulcers Objective Data Current Medications Generic Name Dose Route Start Last Admin Trade Name Freq PRN Reason Stop Dose Admin Clonidine HCl 0.1 mg 12/22/20 09:00 12/25/20 08:59 Clonidine Hcl 0.1 Mg Tablet PO 0.1 mg DAILY MARIANN Administration Protocol Gabapentin 600 mg 12/21/20 21:00 12/25/20 12:33 Gabapentin 600 Mg Tablet PO 600 mg QID MARIANN Administration Ceftriaxone Sodium 1 gm/ 50 mls @ 100 mls/hr 12/24/20 12:00 12/25/20 12:24 Sodium Chloride IV 100 mls/hr Q24H MARIANN Administration Vancomycin HCl 1,000 mg/ 270 mls @ 270 mls/hr 12/25/20 12:00 12/25/20 12:33 Sodium Chloride IV 270 mls/hr Q12H MARIANN Administration Lactulose 10 gm 12/21/20 21:00 12/25/20 08:58 Lactulose 20 Gm/30 Ml Solution PO 10 gm TID MARIANN Administration Lorazepam 1 mg 12/21/20 20:55 12/24/20 12:43 Lorazepam 1 Mg Tablet PO 12/25/20 20:54 1 mg Q4H PRN Administration Breakthrough alcohol withdrawa Midodrine 5 mg 12/25/20 15:00 Midodrine Hcl 5 Mg Tablet PO TID MARIANN Multivitamins 1 tab 12/22/20 09:00 12/25/20 08:59 B-Complex With Vitamin C Tablet PO 1 tab DAILY MARIANN Administration Omeprazole 40 mg 12/23/20 16:30 12/25/20 06:34 Omeprazole 40 Mg Capsule.Dr PO 40 mg BID@0630,1630 MARIANN Administration Ondansetron HCl 4 mg 12/22/20 01:27 12/22/20 07:22 Ondansetron Hcl 4 Mg/2 Ml Vial IVPUSH 4 mg Q8H PRN Administration Nausea and Vomiting Oxycodone HCl 5 mg 12/24/20 07:47 12/24/20 12:43 Oxycodone Hcl Immed Release 5 Mg Tablet PO 5 mg Q4H PRN Administration Pain, Mild (Pain Scale 1-3) Pharmacy Consult 1 each 12/21/20 12:37 Consult Rx Perform Med Rec MISCELLANE ONCE PRN Consult order Pharmacy Consult 1 each 12/25/20 10:56 Consult Rx Vancomycin Dosing MISCELLANE DAILY PRN Consult order Potassium Chloride 20 meq 12/21/20 21:00 12/25/20 08:59 Potassium Chloride Er 20 Meq Tab.Er.Prt PO 20 meq BID MARIANN Administration Sodium Chloride 3 ml 12/22/20 00:00 12/25/20 08:59 0.9 % Sodium Chloride Flush 3 Ml Syringe IVFLUSH 3 ml QSHIFT MARIANN Administration Spironolactone 25 mg 12/23/20 21:00 12/25/20 08:59 Spironolactone 25 Mg Tablet PO 25 mg BID MARIANN Administration Protocol Topiramate 25 mg 12/21/20 21:00 12/25/20 08:59 Topiramate 25 Mg Tablet PO 25 mg BID MARIANN Administration Labs CBC & Chem 7: 12/25/20 03:53 12/25/20 03:53 Labs: Laboratory Results - last 24 hr 12/21/20 12/24/20 12/24/20 09:09 22:39 22:39 WBC 4.5 L RBC 2.25 L Hgb 7.2 L Hct 21.4 L MCV 95.1 MCH 32.0 MCHC 33.6 RDW 20.9 H Plt Count 24 L MPV Not Reportable Immature Gran % (Auto) 0.7 H Neut % (Auto) 78.7 H Lymph % (Auto) 9.6 L [place] % (Auto) 10.1 Eos % (Auto) 0.7 Baso % (Auto) 0.2 Lymph # (Auto) 0.4 L [place] # (Auto) 0.5 Eos # (Auto) 0.0 Baso # (Auto) 0.0 Abs Immat Gran (auto) 0.03 Absolute Neuts (auto) 3.5 Absolute Nucleated RBC 0.000 Nucleated RBC % (auto) 0.0 Smear Tech's Comments VERIFIED PT INR APTT Fibrinogen Sodium Potassium Chloride Carbon Dioxide Anion Gap BUN Creatinine Estim Creat Clear Calc Estimated GFR Fasting Glucose Calcium Blood Type AB Positive Antibody Screen NEGATIVE Crossmatch ([facility]) See Detail See Detail 12/25/20 12/25/20 12/25/20 03:53 03:53 04:49 WBC 4.8 RBC 2.19 L Hgb 7.0 L* Hct 20.6 L* MCV 94.1 MCH 32.0 MCHC 34.0 RDW 21.2 H Plt Count 25 L MPV TNP Immature Gran % (Auto) Neut % (Auto) Lymph % (Auto) [place] % (Auto) Eos % (Auto) Baso % (Auto) Lymph # (Auto) [place] # (Auto) Eos # (Auto) Baso # (Auto) Abs Immat Gran (auto) Absolute Neuts (auto) Absolute Nucleated RBC 0.000 Nucleated RBC % (auto) 0.0 Smear Tech's Comments PT 24.6 H INR 2.1 H APTT 37.0 Fibrinogen 259 Sodium 130 L Potassium 3.7 Chloride 104 Carbon Dioxide 20 L Anion Gap 10 L BUN 5 L Creatinine 0.70 Estim Creat Clear Calc 94.6 Estimated GFR > 60 Fasting Glucose 114 H Calcium 6.2 L Blood Type Antibody Screen Crossmatch ([facility]) Microbiology Microbiology Results: Microbiology 12/21/20 08:39 Blood Culture - Final Blood - Venous Klebsiella pneumoniae 12/21/20 09:09 Blood Culture - Final Blood - Venous Klebsiella pneumoniae Quality Stroke Does the patient have a stroke diagnosis?: No VTE Prior VTE?: No VTE Risk Level:: Medical - moderate - high VTE Device Contraindication: N/A - Device Ordered VTE Drug Contraindication: Treatment Not Tolerated (gi bleed) Assessment and Plan (1) Acute gastrointestinal bleeding: Status: Acute Assessment and Plan: 40F presented with weakness found to have severe anemia and hypotension acute blood loss anemia with hypotension s/p 3 units prbcs on admission 1 unit on 12/24 1 unit today 12/25 EGD with no clear bleeding source, stable varices, portal gastropathy changed to oral ppi monitor cbc anemia likely multifactorial, with element of inflammation, blood loss from legs as well as GI, hypersplenism also giving FFP and platelets today liver cirrhosis aldactone klebsiella pneumonia bacteremia ceftriaxone ?source - skin vs GI - no obvious ascites to drain continues to have fevers, will add vanc ID following opiate dependence addiction team following, does not want ORT lower extremity lymphedema and ulcers ceftriaxone, vanc ID and surgery following
[2020-12-25] MEDS: Midodrine HCl 5 MG TABLET PO ×2 (16:00→22:07)
[2020-12-25] MEDS: ondansetron HCL 4 MG/2 ML VIAL IVPUSH (23:53)
[2020-12-26] VITALS (12 sets, daily range): BP systolic 98–125; BP diastolic 52–70; PULSE 79–90; RESP 17–20; TEMP 36.2–37.4; O2SAT 94–99
[2020-12-26] MEDS: vancomycin HCL 1,000 MG in 0.9 % Sodium Chloride 250 ML 270 MG IV ×2 (00:40→12:38)
[2020-12-26] MEDS: oxyCODONE HCl Immed Release 5 MG TABLET PO ×3 (03:18→20:48)
[2020-12-26] MEDS: Omeprazole 40 MG CAPSULE.DR PO ×2 (06:16→15:47)
[2020-12-26 06:48] LABS: Hematocrit 24.9 % (37-47); Hemoglobin 8.4 g/dl (12.0-16.0); Mean Corpuscular HGB Conc 33.7 g/dl (31.0-35.0); Mean Corpuscular Volume 91.9 fL (80-98); NRBC Pct Auto 0.6 /100WBC (0.0-0.2); PLT CLUMP 1; Red Blood Count 2.71 X10*6/uL (4.20-5.50); Red Cell Distribution Width 20.7 % (11.0-16.0)
[2020-12-26 06:53] LABS: Prothrombin Time 23.8 SEC (10.8-13.0)
[2020-12-26 07:03] LABS: Anion Gap 10 (12-20); Blood Urea Nitrogen 5 mg/dL (9-16); Calcium 6.5 mg/dL (8.4-10.2); Carbon Dioxide 20 mmol/L (22-29); Chloride 107 mmol/L (96-108); Creatinine Clr Calc Pharmacy 103.5; Estimated Glomerular Filt Rate > 60; Glucose Fasting 72 mg/dL (60-99); Potassium 3.6 mmol/L (3.3-5.1); Sodium 133 mmol/L (135-145)
[2020-12-26 07:08] LABS: PLT ABN DIST 1
[2020-12-26 07:09] LABS: Platelet Count 30 X10*3/uL (160-400); White Blood Count 5.1 X10*3/uL (4.8-10.8)
[2020-12-26] MEDS: Midodrine HCl 5 MG TABLET PO ×3 (07:53→20:48)
[2020-12-26] MEDS: 0.9 % Sodium Chloride Flush 3 ML SYRINGE IVFLUSH ×3 (07:53→20:49)
[2020-12-26] MEDS: Spironolactone 25 MG TABLET PO ×2 (07:53→20:49)
[2020-12-26] MEDS: Potassium Chloride ER 20 MEQ TAB.ER.PRT PO ×2 (07:53→20:49)
[2020-12-26] MEDS: Lactulose 20 GM/30 ML SOLUTION 10 GM PO ×3 (07:54→20:49)
[2020-12-26] MEDS: Topiramate 25 MG TABLET PO ×2 (07:54→20:48)
[2020-12-26] MEDS: cloNIDine HCL 0.1 MG TABLET PO (07:54)
[2020-12-26] MEDS: Gabapentin 600 MG TABLET PO ×4 (07:54→20:49)
--- NOTE | 2020-12-26 10:58 | HO.PM.IMPN ---
Subjective Subjective Date of Service: 12/26/20 Interval History: less bleeding today Cardiovascular Cardiovascular: Reports no additional cardiovascular complaints Gastrointestinal Gastrointestinal: Reports no additional gastrointestinal complaints Physical Exam Vital Signs: Vital Signs: Last Vital Signs Temp 98.4 F 12/26/20 07:07 Pulse 89 12/26/20 07:54 Resp 18 12/26/20 07:07 BP 110/55 L 12/26/20 07:54 Pulse Ox 97 12/26/20 07:07 Body Mass Index 27.4 General: AO X 3, ill appearing Resp: CTA bilateral CVS: S1,S2,RRR GI: soft, non tender, non distended Neuro: motor grossly intact Psych: appropriate affect lymphedema, with ulcers Objective Data Current Medications Generic Name Dose Route Start Last Admin Trade Name Adanq PRN Reason Stop Dose Admin Clonidine HCl 0.1 mg 12/22/20 09:00 12/26/20 07:54 Clonidine Hcl 0.1 Mg Tablet PO 0.1 mg DAILY MARIANN Administration Protocol Gabapentin 600 mg 12/21/20 21:00 12/26/20 07:54 Gabapentin 600 Mg Tablet PO 600 mg QID MARIANN Administration Ceftriaxone Sodium 1 gm/ 50 mls @ 100 mls/hr 12/24/20 12:00 12/25/20 13:00 Sodium Chloride IV Infused Q24H MARIANN Infusion Vancomycin HCl 1,000 mg/ 270 mls @ 270 mls/hr 12/25/20 12:00 12/26/20 02:05 Sodium Chloride IV Infused Q12H MARIANN Infusion Lactulose 10 gm 12/21/20 21:00 12/26/20 07:54 Lactulose 20 Gm/30 Ml Solution PO 10 gm TID MARIANN Administration Midodrine 5 mg 12/25/20 15:00 12/26/20 07:53 Midodrine Hcl 5 Mg Tablet PO 5 mg TID MARIANN Administration Multivitamins 1 tab 12/22/20 09:00 12/26/20 07:52 B-Complex With Vitamin C Tablet PO 1 tab DAILY MARIANN Administration Omeprazole 40 mg 12/23/20 16:30 12/26/20 06:16 Omeprazole 40 Mg Capsule. PO 40 mg BID@0630,1630 MARIANN Administration Ondansetron HCl 4 mg 12/22/20 01:27 12/25/20 23:53 Ondansetron Hcl 4 Mg/2 Ml Vial IVPUSH 4 mg Q8H PRN Administration Nausea and Vomiting Oxycodone HCl 5 mg 12/24/20 07:47 12/26/20 07:58 Oxycodone Hcl Immed Release 5 Mg Tablet PO 5 mg Q4H PRN Administration Pain, Mild (Pain Scale 1-3) Pharmacy Consult 1 each 12/21/20 12:37 Consult Rx Perform Med Rec MISCELLANE ONCE PRN Consult order Pharmacy Consult 1 each 12/25/20 10:56 Consult Rx Vancomycin Dosing MISCELLANE DAILY PRN Consult order Potassium Chloride 20 meq 12/21/20 21:00 12/26/20 07:53 Potassium Chloride Er 20 Meq Tab.Er.Prt PO 20 meq BID MARIANN Administration Sodium Chloride 3 ml 12/22/20 00:00 12/26/20 07:53 0.9 % Sodium Chloride Flush 3 Ml Syringe IVFLUSH 3 ml QSHIFT MARIANN Administration Spironolactone 25 mg 12/23/20 21:00 12/26/20 07:53 Spironolactone 25 Mg Tablet PO 25 mg BID MARIANN Administration Protocol Topiramate 25 mg 12/21/20 21:00 12/26/20 07:54 Topiramate 25 Mg Tablet PO 25 mg BID MARIANN Administration Labs CBC & Chem 7: 12/26/20 05:15 12/26/20 05:15 Labs: Laboratory Results - last 24 hr 12/24/20 12/26/20 12/26/20 22:39 05:15 05:15 WBC 5.1 RBC 2.71 L D Hgb 8.4 L Hct 24.9 L D MCV 91.9 MCH 31.0 MCHC 33.7 RDW 20.7 H Plt Count 30 L MPV Not Reportable Absolute Nucleated RBC 0.030 H Nucleated RBC % (auto) 0.6 H PT INR Sodium 133 L Potassium 3.6 Chloride 107 Carbon Dioxide 20 L Anion Gap 10 L BUN 5 L Creatinine 0.64 Estim Creat Clear Calc 103.5 Estimated GFR > 60 Fasting Glucose 72 D Calcium 6.5 L Blood Type AB Positive Antibody Screen NEGATIVE Crossmatch ([facility]) See Detail 12/26/20 05:15 WBC RBC Hgb Hct MCV MCH MCHC RDW Plt Count MPV Absolute Nucleated RBC Nucleated RBC % (auto) PT 23.8 H INR 2.0 H Sodium Potassium Chloride Carbon Dioxide Anion Gap BUN Creatinine Estim Creat Clear Calc Estimated GFR Fasting Glucose Calcium Blood Type Antibody Screen Crossmatch ([facility]) Microbiology Microbiology Results: Microbiology 12/25/20 03:53 Blood Culture - Preliminary Blood - Venous No growth after 24 hours. 12/25/20 04:00 Blood Culture - Preliminary Blood - Venous No growth after 24 hours. Quality Stroke Does the patient have a stroke diagnosis?: No VTE Prior VTE?: No VTE Risk Level:: Medical - moderate - high VTE Device Contraindication: N/A - Device Ordered VTE Drug Contraindication: N/A - Med Ordered Assessment and Plan (1) Acute gastrointestinal bleeding: Status: Acute Assessment and Plan: 40F presented with weakness found to have severe anemia and hypotension acute blood loss anemia with hypotension s/p 3 units prbcs on admission 1 unit on 12/24 1 unit 12/25 hgb improved appropriately today to 8.4 EGD with no clear bleeding source, stable varices, portal gastropathy oral ppi monitor cbc anemia likely multifactorial, with element of inflammation, blood loss from legs as well as GI, hypersplenism also giving FFP and platelets 12/25 liver cirrhosis aldactone klebsiella pneumonia bacteremia vanc, ceftriaxone ?source - skin vs GI - no obvious ascites to drain last temp 100.8 at 1044 on 12/25, Id following opiate dependence addiction team following, does not want ORT lower extremity lymphedema and ulcers ceftriaxone, vanc ID and surgery following
--- NOTE | 2020-12-26 11:17 | PM.PNGS ---
Subjective Subjective Date of Service: 12/26/20 Interval history: pt feeling better - still wanting full care and support Physical Exam Vital Signs: Vital Signs: Last Vital Signs Temp 98.4 F 12/26/20 07:07 Pulse 89 12/26/20 07:54 Resp 18 12/26/20 07:07 BP 110/55 L 12/26/20 07:54 Pulse Ox 97 12/26/20 07:07 Body Mass Index 27.4 Progress Note: A&P Assessment and plan (1) Thrombocytopenia: Status: Acute Assessment and Plan: wounds on left leg examined - dressing taken down and upper ant [place] wound - looks clean and alginate dressing changed the middle ant ankle wound looks ok but as surgicel removed it started bleeding so it was replaced and wrapped with pressure the heel wound area does not look good and there was bleeding from this area so redressed with surgicel and pressure wrap labs are a little improved but pts baseline disease is fueling her coagulopathy which makes wound treatment and healing non-ideal. She is high risk for losing the foot but even an amputation has high exsanguination risk with her labs remaining off. we will follow along but overall prognosis is poor. Fall Risk Details Current Medications: Current Medications Generic Name Dose Route Start Last Admin Trade Name Freq PRN Reason Stop Dose Admin Clonidine HCl 0.1 mg 12/22/20 09:00 12/26/20 07:54 Clonidine Hcl 0.1 Mg Tablet PO 0.1 mg DAILY MARIANN Administration Protocol Gabapentin 600 mg 12/21/20 21:00 12/26/20 07:54 Gabapentin 600 Mg Tablet PO 600 mg QID MARIANN Administration Ceftriaxone Sodium 1 gm/ 50 mls @ 100 mls/hr 12/24/20 12:00 12/25/20 13:00 Sodium Chloride IV Infused Q24H MARIANN Infusion Vancomycin HCl 1,000 mg/ 270 mls @ 270 mls/hr 12/25/20 12:00 12/26/20 02:05 Sodium Chloride IV Infused Q12H MARIANN Infusion Lactulose 10 gm 12/21/20 21:00 12/26/20 07:54 Lactulose 20 Gm/30 Ml Solution PO 10 gm TID MARIANN Administration Lorazepam 1 mg 12/26/20 11:00 Lorazepam 1 Mg Tablet PO Q4H PRN anxiety Midodrine 5 mg 12/25/20 15:00 12/26/20 07:53 Midodrine Hcl 5 Mg Tablet PO 5 mg TID MARIANN Administration Multivitamins 1 tab 12/22/20 09:00 12/26/20 07:52 B-Complex With Vitamin C Tablet PO 1 tab DAILY MARIANN Administration Omeprazole 40 mg 12/23/20 16:30 12/26/20 06:16 Omeprazole 40 Mg Capsule. PO 40 mg BID@0630,1630 MARIANN Administration Ondansetron HCl 4 mg 12/22/20 01:27 12/25/20 23:53 Ondansetron Hcl 4 Mg/2 Ml Vial IVPUSH 4 mg Q8H PRN Administration Nausea and Vomiting Oxycodone HCl 5 mg 12/24/20 07:47 12/26/20 07:58 Oxycodone Hcl Immed Release 5 Mg Tablet PO 5 mg Q4H PRN Administration Pain, Mild (Pain Scale 1-3) Pharmacy Consult 1 each 12/21/20 12:37 Consult Rx Perform Med Rec MISCELLANE ONCE PRN Consult order Pharmacy Consult 1 each 12/25/20 10:56 Consult Rx Vancomycin Dosing MISCELLANE DAILY PRN Consult order Potassium Chloride 20 meq 12/21/20 21:00 12/26/20 07:53 Potassium Chloride Er 20 Meq Tab.Er.Prt PO 20 meq BID MARIANN Administration Sodium Chloride 3 ml 12/22/20 00:00 12/26/20 07:53 0.9 % Sodium Chloride Flush 3 Ml Syringe IVFLUSH 3 ml QSHIFT MARIANN Administration Spironolactone 25 mg 12/23/20 21:00 12/26/20 07:53 Spironolactone 25 Mg Tablet PO 25 mg BID MARIANN Administration Protocol Topiramate 25 mg 12/21/20 21:00 12/26/20 07:54 Topiramate 25 Mg Tablet PO 25 mg BID MARIANN Administration Time Spent With Patient Time: Total time spent is greater than 50% in coordination of care (as documented) at patient's floor/unit and/or counseling patient: Time with patient: Greater than 35 minutes Procedures Date of Service Date of Service: 12/26/20 Quality Stroke Does the patient have a stroke diagnosis?: No VTE Prior VTE?: No VTE Risk Level:: Medical - moderate - high VTE Device Contraindication: N/A - Device Ordered VTE Drug Contraindication: N/A - Med Ordered
[2020-12-26] MEDS: cefTRIAXone sodium 1 GM in 0.9 % Sodium Chloride 50 ML IV (11:34)
[2020-12-26 23:28] LABS: Vancomycin Trough 21.6 mcg/mL (10.0-20.0)
[2020-12-27] VITALS (11 sets, daily range): BP systolic 92–129; BP diastolic 50–71; PULSE 71–81; RESP 18–20; TEMP 36.1–37; O2SAT 98–100
--- NOTE | 2020-12-27 00:08 | PC.NURSE ---
pt vancomycin trough 21.6. called pharmacy to verify dose, pharmacist Daniel instructed this rn to give scheduled dose of 1000mg, and would change dose in am.
[2020-12-27] MEDS: vancomycin HCL 1,000 MG in 0.9 % Sodium Chloride 250 ML 270 MG IV (00:16)
[2020-12-27 04:51] LABS: Hemoglobin 8.6 g/dl (12.0-16.0); Mean Corpuscular HGB Conc 33.1 g/dl (31.0-35.0); Mean Corpuscular Hemoglobin 31.7 pg (27.0-33.0); Mean Corpuscular Volume 95.9 fL (80-98); Platelet Count 37 X10*3/uL (160-400); Red Blood Count 2.71 X10*6/uL (4.20-5.50); Red Cell Distribution Width 21.9 % (11.0-16.0)
[2020-12-27 05:10] LABS: Anion Gap 9 (12-20); Blood Urea Nitrogen 7 mg/dL (9-16); Calcium 6.6 mg/dL (8.4-10.2); Carbon Dioxide 18 mmol/L (22-29); Chloride 108 mmol/L (96-108); Creatinine Clr Calc Pharmacy 77.9; Estimated Glomerular Filt Rate > 60; Glucose Fasting 129 mg/dL (60-99); Potassium 4.5 mmol/L (3.3-5.1); Sodium 130 mmol/L (135-145)
[2020-12-27] MEDS: Omeprazole 40 MG CAPSULE.DR PO ×2 (06:47→15:38)
[2020-12-27] MEDS: oxyCODONE HCl Immed Release 5 MG TABLET PO ×3 (10:10→22:26)
[2020-12-27] MEDS: Midodrine HCl 5 MG TABLET PO ×3 (10:11→22:30)
[2020-12-27] MEDS: Spironolactone 25 MG TABLET PO ×2 (10:13→22:30)
[2020-12-27] MEDS: cloNIDine HCL 0.1 MG TABLET PO (10:13)
[2020-12-27] MEDS: Gabapentin 600 MG TABLET PO ×4 (10:13→22:27)
[2020-12-27] MEDS: Topiramate 25 MG TABLET PO ×2 (10:14→22:27)
[2020-12-27] MEDS: Lactulose 20 GM/30 ML SOLUTION 10 GM PO ×2 (10:14→15:40)
[2020-12-27] MEDS: Potassium Chloride ER 20 MEQ TAB.ER.PRT PO ×2 (10:15→22:26)
[2020-12-27] MEDS: 0.9 % Sodium Chloride Flush 3 ML SYRINGE IVFLUSH ×2 (10:25→16:56)
--- NOTE | 2020-12-27 10:25 | HO.PM.IMPN ---
Subjective Subjective Date of Service: 12/27/20 Interval History: leg burning Cardiovascular Cardiovascular: Reports no additional cardiovascular complaints Gastrointestinal Gastrointestinal: Reports no additional gastrointestinal complaints Physical Exam Vital Signs: Vital Signs: Last Vital Signs Temp 97.1 F 12/27/20 07:45 Pulse 74 12/27/20 10:13 Resp 20 12/27/20 07:45 BP 97/57 L 12/27/20 10:13 Pulse Ox 100 12/27/20 07:45 Body Mass Index 27.4 General: AO X 3, ill appearing Resp: CTA bilateral CVS: S1,S2,RRR GI: soft, non tender, non distended Neuro: motor grossly intact Psych: appropriate affect lymphedema, with ulcers Objective Data Current Medications Generic Name Dose Route Start Last Admin Trade Name Freq PRN Reason Stop Dose Admin Clonidine HCl 0.1 mg 12/22/20 09:00 12/27/20 10:13 Clonidine Hcl 0.1 Mg Tablet PO 0.1 mg DAILY MARIANN Administration Protocol Gabapentin 600 mg 12/21/20 21:00 12/27/20 10:13 Gabapentin 600 Mg Tablet PO 600 mg QID MARIANN Administration Ceftriaxone Sodium 1 gm/ 50 mls @ 100 mls/hr 12/24/20 12:00 12/26/20 12:21 Sodium Chloride IV Infused Q24H MARIANN Infusion Vancomycin HCl 750 mg/ Sodium 265 mls @ 265 mls/hr 12/27/20 12:00 Chloride IV Q12H MARIANN Lactulose 10 gm 12/21/20 21:00 12/27/20 10:14 Lactulose 20 Gm/30 Ml Solution PO 10 gm TID MARIANN Administration Lorazepam 1 mg 12/26/20 11:00 Lorazepam 1 Mg Tablet PO Q4H PRN anxiety Midodrine 5 mg 12/25/20 15:00 12/27/20 10:11 Midodrine Hcl 5 Mg Tablet PO 5 mg TID MARIANN Administration Multivitamins 1 tab 12/22/20 09:00 12/27/20 10:25 B-Complex With Vitamin C Tablet PO 1 tab DAILY MARIANN Administration Omeprazole 40 mg 12/23/20 16:30 12/27/20 06:47 Omeprazole 40 Mg Capsule. PO 40 mg BID@0630,1630 MARIANN Administration Ondansetron HCl 4 mg 12/22/20 01:27 12/25/20 23:53 Ondansetron Hcl 4 Mg/2 Ml Vial IVPUSH 4 mg Q8H PRN Administration Nausea and Vomiting Oxycodone HCl 5 mg 12/24/20 07:47 12/27/20 10:10 Oxycodone Hcl Immed Release 5 Mg Tablet PO 5 mg Q4H PRN Administration Pain, Mild (Pain Scale 1-3) Pharmacy Consult 1 each 12/21/20 12:37 Consult Rx Perform Med Rec MISCELLANE ONCE PRN Consult order Pharmacy Consult 1 each 12/25/20 10:56 Consult Rx Vancomycin Dosing MISCELLANE DAILY PRN Consult order Potassium Chloride 20 meq 12/21/20 21:00 12/27/20 10:15 Potassium Chloride Er 20 Meq Tab.Er.Prt PO 20 meq BID MARIANN Administration Sodium Chloride 3 ml 12/22/20 00:00 12/27/20 10:25 0.9 % Sodium Chloride Flush 3 Ml Syringe IVFLUSH 3 ml QSHIFT MARIANN Administration Spironolactone 25 mg 12/23/20 21:00 12/27/20 10:13 Spironolactone 25 Mg Tablet PO 25 mg BID MARIANN Administration Protocol Topiramate 25 mg 12/21/20 21:00 12/27/20 10:14 Topiramate 25 Mg Tablet PO 25 mg BID MARIANN Administration Labs CBC & Chem 7: 12/27/20 04:28 12/27/20 04:28 Labs: Laboratory Results - last 24 hr 12/26/20 12/27/20 12/27/20 22:42 04:28 04:28 WBC 6.0 RBC 2.71 L Hgb 8.6 L Hct 26.0 L MCV 95.9 MCH 31.7 MCHC 33.1 RDW 21.9 H Plt Count 37 L MPV 13.0 H Absolute Nucleated RBC 0.000 Nucleated RBC % (auto) 0.0 Sodium 130 L Potassium 4.5 D Chloride 108 Carbon Dioxide 18 L Anion Gap 9 L BUN 7 L Creatinine 0.85 Estim Creat Clear Calc 77.9 Estimated GFR > 60 Fasting Glucose 129 H D Calcium 6.6 L Vancomycin Trough 21.6 H Microbiology Microbiology Results: Microbiology 12/25/20 03:53 Blood Culture - Preliminary Blood - Venous No growth after 48 hours. 12/25/20 04:00 Blood Culture - Preliminary Blood - Venous No growth after 48 hours. Quality Stroke Does the patient have a stroke diagnosis?: No VTE Prior VTE?: No VTE Risk Level:: Medical - moderate - high VTE Device Contraindication: N/A - Device Ordered VTE Drug Contraindication: N/A - Med Ordered Assessment and Plan (1) Acute gastrointestinal bleeding: Status: Acute Assessment and Plan: 40F presented with weakness found to have severe anemia and hypotension acute blood loss anemia with hypotension s/p 3 units prbcs on admission 1 unit on 12/24 1 unit 12/25 hgb improved appropriately, today is stable at 8.6 EGD with no clear bleeding source, stable varices, portal gastropathy oral ppi monitor cbc anemia likely multifactorial, with element of inflammation, blood loss from legs as well as GI, hypersplenism also giving FFP and platelets 12/25 liver cirrhosis on aldactone klebsiella pneumonia bacteremia on vanc (due to breakthrough fevers), ceftriaxone ?source - skin vs GI - no obvious ascites to drain last temp 100.8 at 1044 on 12/25, Id following ? deescalation opiate dependence addiction team following, does not want ORT lower extremity lymphedema and ulcers ceftriaxone, vanc ID and surgery following
[2020-12-27] MEDS: cefTRIAXone sodium 1 GM in 0.9 % Sodium Chloride 50 ML IV (11:37)
[2020-12-27] MEDS: vancomycin HCL 750 MG in 0.9 % Sodium Chloride 250 ML 265 MG IV (11:38)
--- NOTE | 2020-12-27 12:01 | MHC.CLN ---
F/U PO INTAKE 75-100% DIET RX: REGULAR-APPROPRIAE PT RECEIVING ENSURE TID AND SALIMA BID TO INCREASE KCALS AND PROMOTE WOUND HEALING SUPPLEMENT PROVIDES 1210KCALS (72% EST KCAL NEEDS), 65G PROTEIN (77% EST PROTEIN NEEDS) MONITOR PO INTAKE CLOSELY
--- NOTE | 2020-12-27 13:18 | PM.PNGS ---
Subjective Subjective Date of Service: 12/27/20 Interval history: Heel ulcer had been oozing blood patient had been transfused platelets no new complaints says she is comfortable today Physical Exam Vital Signs: Vital Signs: Last Vital Signs Temp 98.0 F 12/27/20 11:37 Pulse 72 12/27/20 11:37 Resp 20 12/27/20 11:37 BP 92/50 L 12/27/20 11:37 Pulse Ox 100 12/27/20 11:37 Body Mass Index 27.4 Laboratory Results - last 24 hr 12/26/20 12/27/20 12/27/20 22:42 04:28 04:28 WBC 6.0 RBC 2.71 L Hgb 8.6 L Hct 26.0 L MCV 95.9 MCH 31.7 MCHC 33.1 RDW 21.9 H Plt Count 37 L MPV 13.0 H Absolute Nucleated RBC 0.000 Nucleated RBC % (a uto) 0.0 Sodium 130 L Potassium 4.5 D Chloride 108 Carbon Dioxide 18 L Anion Gap 9 L BUN 7 L Creatinine 0.85 Estim Creat Clear Calc 77.9 Estimated GFR > 60 Fasting Glucose 129 H D Calcium 6.6 L Vancomycin Trough 21.6 H Const: General: comfortable and no acute distress Resp: Effort & Inspection: normal respiratory effort GI: Palpation (GI): Soft to palpation and nontender Extrem: Other: left heel with note of ulcer, no significant bleeding at this time although old blood noted on dressings; patchy areas of nonviable tissue, bluntly debrided Progress Note: A&P Assessment and plan (1) Ulcer of left heel: Status: Acute Assessment and Plan: I changed her dressings she has less has oozing today I wrapped the foot in gauze in [place] roll heel should not touch the bed platelets remain low daily wound care long-term prognosis poor Fall Risk Details Current Medications: Current Medications Generic Name Dose Route Start Last Admin Trade Name Freq PRN Reason Stop Dose Admin Cefuroxime Axetil 500 mg 12/27/20 12:15 12/27/20 12:48 Cefuroxime Axetil 500 Mg Tablet PO 500 mg Q12H MARIANN Administration Clonidine HCl 0.1 mg 12/22/20 09:00 12/27/20 10:13 Clonidine Hcl 0.1 Mg Tablet PO 0.1 mg DAILY MARIANN Administration Protocol Gabapentin 600 mg 12/21/20 21:00 12/27/20 12:48 Gabapentin 600 Mg Tablet PO 600 mg QID MARIANN Administration Lactulose 10 gm 12/21/20 21:00 12/27/20 10:14 Lactulose 20 Gm/30 Ml Solution PO 10 gm TID MARIANN Administration Lorazepam 1 mg 12/26/20 11:00 Lorazepam 1 Mg Tablet PO Q4H PRN anxiety Midodrine 5 mg 12/25/20 15:00 12/27/20 10:11 Midodrine Hcl 5 Mg Tablet PO 5 mg TID MARIANN Administration Multivitamins 1 tab 12/22/20 09:00 12/27/20 10:25 B-Complex With Vitamin C Tablet PO 1 tab DAILY MARIANN Administration Omeprazole 40 mg 12/23/20 16:30 12/27/20 06:47 Omeprazole 40 Mg Capsule. PO 40 mg BID@0630,3960 MARIANN Administration Ondansetron HCl 4 mg 12/22/20 01:27 12/25/20 23:53 Ondansetron Hcl 4 Mg/2 Ml Vial IVPUSH 4 mg Q8H PRN Administration Nausea and Vomiting Oxycodone HCl 5 mg 12/24/20 07:47 12/27/20 10:10 Oxycodone Hcl Immed Release 5 Mg Tablet PO 5 mg Q4H PRN Administration Pain, Mild (Pain Scale 1-3) Pharmacy Consult 1 each 12/21/20 12:37 Consult Rx Perform Med Rec MISCELLANE ONCE PRN Consult order Pharmacy Consult 1 each 12/25/20 10:56 Consult Rx Vancomycin Dosing MISCELLANE DAILY PRN Consult order Potassium Chloride 20 meq 12/21/20 21:00 12/27/20 10:15 Potassium Chloride Er 20 Meq Tab.Er.Prt PO 20 meq BID MARIANN Administration Sodium Chloride 3 ml 12/22/20 00:00 12/27/20 10:25 0.9 % Sodium Chloride Flush 3 Ml Syringe IVFLUSH 3 ml QSHIFT MARIANN Administration Spironolactone 25 mg 12/23/20 21:00 12/27/20 10:13 Spironolactone 25 Mg Tablet PO 25 mg BID MARIANN Administration Protocol Topiramate 25 mg 12/21/20 21:00 12/27/20 10:14 Topiramate 25 Mg Tablet PO 25 mg BID MARIANN Administration Time Spent With Patient Time: Total time spent is greater than 50% in coordination of care (as documented) at patient's floor/unit and/or counseling patient: Time with patient: 15 - 24 minutes Procedures Date of Service Date of Service: 12/27/20 Quality Stroke Does the patient have a stroke diagnosis?: No VTE Prior VTE?: No VTE Risk Level:: Medical - moderate - high VTE Device Contraindication: N/A - Device Ordered VTE Drug Contraindication: N/A - Med Ordered
--- NOTE | 2020-12-27 14:56 | MHC.CM.PN ---
Female 40 DX Anemia. DP is to STR Pts preferences noted. 2 referrals sent one, [facility] is following. Pt will travel via BLS. LOS r/t anemia and thrombocytopenia, as well as le wounds. CM will follow.
[2020-12-28] MEDS: 0.9 % Sodium Chloride Flush 3 ML SYRINGE IVFLUSH ×2 (02:01→09:09)
[2020-12-28 03:39] VITALS: BP 101/60; PULSE 70; RESP 18; TEMP 36.8; O2SAT 98
[2020-12-28] MEDS: oxyCODONE HCl Immed Release 5 MG TABLET PO ×3 (03:56→13:00)
[2020-12-28] MEDS: Omeprazole 40 MG CAPSULE.DR PO (06:01)
[2020-12-28 06:40] LABS: Hematocrit 24.6 % (37-47); Hemoglobin 8.1 g/dl (12.0-16.0); Mean Corpuscular HGB Conc 32.9 g/dl (31.0-35.0); Mean Corpuscular Hemoglobin 31.4 pg (27.0-33.0); Mean Corpuscular Volume 95.3 fL (80-98); Red Blood Count 2.58 X10*6/uL (4.20-5.50)
[2020-12-28 06:42] LABS: PLT CLUMP 1; Red Cell Distribution Width 21.3 % (11.0-16.0)
[2020-12-28 06:50] LABS: Alanine Aminotransferase 18 U/L (0-31); Albumin Level 1.9 g/dL (3.5-5.0); Alkaline Phosphatase 181 U/L (39-117); Anion Gap 10 (12-20); Aspartate Amino Transferase 73 U/L (5-31); Bilirubin Direct 2.8 mg/dL (0.0-0.5); Blood Urea Nitrogen 9 mg/dL (9-16); Calcium 6.8 mg/dL (8.4-10.2); Carbon Dioxide 17 mmol/L (22-29); Chloride 107 mmol/L (96-108); Creatinine Clr Calc Pharmacy 50.9; Estimated Glomerular Filt Rate 45; Glucose Fasting 89 mg/dL (60-99); Sodium 130 mmol/L (135-145); Total Protein 6.7 g/dL (6.5-8.0)
[2020-12-28 06:52] LABS: PLT ABN DIST 1
[2020-12-28 07:20] VITALS: BP 94/54; PULSE 70; RESP 18; TEMP 36.9; O2SAT 100
[2020-12-28 07:25] LABS: Platelet Count 33 X10*3/uL (160-400); White Blood Count 4.9 X10*3/uL (4.8-10.8)
[2020-12-28 09:09] VITALS: BP 114/80; PULSE 70
[2020-12-28] MEDS: Midodrine HCl 5 MG TABLET PO (09:09)
[2020-12-28 09:11] VITALS: BP 114/80; PULSE 70
[2020-12-28] MEDS: Spironolactone 25 MG TABLET PO (09:11)
[2020-12-28 09:12] VITALS: BP 114/80; PULSE 70
[2020-12-28] MEDS: Potassium Chloride ER 20 MEQ TAB.ER.PRT PO (09:12)
[2020-12-28] MEDS: cloNIDine HCL 0.1 MG TABLET PO (09:12)
[2020-12-28] MEDS: Gabapentin 600 MG TABLET PO ×2 (09:13→12:59)
[2020-12-28] MEDS: Topiramate 25 MG TABLET PO (09:13)
[2020-12-28] MEDS: LORazepam 1 MG TABLET PO (09:20)
[2020-12-28 11:28] LABS: Vancomycin Trough 15.7 mcg/mL (10.0-20.0)
[2020-12-28 12:00] VITALS: BP 110/59; PULSE 74; RESP 21; TEMP 36.6; O2SAT 99
--- NOTE | 2020-12-28 12:31 | HO.PM.IMPN ---
Subjective Subjective Date of Service: 12/28/20 Interval History: weak Cardiovascular Cardiovascular: Reports no additional cardiovascular complaints Gastrointestinal Gastrointestinal: Reports no additional gastrointestinal complaints Physical Exam Vital Signs: Vital Signs: Last Vital Signs Temp 98.4 F 12/28/20 07:20 Pulse 70 12/28/20 09:12 Resp 18 12/28/20 07:20 BP 114/80 12/28/20 09:12 Pulse Ox 100 12/28/20 07:20 Body Mass Index 27.4 General: AO X 3, ill appearing Resp: CTA bilateral CVS: S1,S2,RRR GI: soft, non tender, non distended Neuro: motor grossly intact Psych: appropriate affect lymphedema, with ulcers Objective Data Current Medications Generic Name Dose Route Start Last Admin Trade Name Freq PRN Reason Stop Dose Admin Clonidine HCl 0.1 mg 12/22/20 09:00 12/28/20 09:12 Clonidine Hcl 0.1 Mg Tablet PO 0.1 mg DAILY MARIANN Administration Protocol Gabapentin 600 mg 12/21/20 21:00 12/28/20 09:13 Gabapentin 600 Mg Tablet PO 600 mg QID MARIANN Administration Ceftriaxone Sodium 1 gm/ 50 mls @ 100 mls/hr 12/28/20 13:00 Sodium Chloride IV Q24H MARIANN Lactulose 10 gm 12/21/20 21:00 12/28/20 11:02 Lactulose 20 Gm/30 Ml Solution PO Not Given TID MARIANN Lorazepam 1 mg 12/26/20 11:00 12/28/20 09:20 Lorazepam 1 Mg Tablet PO 1 mg Q4H PRN Administration anxiety Midodrine 5 mg 12/25/20 15:00 12/28/20 09:09 Midodrine Hcl 5 Mg Tablet PO 5 mg TID MARIANN Administration Multivitamins 1 tab 12/22/20 09:00 12/28/20 09:09 B-Complex With Vitamin C Tablet PO 1 tab DAILY MARIANN Administration Omeprazole 40 mg 12/23/20 16:30 12/28/20 06:01 Omeprazole 40 Mg Capsule. PO 40 mg BID@0630,1630 MARIANN Administration Ondansetron HCl 4 mg 12/22/20 01:27 12/25/20 23:53 Ondansetron Hcl 4 Mg/2 Ml Vial IVPUSH 4 mg Q8H PRN Administration Nausea and Vomiting Oxycodone HCl 5 mg 12/24/20 07:47 12/28/20 09:12 Oxycodone Hcl Immed Release 5 Mg Tablet PO 5 mg Q4H PRN Administration Pain, Mild (Pain Scale 1-3) Pharmacy Consult 1 each 12/21/20 12:37 Consult Rx Perform Med Rec MISCELLANE ONCE PRN Consult order Pharmacy Consult 1 each 12/25/20 10:56 Consult Rx Vancomycin Dosing MISCELLANE DAILY PRN Consult order Potassium Chloride 20 meq 12/21/20 21:00 12/28/20 09:12 Potassium Chloride Er 20 Meq Tab.Er.Prt PO 20 meq BID MARIANN Administration Sodium Chloride 3 ml 12/22/20 00:00 12/28/20 09:09 0.9 % Sodium Chloride Flush 3 Ml Syringe IVFLUSH 3 ml QSHIFT MARIANN Administration Spironolactone 25 mg 12/23/20 21:00 12/28/20 09:11 Spironolactone 25 Mg Tablet PO 25 mg BID MARIANN Administration Protocol Topiramate 25 mg 12/21/20 21:00 12/28/20 09:13 Topiramate 25 Mg Tablet PO 25 mg BID MARIANN Administration Labs CBC & Chem 7: 12/28/20 05:28 12/28/20 05:28 Labs: Laboratory Results - last 24 hr 12/21/20 12/28/20 12/28/20 09:09 05:28 05:28 WBC 4.9 RBC 2.58 L Hgb 8.1 L Hct 24.6 L MCV 95.3 MCH 31.4 MCHC 32.9 RDW 21.3 H Plt Count 33 L MPV Not Reportable Absolute Nucleated RBC 0.000 Nucleated RBC % (auto) 0.0 Sodium 130 L Potassium 4.0 Chloride 107 Carbon Dioxide 17 L Anion Gap 10 L BUN 9 Creatinine 1.30 Estim Creat Clear Calc 50.9 Estimated GFR 45 Fasting Glucose 89 Calcium 6.8 L Total Bilirubin 4.0 H Direct Bilirubin 2.8 H AST 73 H ALT 18 Alkaline Phosphatase 181 H Total Protein 6.7 Albumin 1.9 L Vancomycin Trough Crossmatch (AHG) See Detail 12/28/20 10:51 WBC RBC Hgb Hct MCV MCH MCHC RDW Plt Count MPV Absolute Nucleated RBC Nucleated RBC % (auto) Sodium Potassium Chloride Carbon Dioxide Anion Gap BUN Creatinine Estim Creat Clear Calc Estimated GFR Fasting Glucose Calcium Total Bilirubin Direct Bilirubin AST ALT Alkaline Phosphatase Total Protein Albumin Vancomycin Trough 15.7 Crossmatch (AHG) Quality Stroke Does the patient have a stroke diagnosis?: No VTE Prior VTE?: No VTE Risk Level:: Medical - moderate - high VTE Device Contraindication: N/A - Device Ordered VTE Drug Contraindication: N/A - Med Ordered Assessment and Plan (1) Acute gastrointestinal bleeding: Status: Acute Assessment and Plan: 40F presented with weakness found to have severe anemia and hypotension acute blood loss anemia with hypotension s/p 3 units prbcs on admission 1 unit on 12/24 1 unit 12/25 hgb improved appropriately, today is stable at 8.1 EGD with no clear bleeding source, stable varices, portal gastropathy oral ppi monitor cbc anemia likely multifactorial, with element of inflammation, blood loss from legs as well as GI, hypersplenism also given FFP and platelets 12/25 liver cirrhosis on aldactone klebsiella pneumonia bacteremia on vanc (due to breakthrough fevers), ceftriaxone ?source - skin vs GI - no obvious ascites to drain last temp 100.8 at 1044 on 12/25, plan for 6 weeks iv ceftriaxone, but unclear where, patient not interested in rehab, IR hesitant to place PICC with history of IVDA opiate dependence addiction team following, does not want ORT lower extremity lymphedema and ulcers ceftriaxone ID and surgery following
[2020-12-28] MEDS: cefTRIAXone sodium 1 GM in 0.9 % Sodium Chloride 50 ML IV (12:59)
--- NOTE | 2020-12-28 13:50 | PM.DS ---
DS: Providers Provider Date of Service: 12/28/20 Date of admission: 12/21/20 22:39 Primary care physician: Antoine Ghosh MD Consults: 12/21/20 20:29 Consult to Gastroenterology Routine Consulting Provider: Simon Cordoba Reason for consultation: GI bleed; Anemia Consult to General Surgery Routine Consulting Provider: Lars Polo Reason for consultation: Heel ulcer/Foot ulcer Consult to Hematology / Oncology Routine Consulting Provider: Lana Hobson Reason for consultation: anemia; hx Cirrhosis; ?hemolysis 12/21/20 20:36 Addiction Medicine Routine Consulting Provider: Mary Leyva Reason for consultation: pt on methadone; last took 16days ago; Drinking ETOH to counter. 12/21/20 20:46 Consult to Nephrology Routine Consulting Provider: See Us Reason for consultation: hyponatremia 12/21/20 21:31 Consult to Infectious Diseases Routine Consulting Provider: Mary Gutierrez Reason for consultation: Heel wound with eschar; osteomyelitis; DS: Diagnosis Discharge Diagnosis (1) Acute gastrointestinal bleeding: Status: Acute (2) Bacteremia: Status: Acute Problem details: Klebsiella blood Osteomyelitis calcaneous (3) Thrombocytopenia: Status: Acute (4) Alcohol use disorder: Status: Acute (5) Ulcer of left heel: Status: Acute (6) Non-pressure chronic ulcer of other part of left lower leg with necrosis of muscle: Status: Acute Problem details: left anterior tibial leg (7) End stage liver disease: Status: Acute DS: Medications Discharge Medications Home Medications: Home Medications Medication Instructions Recorded Confirmed clonidine HCl 0.1 mg PO DAILY 07/30/20 12/21/20 folic acid 1 mg PO DAILY 07/30/20 12/21/20 furosemide 20 mg PO BID 07/30/20 12/21/20 gabapentin 600 mg PO QID 07/30/20 12/21/20 lactulose 10 g PO TID 07/30/20 12/21/20 potassium chloride 20 meq PO BID 07/30/20 12/21/20 spironolactone 25 mg PO BID 07/30/20 12/21/20 topiramate 25 mg PO BID 07/30/20 12/21/20 omeprazole 20 mg PO BID 12/21/20 12/21/20 ondansetron HCl 1 tab PO Q8H PRN 12/21/20 12/21/20 Previous Rx's Medication Instructions Recorded cefuroxime axetil 500 mg PO Q12H #112 tab 12/28/20 midodrine 5 mg PO TID #90 tab 12/28/20 oxycodone 5 mg PO DAILY PRN #15 tab 12/28/20 DS: Summary Hospital Course Hospital Course: patient presented with severe anemia that was mulifactorial, acute blood loss for both GI and leg wound sources, RBC destruction due to hypersplenism, and chronic inflammation. she was initially hypotensive but responded to transfusions. she received 5 units prbc in total, hgb at discharge is 8.1. she undwerent EGD which showed stable varices and portal gastropathy but no obvious source of bleeding. she was also given FFP and PLatelets. course was compllicated by severe sepsis due to klebsiella pneumonia bacteremia from either leg wound source which would be atypical or SBP. patient did not have enough ascites to tap. her wounds were debrided at bedside and given local care. her heel was noted to have osteomyelitis. initially plan was for 6 weeks iv ceftriaxone, however, patient declined, she will therefore receive 8 weeks of po ceftin, she will follow up with ID and GI and wound clinic. Time Spent with Patient Time attestation: Total time spent providing and/or coordinating discharge services: Discharge coordination time: Greater than 30 minutes Quality: Stroke Does the patient have a stroke diagnosis?: No Physical Exam Vital Signs: Vital Signs: Last Vital Signs Temp 97.9 F 12/28/20 12:00 Pulse 74 12/28/20 12:00 Resp 21 H 12/28/20 12:00 BP 110/59 L 12/28/20 12:00 Pulse Ox 99 12/28/20 12:00 Body Mass Index 27.4 General: AO X 3, no acute distress Resp: CTA bilateral CVS: S1,S2,RRR GI: soft, non tender, non distended Neuro: motor grossly intact Psych: appropriate affect lymphedema with ulcers DS: Data Data Completed and Pending Completed studies during hospitalization [Text1]: Procedures Transfusion of Nonautologous Platelets into Peripheral Vein, Percutaneous Approach (07/31/20) Transfusion of Nonautologous Red Blood Cells into Peripheral Vein, Percutaneous Approach (07/31/20) Labs on day of discharge: Laboratory Results - last 24 hr 12/21/20 12/28/20 12/28/20 09:09 05:28 05:28 WBC 4.9 RBC 2.58 L Hgb 8.1 L Hct 24.6 L MCV 95.3 MCH 31.4 MCHC 32.9 RDW 21.3 H Plt Count 33 L MPV Not Reportable Absolute Nucleated RBC 0.000 Nucleated RBC % (auto) 0.0 Sodium 130 L Potassium 4.0 Chloride 107 Carbon Dioxide 17 L Anion Gap 10 L BUN 9 Creatinine 1.30 Estim Creat Clear Calc 50.9 Estimated GFR 45 Fasting Glucose 89 Calcium 6.8 L Total Bilirubin 4.0 H Direct Bilirubin 2.8 H AST 73 H ALT 18 Alkaline Phosphatase 181 H Total Protein 6.7 Albumin 1.9 L Vancomycin Trough Crossmatch (AHG) See Detail 12/28/20 10:51 WBC RBC Hgb Hct MCV MCH MCHC RDW Plt Count MPV Absolute Nucleated RBC Nucleated RBC % (auto) Sodium Potassium Chloride Carbon Dioxide Anion Gap BUN Creatinine Estim Creat Clear Calc Estimated GFR Fasting Glucose Calcium Total Bilirubin Direct Bilirubin AST ALT Alkaline Phosphatase Total Protein Albumin Vancomycin Trough 15.7 Crossmatch (AHG) Preliminary micro results at discharge 12/25/20 03:53 Blood Culture - Preliminary Blood - Venous No growth after 48 hours. 12/25/20 04:00 Blood Culture - Preliminary Blood - Venous No growth after 48 hours. Discharge Plan Discharge Patient Disposition: Home Health Service Discharge Diagnosis: sepsis Referrals: Simon Cordoba MD [Physician] - 1 Week Mary Gutierrez MD [Physician] - 1 Week Antoine Ghosh MD [Primary Care Provider] - 1 Week Discharge Medications: New midodrine 5 mg Tablet 5 mg PO TID Qty: 90 RF: 0 oxycodone 5 mg Tablet 5 mg PO DAILY PRN (Reason: Pain, Mild (Pain Scale 1-3)) Qty: 15 RF: 0 cefuroxime axetil 500 mg tablet 500 mg PO Q12H Qty: 112 RF: 0 Continued ondansetron HCl 4 mg tablet 1 tab PO Q8H PRN (Reason: nausea) RF: 0 omeprazole 20 mg Capsule,Delayed Release(Dr/Ec) 20 mg PO BID RF: 0 clonidine HCl 0.1 mg tablet 0.1 mg PO DAILY RF: 0 gabapentin 600 mg tablet 600 mg PO QID RF: 0 topiramate 25 mg tablet 25 mg PO BID RF: 0 spironolactone 25 mg tablet 25 mg PO BID RF: 0 folic acid 1 mg tablet 1 mg PO DAILY RF: 0 furosemide 20 mg tablet 20 mg PO BID RF: 0 lactulose 10 gram/15 mL solution 10 g PO TID RF: 0 potassium chloride 20 mEq tablet extended release 20 meq PO BID RF: 0 Discharge Orders: Discharge Order (Routine); Ordered 12/28/20 Ordered By: Kenny Miller Diet: advance to usual diet Activity on Discharge: As tolerated Stand Alone Forms: Patient Portal Discharge page Care Plan Goals: recovery Health Concerns: cirrhosis, leg wounds, OM, bacteremia Plan of Treatment: daily dressings, 8 weeks of ceftin, follow up with GI, ID Assessment: see above
== END 2020-12-28 03:20 | disposition home health service (06) | DRG 720 ==
LOC: HO.ED 13:43 → HO.S3 23:22 → HO.EDOVER 12-22 00:05 → HO.IMC 12-22 09:51
PROVIDERS: Family Medicine; Internal Medicine Gastroenterology; Internal Medicine Nephrology; Admitting Provider Hospitalist; Emergency Provider Emergency Medicine Emergency Medical Services; PCP Internal Medicine; Visit Provider Internal Medicine
PROC: 0DJ08ZZ Inspection of Upper Intestinal Tract, Via Natural or Artificial Opening Endoscopic (ICD-10-PCS; principal; 2020-12-22 15:10)
DX: A41.4 Sepsis due to anaerobes (principal); L89.624 Pressure ulcer of left heel, stage 4; I96 Gangrene, not elsewhere classified; D69.6 Thrombocytopenia, unspecified; E87.2 Acidosis; D62 Acute posthemorrhagic anemia; D58.9 Hereditary hemolytic anemia, unspecified; E87.1 Hypo-osmolality and hyponatremia; I85.10 Secondary esophageal varices without bleeding; K70.30 Alcoholic cirrhosis of liver without ascites; I95.9 Hypotension, unspecified; F11.20 Opioid dependence, uncomplicated; L03.116 Cellulitis of left lower limb; L03.115 Cellulitis of right lower limb; N39.0 Urinary tract infection, site not specified; R31.9 Hematuria, unspecified; R91.8 Other nonspecific abnormal finding of lung field; L03.311 Cellulitis of abdominal wall; F10.10 Alcohol abuse, uncomplicated; K92.2 Gastrointestinal hemorrhage, unspecified; D73.1 Hypersplenism; Z20.822 Contact with and (suspected) exposure to COVID-19; F17.210 Nicotine dependence, cigarettes, uncomplicated; Z71.6 Tobacco abuse counseling; K76.6 Portal hypertension; Z86.19 Personal history of other infectious and parasitic diseases; K31.89 Other diseases of stomach and duodenum; Z79.899 Other long term (current) drug therapy
CPT/HCPCS: 36415; 71260; 73700; 74177; 80048; 80053; 80076; 80202; 81003; 82607; 82746; 83010; 83540; 83605; 83615; 83930; 83935; 84300; 84484; 85007; 85025; 85027; 85045; 85384; 85610; 85730; 86850; 86880; 86900; 86901; 86920; 86922; 87040; 87077; 87186; 87205; 87635; 93005; 93306; 99232; 99233; 99285; J0696; J1940; J2354; J2405; J2543; J3370; P9016; P9017; P9035; P9073; Q9967

== ENCOUNTER 2021-03-18 12:57 | Outpatient (REF) | payer OTHER, SELFPAY | END 2021-03-18 12:58 | disposition home or self-care (01) | LOC: HO.HVNA 12:57 | PROVIDERS: Visit Provider Internal Medicine | DX: N39.0 Urinary tract infection, site not specified (principal) | CPT/HCPCS: 87086; 87088; 87186 ==

== ENCOUNTER 2021-03-21 13:36 | Emergency (ER) | payer OTHER, SELFPAY ==
[2021-03-21] VITALS (8 sets, daily range): BP systolic 118–143; BP diastolic 56–77; PULSE 87–98; RESP 16–20; TEMP 37.1–37.7; O2SAT 92–96; BMI 26.5
--- NOTE | ~2021-03-21 | CT_ITS ---
Examination: CT lower leg RT w con Indication: concern for deep abscess. draining wound. hx MRSA Comparison: 07/30/2019 MRI Technique: Multiple serial thin slice helical CT scan images through the right lower extremity from the knee to the ankle obtained. Soft tissue and bony algorithms evaluated. 75 cc of Omnipaque 350 intravenous contrast was utilized without incident. DLP 298. This CT examination was performed using dose optimization techniques as appropriate, variously including the following: *Automated exposure control *Adjustment of mA and/or kV according to patient size (this includes techniques or standardized protocols for targeted exams where dose is matched to indication/reason for exam; i.e. extremities or head) *Use of iterative reconstruction technique Findings: This is a complex examination. There is diffuse soft tissue swelling seen. Subcutaneous gas is noted along the posterior medial aspect of the distal calf at the level of the distal tibial diaphysis. This soft tissue collection directly abuts the skin surface measuring approximately 3.0 x 1.6 cm in size on the axial images. Small soft tissue abscess would be favored. There is a skin defect with overlying bandage material along the posterior lateral aspect of the mid calf in close proximity to the mid fibular diaphysis. There is diffuse soft tissue swelling seen along the dorsal aspect of the midfoot only partially visualized on this study. Extensive subcutaneous varicosities are noted with mild diffuse skin thickening. Ghost tracks in the calcaneus are noted. Fatty defect in the mid body of the calcaneus possibly due to prior bone graft or intraosseous lipoma incidentally seen. I do not appreciate any acute fracture or dislocation. No acute-appearing bony destructive changes and no obvious periosteal reaction seen to suggest osteomyelitis. CT/CT lower leg RT w con Impression: Soft tissue swelling along the visualized midfoot and soft tissue defect along the posterolateral midcalf as well as an air bubble containing subcutaneous fluid collection most consistent with a subcutaneous abscess along the posteromedial aspect of the distal calf at the level of the distal tibial diaphysis as described above. I do not appreciate any obvious acute bony destructive lesions to suggest osteomyelitis at this time
--- NOTE | 2021-03-21 15:22 | PC.NURSE ---
Lefty leg wounds cleansed and re-wrapped .Right leg remains open for CT scan.
[2021-03-21] MEDS: cefTRIAXone sodium 1 GM in 0.9 % Sodium Chloride 50 ML IV (15:38)
[2021-03-21 15:43] LABS: MANUAL DIFF FLAG NO
[2021-03-21 15:51] LABS: Basophils Percent Auto 0.3 % (0-2); Eosinophils Percent Auto 0.5 % (0-4); Hematocrit 22.9 % (37-47); Hemoglobin 7.2 g/dl (12.0-16.0); Imm Gran Abs Auto 0.03 X10*3/uL (0.00-0.03); Imm Gran Pct Auto 0.8 % (0.0-0.4); Lymphocytes Absolute Auto 0.3 X10*3/uL (1.2-4.9); Lymphocytes Percent Auto 7.5 % (20-40); Mean Corpuscular HGB Conc 31.4 g/dl (31.0-35.0); Mean Corpuscular Volume 98.7 fL (80-98); Mean Platelet Volume 11.8 fL (9.4-12.3); Monocytes Absolute Auto 0.3 X10*3/uL (0.1-1.2); Monocytes Percent Auto 8.5 % (2-11); Neutrophils Absolute Auto 3.3 X10*3/uL (2.0-8.3); Neutrophils Percent Auto 82.4 % (45-73); Red Blood Count 2.32 X10*6/uL (4.20-5.50); Red Cell Distribution Width 16.3 % (11.0-16.0)
[2021-03-21 15:59] LABS: Lactic Acid 1.6 mmol/L (0.5-2.0); Platelet Count 57 X10*3/uL (160-400)
[2021-03-21 16:14] LABS: Alanine Aminotransferase 13 U/L (0-31); Albumin Level 2.6 g/dL (3.5-5.0); Alkaline Phosphatase 130 U/L (39-117); Aspartate Amino Transferase 50 U/L (5-31); Bilirubin Direct 1.6 mg/dL (0.0-0.5); Bilirubin Total 3.7 mg/dL (0.0-1.0); C Reactive Protein 4.52 mg/dL (< or = 0.50); Magnesium 1.4 mg/dL (1.6-2.6); Total Protein 7.7 g/dL (6.5-8.0)
[2021-03-21 16:16] LABS: Anion Gap 9 (12-20); Blood Urea Nitrogen 4 mg/dL (9-16); Calcium 8.7 mg/dL (8.4-10.2); Carbon Dioxide 28 mmol/L (22-29); Chloride 100 mmol/L (96-108); Creatinine Clr Calc Pharmacy 116.5; Estimated Glomerular Filt Rate > 60; Glucose Random 62 mg/dL (60-115); Potassium 3.3 mmol/L (3.3-5.1); Sodium 134 mmol/L (135-145)
--- NOTE | 2021-03-21 16:19 | ED.WOUNDLAC ---
HPI - Wound/Laceration General Chief Complaint: Wound/Laceration Stated Complaint: ? LEG INFECTION--HOSPICE Time Seen by Provider: 03/21/21 13:49 Source: patient and EMS Mode of arrival: EMS History of Present Illness HPI narrative: 40-year-old female with a past medical history of cirrhosis, GI bleed, bilateral lower extremity wounds, bacteremia, currently on hospice, presenting to the ED sent in for open/draining sore noted to right lower leg this morning reports. Reports when hospice nurse came to change dressing yesterday copious amounts of pus drainage was expressed. Denies fever, chills, nausea, vomiting, CP/SOB, abdominal pain, black/bloody stools, hematuria Related Data Home Medications Medication Instructions Recorded Confirmed clonidine HCl 0.1 mg tablet 0.1 mg PO DAILY 07/30/20 12/21/20 folic acid 1 mg tablet 1 mg PO DAILY 07/30/20 12/21/20 furosemide 20 mg tablet 20 mg PO BID 07/30/20 03/21/21 gabapentin 600 mg tablet 600 mg PO QID 07/30/20 03/21/21 lactulose 10 gram/15 mL oral 10 g PO TID 07/30/20 12/21/20 solution potassium chloride 20 mEq 20 meq PO BID 07/30/20 03/21/21 tablet,extended release spironolactone 25 mg tablet 25 mg PO BID 07/30/20 03/21/21 omeprazole 20 mg capsule,delayed 20 mg PO BID 12/21/20 03/21/21 release ondansetron HCl 4 mg tablet 1 tab PO Q8H PRN 12/21/20 12/21/20 lorazepam 0.5 mg tablet 0.5 mg PO Q6H PRN 03/21/21 03/21/21 methadone 10 mg tablet 60 mg PO BID 03/21/21 03/21/21 oxycodone 5 mg tablet 5 mg PO Q4H PRN 03/21/21 03/21/21 Previous Rx's Medication Instructions Recorded cefuroxime axetil 500 mg tablet 500 mg PO Q12H #112 tab 12/28/20 midodrine 5 mg tablet 5 mg PO TID #90 tab 12/28/20 Allergies Allergy/AdvReac Type Severity Reaction Status Date / Time No Known Allergies Allergy Unverified 03/18/20 14:51 [No Known Allergies*] Review of Systems Review of Systems: Constitutional: No Fever, No Chills, No Fatigue, No Malaise ENT/Mouth: No Hearing loss, No Ear Pain, No sore throat, No Swallowing Difficulty Eyes: No Eye Pain, No Swelling Cardiovascular: No Chest Pain, No SOB, No Edema, No Palpitations Respiratory: No Cough, No Dyspnea Gastrointestinal: No Nausea, No Vomiting, No Diarrhea, No Constipation, No Abdominal pain, No Hematochezia, No Melena Genitourinary: No irregular bleeding, No Dysuria, No Hematuria, No Urgency, No Flank Pain Musculoskeletal: No joint pain, No Myalgias, No Joint Swelling Skin: + Skin Lesions, No rash Neuro: No Weakness, No Paresthesias, No Dizziness, No Headache Yes all other systems are reviewed and are negative [facility] Past Medical History Attestation statement: The following information was validated with the patient. Medical History (Updated 03/21/21 @ 18:12 by LETTY Menard) Bacteremia Ulcer of left heel Social History Social History Household Members: Children Household Members Other:: 1 Housing: House Do you presently have visiting nurse or other home services: Yes Alcohol intake: never Patient Tobacco Use Status: Current everyday Tobacco user Tobacco use type: Cigarette Cigarette Packs Per Day: 0.5 Second Hand Smoke Exposure: No Use of substances other than those prescribed or required for medical reasons: No Substance Use Type: Opiates Advance Directives: Yes Advance Directives on File: Yes Advance Directives Date on File: 04/02/20 service: No Current occupational status: disabled Physical Exam Vital Signs: Vital Signs: Last Vital Signs Temp 99.8 F 03/21/21 13:46 Pulse 87 03/21/21 15:10 Resp 18 03/21/21 15:10 BP 134/64 03/21/21 15:10 Pulse Ox 95 03/21/21 15:10 Body Mass Index 26.5 Const: General: cooperative and healthy appearing Orientation/consciousness: patient oriented x3 Limitations: no limitations HENMT: Head: Yes normal to inspection Ears: hearing grossly normal bilaterally General nose exam: Normal external nose present Face and sinus: Yes normal facial exam Eyes: General: appearance normal, both eyes and all related structures EOM: EOMs intact bilaterally Neck: Neck: Yes normal visual inspection Resp: Effort & Inspection: normal respiratory effort and no respiratory distress Cardio: Rate: regular rate GI: Inspection: Yes normal to inspection Palpation (GI): Soft to palpation, nontender, no guarding and not rigid Skin: Other: Bilateral chronic lower extremity wounds/ulcers without evidence of overlying infection. Small wound noted to Right lower extremity medial aspect with punctate opening & central fluctuance with pus drainage. No surrounding cellulitis. No streaking. Wounds: no wounds Neuro: General: patient oriented x3 Extrem: General: Yes normal to inspection Course Course Course Narrative: -no leukocytosis. H&H low 7.2 / 22.9, lower than patient's baseline > patient denies any rectal bleeding/black stools or hematuria, is agreeable to 1 unit RBCs at this time. Likely patients acute on chronic anemia. Consent signed in patient's chart -magnesium low 1.4 >IV repletion ordered, labs otherwise at patient's baseline -1804--ESR elevated to 116, CRP elevated to 4.5 -1800--ED care transferred to BONN[facility] Nugent pending CT and anticipated discharge home MDM - Wound/Laceration MDM Narrative Medical decision making narrative: 40-year-old female with a past medical history of cirrhosis, GI bleed, bilateral lower extremity wounds, bacteremia, currently on hospice, presenting to the ED sent in for open/draining sore noted to right lower leg this morning reports. On exam VSS, NAD/nontoxic-appearing, physical exam as above. Concern for underlying abscess/MRSA vs cellulitis to right lower extremity. Copious amounts of pus drainage expressed from opening. Low concern for bacteremia. Patient is currently in hospice, would not like to be admitted to hospital Plan: Labs, wound culture, CT right lower extremity, dose of IV antibiotics and plan to DC home if feasible Lab Data Result diagrams: 03/21/21 15:33 03/21/21 15:33 Labs: Lab Results 03/21/21 03/21/21 03/21/21 Range/Units 15:33 15:33 15:33 WBC 4.0 L (4.8-10.8) X10*3/uL RBC 2.32 L (4.20-5.50) X10*6/uL Hgb 7.2 L (12.0-16.0) g/dl Hct 22.9 L (37-47) % MCV 98.7 H (80-98) fL MCH 31.0 (27.0-33.0) pg MCHC 31.4 (31.0-35.0) g/dl RDW 16.3 H (11.0-16.0) % Plt Count 57 L D (160-400) X10*3/uL MPV 11.8 (9.4-12.3) fL Immature Gran % (Auto) 0.8 H (0.0-0.4) % Neut % (Auto) 82.4 H (45-73) % Lymph % (Auto) 7.5 L (20-40) % Sharp % (Auto) 8.5 (2-11) % Eos % (Auto) 0.5 (0-4) % Baso % (Auto) 0.3 (0-2) % Lymph # (Auto) 0.3 L (1.2-4.9) X10*3/uL Sharp # (Auto) 0.3 (0.1-1.2) X10*3/uL Eos # (Auto) 0.0 (0.0-0.4) X10*3/uL Baso # (Auto) 0.0 (0.0-0.2) X10*3/uL Abs Immat Gran (auto) 0.03 (0.00-0.03) X10*3/uL Absolute Neuts (auto) 3.3 (2.0-8.3) X10*3/uL Absolute Nucleated RBC 0.000 (0.0-0.012) X10*3/uL Nucleated RBC % (auto) 0.0 (0.0-0.2) /100WBC ESR (0-20) MM/HR Sodium 134 L (135-145) mmol/L Potassium 3.3 (3.3-5.1) mmol/L Chloride 100 (96-108) mmol/L Carbon Dioxide 28 (22-29) mmol/L Anion Gap 9 L (12-20) BUN 4 L D (9-16) mg/dL Creatinine 0.56 (0.5-1.4) mg/dL Estim Creat Clear Calc 116.5 Estimated GFR > 60 Random Glucose 62 (60-115) mg/dL Lactic Acid 1.6 (0.5-2.0) mmol/L Calcium 8.7 D (8.4-10.2) mg/dL Magnesium (1.6-2.6) mg/dL Total Bilirubin (0.0-1.0) mg/dL Direct Bilirubin (0.0-0.5) mg/dL AST (5-31) U/L ALT (0-31) U/L Alkaline Phosphatase (39-117) U/L C-Reactive Protein (< or = 0.50) mg/dL Total Protein (6.5-8.0) g/dL Albumin (3.5-5.0) g/dL 03/21/21 03/21/21 Range/Units 15:33 15:33 WBC (4.8-10.8) X10*3/uL RBC (4.20-5.50) X10*6/uL Hgb (12.0-16.0) g/dl Hct (37-47) % MCV (80-98) fL MCH (27.0-33.0) pg MCHC (31.0-35.0) g/dl RDW (11.0-16.0) % Plt Count (160-400) X10*3/uL MPV (9.4-12.3) fL Immature Gran % (Auto) (0.0-0.4) % Neut % (Auto) (45-73) % Lymph % (Auto) (20-40) % Sharp % (Auto) (2-11) % Eos % (Auto) (0-4) % Baso % (Auto) (0-2) % Lymph # (Auto) (1.2-4.9) X10*3/uL Sharp # (Auto) (0.1-1.2) X10*3/uL Eos # (Auto) (0.0-0.4) X10*3/uL Baso # (Auto) (0.0-0.2) X10*3/uL Abs Immat Gran (auto) (0.00-0.03) X10*3/uL Absolute Neuts (auto) (2.0-8.3) X10*3/uL Absolute Nucleated RBC (0.0-0.012) X10*3/uL Nucleated RBC % (auto) (0.0-0.2) /100WBC ESR 116 H (0-20) MM/HR Sodium (135-145) mmol/L Potassium (3.3-5.1) mmol/L Chloride (96-108) mmol/L Carbon Dioxide (22-29) mmol/L Anion Gap (12-20) BUN (9-16) mg/dL Creatinine (0.5-1.4) mg/dL Estim Creat Clear Calc Estimated GFR Random Glucose (60-115) mg/dL Lactic Acid (0.5-2.0) mmol/L Calcium (8.4-10.2) mg/dL Magnesium 1.4 L* (1.6-2.6) mg/dL Total Bilirubin 3.7 H (0.0-1.0) mg/dL Direct Bilirubin 1.6 H (0.0-0.5) mg/dL AST 50 H (5-31) U/L ALT 13 (0-31) U/L Alkaline Phosphatase 130 H D (39-117) U/L C-Reactive Protein 4.52 H (< or = 0.50) mg/dL Total Protein 7.7 (6.5-8.0) g/dL Albumin 2.6 L D (3.5-5.0) g/dL Discharge Plan Discharge Clinical Impression: Abscess Prescriptions: No Action ondansetron HCl 4 mg tablet 1 tab PO Q8H PRN (Reason: nausea) RF: 0 omeprazole 20 mg Capsule,Delayed Release(Dr/Ec) 20 mg PO BID RF: 0 midodrine 5 mg Tablet 5 mg PO TID Qty: 90 RF: 0 cefuroxime axetil 500 mg tablet 500 mg PO Q12H Qty: 112 RF: 0 methadone 10 mg Tablet 60 mg PO BID RF: 0 oxycodone 5 mg Tablet 5 mg PO Q4H PRN (Reason: Pain (Scale Score 4-6)) RF: 0 lorazepam 0.5 mg Tablet 0.5 mg PO Q6H PRN (Reason: Anxiety) RF: 0 clonidine HCl 0.1 mg tablet 0.1 mg PO DAILY RF: 0 gabapentin 600 mg tablet 600 mg PO QID RF: 0 spironolactone 25 mg tablet 25 mg PO BID RF: 0 folic acid 1 mg tablet 1 mg PO DAILY RF: 0 furosemide 20 mg tablet 20 mg PO BID RF: 0 lactulose 10 gram/15 mL solution 10 g PO TID RF: 0 potassium chloride 20 mEq tablet extended release 20 meq PO BID RF: 0
[2021-03-21] MEDS: iohexoL 350 MG/ML 100 ML INFUS..BTL IV (16:39)
[2021-03-21] MEDS: vancomycin HCL 750 MG in 0.9 % Sodium Chloride 250 ML 265 MG IV (16:52)
[2021-03-21] MEDS: Magnesium Sulfate/H2O 2 GM/50 ML PIGGYBACK IV (16:53)
[2021-03-21 17:00] LABS: Erythrocyte Sedimentation Rate 116 MM/HR (0-20)
--- NOTE | 2021-03-21 18:34 | PC.NURSE ---
Pt resting in bed with eyes closed. Awaiting T+S for blood transfusion. Consent already obtained by PA. UNDERWOOD at this time.
--- NOTE | 2021-03-21 22:20 | PHA.PROG ---
Admission Date/Time: Indication: Weight in k.771 kg Adjusted body weight in K.368 kg [place] body weight in K.1 kg Obesity Dosing Indication % IBW: Serum Creatinine - Last 168 Hours 03/21/21 15:33 Creatinine 0.56 Estimated CrCl and GFR - Last 168 Hours 03/21/21 15:33 Estim Creat Clear Calc 116.5 Estimated GFR > 60 Vancomycin Loading Dose: 750 mg in the ED Current Vancomycin Dosing Regimen: recommending 1250 mg Q12H Vancomycin Monitoring using AUC goal of 400 - 600 range with trough as surrogate marker: Date and Time for next Vancomycin Level to be drawn: 03/23 @ 0400 Pharmacist Comments on Vancomycin Plan: 1250 mg Q12H dosing is predicting a trough of 14.0 with a AUC 502. Her Scr is 0.56 at this time. Vancomycin dosing will take advantage of [employer] as a clinical decision support tool that uses Bayesian modeling to calculate individual patient's pharmacokinetic parameters and forecast the patient's drug concentration time course with the target goal AUC 24 range of 400 - 600 mg/L/hr.
== END 2021-03-21 22:58 | disposition home or self-care (01) ==
PROVIDERS: Physician Assistant; Emergency Provider Emergency Medicine; PCP Internal Medicine
DX: L02.415 Cutaneous abscess of right lower limb (principal); L02.416 Cutaneous abscess of left lower limb; F11.90 Opioid use, unspecified, uncomplicated; F17.210 Nicotine dependence, cigarettes, uncomplicated; Z79.899 Other long term (current) drug therapy; Z71.6 Tobacco abuse counseling
CPT/HCPCS: 36415; 36430; 73701; 80048; 80076; 83605; 83735; 85025; 85652; 86140; 86850; 86900; 86901; 86920; 86922; 87040; 87071; 87077; 87147; 87186; 87205; 96365; 96366; 96367; 96375; 99284; 99285; J0696; J3370; J3475; P9016; Q9967

== ENCOUNTER 2021-04-29 14:05 | Inpatient (IN) | payer OTHER, SELFPAY ==
--- NOTE | 2021-04-29 | ECG_ITS ---
Test Reason : CHECK QTC Blood Pressure : / mmHG Vent. Rate : 082 BPM Atrial Rate : 082 BPM P-R Int : 158 ms QRS Dur : 096 ms QT Int : 440 ms P-R-T Axes : 029 028 -05 degrees QTc Int : 514 ms Normal sinus rhythm Nonspecific T wave abnormality Prolonged QT Abnormal ECG When compared with ECG of 21-DEC-2020 11:02, Nonspecific T wave abnormality, worse in Inferior leads Lateral leads T wave inversion now evident in Lateral leads Heart rate has decreased Referred By: Thony Raymond Electronically Signed By:LINK JACOME MD
--- NOTE | ~2021-04-29 | XR_ITS ---
EXAMINATION: XR FOOT, LEFT CLINICAL INFORMATION: Heel wound. Assess for osteomyelitis. COMPARISON: Radiographs left foot 05/19/2019, CT left lower leg 12/21/2020. TECHNIQUE: AP, lateral, and oblique views of the left foot. FINDINGS: There is a soft tissue defect at the heel extending close to the posterior inferior calcaneus. The cortical white line of the posterior inferior calcaneus is no longer demonstrated. In addition, there is mottled bony attenuation of the calcaneus in this area. Findings suggest osteomyelitis. There is no gas tracking in the soft tissues. There is generalized osteopenia of the foot. No fracture or dislocation. There is prominent dorsal soft tissue swelling mid foot overlying the metatarsals. Results are called to Dr. Sanchez in the emergency department at 1532 hours. XR/XR foot LT 2V IMPRESSION: Findings suggest focal osteomyelitis posterior inferior calcaneus adjacent to soft tissue wound.
--- NOTE | ~2021-04-29 | IR_ITS ---
PROCEDURE: IR INSERTION OF PICC CLINICAL INFORMATION: Long-term IV antibiotic requirement. COMPARISON: None TECHNIQUE: Procedure and risks and benefits including bleeding, infection and blood clot were discussed with the patient and informed consent was obtained. All elements of maximal sterile barrier technique followed including use of cap, mask, sterile gown, sterile gloves, a sterile full body drape and hand hygiene. Also followed skin preparation with 2% chlorhexidine for cutaneous antisepsis, and sterile ultrasound preparation with sterile gel and probe cover when applicable. The right upper arm was prepped and draped in the usual sterile fashion. The skin and soft tissues were anesthetized with 1% lidocaine plain. Using ultrasound guidance, right basilic vein access was obtained. Over a 0.018 wire and through a peel-away sheath, a 5 [place] single lumen PICC line was positioned. Catheter tip projects over the SVC. Catheter length is 34 cm. Real-time ultrasound guidance was used to document vein patency and for needle entry. A formal ultrasound picture was recorded. FLUOROSCOPY TIME: 0.1 minutes SAVED FLUOROSCOPIC IMAGE: 1 DAP: 0.6 cGycm2 FINDINGS: There is a right upper extremity PICC line with tip projecting over the SVC. IR/IR cvc insert peripheral IMPRESSION: Right upper extremity PICC line placement.
[2021-04-29 14:42] VITALS: BP 116/45; BP 121/41; PULSE 74; PULSE 77; RESP 16; TEMP 36.7; O2SAT 94; BMI 27.6
--- NOTE | 2021-04-29 15:11 | PC.NURSE ---
Chronic leg wounds worsening. Unwrapped and redressed by this RN and Dr Sanchez, photos taken by Dr Sanchez for chart. Pt reports today ?off hospice care for improvement of condition. Abd is round/firm. Skin sl pale, warm and dry.
[2021-04-29 15:18] LABS: Basophils Percent Auto 0.4 % (0-2); Eosinophils Percent Auto 0.8 % (0-4); MANUAL DIFF FLAG SCAN; SCAN SMEAR FLAG 1
[2021-04-29 15:19] LABS: Hematocrit 24.3 % (37-47); Hemoglobin 8.1 g/dl (12.0-16.0); Imm Gran Abs Auto 0.05 X10*3/uL (0.00-0.03); Lymphocytes Absolute Auto 0.6 X10*3/uL (1.2-4.9); Lymphocytes Percent Auto 11.7 % (20-40); Mean Corpuscular HGB Conc 33.3 g/dl (31.0-35.0); Mean Corpuscular Hemoglobin 31.9 pg (27.0-33.0); Mean Corpuscular Volume 95.7 fL (80-98); Monocytes Absolute Auto 0.4 X10*3/uL (0.1-1.2); Neutrophils Absolute Auto 3.8 X10*3/uL (2.0-8.3); Neutrophils Percent Auto 78.1 % (45-73); Red Blood Count 2.54 X10*6/uL (4.20-5.50); Red Cell Distribution Width 20.6 % (11.0-16.0); White Blood Count 4.9 X10*3/uL (4.8-10.8)
[2021-04-29 15:21] LABS: INTERNATIONAL NORM RATIO 1.8 (0.9-1.1); Prothrombin Time 20.2 SEC (9.9-13.0)
[2021-04-29 15:26] LABS: Ethanol 283 mg/dL
[2021-04-29 15:33] LABS: Alanine Aminotransferase 19 U/L (0-31); Albumin Level 2.5 g/dL (3.5-5.0); Alkaline Phosphatase 289 U/L (39-117); Aspartate Amino Transferase 126 U/L (5-31); Bilirubin Direct 2.1 mg/dL (0.0-0.5); Blood Urea Nitrogen 9 mg/dL (9-16); Calcium 8.6 mg/dL (8.4-10.2); Creatinine Clr Calc Pharmacy 85.2; Estimated Glomerular Filt Rate > 60; Glucose Random 90 mg/dL (60-115); Total Protein 8.2 g/dL (6.5-8.0)
[2021-04-29 15:37] LABS: Lactic Acid 1.8 mmol/L (0.5-2.0)
--- NOTE | 2021-04-29 15:39 | ED.EXTPRO ---
HPI - Extremity Problem General Chief complaint: Extremity Problem Stated complaint: allergic reaction Time Seen by Provider: 04/29/21 14:12 Source: patient and EMS Mode of arrival: EMS Limitations: no limitations History of Present Illness HPI Narrative: Patient comes from home, complaining of infection in her feet. Patient is known to be alcoholic, have liver failure. Patient has been on hospice, however, today she decided to stop hospice since she is doing better and received full treatment. Patient has been receiving treatment at home for her wounds. However, patient complaining that the heel is starting to smell foul. Patient denies fever chills patient denies drinking any alcohol recently or using any drugs. Patient has abdominal pain, no chest pain or shortness of breath. No URI symptoms. Related Data Home Medications Medication Instructions Recorded Confirmed clonidine HCl 0.1 mg tablet 0.1 mg PO DAILY 07/30/20 12/21/20 folic acid 1 mg tablet 1 mg PO DAILY 07/30/20 12/21/20 furosemide 20 mg tablet 20 mg PO BID 07/30/20 03/21/21 gabapentin 600 mg tablet 600 mg PO QID 07/30/20 03/21/21 lactulose 10 gram/15 mL oral 10 g PO TID 07/30/20 12/21/20 solution potassium chloride 20 mEq 20 meq PO BID 07/30/20 03/21/21 tablet,extended release spironolactone 25 mg tablet 25 mg PO BID 07/30/20 03/21/21 omeprazole 20 mg capsule,delayed 20 mg PO BID 12/21/20 03/21/21 release ondansetron HCl 4 mg tablet 1 tab PO Q8H PRN 12/21/20 12/21/20 lorazepam 0.5 mg tablet 0.5 mg PO Q6H PRN 03/21/21 03/21/21 methadone 10 mg tablet 60 mg PO BID 03/21/21 03/21/21 oxycodone 5 mg tablet 5 mg PO Q4H PRN 03/21/21 03/21/21 Previous Rx's Medication Instructions Recorded cefuroxime axetil 500 mg tablet 500 mg PO Q12H #112 tab 12/28/20 midodrine 5 mg tablet 5 mg PO TID #90 tab 12/28/20 doxycycline monohydrate 100 mg 100 mg PO BID #20 tab 03/21/21 tablet Allergies Allergy/AdvReac Type Severity Reaction Status Date / Time No Known Allergies Allergy Verified 04/29/21 14:44 [No Known Allergies*] Review of Systems Review of Systems: Constitutional : No Weight loss, No Fever, No Chills, No Night Sweats, No Fatigue, No Malaise ENT/Mouth : No Hearing loss, No Ear Pain, No Nasal Congestion, No Sinus Pain, No Hoarseness, No sore throat, No Rhinorrhea, No Swallowing Difficulty Eyes: No Eye Pain, No Swelling, No Redness, No Foreign Body, No Discharge, No Vision Changes Cardiovascular : No Chest Pain, No SOB, No Dyspnea on Exertion, No Orthopnea, No Edema, No Palpitations Respiratory : No Cough, No Sputum, No Wheezing, No Smoke Exposure, No Dyspnea Gastrointestinal : No Nausea, No Vomiting, No Diarrhea, No Constipation, No abdominal Pain, No Hematochezia, No Melena Genitourinary : no irregular bleeding, No Dysuria, No Urinary Frequency, No Hematuria, No Urinary Incontinence, No Urgency, No Flank Pain, No Urinary Flow Changes, No Hesitancy Musculoskeletal see skin below, No Myalgias, No Joint Swelling Skin : Multiple lower extremity lesions, heel on the left foot smelling foul Neuro : No Weakness, No Numbness, No Paresthesias, No Loss of Consciousness, No Dizziness, No Headache Psych : No Anxiety/Panic, No Depression, No SI/HI/AH/VH, No Social Issues, Heme/Lymph: No Bruising, No Bleeding,No Lymphadenopathy Endocrine : No Polyuria, No Polydipsia, No Temperature Intolerance PMFSH Past Medical History Medical History Bacteremia Heart failure Liver failure Ulcer of left heel Social History Social History Household Members: Children Household Members Other:: 1 Housing: House Do you presently have visiting nurse or other home services: Yes Alcohol intake: current Alcohol intake frequency: a few times a week Patient Tobacco Use Status: Current everyday Tobacco user Tobacco use type: Cigarette Cigarette Packs Per Day: 0.5 Second Hand Smoke Exposure: No Use of substances other than those prescribed or required for medical reasons: No Substance Use Type: Opiates Advance Directives: Yes Advance Directives on File: Yes Advance Directives Date on File: 04/02/20 service: No Current occupational status: disabled Physical Exam Vital Signs: Vital Signs: Last Vital Signs Temp 98.1 F 04/29/21 14:42 Pulse 77 04/29/21 14:42 Resp 16 04/29/21 14:42 BP 121/41 L 04/29/21 14:42 Pulse Ox 94 04/29/21 14:42 Body Mass Index 27.6 Const: Other: Appearance: Alert. Oriented X3. No acute distress. Eyes: Pupils equal, round and reactive to light. ENT: Pharynx normal. Neck: Normal inspection. Neck supple. No lymph nodes noted. No crepitus CVS: Normal heart rate and rhythm. Pulses normal. Normal S1 and S2 Respiratory: No respiratory distress. Breath sounds normal. No Wheezing. No rales Abdomen: Soft and nontender. No rigidity. No distention. good BS x4 Skin: Skin warm and dry. Patient has multiple lesions in her lower extremities, the left heel has a foul smell, suspicious for osteomyelitis Extremities: See pictures above No lower extremity edema. No lower extremity edema. No Lacerations. No Rash Neuro: Oriented X 3. No motor deficit. No sensory deficit. Moving all extermities. No slurred speech. Course Course Course Narrative: i discussed with the patient that she has osteomyelitis. Patient wishes for full treatment. Dr. Kemp at bedside, will be admitting the patient. MDM - Extremity (Nontraumatic) Lab Data Result diagrams: 04/29/21 15:04 04/29/21 15:04 Labs: Lab Results 04/29/21 04/29/21 04/29/21 Range/Units 15:04 15:04 15:04 WBC 4.9 (4.8-10.8) X10*3/uL RBC 2.54 L (4.20-5.50) X10*6/uL Hgb 8.1 L (12.0-16.0) g/dl Hct 24.3 L (37-47) % MCV 95.7 (80-98) fL MCH 31.9 (27.0-33.0) pg MCHC 33.3 (31.0-35.0) g/dl RDW 20.6 H (11.0-16.0) % Plt Count 34 L D (160-400) X10*3/uL MPV Not Reportable Immature Gran % (Auto) 1.0 H (0.0-0.4) % Neut % (Auto) 78.1 H (45-73) % Lymph % (Auto) 11.7 L (20-40) % Mitchell % (Auto) 8.0 (2-11) % Eos % (Auto) 0.8 (0-4) % Baso % (Auto) 0.4 (0-2) % Lymph # (Auto) 0.6 L (1.2-4.9) X10*3/uL Mitchell # (Auto) 0.4 (0.1-1.2) X10*3/uL Eos # (Auto) 0.0 (0.0-0.4) X10*3/uL Baso # (Auto) 0.0 (0.0-0.2) X10*3/uL Abs Immat Gran (auto) 0.05 H (0.00-0.03) X10*3/uL Absolute Neuts (auto) 3.8 (2.0-8.3) X10*3/uL Absolute Nucleated RBC 0.000 (0.0-0.012) X10*3/uL Nucleated RBC % (auto) 0.0 (0.0-0.2) /100WBC Smear Tech's Comments VERIFIED PT 20.2 H (9.9-13.0) SEC INR 1.8 H (0.9-1.1) Sodium 139 (135-145) mmol/L Potassium 2.8 L (3.3-5.1) mmol/L Chloride 103 (96-108) mmol/L Carbon Dioxide 27 (22-29) mmol/L Anion Gap 13 (12-20) BUN 9 D (9-16) mg/dL Creatinine 0.78 (0.5-1.4) mg/dL Estim Creat Clear Calc 85.2 Estimated GFR > 60 Random Glucose 90 (60-115) mg/dL Lactic Acid (0.5-2.0) mmol/L Calcium 8.6 (8.4-10.2) mg/dL Total Bilirubin 3.0 H (0.0-1.0) mg/dL Direct Bilirubin 2.1 H (0.0-0.5) mg/dL AST 126 H (5-31) U/L ALT 19 (0-31) U/L Alkaline Phosphatase 289 H D (39-117) U/L Total Protein 8.2 H (6.5-8.0) g/dL Albumin 2.5 L (3.5-5.0) g/dL Ethyl Alcohol mg/dL COVID-19 ([facility]) (Negative) COVID-19 Clin Com 04/29/21 04/29/21 04/29/21 Range/Units 15:04 15:20 15:20 WBC (4.8-10.8) X10*3/uL RBC (4.20-5.50) X10*6/uL Hgb (12.0-16.0) g/dl Hct (37-47) % MCV (80-98) fL MCH (27.0-33.0) pg MCHC (31.0-35.0) g/dl RDW (11.0-16.0) % Plt Count (160-400) X10*3/uL MPV Immature Gran % (Auto) (0.0-0.4) % Neut % (Auto) (45-73) % Lymph % (Auto) (20-40) % Mitchell % (Auto) (2-11) % Eos % (Auto) (0-4) % Baso % (Auto) (0-2) % Lymph # (Auto) (1.2-4.9) X10*3/uL Mitchell # (Auto) (0.1-1.2) X10*3/uL Eos # (Auto) (0.0-0.4) X10*3/uL Baso # (Auto) (0.0-0.2) X10*3/uL Abs Immat Gran (auto) (0.00-0.03) X10*3/uL Absolute Neuts (auto) (2.0-8.3) X10*3/uL Absolute Nucleated RBC (0.0-0.012) X10*3/uL Nucleated RBC % (auto) (0.0-0.2) /100WBC Smear Tech's Comments PT (9.9-13.0) SEC INR (0.9-1.1) Sodium (135-145) mmol/L Potassium (3.3-5.1) mmol/L Chloride (96-108) mmol/L Carbon Dioxide (22-29) mmol/L Anion Gap (12-20) BUN (9-16) mg/dL Creatinine (0.5-1.4) mg/dL Estim Creat Clear Calc Estimated GFR Random Glucose (60-115) mg/dL Lactic Acid 1.8 (0.5-2.0) mmol/L Calcium (8.4-10.2) mg/dL Total Bilirubin (0.0-1.0) mg/dL Direct Bilirubin (0.0-0.5) mg/dL AST (5-31) U/L ALT (0-31) U/L Alkaline Phosphatase (39-117) U/L Total Protein (6.5-8.0) g/dL Albumin (3.5-5.0) g/dL Ethyl Alcohol 283 mg/dL COVID-19 ([facility]) Negative (Negative) COVID-19 Clin Com See Note Imaging Data Left foot x-ray: Radiologist's impression: FINDINGS: There is a soft tissue defect at the heel extending close to the posterior inferior calcaneus. The cortical white line of the posterior inferior calcaneus is no longer demonstrated.? In addition, there is mottled bony attenuation of the calcaneus in this area. Findings suggest osteomyelitis. There is no gas tracking in the soft tissues. There is generalized osteopenia of the foot. No fracture or dislocation. There is prominent dorsal soft tissue swelling mid foot overlying the metatarsals. Results are called to Dr. Sanchez in the emergency department at 1532 hours. XR/XR foot LT 2V IMPRESSION: Findings suggest focal osteomyelitis posterior inferior calcaneus adjacent to soft tissue wound. Discharge Plan Discharge Clinical Impression: Osteomyelitis, Acute hypokalemia Patient Disposition: Admitted As Inpatient
[2021-04-29 15:44] LABS: Anion Gap 13 (12-20); Carbon Dioxide 27 mmol/L (22-29)
[2021-04-29] MEDS: Piperacillin Sodium/Tazobactam 3.375 GM in 0.9 % Sodium Chloride 50 ML IV ×2 (15:44→22:54)
[2021-04-29] MEDS: 0.9 % Sodium Chloride 1,000 ML 999 ML IVCONT (15:44)
[2021-04-29 15:46] LABS: Chloride 103 mmol/L (96-108); Potassium 2.8 mmol/L (3.3-5.1); Sodium 139 mmol/L (135-145)
[2021-04-29 15:47] LABS: PLT ABN DIST 1; Platelet Count 34 X10*3/uL (160-400); SLIDE REVIEW VERIFIED
[2021-04-29 15:49] LABS: COVID-19 Test Negative (Negative)
[2021-04-29] MEDS: vancomycin HCL 750 MG in 0.9 % Sodium Chloride 250 ML 265 MG IV (16:16)
--- NOTE | 2021-04-29 16:16 | PM.IMHP ---
History of Present Illness Date of Service: 04/29/21 Chief Complaint: Infected leg wounds 40 year old female with cirrhossis of the liver and deeemed end stage and was discharged to hospice in December and has been doing pretty good in her words but later has noted worsening of foot, heel ulcer with with foul smelling discharge. No fever or chils. There is no increased in WBC. She discharged herself from hospice in other to be treated for these ulcer. Xray Findings suggest focal osteomyelitis posterior inferior calcaneus adjacent to soft tissue wound. She is started on IV vanco and Zosyn. Review of Systems Review of Systems: no fever no confusion has pain in the foot Yes all other systems are reviewed and are negative [facility] Medical History Bacteremia Heart failure Liver failure Ulcer of left heel Pertinent family history: no chronic illness Social History Household Members: Significant Other and Children Household Members Other:: 1 Housing: House Do you presently have visiting nurse or other home services: Yes Alcohol intake: current Alcohol intake frequency: a few times a week Patient Tobacco Use Status: Current everyday Tobacco user Tobacco use type: Cigarette Cigarette Packs Per Day: 0.5 Cigarettes Per Day: 10.0 Smoked in Last 30 Days: Yes Patient Given Instructions on How to Stop Smoking: No Second Hand Smoke Exposure: No Use of substances other than those prescribed or required for medical reasons: No Substance Use Type: Opiates Have you been hit, kicked, punched, or otherwise hurt by someone within the past year? If so, by whom?: No Do you feel safe in your current relationship?: Yes Is there a partner from a previous relationship who is making you feel unsafe now?: No Are you made to feel afraid or neglected: No Advance Directives: Yes Advance Directives on File: Yes Advance Directives Date on File: 04/02/20 Do you have thoughts of harming others: None Do you have a plan to hurt others: No Plan service: No Current occupational status: disabled Meds Allergies Allergy/AdvReac Type Severity Reaction Status Date / Time No Known Allergies Allergy Verified 04/29/21 14:44 [No Known Allergies*] Active Medications: Current Medications Vancomycin HCl 750 mg/ Sodium (Chloride) 265 mls @ 265 mls/hr IV ONCE ONE Stop: 04/29/21 16:31 Sodium Chloride (Ns) 1,000 mls @ 999 mls/hr IVCONT .Q1H1M ONE Stop: 04/29/21 16:32 Last Admin: 04/29/21 15:44 Dose: 999 mls/hr Documented by: Pharmacy Consult (Consult Rx Vancomycin Dosing) 1 each MISCELLANE DAILY PRN PRN Reason: Consult order Pharmacy Consult (Consult Rx Perform Med Rec) 1 each MISCELLANE ONCE PRN PRN Reason: Consult order Home Medications Medication Instructions Recorded Confirmed Last Taken Type furosemide 20 mg tablet 20 mg PO BID 07/30/20 04/29/21 04/29/21 History gabapentin 600 mg tablet 600 mg PO QID 07/30/20 04/29/21 04/29/21 History lactulose 10 gram/15 mL oral 10 g PO TID 07/30/20 04/29/21 04/29/21 History solution potassium chloride 20 mEq 20 meq PO DAILY 07/30/20 04/29/21 04/29/21 History tablet,extended release spironolactone 25 mg tablet 25 mg PO BID 07/30/20 04/29/21 04/29/21 History omeprazole 20 mg capsule,delayed 20 mg PO BID 12/21/20 04/29/21 04/29/21 History release lorazepam 0.5 mg tablet 0.5 mg PO Q6H PRN 03/21/21 04/29/21 Unknown History methadone 10 mg tablet 60 mg PO BID 03/21/21 04/29/21 04/29/21 History oxycodone 5 mg tablet 5 mg PO Q4H PRN 03/21/21 04/29/21 Unknown History atropine 1 % eye drops 2 drp SUBLINGUAL Q4H PRN 04/29/21 04/29/21 Unknown History bisacodyl 10 mg rectal suppository 10 mg DC DAILY PRN 04/29/21 04/29/21 Unknown History guaifenesin 100 mg/5 mL oral liquid 200 mg PO Q4H PRN 04/29/21 04/29/21 Unknown History sennosides 8.6 mg-docusate sodium 1 tab-cap PO BID PRN 04/29/21 04/29/21 Unknown History 50 mg capsule (Senna Plus) topiramate 25 mg tablet 25 mg PO DAILY 04/29/21 04/29/21 04/29/21 History Physical Exam Vital Signs and Narrative: Vital Signs: Last Vital Signs Temp 98.1 F 04/29/21 14:42 Pulse 77 04/29/21 14:42 Resp 16 04/29/21 14:42 BP 121/41 L 04/29/21 14:42 Pulse Ox 94 04/29/21 14:42 Body Mass Index 27.6 Const: Other: Constitutional: Alert, in no distress, overweight. Mental Status: Oriented to person, place and time. Eyes: Pupils are equal, round and reactive to light. Ear, Nose and Throat: Oropharynx clear, mucous membranes moist. Ears and nose without eformities. Trachea midline. Respiratory: Clear to auscultation. No wheezing, rales or rhonchi. Cardiovascular: S1 S2 regular. No murmurs, rubs or gallops. Gastrointestinal: Abdomen soft, non-tender, non-distended. Normal bowel sounds.? Neurologic: Cranial nerves II-XII grossly intact. No focal neurological deficits. Moves all extremities spontaneously.? Skin:some erythematous plaqu-like changes on fingers Musculoskeletal: see pictures for details Results Labs CBC and Chem 7: 04/29/21 15:04 04/30/21 00:55 Labs: Laboratory Results - last 24 hr 04/29/21 04/29/21 04/29/21 15:04 15:04 15:04 MCV 95.7 MCH 31.9 MCHC 33.3 RDW 20.6 H Plt Count 34 L D MPV Not Reportable Immature Gran % (Auto) 1.0 H Neut % (Auto) 78.1 H Lymph % (Auto) 11.7 L [place] % (Auto) 8.0 Eos % (Auto) 0.8 Baso % (Auto) 0.4 Lymph # (Auto) 0.6 L [place] # (Auto) 0.4 Eos # (Auto) 0.0 Baso # (Auto) 0.0 Abs Immat Gran (auto) 0.05 H Absolute Neuts (auto) 3.8 Absolute Nucleated RBC 0.000 Nucleated RBC % (auto) 0.0 Smear Tech's Comments VERIFIED PT 20.2 H INR 1.8 H Anion Gap 13 Estim Creat Clear Calc 85.2 Estimated GFR > 60 Random Glucose 90 Lactic Acid Calcium 8.6 Total Bilirubin 3.0 H Direct Bilirubin 2.1 H AST 126 H ALT 19 Alkaline Phosphatase 289 H D Total Protein 8.2 H Albumin 2.5 L Ethyl Alcohol COVID-19 ([facility]ARDO) COVID-19 Clin Com 04/29/21 04/29/21 04/29/21 15:04 15:20 15:20 MCV MCH MCHC RDW Plt Count MPV Immature Gran % (Auto) Neut % (Auto) Lymph % (Auto) [place] % (Auto) Eos % (Auto) Baso % (Auto) Lymph # (Auto) [place] # (Auto) Eos # (Auto) Baso # (Auto) Abs Immat Gran (auto) Absolute Neuts (auto) Absolute Nucleated RBC Nucleated RBC % (auto) Smear Tech's Comments PT INR Anion Gap Estim Creat Clear Calc Estimated GFR Random Glucose Lactic Acid 1.8 Calcium Total Bilirubin Direct Bilirubin AST ALT Alkaline Phosphatase Total Protein Albumin Ethyl Alcohol 283 COVID-19 (EDUARDO) Negative COVID-19 Clin Com See Note Imaging Radiologist's Impressions: Impressions Foot X-Ray 04/29/21 14:44 IMPRESSION: Findings suggest focal osteomyelitis posterior inferior calcaneus adjacent to soft tissue wound. Assessment and Plan (1) End stage liver disease: Status: Acute (2) Osteomyelitis: Qualifiers: Laterality: left Osteomyelitis location: foot Osteomyelitis type: other Qualified Code(s): M86.8X7 - Other osteomyelitis, ankle and foot Status: Acute 40 year old female with advanced liver diease here with infected leg, feet ulcers with possible osteomyltis, she had been on hospice for end stage liver disease but has terminated hospice. plan Feet/leg ulcer with possible osteomylitis..continue Zosyn, Vanco Morphine for pain Hypokaelmia--oral replacment, check mag coaguloapathy INR 1.8, no bleeding monitor End stage liver disease--her numbers are actually better, unfortunately she continue to drink on hospice, she will reconsider, she' will be monitor for withdrawal Quality Stroke Does the patient have a stroke diagnosis?: No VTE Prior VTE?: No VTE Risk Level:: Medical - moderate - high VTE Device Contraindication: Procedure Contraindicated VTE Drug Contraindication: N/A - Med Ordered
[2021-04-29] MEDS: Potassium Chloride Packet 20 MEQ PACKET 40 MEQ PO (16:20)
[2021-04-29 18:54] VITALS: BP 104/49; PULSE 74; RESP 9; TEMP 36.9; O2SAT 96
--- NOTE | 2021-04-29 19:24 | PC.NURSE ---
report to josh on med surg
[2021-04-29 20:58] VITALS: BP 127/60; PULSE 77; RESP 18; TEMP 36.3; O2SAT 94
[2021-04-30] VITALS: BP 121/64; PULSE 78; RESP 18; TEMP 36.9; O2SAT 96
[2021-04-30] MEDS: Morphine Sulfate 2 MG/ML CARTRIDGE IVPUSH ×4 (00:29→15:46)
[2021-04-30] MEDS: 0.9 % Sodium Chloride Flush 3 ML SYRINGE IVFLUSH ×3 (01:02→16:18)
--- NOTE | 2021-04-30 01:23 | PC.NURSE ---
ordered EKG to view her QT interval, results send to Dr. Grove. PT had QT interval prolonged, tiffany held. ordered additional labs which are still pending
[2021-04-30 01:36] LABS: Anion Gap 10 (12-20); Blood Urea Nitrogen 9 mg/dL (9-16); Carbon Dioxide 26 mmol/L (22-29); Chloride 106 mmol/L (96-108); Creatinine Clr Calc Pharmacy 102.3; Estimated Glomerular Filt Rate > 60; Glucose Random 61 mg/dL (60-115); Magnesium 1.4 mg/dL (1.6-2.6); Potassium 3.3 mmol/L (3.3-5.1); Sodium 139 mmol/L (135-145)
[2021-04-30] MEDS: Magnesium Sulfate/H2O 2 GM/50 ML PIGGYBACK IV ×3 (02:18→12:19)
[2021-04-30 03:59] VITALS: BP 134/64; PULSE 85; RESP 18; TEMP 37.4; O2SAT 94
[2021-04-30] MEDS: Piperacillin Sodium/Tazobactam 3.375 GM in 0.9 % Sodium Chloride 50 ML IV ×4 (04:11→21:59)
[2021-04-30] MEDS: vancomycin HCL 1,000 MG in 0.9 % Sodium Chloride 250 ML 270 MG IV (04:46)
--- NOTE | 2021-04-30 04:50 | PM.EVENT ---
Event Note Date of Service: 04/30/21 Event Note: Prolonged QTc: Monitor on Tele; Repleted Mag; Avoid qt prolonging agents Patient requesting her home gabapentin-dose reduced to half secondary to QT prolongation Patient requesting her home methadone-will defer to the day hospitalist to confirm and resume the home medication. Alcohol withdrawal: Patient is in mild alcohol withdrawal. Patient reports that she is still drinking alcohol. Placed on CO protocol with Ativan. Nausea: Likely in the setting of gastritis from alcohol use. Pantoprazole.
[2021-04-30] MEDS: LORazepam 1 MG TABLET 2 MG PO (06:06)
[2021-04-30] MEDS: Gabapentin 600 MG TABLET 300 MG PO ×5 (06:07→21:51)
[2021-04-30] MEDS: Pantoprazole Sodium 40 MG/10 ML VIAL IVPUSH (06:16)
[2021-04-30 07:41] LABS: Appearance Urine CLEAR; Color Urine YELLOW; Glucose Urine UA NEG (NEG); Leukocyte Esterase Urine 1+ (NEG); Nitrite Urine POS (NEG); UACC Culture Trigger YES; Urine Blood NEG (NEG); Urine Ketones NEG (NEG); Urine Protein NEG (NEG-TRACE)
[2021-04-30 08:00] VITALS: BP 159/73; PULSE 106; RESP 20; TEMP 37.7; O2SAT 95
[2021-04-30 08:02] LABS: Bacteria Urine 1+ /LPF; Squamous Epithelial Cell Urine TRACE /LPF
--- NOTE | 2021-04-30 09:07 | HO.PM.IMPN ---
Subjective Subjective Date of Service: 04/30/21 Review of Systems F/u on leg ulcers, osteomylitis, pain in legs Constitutional no fever, pain in the legs Physical Exam Vital Signs: Vital Signs: Last Vital Signs Temp 100 F 04/30/21 08:00 Pulse 106 H 04/30/21 08:00 Resp 20 04/30/21 08:00 BP 159/73 H 04/30/21 08:00 Pulse Ox 95 04/30/21 08:00 Body Mass Index 27.6 Const: Other: Constitutional: Alert, in no distress, overweight. Mental Status: Oriented to person, place and time. Respiratory: Clear to auscultation. No wheezing, rales or rhonchi. Cardiovascular: S1 S2 regular. No murmurs, rubs or gallops. Gastrointestinal: Abdomen soft, non-tender, non-distended. Normal bowel sounds.? Neurologic: grossly intact Skin:some erythematous plaqu-like changes on fingers Musculoskeletal: see pictures for details Objective Data Active Medications Gabapentin (Gabapentin 600 Mg Tablet) 300 mg PO QID [facility] Last Admin: 04/30/21 06:07 Dose: 300 mg Documented by: OLE Piperacillin Sod/Tazobactam (Sod 3.375 gm/ Sodium Chloride) 50 mls @ 100 mls/hr IV Q6H [facility] Last Infusion: 04/30/21 05:06 Dose: 100 mls/hr Documented by: OLE Vancomycin HCl 1,250 mg/ (Sodium Chloride) 250 mls @ 166.667 mls/hr IV Q12H [facility] Lorazepam (Lorazepam 1 Mg Tablet) 1 mg PO Q4H PRN PRN Reason: Breakthrough alcohol withdrawa Stop: 05/04/21 05:00 Melatonin (Melatonin 3 Mg Tablet) 3 mg PO BEDTIME PRN PRN Reason: Insomnia Morphine Sulfate (Morphine Sulfate 2 Mg/Ml Cartridge) 2 mg IVPUSH Q4H PRN; Protocol PRN Reason: Pain, Severe (Pain Scale 7-10) Last Admin: 04/30/21 04:53 Dose: 2 mg Documented by: OLE Pantoprazole Sodium (Pantoprazole Sodium 40 Mg/10 Ml Vial) 40 mg IVPUSH DAILY@0630 [facility] Last Admin: 04/30/21 06:16 Dose: 40 mg Documented by: OLE Pharmacy Consult (Consult Rx Vancomycin Dosing) 1 each MISCELLANE DAILY PRN PRN Reason: Consult order Pharmacy Consult (Consult Rx Perform Med Rec) 1 each MISCELLANE ONCE PRN PRN Reason: Consult order Sodium Chloride (0.9 % Sodium Chloride Flush 3 Ml Syringe) 3 ml IVFLUSH QSHIFT [facility] Last Admin: 04/30/21 01:02 Dose: 3 ml Documented by: OLE Labs CBC & Chem 7: 04/29/21 15:04 04/30/21 00:55 Labs: Laboratory Results - last 24 hr 04/29/21 04/29/21 04/29/21 15:04 15:04 15:04 MCV 95.7 MCH 31.9 MCHC 33.3 RDW 20.6 H Plt Count 34 L D MPV Not Reportable Immature Gran % (Auto) 1.0 H Neut % (Auto) 78.1 H Lymph % (Auto) 11.7 L [place] % (Auto) 8.0 Eos % (Auto) 0.8 Baso % (Auto) 0.4 Lymph # (Auto) 0.6 L [place] # (Auto) 0.4 Eos # (Auto) 0.0 Baso # (Auto) 0.0 Abs Immat Gran (auto) 0.05 H Absolute Neuts (auto) 3.8 Absolute Nucleated RBC 0.000 Nucleated RBC % (auto) 0.0 Smear Tech's Comments VERIFIED PT 20.2 H INR 1.8 H Anion Gap 13 Estim Creat Clear Calc 85.2 Estimated GFR > 60 Random Glucose 90 Lactic Acid Calcium 8.6 Magnesium Total Bilirubin 3.0 H Direct Bilirubin 2.1 H AST 126 H ALT 19 Alkaline Phosphatase 289 H D Total Protein 8.2 H Albumin 2.5 L Urine Color Urine Appearance Urine pH Ur Specific [place] Urine Protein Urine Glucose (UA) Urine Ketones Urine Blood Urine Nitrite Ur Leukocyte Esterase Urine RBC Urine WBC Ur Squamous Epith Cells Urine Bacteria Ethyl Alcohol COVID-19 ([facility]) COVID-19 Clin Com 04/29/21 04/29/21 04/29/21 15:04 15:20 15:20 MCV MCH MCHC RDW Plt Count MPV Immature Gran % (Auto) Neut % (Auto) Lymph % (Auto) [place] % (Auto) Eos % (Auto) Baso % (Auto) Lymph # (Auto) [place] # (Auto) Eos # (Auto) Baso # (Auto) Abs Immat Gran (auto) Absolute Neuts (auto) Absolute Nucleated RBC Nucleated RBC % (auto) Smear Tech's Comments PT INR Anion Gap Estim Creat Clear Calc Estimated GFR Random Glucose Lactic Acid 1.8 Calcium Magnesium Total Bilirubin Direct Bilirubin AST ALT Alkaline Phosphatase Total Protein Albumin Urine Color Urine Appearance Urine pH Ur Specific [place] Urine Protein Urine Glucose (UA) Urine Ketones Urine Blood Urine Nitrite Ur Leukocyte Esterase Urine RBC Urine WBC Ur Squamous Epith Cells Urine Bacteria Ethyl Alcohol 283 COVID-19 ([facility]O) Negative COVID-19 Clin Com See Note 04/30/21 04/30/21 00:55 06:45 MCV MCH MCHC RDW Plt Count MPV Immature Gran % (Auto) Neut % (Auto) Lymph % (Auto) [place] % (Auto) Eos % (Auto) Baso % (Auto) Lymph # (Auto) [place] # (Auto) Eos # (Auto) Baso # (Auto) Abs Immat Gran (auto) Absolute Neuts (auto) Absolute Nucleated RBC Nucleated RBC % (auto) Smear Tech's Comments PT INR Anion Gap 10 L Estim Creat Clear Calc 102.3 Estimated GFR > 60 Random Glucose 61 Lactic Acid Calcium 8.0 L D Magnesium 1.4 L* Total Bilirubin Direct Bilirubin AST ALT Alkaline Phosphatase Total Protein Albumin Urine Color YELLOW Urine Appearance CLEAR Urine pH 7.0 Ur Specific [place] 1.010 Urine Protein NEG Urine Glucose (UA) NEG Urine Ketones NEG Urine Blood NEG Urine Nitrite POS H Ur Leukocyte Esterase 1+ H Urine RBC 1-4 Urine WBC 5-9 H Ur Squamous Epith Cells TRACE Urine Bacteria 1+ Ethyl Alcohol COVID-19 ([facility]ARDO) COVID-19 Clin Com Assessment and Plan (1) Osteomyelitis: Status: Acute Assessment and Plan: 40 year old female with advanced liver diease here with infected leg, feet ulcers with possible osteomyltis, she had been on hospice for end stage liver disease but has terminated hospice. plan Feet/leg ulcer with possible osteomylitis..continue Zosyn, Vanco ID and surgery consults Morphine for pain Hypokaelmia--oral replacment, check mag Aemia of chronic disease, H/H stable. coaguloapathy INR 1.8, no bleeding monitor End stage liver disease--her numbers are actually better, unfortunately she continue to drink on hospice, she will reconsider, she' will be monitor for withdrawal. Review meds for hospice and reorder them DVT: no heparin or Lovenox d/t high INR and anemia Quality Stroke Does the patient have a stroke diagnosis?: No VTE Prior VTE?: No VTE Risk Level:: Medical - moderate - high VTE Device Contraindication: Procedure Contraindicated VTE Drug Contraindication: N/A - Med Ordered
--- NOTE | 2021-04-30 10:09 | MHC.CM.PN ---
met with pt who lives with her son and she was on hospice thru [facility] ..revoked hospice to be admittrd for treatment she plans on retrunin g to hsopice when she is dcd thru [facility] ,pt is on methadone.pts aunt and hcp kathryn wesleystefano [phone] is with pt mon to fri 8 to 4 pt does not want to return to [facility] where she has been in the past she wants to return home
[2021-04-30] MEDS: LORazepam 1 MG TABLET PO ×2 (10:26→15:47)
[2021-04-30 11:45] VITALS: BP 140/64; PULSE 96; RESP 16; TEMP 38.1; O2SAT 93
--- NOTE | 2021-04-30 12:30 | P.CONGS_ITS ---
History of Present Illness Consult details Consult date: 04/30/21 Narrative: 40-year-old female with advanced liver cirrhosis, admitted yesterday because of left heel ulcer with osteomyelitis of the calcaneus. She actually had been on hospice care but she had terminated this because of what she described as being of multiple wounds on both feet. She describes that her wound on left heel appeared to be bigger. She also says that she had an area of drainage on the right lower leg distally. She has had multiple open wounds on her lower extremities. She has had chronic edema of both legs as well. Her x-ray actually shows suggestion of osteomyelitis of the calcaneus on the left heel on the lesion of the ulcer. I have been consulted because an area of drainage on the lower near the ankle anteriorly. Review of Systems Constitutional: Constitutional: Denies chills and Denies fever(s) Cardiovascular: Cardiovascular: Denies chest pain, Denies dyspnea and Denies dyspnea on exertion Respiratory: Respiratory: Denies cough, Denies dyspnea and Denies dyspnea on exertion Gastrointestinal: Gastrointestinal: Denies hematochezia and Denies change in bowel habits Genitourinary: Genitourinary: Denies hematuria Musculoskeletal: Musculoskeletal: Reports back pain, Reports arthralgias, Reports limited range of motion and Reports muscle weakness Neurologic: Denies focal weakness and Denies convulsions Psychiatric: Psychiatric: Denies depression and Denies mood swings PMFSH Past Medical History Medical History Bacteremia Heart failure Liver failure Ulcer of left heel Social History Social History Household Members: Significant Other and Children Household Members Other:: 1 Housing: House Do you presently have visiting nurse or other home services: Yes Alcohol intake: current Alcohol intake frequency: a few times a week Patient Tobacco Use Status: Current everyday Tobacco user Tobacco use type: Cigarette Cigarette Packs Per Day: 0.5 Cigarettes Per Day: 10.0 Smoked in Last 30 Days: Yes Patient Given Instructions on How to Stop Smoking: No Second Hand Smoke Exposure: No Use of substances other than those prescribed or required for medical reasons: No Substance Use Type: Opiates Have you been hit, kicked, punched, or otherwise hurt by someone within the past year? If so, by whom?: No Do you feel safe in your current relationship?: Yes Is there a partner from a previous relationship who is making you feel unsafe now?: No Are you made to feel afraid or neglected: No Advance Directives: Yes Advance Directives on File: Yes Advance Directives Date on File: 04/02/20 Do you have thoughts of harming others: None Do you have a plan to hurt others: No Plan service: No Current occupational status: disabled Meds Allergies Allergy/AdvReac Type Severity Reaction Status Date / Time No Known Allergies Allergy Verified 04/29/21 14:44 [No Known Allergies*] Active Medications: Current Medications Gabapentin (Gabapentin 600 Mg Tablet) 300 mg PO QID [facility] Last Admin: 04/30/21 12:20 Dose: 300 mg Documented by: Piperacillin Sod/Tazobactam (Sod 3.375 gm/ Sodium Chloride) 50 mls @ 100 mls/hr IV Q6H [facility] Last Infusion: 04/30/21 10:58 Dose: Infused Documented by: Vancomycin HCl 1,250 mg/ (Sodium Chloride) 250 mls @ 166.667 mls/hr IV Q12H [facility] Lorazepam (Lorazepam 1 Mg Tablet) 1 mg PO Q4H PRN PRN Reason: Breakthrough alcohol withdrawa Stop: 05/04/21 05:00 Last Admin: 04/30/21 10:26 Dose: 1 mg Documented by: Melatonin (Melatonin 3 Mg Tablet) 3 mg PO BEDTIME PRN PRN Reason: Insomnia Morphine Sulfate (Morphine Sulfate 2 Mg/Ml Cartridge) 2 mg IVPUSH Q4H PRN; Protocol PRN Reason: Pain, Severe (Pain Scale 7-10) Last Admin: 04/30/21 10:26 Dose: 2 mg Documented by: Pantoprazole Sodium (Pantoprazole Sodium 40 Mg/10 Ml Vial) 40 mg IVPUSH DAILY@0630 [facility] Last Admin: 04/30/21 06:16 Dose: 40 mg Documented by: Pharmacy Consult (Consult Rx Vancomycin Dosing) 1 each MISCELLANE DAILY PRN PRN Reason: Consult order Pharmacy Consult (Consult Rx Perform Med Rec) 1 each MISCELLANE ONCE PRN PRN Reason: Consult order Sodium Chloride (0.9 % Sodium Chloride Flush 3 Ml Syringe) 3 ml IVFLUSH QSHIFT [facility] Last Admin: 04/30/21 09:19 Dose: 3 ml Documented by: Home Medications Medication Instructions Recorded Confirmed Last Taken Type furosemide 20 mg tablet 20 mg PO BID 07/30/20 04/29/21 04/29/21 History gabapentin 600 mg tablet 600 mg PO QID 07/30/20 04/29/21 04/29/21 History lactulose 10 gram/15 mL oral 10 g PO TID 07/30/20 04/29/21 04/29/21 History solution potassium chloride 20 mEq 20 meq PO DAILY 07/30/20 04/29/21 04/29/21 History tablet,extended release spironolactone 25 mg tablet 25 mg PO BID 07/30/20 04/29/21 04/29/21 History omeprazole 20 mg capsule,delayed 20 mg PO BID 12/21/20 04/29/21 04/29/21 History release lorazepam 0.5 mg tablet 0.5 mg PO Q6H PRN 03/21/21 04/29/21 Unknown History methadone 10 mg tablet 60 mg PO BID 03/21/21 04/29/21 04/29/21 History oxycodone 5 mg tablet 5 mg PO Q4H PRN 03/21/21 04/29/21 Unknown History atropine 1 % eye drops 2 drp SUBLINGUAL Q4H PRN 04/29/21 04/29/21 Unknown History bisacodyl 10 mg rectal suppository 10 mg [place] DAILY PRN 04/29/21 04/29/21 Unknown History guaifenesin 100 mg/5 mL oral liquid 200 mg PO Q4H PRN 04/29/21 04/29/21 Unknown History sennosides 8.6 mg-docusate sodium 1 tab-cap PO BID PRN 04/29/21 04/29/21 Unknown History 50 mg capsule (Senna Plus) topiramate 25 mg tablet 25 mg PO DAILY 04/29/21 04/29/21 04/29/21 History Physical Exam Vital Signs: Vital Signs: Last Vital Signs Temp 100.5 F H 04/30/21 11:45 Pulse 96 04/30/21 11:45 Resp 16 04/30/21 11:45 BP 140/64 H 04/30/21 11:45 Pulse Ox 93 04/30/21 11:45 Body Mass Index 27.6 Const: Other: Bed-bound, appears frail General: comfortable and no acute distress Orientation/consciousness: patient oriented x3 Neck: Neck: Yes no lymphadenopathy Resp: Auscultation: clear to auscultation bilaterally Cardio: Rhythm: regular rhythm GI: Palpation (GI): Soft to palpation, nontender and no guarding Neuro: General: patient oriented x3 Extrem: Other: Large left heel ulcer, clean, no pus at this time, soft tissue exposed; there is also an open wound on the dorsum of the foot On the right lower leg near the anterior aspect towards the ankle is note of 2 open areas that appeared to have been recently incised, with packings in place. There is no fluctuance but there suggestion of a previous abscess cavity in the area Results Labs Result diagrams: 04/29/21 15:04 04/30/21 00:55 Labs: Abnormal lab results 04/29/21 04/29/21 04/29/21 Range/Units 15:04 15:04 15:04 RBC 2.54 L (4.20-5.50) X10*6/uL Hgb 8.1 L (12.0-16.0) g/dl Hct 24.3 L (37-47) % RDW 20.6 H (11.0-16.0) % Plt Count 34 L D (160-400) X10*3/uL Immature Gran % (Auto) 1.0 H (0.0-0.4) % Neut % (Auto) 78.1 H (45-73) % Lymph % (Auto) 11.7 L (20-40) % Lymph # (Auto) 0.6 L (1.2-4.9) X10*3/uL Abs Immat Gran (auto) 0.05 H (0.00-0.03) X10*3/uL PT 20.2 H (9.9-13.0) SEC INR 1.8 H (0.9-1.1) Potassium 2.8 L (3.3-5.1) mmol/L Anion Gap (12-20) Calcium (8.4-10.2) mg/dL Magnesium (1.6-2.6) mg/dL Total Bilirubin 3.0 H (0.0-1.0) mg/dL Direct Bilirubin 2.1 H (0.0-0.5) mg/dL AST 126 H (5-31) U/L Alkaline Phosphatase 289 H D (39-117) U/L Total Protein 8.2 H (6.5-8.0) g/dL Albumin 2.5 L (3.5-5.0) g/dL Urine Nitrite (NEG) Ur Leukocyte Esterase (NEG) Urine WBC (0-4) /HPF 04/30/21 04/30/21 Range/Units 00:55 06:45 RBC (4.20-5.50) X10*6/uL Hgb (12.0-16.0) g/dl Hct (37-47) % RDW (11.0-16.0) % Plt Count (160-400) X10*3/uL Immature Gran % (Auto) (0.0-0.4) % Neut % (Auto) (45-73) % Lymph % (Auto) (20-40) % Lymph # (Auto) (1.2-4.9) X10*3/uL Abs Immat Gran (auto) (0.00-0.03) X10*3/uL PT (9.9-13.0) SEC INR (0.9-1.1) Potassium (3.3-5.1) mmol/L Anion Gap 10 L (12-20) Calcium 8.0 L D (8.4-10.2) mg/dL Magnesium 1.4 L* (1.6-2.6) mg/dL Total Bilirubin (0.0-1.0) mg/dL Direct Bilirubin (0.0-0.5) mg/dL AST (5-31) U/L Alkaline Phosphatase (39-117) U/L Total Protein (6.5-8.0) g/dL Albumin (3.5-5.0) g/dL Urine Nitrite POS H (NEG) Ur Leukocyte Esterase 1+ H (NEG) Urine WBC 5-9 H (0-4) /HPF Short CBC 04/29/21 Range/Units 15:04 WBC 4.9 (4.8-10.8) X10*3/uL Hgb 8.1 L (12.0-16.0) g/dl Hct 24.3 L (37-47) % Plt Count 34 L D (160-400) X10*3/uL BMP 04/29/21 04/30/21 15:04 00:55 Sodium 139 139 Potassium 2.8 L 3.3 Chloride 103 106 Carbon Dioxide 27 26 BUN 9 D 9 Creatinine 0.78 0.65 Calcium 8.6 8.0 L D Liver Function 04/29/21 Range/Units 15:04 Total Bilirubin 3.0 H (0.0-1.0) mg/dL Direct Bilirubin 2.1 H (0.0-0.5) mg/dL AST 126 H (5-31) U/L ALT 19 (0-31) U/L Alkaline Phosphatase 289 H D (39-117) U/L Albumin 2.5 L (3.5-5.0) g/dL Urine 04/30/21 Range/Units 06:45 Urine Color YELLOW Urine Appearance CLEAR Urine pH 7.0 (5.0-8.0) Ur Specific [place] 1.010 (1.005-1.025) Urine Protein NEG (NEG-TRACE) MG/DL Urine Glucose (UA) NEG (NEG) MG/DL All other labs normal. Assessment and Plan (1) Bilateral lower leg cellulitis: Status: Acute She has 2 small open areas on the right lower leg which appeared to have been previous abscess cavities. There was a packing in place which I removed. The area otherwise is clean now and there is no fluctuance. This does not seem to appear to require any I and D nor debridement. The left heel ulcer it appears clean as well. There is no necrotic tissue. He does have another ulcer on the dorsum of the foot with alginate dressing in place. I have changed all her dressings and both left and right lower legs and feet with Joshua rolls. Her heel should not be in contact with the bed so I have position pillow underneath her calves. The rest of the management will be as per the hospitalist. Procedures Date of Service Date of Service: 04/30/21
[2021-04-30 15:19] VITALS: BP 125/59; PULSE 94; RESP 15; TEMP 37.4; O2SAT 92
[2021-04-30] MEDS: vancomycin HCL 1,250 MG in 0.9 % Sodium Chloride 250 ML 166.67 MG IV (16:18)
[2021-04-30 19:25] VITALS: BP 109/60; PULSE 86; RESP 15; TEMP 37; O2SAT 92
[2021-04-30] MEDS: methADONE HCl 20 MG/2 ML ORAL.CONC 60 MG PO (21:54)
--- NOTE | 2021-04-30 23:07 | W.PM.IDCN ---
History of Present Illness Data of Consult Service Date: 04/30/21 Requesting physician: Jose Kemp Primary Care Provider: MD ARNOL Ken Reason for consult: left heel osteomyelitis She has chronic pain and discomfort feet. She hasXR osteomyelitis left heel. she had been on hospice and then stopped hospice and wanted care. Review of Systems Review of Systems: Yes all other systems are reviewed and are negative PMFSH Past Medical History Medical History Bacteremia Heart failure Liver failure Ulcer of left heel Family History Family history: reviewed and not pertinent Social History Social History Household Members: Significant Other and Children Household Members Other:: 1 Housing: House Do you presently have visiting nurse or other home services: Yes Alcohol intake: current Alcohol intake frequency: a few times a week Patient Tobacco Use Status: Current everyday Tobacco user Tobacco use type: Cigarette Cigarette Packs Per Day: 0.5 Second Hand Smoke Exposure: No Substance Use Type: Opiates Advance Directives Date on File: 04/02/20 service: No Current occupational status: disabled Meds Allergies Allergy/AdvReac Type Severity Reaction Status Date / Time No Known Allergies Allergy Verified 04/29/21 14:44 [No Known Allergies*] Active Medications: Current Medications Gabapentin (Gabapentin 600 Mg Tablet) 300 mg PO QID [facility] Last Admin: 04/30/21 21:51 Dose: 300 mg Documented by: Piperacillin Sod/Tazobactam (Sod 3.375 gm/ Sodium Chloride) 50 mls @ 100 mls/hr IV Q6H [facility] Last Infusion: 04/30/21 22:32 Dose: Infused Documented by: Vancomycin HCl 1,250 mg/ (Sodium Chloride) 250 mls @ 166.667 mls/hr IV Q12H [facility] Last Infusion: 04/30/21 18:36 Dose: Infused Documented by: Lorazepam (Lorazepam 1 Mg Tablet) 1 mg PO Q4H PRN PRN Reason: Breakthrough alcohol withdrawa Stop: 05/04/21 05:00 Last Admin: 04/30/21 15:47 Dose: 1 mg Documented by: Melatonin (Melatonin 3 Mg Tablet) 3 mg PO BEDTIME PRN PRN Reason: Insomnia Methadone HCl (Methadone Hcl 20 Mg/2 Ml Oral.Conc) 60 mg PO BID [facility] Last Admin: 04/30/21 21:54 Dose: 60 mg Documented by: Morphine Sulfate (Morphine Sulfate 2 Mg/Ml Cartridge) 2 mg IVPUSH Q4H PRN; Protocol PRN Reason: Pain, Severe (Pain Scale 7-10) Last Admin: 04/30/21 15:46 Dose: 2 mg Documented by: Pantoprazole Sodium (Pantoprazole Sodium 40 Mg/10 Ml Vial) 40 mg IVPUSH DAILY@0630 [facility] Last Admin: 04/30/21 06:16 Dose: 40 mg Documented by: Pharmacy Consult (Consult Rx Vancomycin Dosing) 1 each MISCELLANE DAILY PRN PRN Reason: Consult order Pharmacy Consult (Consult Rx Perform Med Rec) 1 each MISCELLANE ONCE PRN PRN Reason: Consult order Sodium Chloride (0.9 % Sodium Chloride Flush 3 Ml Syringe) 3 ml IVFLUSH QSHIFT [facility] Last Admin: 04/30/21 16:18 Dose: 3 ml Documented by: Home Medications Medication Instructions Recorded Confirmed Last Taken Type furosemide 20 mg tablet 20 mg PO BID 07/30/20 04/29/21 04/29/21 History gabapentin 600 mg tablet 600 mg PO QID 07/30/20 04/29/21 04/29/21 History lactulose 10 gram/15 mL oral 10 g PO TID 07/30/20 04/29/21 04/29/21 History solution potassium chloride 20 mEq 20 meq PO DAILY 07/30/20 04/29/21 04/29/21 History tablet,extended release spironolactone 25 mg tablet 25 mg PO BID 07/30/20 04/29/21 04/29/21 History omeprazole 20 mg capsule,delayed 20 mg PO BID 12/21/20 04/29/21 04/29/21 History release lorazepam 0.5 mg tablet 0.5 mg PO Q6H PRN 03/21/21 04/29/21 Unknown History methadone 10 mg tablet 60 mg PO BID 03/21/21 04/29/21 04/29/21 History oxycodone 5 mg tablet 5 mg PO Q4H PRN 03/21/21 04/29/21 Unknown History atropine 1 % eye drops 2 drp SUBLINGUAL Q4H PRN 04/29/21 04/29/21 Unknown History bisacodyl 10 mg rectal suppository 10 mg [place] DAILY PRN 04/29/21 04/29/21 Unknown History guaifenesin 100 mg/5 mL oral liquid 200 mg PO Q4H PRN 04/29/21 04/29/21 Unknown History sennosides 8.6 mg-docusate sodium 1 tab-cap PO BID PRN 04/29/21 04/29/21 Unknown History 50 mg capsule (Senna Plus) topiramate 25 mg tablet 25 mg PO DAILY 04/29/21 04/29/21 04/29/21 History Physical Exam Vital Signs: Vital Signs: Last Vital Signs Temp 98.6 F 04/30/21 19:25 Pulse 86 04/30/21 19:25 Resp 15 04/30/21 19:25 BP 109/60 04/30/21 19:25 Pulse Ox 92 04/30/21 19:25 Body Mass Index 27.6 Const: General: cooperative Eyes: General: appearance normal, both eyes and all related structures Resp: Effort & Inspection: normal respiratory effort Cardio: Rate: regular rate Rhythm: regular rhythm GI: Palpation (GI): Soft to palpation and nontender Extrem: Other: deep heel ulcer Results Labs CBC & Chem 7: 05/04/21 Unknown 05/04/21 05:38 Labs: BMP 04/30/21 00:55 Sodium 139 Potassium 3.3 Chloride 106 Carbon Dioxide 26 BUN 9 Creatinine 0.65 Calcium 8.0 L D Urine 04/30/21 Range/Units 06:45 Urine Color YELLOW Urine Appearance CLEAR Urine pH 7.0 (5.0-8.0) Ur Specific [place] 1.010 (1.005-1.025) Urine Protein NEG (NEG-TRACE) MG/DL Urine Glucose (UA) NEG (NEG) MG/DL Microbiology Microbiology Results: Microbiology 04/29/21 15:20 Blood - Venous Blood Culture - Preliminary No growth after 24 hours. 04/29/21 15:04 Blood - Venous Blood Culture - Preliminary No growth after 24 hours. Assessment and Plan (1) Non-pressure chronic ulcer of other part of left lower leg with necrosis of muscle: Status: Acute osteomyelitis likely staph or strep possible longstanding,patient has been on hospice Would give intermediate IV for six weeks. Ertapenem if no MRSA seen. Otherwise would give Vancomycin
[2021-05-01] VITALS (7 sets, daily range): BP systolic 116–144; BP diastolic 55–83; PULSE 85–98; RESP 16–18; TEMP 36.9–38.1; O2SAT 93–96
[2021-05-01] MEDS: 0.9 % Sodium Chloride Flush 3 ML SYRINGE IVFLUSH ×4 (00:28→22:19)
[2021-05-01 03:33] LABS: Vancomycin Trough 19.3 mcg/mL (10.0-20.0)
[2021-05-01] MEDS: Piperacillin Sodium/Tazobactam 3.375 GM in 0.9 % Sodium Chloride 50 ML IV ×4 (03:56→22:07)
[2021-05-01] MEDS: vancomycin HCL 1,250 MG in 0.9 % Sodium Chloride 250 ML 166.67 MG IV (04:43)
[2021-05-01] MEDS: LORazepam 1 MG TABLET PO (04:55)
[2021-05-01] MEDS: Pantoprazole Sodium 40 MG/10 ML VIAL IVPUSH (05:52)
[2021-05-01 08:01] LABS: Creatinine Clr Calc Pharmacy 110.8; Estimated Glomerular Filt Rate > 60
[2021-05-01] MEDS: methADONE HCl 20 MG/2 ML ORAL.CONC 60 MG PO ×2 (08:06→22:01)
[2021-05-01] MEDS: Gabapentin 600 MG TABLET 300 MG PO ×4 (08:06→22:01)
--- NOTE | 2021-05-01 08:39 | HO.PM.IMPN ---
Subjective Subjective Date of Service: 05/01/21 Interval History: F/u on leg ulcers, osteomylitis, pain in legs Review of Systems no fever, pain in legs Physical Exam Vital Signs: Vital Signs: Last Vital Signs Temp 98.4 F 05/01/21 08:00 Pulse 88 05/01/21 08:00 Resp 18 05/01/21 08:00 BP 137/83 05/01/21 08:00 Pulse Ox 96 05/01/21 08:00 Body Mass Index 27.6 Const: Other: Constitutional: Alert, in no distress, overweight. Mental Status: Oriented to person, place and time. Respiratory: Clear to auscultation. No wheezing, rales or rhonchi. Cardiovascular: S1 S2 regular. No murmurs, rubs or gallops. Gastrointestinal: Abdomen soft, non-tender, non-distended. Normal bowel sounds.? Neurologic: grossly intact Skin:some erythematous plaqu-like changes on fingers Musculoskeletal: see pictures for details Objective Data Active Medications Gabapentin (Gabapentin 600 Mg Tablet) 300 mg PO QID [facility] Last Admin: 05/01/21 08:06 Dose: 300 mg Documented by: CICI Piperacillin Sod/Tazobactam (Sod 3.375 gm/ Sodium Chloride) 50 mls @ 100 mls/hr IV Q6H [facility] Last Admin: 05/01/21 08:07 Dose: 100 mls/hr Documented by: CICI Vancomycin HCl 1,250 mg/ (Sodium Chloride) 250 mls @ 166.667 mls/hr IV Q12H [facility] Last Infusion: 05/01/21 06:36 Dose: 166.67 mls/hr Documented by: ENE Lorazepam (Lorazepam 1 Mg Tablet) 1 mg PO Q4H PRN PRN Reason: Breakthrough alcohol withdrawa Stop: 05/04/21 05:00 Last Admin: 05/01/21 04:55 Dose: 1 mg Documented by: OLE Melatonin (Melatonin 3 Mg Tablet) 3 mg PO BEDTIME PRN PRN Reason: Insomnia Methadone HCl (Methadone Hcl 20 Mg/2 Ml Oral.Conc) 60 mg PO BID [facility] Last Admin: 05/01/21 08:06 Dose: 60 mg Documented by: CICI Morphine Sulfate (Morphine Sulfate 2 Mg/Ml Cartridge) 2 mg IVPUSH Q4H PRN; Protocol PRN Reason: Pain, Severe (Pain Scale 7-10) Last Admin: 04/30/21 15:46 Dose: 2 mg Documented by: CICI Pantoprazole Sodium (Pantoprazole Sodium 40 Mg/10 Ml Vial) 40 mg IVPUSH DAILY@0630 [facility] Last Admin: 05/01/21 05:52 Dose: 40 mg Documented by: OLE Pharmacy Consult (Consult Rx Vancomycin Dosing) 1 each MISCELLANE DAILY PRN PRN Reason: Consult order Pharmacy Consult (Consult Rx Perform Med Rec) 1 each MISCELLANE ONCE PRN PRN Reason: Consult order Sodium Chloride (0.9 % Sodium Chloride Flush 3 Ml Syringe) 3 ml IVFLUSH QSHIFT [facility] Last Admin: 05/01/21 08:06 Dose: 3 ml Documented by: CICI Labs CBC & Chem 7: 04/29/21 15:04 05/01/21 07:25 Labs: Laboratory Results - last 24 hr 05/01/21 05/01/21 02:56 07:25 Estim Creat Clear Calc 110.8 Estimated GFR > 60 Vancomycin Trough 19.3 Microbiology Microbiology Results: Microbiology 04/29/21 15:20 Blood Culture - Preliminary Blood - Venous No growth after 24 hours. 04/29/21 15:04 Blood Culture - Preliminary Blood - Venous No growth after 24 hours. Assessment and Plan (1) Osteomyelitis: Status: Acute Assessment and Plan: 40 year old female with advanced liver diease here with infected leg, feet ulcers with possible osteomyltis, she had been on hospice for end stage liver disease but has terminated hospice. plan Feet/leg ulcer with possible osteomylitis..continue Zosyn, Vanco Surgery--no indication for debridment or I and D ID--6 weeks of Ertapenem if no MRSA o/w Vanco PICC line tomorrow Morphine for pain Hypokaelmia--oral replacment, check mag Aemia of chronic disease, H/H stable. coaguloapathy INR 1.8, no bleeding monitor End stage liver disease--her numbers are actually better, unfortunately she continue to drink on hospice, she will reconsider, she' will be monitor for withdrawal. Review meds for hospice and reorder them DVT: no heparin or Lovenox d/t high INR and anemia Quality Stroke Does the patient have a stroke diagnosis?: No VTE Prior VTE?: No VTE Risk Level:: Medical - moderate - high VTE Device Contraindication: Procedure Contraindicated VTE Drug Contraindication: N/A - Med Ordered
[2021-05-01 09:04] LABS: Anion Gap 8 (12-20); Blood Urea Nitrogen 7 mg/dL (9-16); Carbon Dioxide 25 mmol/L (22-29); Chloride 107 mmol/L (96-108); Glucose Random 55 mg/dL (60-115); Potassium 3.2 mmol/L (3.3-5.1); Sodium 137 mmol/L (135-145)
--- NOTE | 2021-05-01 09:32 | PHA.PROG ---
Admission Date/Time: April 29, 2021 16:43 Indication: Weight in k.5 kg Adjusted body weight in Kg: [place] body weight in Kg: Obesity Dosing Indication % IBW: Serum Creatinine - Last 168 Hours 04/29/21 04/30/21 05/01/21 15:04 00:55 07:25 Creatinine 0.78 0.65 0.60 Estimated CrCl and GFR - Last 168 Hours 04/29/21 04/30/21 05/01/21 15:04 00:55 07:25 Estim Creat Clear Calc 85.2 102.3 110.8 Estimated GFR > 60 > 60 > 60 Vancomycin Loading Dose: Current Vancomycin Dosing Regimen: Vancomycin Monitoring using AUC goal of 400 - 600 range with trough as surrogate marker: Date and Time for next Vancomycin Level to be drawn: Vancomycin Trough 19.3 mcg/mL (10.0-20.0) 05/01/21 02:56 Pharmacist Comments on Vancomycin Plan: Patient trough came back high; checkd pt SCr to be safe, no increase. Changed dose from 1250mg q12 to 1000mg q12, nex level tomorrow afternoon. Vancomycin dosing will take advantage of [employer] as a clinical decision support tool that uses Bayesian modeling to calculate individual patient's pharmacokinetic parameters and forecast the patient's drug concentration time course with the target goal AUC 24 range of 400 - 600 mg/L/hr.
--- NOTE | 2021-05-01 11:06 | P.PNGS_ITS ---
Subjective Subjective Date of Service: 05/01/21 Interval history: No new complaints Asking about discharge planning Dressings changed earlier by nursing staff Physical Exam Vital Signs: Vital Signs: Last Vital Signs Temp 98.4 F 05/01/21 08:00 Pulse 88 05/01/21 08:00 Resp 18 05/01/21 08:00 BP 137/83 05/01/21 08:00 Pulse Ox 96 05/01/21 08:00 Body Mass Index 27.6 Const: Other: Chemistry 04/29/21 04/30/21 05/01/21 15:04 00:55 07:25 Sodium 139 139 137 Potassium 2.8 L 3.3 3.2 L Carbon Dioxide 27 26 25 BUN 9 D 9 7 L Creatinine 0.78 0.65 0.60 Calcium 8.6 8.0 L D 8.0 L Hematology 04/29/21 15:04 WBC 4.9 Hgb 8.1 L Plt Count 34 L D Urinalysis 04/30/21 06:45 Urine Color YELLOW Urine Appearance CLEAR Urine pH 7.0 Ur Specific Gravit y 1.010 Urine Protein NEG Urine Glucose (UA) NEG Urine Ketones NEG Urine Blood NEG Urine Nitrite POS H Ur Leukocyte Cassia ase 1+ H Urine RBC 1-4 Urine WBC 5-9 H Ur Squamous Epith Cells TRACE General: comfortable and no acute distress Resp: Effort & Inspection: normal respiratory effort Cardio: Rhythm: regular rhythm Extrem: Other: Dressings clean and dry, changed earlier this morning; she has chronic edema both lower extremities Procedures Date of Service Date of Service: 05/01/21 Progress Note: A&P Assessment and plan (1) Cellulitis: Status: Acute Assessment and Plan: Cellulitis lower extremities, with note of 2 small draining wound on the right lower leg No need to do I and D Wound care daily Elevate both feet with pillows under the calf (2) Ulcer of left heel: Status: Acute Assessment and Plan: Imaging suggest osteomyelitis of the calcaneus Heel ulcer clean Continue same wound care Elevate foot off of bed No need for debridement at this time Fall Risk Details Current Medications: Current Medications Gabapentin (Gabapentin 600 Mg Tablet) 300 mg PO QID [facility] Last Admin: 05/01/21 08:06 Dose: 300 mg Documented by: Piperacillin Sod/Tazobactam (Sod 3.375 gm/ Sodium Chloride) 50 mls @ 100 mls/hr IV Q6H [facility] Last Infusion: 10/31/21 09:11 Dose: Infused Documented by: Vancomycin HCl 1,000 mg/ (Sodium Chloride) 270 mls @ 270 mls/hr IV Q12H [facility] Lorazepam (Lorazepam 1 Mg Tablet) 1 mg PO Q4H PRN PRN Reason: Breakthrough alcohol withdrawa Stop: 05/04/21 05:00 Last Admin: 05/01/21 04:55 Dose: 1 mg Documented by: Melatonin (Melatonin 3 Mg Tablet) 3 mg PO BEDTIME PRN PRN Reason: Insomnia Methadone HCl (Methadone Hcl 20 Mg/2 Ml Oral.Conc) 60 mg PO BID [facility] Last Admin: 05/01/21 08:06 Dose: 60 mg Documented by: Morphine Sulfate (Morphine Sulfate 2 Mg/Ml Cartridge) 2 mg IVPUSH Q4H PRN; Protocol PRN Reason: Pain, Severe (Pain Scale 7-10) Last Admin: 04/30/21 15:46 Dose: 2 mg Documented by: Pantoprazole Sodium (Pantoprazole Sodium 40 Mg/10 Ml Vial) 40 mg IVPUSH DAILY@0630 [facility] Last Admin: 05/01/21 05:52 Dose: 40 mg Documented by: Pharmacy Consult (Consult Rx Vancomycin Dosing) 1 each MISCELLANE DAILY PRN PRN Reason: Consult order Pharmacy Consult (Consult Rx Perform Med Rec) 1 each MISCELLANE ONCE PRN PRN Reason: Consult order Sodium Chloride (0.9 % Sodium Chloride Flush 3 Ml Syringe) 3 ml IVFLUSH QSHIFT [facility] Last Admin: 05/01/21 08:06 Dose: 3 ml Documented by: Time Spent With Patient Time: Total time spent is greater than 50% in coordination of care (as documented) at patient's floor/unit and/or counseling patient: Time with patient: 15 - 24 minutes Quality Stroke Does the patient have a stroke diagnosis?: No VTE Prior VTE?: No VTE Risk Level:: Medical - moderate - high VTE Device Contraindication: Procedure Contraindicated VTE Drug Contraindication: N/A - Med Ordered
[2021-05-01 11:48] LABS: Glucose, Whole Blood 58 mg/dL (60-115)
[2021-05-01 16:20] LABS: Glucose, Whole Blood 79 mg/dL (60-115)
[2021-05-01] MEDS: vancomycin HCL 1,000 MG in 0.9 % Sodium Chloride 250 ML 270 MG IV (17:00)
[2021-05-01 20:01] LABS: Glucose, Whole Blood 69 mg/dL (60-115)
[2021-05-02 03:30] VITALS: BP 132/66; PULSE 88; RESP 17; TEMP 36.8; O2SAT 97
[2021-05-02] MEDS: Piperacillin Sodium/Tazobactam 3.375 GM in 0.9 % Sodium Chloride 50 ML IV ×4 (04:11→21:32)
[2021-05-02] MEDS: vancomycin HCL 1,000 MG in 0.9 % Sodium Chloride 250 ML 270 MG IV (04:52)
[2021-05-02 05:26] LABS: Glucose, Whole Blood 66 mg/dL (60-115)
[2021-05-02] MEDS: Pantoprazole Sodium 40 MG/10 ML VIAL IVPUSH (06:21)
--- NOTE | 2021-05-02 06:24 | PM.EVENT ---
Event Note Date of Service: 05/02/21 Event Note: Blood in the sputum: Patient reports streaks of blood the sputum or coughing; also reported blood blowing her nose; no gross epistaxis noted on exam; streaks of blood the sputum likely from retching. Will possible to the day hospitalist to keep an eye.
--- NOTE | 2021-05-02 06:48 | PC.NURSE ---
after 12 mn pt has been coughing and reported bloody napkins, also she said some streaks of blood came with saliva dr JEFFERSON NOTIFIED . CAME TO EXAM the pt. will monitor
[2021-05-02 07:23] VITALS: BP 111/55; PULSE 83; RESP 16; TEMP 37.2; O2SAT 96
[2021-05-02 07:28] LABS: Glucose, Whole Blood 65 mg/dL (60-115)
[2021-05-02] MEDS: methADONE HCl 20 MG/2 ML ORAL.CONC 60 MG PO ×2 (09:31→20:43)
[2021-05-02] MEDS: 0.9 % Sodium Chloride Flush 3 ML SYRINGE IVFLUSH ×2 (09:36→16:53)
[2021-05-02] MEDS: LORazepam 1 MG TABLET PO (09:40)
[2021-05-02] MEDS: Gabapentin 600 MG TABLET 300 MG PO ×4 (09:40→20:43)
[2021-05-02 10:07] LABS: Creatinine Clr Calc Pharmacy 105.5; Estimated Glomerular Filt Rate > 60
--- NOTE | 2021-05-02 10:46 | PC.NURSE ---
Skin/ Wound assessment completed. Patient has a venous stasis to left agustin with a granulated wound bed-Hydrofera blue applied to wound bed covered with gauze and roll gauze. Patient has a Grade 1 pressure ulcer to left ankle and right dorsal foot- Hydrofera blue applied to left ankle and silver alginate applied to right dorsal foot, both covered with non woven gauze and roll gauze. Patient also has a Grade 3 diabetic ulcer to left heel with hypergranulation and small amount foul smelling tao drainage. Hydrofera blue applied covered with gauze and roll gauze. Patient has an abscess on right agustin with 3 small holes that tunnel to each other 6cm. a moderate amount of purulent drainage, 3 strips of silver alginate cut and tucked into holes leaving tails out, cover with non woven gauze and roll gauze. There is a stage 2 pressure ulcer on left elbow, Woundres' gel applied covered with foam dressing. Also sores on bilateral fingers and hands, Mupirocen applied to sores.
--- NOTE | 2021-05-02 11:28 | MHC.CM.PN ---
JENNYFER WAS APPROACHED BY HOSPICE LIFE C[employer] CUSTOMER SALES DISTRIBUTOR, MAKAYLA. SHE REPORTS THIS PT HAS BEEN ON HOSPICE HOWEVER HAD TO SIGN OFF ON ADMISSION. SHE REPORTS THE PT IS NOW PLANNING TO GET IV ABX SO WILL NOT BE ABLE TO RESUME HOSPICE SERVICES UNTIL THAT IS COMPLETE. SHE REPORTS THE PT IS CONCERNED THAT SHE WILL NO LONGER HAVE METHADONE FOR PAIN. MAKAYLA REPORTS THE PT HAD BEEN OFF METHADONE AND WHEN SHE SIGNED ON WITH HOSPICE, THEIR MD STARTED HER BACK ON IT FOR PAIN MANAGEMENT BECAUSE THE PT IS ALLERGIC TO SO MANY TYPES OF MEDICATIONS. PER DISCUSSION CM AND [facility] SW WILL ATTEMPT TO CONTACT PTS PCP (JEANNIE CUEVA) TO DETERMINE IF THEY WILL BE WRITING FOR THIS MEDICATION. CURRENT PLAN IS FOR PT TO DC HOME ON IV ABX WITH [facility] PT WILL NEED BLS TRANSPORT
--- NOTE | 2021-05-02 11:37 | MHC.CM.PN ---
nurse pet care technician note electronic medical record reviewed along with case discussed on multiple disciplianry rounds. patient with osteomyelitis of the foot per phyisician no debridement is currently needed , wound care daily by nursien stafftalat on iv abx discharge plan - continue wound care and and iv abx patient is active with the [facility] hospice (and will not be returning back on hospice while reciveing iv abx) once off abx, she can get back on hospice.,, patient does not want to go to [facility], she will aLSO NEED METHADONE ORALLY
[2021-05-02 12:00] VITALS: BP 124/58; PULSE 90; RESP 18; TEMP 37; O2SAT 95
[2021-05-02 12:36] VITALS: BMI 27.6
[2021-05-02] MEDS: Morphine Sulfate 2 MG/ML CARTRIDGE IVPUSH (12:42)
--- NOTE | 2021-05-02 12:46 | MHC.CLN ---
NUTRITION CONSULT CONSULT FOR IMPAIRED SKIN. STAGE II TO LEFT ELBOW AND MULTIPLE DIABETIC ULCERS/ABSCESS. PATIENT AGREEABLE TO ENSURE CHOCOLATE FLAVOR. ADDED ENSURE TID TO PROVIDE 1050 KCAL, 60 G PROTEIN.
[2021-05-02] MEDS: Phytonadione (Vit K1) 10 MG in 0.9 % Sodium Chloride 50 ML 51 MG IV (13:07)
--- NOTE | 2021-05-02 13:36 | HO.PM.IMPN ---
Subjective Subjective Date of Service: 05/02/21 Interval History: F/u on leg ulcers, osteomylitis, pain in legs. She is been having nose bleed and PICC line site has been bleeding. Vitamin K given, type and screen for FFP Review of Systems nose blood no fever Physical Exam Vital Signs: Vital Signs: Last Vital Signs Temp 98.6 F 05/02/21 12:00 Pulse 90 05/02/21 12:00 Resp 18 05/02/21 12:00 BP 124/58 L 05/02/21 12:00 Pulse Ox 95 05/02/21 12:00 Body Mass Index 27.6 General: AO X 3, no acute distress HEENT: couldn't see bleeding from nose or mouth Resp: CTA bilateral CVS: S1,S2,RRR GI: +BS, NT, no distention Skin: No rash Neuro: motor grossly intact Psych: appropriate affect Objective Data Active Medications Gabapentin (Gabapentin 600 Mg Tablet) 300 mg PO QID [facility] Last Admin: 05/02/21 12:42 Dose: 300 mg Documented by: LARISA Piperacillin Sod/Tazobactam (Sod 3.375 gm/ Sodium Chloride) 50 mls @ 100 mls/hr IV Q6H [facility] Last Infusion: 05/02/21 10:12 Dose: 100 mls/hr Documented by: LARISA Vancomycin HCl 1,000 mg/ (Sodium Chloride) 270 mls @ 270 mls/hr IV Q12H [facility] Last Infusion: 05/02/21 06:21 Dose: 270 mls/hr Documented by: OLE Phytonadione 10 mg/ Sodium (Chloride) 51 mls @ 51 mls/hr IV ONCE ONE Stop: 05/02/21 13:38 Last Admin: 05/02/21 13:07 Dose: 51 mls/hr Documented by: LARISA Lorazepam (Lorazepam 1 Mg Tablet) 1 mg PO Q4H PRN PRN Reason: Breakthrough alcohol withdrawa Stop: 05/04/21 05:00 Last Admin: 05/02/21 09:40 Dose: 1 mg Documented by: MANFRED Melatonin (Melatonin 3 Mg Tablet) 3 mg PO BEDTIME PRN PRN Reason: Insomnia Methadone HCl (Methadone Hcl 20 Mg/2 Ml Oral.Conc) 60 mg PO BID [facility] Last Admin: 05/02/21 09:31 Dose: 60 mg Documented by: MANFRED Morphine Sulfate (Morphine Sulfate 2 Mg/Ml Cartridge) 2 mg IVPUSH Q4H PRN; Protocol PRN Reason: Pain, Severe (Pain Scale 7-10) Last Admin: 05/02/21 12:42 Dose: 2 mg Documented by: LARISA Mupirocin (Mupirocin 2 % Oint 22 Gm Tube) 1 appl TOPICAL TID [facility]; Protocol Pantoprazole Sodium (Pantoprazole Sodium 40 Mg/10 Ml Vial) 40 mg IVPUSH DAILY@0630 [facility] Last Admin: 05/02/21 06:21 Dose: 40 mg Documented by: ENE Pharmacy Consult (Consult Rx Vancomycin Dosing) 1 each MISCELLANE DAILY PRN PRN Reason: Consult order Pharmacy Consult (Consult Rx Perform Med Rec) 1 each MISCELLANE ONCE PRN PRN Reason: Consult order Sodium Chloride (0.9 % Sodium Chloride Flush 3 Ml Syringe) 3 ml IVFLUSH QSHIFT [facility] Last Admin: 05/02/21 09:36 Dose: 3 ml Documented by: MANFRED Labs CBC & Chem 7: 04/29/21 15:04 05/02/21 09:46 Labs: Laboratory Results - last 24 hr 05/01/21 05/01/21 05/02/21 16:09 19:56 05:22 Estim Creat Clear Calc Estimated GFR POC Glucose 79 69 66 05/02/21 05/02/21 07:21 09:46 Estim Creat Clear Calc 105.5 Estimated GFR > 60 POC Glucose 65 Microbiology Microbiology Results: Microbiology 04/30/21 Unknown Urine Culture - Preliminary Urine clean catch - Urine briscoe top Culture in progress. 04/29/21 15:20 Blood Culture - Preliminary Blood - Venous No growth after 48 hours. 04/29/21 15:04 Blood Culture - Preliminary Blood - Venous No growth after 48 hours. Assessment and Plan (1) Non-pressure chronic ulcer of other part of left lower leg with necrosis of muscle: Status: Acute Assessment and Plan: 40 year old female with advanced liver diease here with infected leg, feet ulcers with possible osteomyltis, she had been on hospice for end stage liver disease but has terminated hospice. plan Feet/leg ulcer with possible osteomylitis..continue Zosyn, Vanco Surgery--no indication for debridment or I and D ID--6 weeks of Ertapenem if no MRSA o/w Vanco PICC line inserted today Morphine for pain Nose bleeding, bleeding IV site--Vit K, type and screen for FFP Hypokaelmia--oral replacment, check mag Aemia of chronic disease, H/H stable. coaguloapathy INR 1.8, no bleeding monitor End stage liver disease--her numbers are actually better, unfortunately she continue to drink on hospice, she will reconsider, she' will be monitor for withdrawal. Review meds for hospice and reorder them DVT: no heparin or Lovenox d/t high INR and anemia Quality Stroke Does the patient have a stroke diagnosis?: No VTE Prior VTE?: No VTE Risk Level:: Medical - moderate - high VTE Device Contraindication: Procedure Contraindicated VTE Drug Contraindication: N/A - Med Ordered
[2021-05-02 14:06] LABS: Anion Gap 8 (12-20); Carbon Dioxide 23 mmol/L (22-29); Chloride 107 mmol/L (96-108); Potassium 3.4 mmol/L (3.3-5.1); Sodium 135 mmol/L (135-145)
--- NOTE | 2021-05-02 14:55 | PC.NURSE ---
PICC LINE INSERTED TODAY . RETURNED TO ROOM AT 1230. HEAVY BLEEDING FROM SITE, DSG SATURATED AND LEAKING. DSG CHANGED. SITE CONTINUSE TO BLEED, DR DUTTON MADE AWARE. VIT K ORDERED AND GIVEN. SITE CONTIUNED TO BLEED PRESSURE APPLIED . BY 1500 MD CAME T EVALUATE AGAIN. NEW DSG APPLIED FOLLOWED BY KRISTEN WRAP TO MAINTAIN PRESSURE. PT WAS ALSO TYPED AND SCREENED FOR POSSIBLE PLTS'S
[2021-05-02 15:35] VITALS: BP 122/57; PULSE 82; RESP 18; TEMP 37; O2SAT 94
[2021-05-02 16:11] LABS: Vancomycin Trough 22.2 mcg/mL (10.0-20.0)
[2021-05-02 16:24] LABS: Glucose, Whole Blood 56 mg/dL (60-115)
[2021-05-02] MEDS: Mupirocin 2 % Oint 22 GM TUBE 1 APPL TOPICAL ×2 (16:53→20:44)
[2021-05-02 18:50] VITALS: BP 119/58; PULSE 70; RESP 18; TEMP 36.9; O2SAT 93
[2021-05-02 19:21] LABS: Lyme Abs Screen <0.90 index
[2021-05-02 19:43] LABS: Glucose, Whole Blood 77 mg/dL (60-115)
[2021-05-02 23:49] VITALS: BP 126/60; PULSE 71; RESP 17; TEMP 36.5; O2SAT 96
[2021-05-03] VITALS (21 sets, daily range): BP systolic 105–136; BP diastolic 46–80; PULSE 70–95; RESP 16–20; TEMP 35.6–37.2; O2SAT 94–100
[2021-05-03] MEDS: 0.9 % Sodium Chloride Flush 3 ML SYRINGE IVFLUSH ×4 (00:28→20:55)
[2021-05-03] MEDS: Morphine Sulfate 2 MG/ML CARTRIDGE IVPUSH ×2 (02:44→10:57)
[2021-05-03 03:40] LABS: Glucose, Whole Blood 73 mg/dL (60-115)
[2021-05-03] MEDS: Piperacillin Sodium/Tazobactam 3.375 GM in 0.9 % Sodium Chloride 50 ML IV (03:49)
[2021-05-03 06:34] LABS: Mean Corpuscular HGB Conc 32.5 g/dl (31.0-35.0)
[2021-05-03 06:36] LABS: Mean Corpuscular Volume 98.5 fL (80.0-98.0); Red Blood Count 2.06 X10*6/uL (4.20-5.50); Red Cell Distribution Width 20.6 % (11.0-16.0)
[2021-05-03 06:44] LABS: Creatinine Clr Calc Pharmacy 107.2; Estimated Glomerular Filt Rate > 60; PLT ABN DIST 1; Platelet Count 29 X10*3/uL (160-400)
[2021-05-03 06:48] LABS: Vancomycin Random 10.1 mcg/mL (15-20)
[2021-05-03 06:56] LABS: Hematocrit 20.3 % (37.0-47.0)
[2021-05-03 06:57] LABS: Hemoglobin 6.6 g/dl (12.0-16.0)
[2021-05-03 06:57] LABS: Glucose, Whole Blood 55 mg/dL (60-115)
[2021-05-03] MEDS: vancomycin HCL 1,500 MG in 0.9 % Sodium Chloride 500 ML 333.33 MG IV (07:42)
[2021-05-03] MEDS: Phytonadione (Vit K1) 10 MG in 0.9 % Sodium Chloride 50 ML 51 MG IV (08:28)
[2021-05-03] MEDS: methADONE HCl 20 MG/2 ML ORAL.CONC 60 MG PO ×2 (08:41→21:40)
[2021-05-03] MEDS: Gabapentin 600 MG TABLET 300 MG PO ×4 (08:41→20:55)
[2021-05-03 09:08] LABS: Fibrinogen 197 MG/DL (259-690); INTERNATIONAL NORM RATIO 1.7 (0.9-1.1); Prothrombin Time 19.7 SEC (9.9-13.0)
[2021-05-03 09:10] LABS: Partial Thromboplastin Time 44.7 SEC (24.1-38.0)
--- NOTE | 2021-05-03 09:48 | MHC.AU.AEV ---
Adult Audiological Evaluation Date of Visit: Therapeutic Strategy Lead Used: Reason for Appointment: Does patient feel they have a hearing loss?: If Yes, Which Ear?: When Was Hearing Difficulty First Noticed?: Has hearing been tested previously?: Previous Hearing Test Results: Hearing Handicap Inventory Does a hearing problem cause you to feel embarrassed when meeting new people?: Does a hearing problem cause you to feel frustrated when talking to members of your family?: Do you have difficulty when someone speaks in a whisper?: Do you feel handicapped by a hearing problem?: Does a hearing problem cause you difficulty when visiting friends, relatives, or neighbors?: Does a hearing problem cause you to attend judaism service services less often than you would like?: Does a hearing problem cause you to have arguments with family members?: Does a hearing problem cause you difficulty when listening to TV or radio?: Do you feel that any difficult with your hearing limits or hampers your personal or social life?: Does a hearing problem cause you difficulty when in a restaurants with relatives or friends?: HHIE SCORE: Based on HHIE score, patient has: Ear History: Ear Deformity: Recent Ear Drainage: Recent Ear Pain: Family History of Hearing Loss?: Recent Ear Infections: Ear Infections in Childhood: History of Ear Wax Buildup: Previous Ear Surgery: Bothersome Tinnitus/Ringing/Noises in Ears: Ear used on the phone: Blocked/Full Sensation in Ear(s): History of occupational noise exposure?: History: History: Branch: Years in : Medical History: Medical History: Medical History: Allergies: Medication List: Hearing Instrument History- Right Ear: [employer] School Coordinator: Model: Serial Number: Battery Size: Repair Warranty: Loss and Damage Warranty: Service Plan: Dispensed By: Date of Fitting: Hearing Instrument History- Left Ear: After School Coordinator: Model: Serial Number: Battery Size: Warranty: Loss and Damage Warranty: Service Plan: Dispensed By: Date of Fitting: Otoscopy: Right Ear: Left Ear: Tympanometry: Tympanometry performed due to: Right Ear: Left Ear: Acoustic Reflexes: Ipsilateral Probe Right: 500 Hz: 1000 Hz: 2000 Hz: 4000 Hz: Probe Left: 500 Hz: 1000 Hz: 2000 Hz: 4000 Hz: Contralateral Probe Right: 500 Hz: 1000 Hz: 2000 Hz: 4000 Hz: Probe Left: 500 Hz: 1000 Hz: 2000 Hz: 4000 Hz: Screening Ipsilateral Reflex Probe Right Ear: Probe Left Ear: Acoustic Reflex Decay Right Ear: Left Ear: Otoacoustic Emissions Frequency Range Used: Right Ear Results: Analysis: Left Ear Results: Analysis: Hearing Evaluation: Transducer(s) Used: Method: Stimuli Used: Right Ear: Description of Hearing: Left Ear: Description of Hearing: Soundfield (At Least the Better Ear): Description of Hearing: High Frequency Audiometry: High Frequency Audiometry: Speech Awareness Threshold (SAT): Right Ear: Left Ear: Soundfield: Speech Recognition Threshold (SRT): Method Used: Stimuli Used: Right Ear: Left Ear: Soundfield: Word Discrimination: Method: Word Lists Used:: Right Ear: Left Ear: Soundfield: Most Comfortable Level (MCL): Right Ear: Left Ear: Soundfield: Uncomfortable Loudness Level (UCL): Right Ear: Left Ear: Soundfield: QuickSIN: BKB-SIN: Aided Testing: Tinnitus Assessment: Tinnitus Match- Pitch/Frequency: Tinnitus Match- Loudness: Minimum Masking Level: Comparison: Compared to the most recent evaluation: Compared to most recent evaluation: Interpretation of Results: Recommendations: Diagnosis: Primary Diagnosis: Secondary Diagnosis: Services Performed: Signature: Student/Clinical Fellow: I have reviewed/agreed with student/fellow documentation: Provider:
--- NOTE | 2021-05-03 09:49 | MHC.CM.PN ---
nurse women's health care nurse practitioner note electronicmedical record reviewed. patient per md notes is having nose bleeds and picline site has been bleeding, vitamin k given,type AND SCREEN FOR FFp. medical case worker will conitnue to follow for new discharge needs [facility]om ,
[2021-05-03] MEDS: LORazepam 1 MG TABLET PO (13:48)
[2021-05-03] MEDS: Tranexamic Acid 1,000 MG in 0.9 % Sodium Chloride 250 ML 32.5 MG IV (14:24)
--- NOTE | 2021-05-03 14:32 | P.CNHO_ITS ---
Subjective - Subjective Chief complaint: Oozing from PICC line site Patient: known to practice within the last 3 years Consult date: 05/03/21 Requesting Physician: Dr. Lee Primary Care Provider: Antoine Ghosh MD HPI - Consult Narrative Reason for consult: Coagulopathy of liver disease Narrative: Priscilla Hsu is a 40 year old female with end-stage liver disease admitted for for treatment of osteomyelitis. She underwent PICC line placement in her right upper extremity, she has been losing ever since from there. She also has had some epistaxis. She has been on hospice care from December 2020 but she noted worsening of right foot ulcer with associated foul-smelling discharge. She therefore decided to seek antibiotic treatment for the infection and discharged herself from hospice care. She was admitted on 04/29/2021, started on IV antibiotics with Zosyn and vancomycin. PICC line was inserted on 05/02/2021 for IV antibiotics administration. Review of Systems - Constitutional Reports as per HPI - Neurologic Denies focal weakness, Denies convulsions [facility] Medical History: Medical History (Last Reviewed 04/30/21 @ 23:09 by Mary Gutierrez MD) Bacteremia Heart failure Liver failure Ulcer of left heel Family history: reviewed and not pertinent Social History: Social History (Last Reviewed 04/30/21 @ 23:09 by Mary Gutierrez MD) Living Situation History: Household Members: Significant Other Household Members: Children Household Members Other:: 1 Housing: House Do you presently have visiting nurse or other home services: Yes Alcohol History: Alcohol intake: current Alcohol History Details: Alcohol intake frequency: a few times a week Tobacco History: Patient Tobacco Use Status: Current everyday Tobacco Tobacco use type: Cigarette Cigarette Packs Per Day: 0.5 Cigarettes Per Day: 10.0 Second Hand Smoke Exposure: No Substance Use History: Substance Use Type: Opiates Advance Directives: Advance Directives Date on File: 04/02/20 Occupation Assessmet: service: No Current occupational status: disabled Home Medications and Allergies Current Medications: Current Medications Gabapentin (Gabapentin 600 Mg Tablet) 300 mg PO QID [facility] Last Admin: 05/03/21 12:28 Dose: 300 mg Documented by: Piperacillin Sod/Tazobactam (Sod 3.375 gm/ Sodium Chloride) 50 mls @ 100 mls/hr IV Q6H [facility] Last Admin: 05/03/21 10:59 Dose: Not Given Documented by: Vancomycin HCl 1,500 mg/ (Sodium Chloride) 500 mls @ 333.333 mls/hr IV Q24H [facility] Last Infusion: 05/03/21 10:45 Dose: Infused Documented by: Tranexamic Acid 1,000 mg/ (Sodium Chloride) 260 mls @ 32.5 mls/hr IV .Q8H ONE Stop: 05/03/21 21:34 Last Admin: 05/03/21 14:24 Dose: 32.5 mls/hr Documented by: Lorazepam (Lorazepam 1 Mg Tablet) 1 mg PO Q4H PRN PRN Reason: Breakthrough alcohol withdrawa Stop: 05/04/21 05:00 Last Admin: 05/03/21 13:48 Dose: 1 mg Documented by: Melatonin (Melatonin 3 Mg Tablet) 3 mg PO BEDTIME PRN PRN Reason: Insomnia Methadone HCl (Methadone Hcl 20 Mg/2 Ml Oral.Conc) 60 mg PO BID [facility] Last Admin: 05/03/21 08:41 Dose: 60 mg Documented by: Morphine Sulfate (Morphine Sulfate 2 Mg/Ml Cartridge) 2 mg IVPUSH Q4H PRN; Protocol PRN Reason: Pain, Severe (Pain Scale 7-10) Last Admin: 05/03/21 10:57 Dose: 2 mg Documented by: Mupirocin (Mupirocin 2 % Oint 22 Gm Tube) 1 appl TOPICAL TID [facility]; Protocol Last Admin: 05/03/21 10:50 Dose: Not Given Documented by: Pharmacy Consult (Consult Rx Vancomycin Dosing) 1 each MISCELLANE DAILY PRN PRN Reason: Consult order Pharmacy Consult (Consult Rx Perform Med Rec) 1 each MISCELLANE ONCE PRN PRN Reason: Consult order Sodium Chloride (0.9 % Sodium Chloride Flush 3 Ml Syringe) 3 ml IVFLUSH QSHIFT [facility] Last Admin: 05/03/21 07:46 Dose: 3 ml Documented by: Home Medications Medication Instructions Recorded Confirmed Type furosemide 20 mg tablet 20 mg PO BID 07/30/20 04/29/21 History gabapentin 600 mg tablet 600 mg PO QID 07/30/20 04/29/21 History lactulose 10 gram/15 mL oral 10 g PO TID 07/30/20 04/29/21 History solution potassium chloride 20 mEq 20 meq PO DAILY 07/30/20 04/29/21 History tablet,extended release spironolactone 25 mg tablet 25 mg PO BID 07/30/20 04/29/21 History omeprazole 20 mg capsule,delayed 20 mg PO BID 12/21/20 04/29/21 History release lorazepam 0.5 mg tablet 0.5 mg PO Q6H PRN 03/21/21 04/29/21 History methadone 10 mg tablet 60 mg PO BID 03/21/21 04/29/21 History oxycodone 5 mg tablet 5 mg PO Q4H PRN 03/21/21 04/29/21 History atropine 1 % eye drops 2 drp SUBLINGUAL Q4H PRN 04/29/21 04/29/21 History bisacodyl 10 mg rectal suppository 10 mg [place] DAILY PRN 04/29/21 04/29/21 History guaifenesin 100 mg/5 mL oral liquid 200 mg PO Q4H PRN 04/29/21 04/29/21 History sennosides 8.6 mg-docusate sodium 1 tab-cap PO BID PRN 04/29/21 04/29/21 History 50 mg capsule (Senna Plus) topiramate 25 mg tablet 25 mg PO DAILY 04/29/21 04/29/21 History Allergies Allergy/AdvReac Type Severity Reaction Status Date / Time No Known Allergies Allergy Verified 04/29/21 14:44 [No Known Allergies*] Physical Exam Vital signs: Vital Signs Temp 97.6 F 05/03/21 14:11 Pulse 80 05/03/21 14:11 Resp 18 05/03/21 14:11 BP 105/80 05/03/21 14:11 Pulse Ox 98 05/03/21 11:12 Intake & Output 05/02/21 05/03/21 05/03/21 18:59 06:59 18:59 Intake Total 631 / 731 100 / 731 1400 / 1400 Output Total 675 / 1635 960 / 1635 400 / 400 Balance -44 / -904 -860 / -904 1000 / 1000 Urine Output (Average ml/kg/hr) 0.82 1.17 0.49 Intake: Intake, Oral Amount 480 / 480 360 / 360 Intake (Blood Product) Amount 539 / 539 Thawed Plasma (E2720) Unit 239 / 239 [id number] Thawed Plasma (E2720) Unit 300 / 300 [id number] Intake, Other Amount 200 / 200 Thawed Plasma (E2720) Unit 100 / 100 [id number] Thawed Plasma (E2720) Unit 100 / 100 [id number] Intake, IV Amount 151 / 251 100 / 251 301 / 301 Phytonadione (Vit K1) 10 mg In 51 / 51 51 / 51 0.9 % Sodium Chloride 50 ml @ 51 mls/hr IV ONCE ONE Rx#: [id number] Piperacillin Sodium/Tazobactam 100 / 200 100 / 200 3.375 gm In 0.9 % Sodium Chloride 50 ml @ 100 mls/hr IV Q6H MARI[facility] Rx#:[id number] vancomycin HCL 1,500 mg In 0.9 250 / 250 % Sodium Chloride 500 ml @ 333. 333 mls/hr IV Q24H [facility] Rx#: [id number] Output: Output, Urine Amount 675 / 1035 360 / 1035 400 / 400 Output, Urine Amount (Catheter) 600 / 600 Urethral 600 / 600 Other: Meal Refused Yes: Breakfast&Lunch Yes NPO No Breakfast % Eaten 0% Lunch % Eaten 25% Number of Bowel Movements 1 Urine Brown brown brown Urine Color Concentrated Yellow Pale Yellow Stool Incontinent Weight 68.5 kg Weight 68.5 kg - Constitutional Present: thin, chronically ill appearing - Routine HEENT Exam Eye: Present: conjunctivae pale, scleral icterus - Routine Neck Exam Present: supple. Absent: lymphadenopathy - Routine Respiratory Exam Present: CTAB - Routine Cardiovascular Exam Cardiovascular: Present: S1, S2 Hem/Onc Consult Result - Labs CBC & Chem 7: 05/03/21 05:53 05/03/21 05:53 Labs: Short CBC 05/03/21 Range/Units 05:53 WBC 2.0 L (4.8-10.8) X10*3/uL Hgb 6.6 L* (12.0-16.0) g/dl Hct 20.3 L* (37.0-47.0) % Plt Count 29 L (160-400) X10*3/uL BMP 05/03/21 05:53 Creatinine 0.62 Assessment and Plan Patient Active problem list reviewed?: Yes (1) Coagulopathy Status: Acute Assessment and plan: 1. This is a 40-year-old woman with end-stage liver disease admitted for osteomyelitis. She has coagulopathy of liver disease which is causing her to bleed from PICC line site. She has been given vitamin K and FFP. I have recommended platelets and tranexamic acid infusion because of persistent bleeding. I agree with current management, supportive care as she is receiving now. I thank you for this consultation. - Time Spent With Patient Time Spent with Patient (in minutes): 15
--- NOTE | 2021-05-03 15:27 | MHC.CM.PN ---
nurse critical care specialist note referral iniated to the hospice [facility] [place], spoke with justina encarnacion. patient had signed off hospice , so they will see her at home and open as new hospice case and make arrangements for home equipement , reguarding patient methadone the hospice physician will order this for pain. called to [facility] to report to them that patient will not be going home with pic line and oiv abx discharge plan home 05/04/21 with [facility] referral [facility] will open case once she goes home and equipement will be delivered, methadone script will need to be written by the hospice [facility] physician transportation action [facility]
--- NOTE | 2021-05-03 16:06 | PC.NURSE ---
PICC LINE SITE CONTINUES TO BLEED. PT GIVEN VIT K. 2UNITS FFP AND TRANEXAMIC ACID.. LEG WOUNDS ALSO OOZING BLOOD. PT TOLERATED WELL
--- NOTE | 2021-05-03 16:48 | PM.CNGS ---
History of Present Illness Consult details Consult date: 05/03/21 Reason for consult: other (Bleeding PICC site) Narrative: Very pleasant 40-year-old female with history of end-stage liver disease anemia of chronic disease coagulopathy and thrombocytopenia most recently had a PICC line placed. This was in the right upper extremity. She has had persistent oozing from this PICC site. She now presents to us for vascular evaluation. Review of Systems Review of Systems: Yes all other systems are reviewed and are negative Constitutional: Constitutional: Reports no additional constitutional complaints ENT: Reports Normal hearing present Cardiovascular: Cardiovascular: Denies chest pain, Denies chest pain at rest, Denies chest pain with activity and Denies pedal edema Respiratory: Respiratory: Denies cough Gastrointestinal: Gastrointestinal: Denies abdominal pain Musculoskeletal: Musculoskeletal: Denies abnormal gait, Denies muscle cramps and Denies radiating pain into limb Integumentary/Breasts: Skin/Breast: Denies skin ulcer and Denies wounds Neurologic: Reports Normal hearing present and Denies abnormal gait Psychiatric: Psychiatric: Reports no additional psychiatric complaints [facility] Past Medical History Medical History Bacteremia Heart failure Liver failure Ulcer of left heel Family History Family history: reviewed and not pertinent Social History Social History Household Members: Significant Other and Children Household Members Other:: 1 Housing: House Do you presently have visiting nurse or other home services: Yes Alcohol intake: current Alcohol intake frequency: a few times a week Patient Tobacco Use Status: Current everyday Tobacco user Tobacco use type: Cigarette Cigarette Packs Per Day: 0.5 Second Hand Smoke Exposure: No Substance Use Type: Opiates Advance Directives Date on File: 04/02/20 service: No Current occupational status: disabled Meds Allergies Allergy/AdvReac Type Severity Reaction Status Date / Time No Known Allergies Allergy Verified 04/29/21 14:44 [No Known Allergies*] Active Medications: Current Medications Gabapentin (Gabapentin 600 Mg Tablet) 300 mg PO QID [facility] Last Admin: 05/03/21 12:28 Dose: 300 mg Documented by: Piperacillin Sod/Tazobactam (Sod 3.375 gm/ Sodium Chloride) 50 mls @ 100 mls/hr IV Q6H [facility] Last Admin: 05/03/21 15:32 Dose: Not Given Documented by: Vancomycin HCl 1,500 mg/ (Sodium Chloride) 500 mls @ 333.333 mls/hr IV Q24H [facility] Last Infusion: 05/03/21 10:45 Dose: Infused Documented by: Tranexamic Acid 1,000 mg/ (Sodium Chloride) 260 mls @ 32.5 mls/hr IV .Q8H ONE Stop: 05/03/21 21:34 Last Admin: 05/03/21 14:24 Dose: 32.5 mls/hr Documented by: Lorazepam (Lorazepam 1 Mg Tablet) 1 mg PO Q4H PRN PRN Reason: Breakthrough alcohol withdrawa Stop: 05/04/21 05:00 Last Admin: 05/03/21 13:48 Dose: 1 mg Documented by: Melatonin (Melatonin 3 Mg Tablet) 3 mg PO BEDTIME PRN PRN Reason: Insomnia Methadone HCl (Methadone Hcl 20 Mg/2 Ml Oral.Conc) 60 mg PO BID [facility] Last Admin: 05/03/21 08:41 Dose: 60 mg Documented by: Morphine Sulfate (Morphine Sulfate 2 Mg/Ml Cartridge) 2 mg IVPUSH Q4H PRN; Protocol PRN Reason: Pain, Severe (Pain Scale 7-10) Last Admin: 05/03/21 10:57 Dose: 2 mg Documented by: Mupirocin (Mupirocin 2 % Oint 22 Gm Tube) 1 appl TOPICAL TID [facility]; Protocol Last Admin: 05/03/21 10:50 Dose: Not Given Documented by: Pharmacy Consult (Consult Rx Vancomycin Dosing) 1 each MISCELLANE DAILY PRN PRN Reason: Consult order Pharmacy Consult (Consult Rx Perform Med Rec) 1 each MISCELLANE ONCE PRN PRN Reason: Consult order Sodium Chloride (0.9 % Sodium Chloride Flush 3 Ml Syringe) 3 ml IVFLUSH QSHIFT [facility] Last Admin: 05/03/21 07:46 Dose: 3 ml Documented by: Home Medications Medication Instructions Recorded Confirmed Last Taken Type furosemide 20 mg tablet 20 mg PO BID 07/30/20 04/29/21 04/29/21 History gabapentin 600 mg tablet 600 mg PO QID 07/30/20 04/29/21 04/29/21 History lactulose 10 gram/15 mL oral 10 g PO TID 07/30/20 04/29/21 04/29/21 History solution potassium chloride 20 mEq 20 meq PO DAILY 07/30/20 04/29/21 04/29/21 History tablet,extended release spironolactone 25 mg tablet 25 mg PO BID 07/30/20 04/29/21 04/29/21 History omeprazole 20 mg capsule,delayed 20 mg PO BID 12/21/20 04/29/21 04/29/21 History release lorazepam 0.5 mg tablet 0.5 mg PO Q6H PRN 03/21/21 04/29/21 Unknown History methadone 10 mg tablet 60 mg PO BID 03/21/21 04/29/21 04/29/21 History oxycodone 5 mg tablet 5 mg PO Q4H PRN 03/21/21 04/29/21 Unknown History atropine 1 % eye drops 2 drp SUBLINGUAL Q4H PRN 04/29/21 04/29/21 Unknown History bisacodyl 10 mg rectal suppository 10 mg [place] DAILY PRN 04/29/21 04/29/21 Unknown History guaifenesin 100 mg/5 mL oral liquid 200 mg PO Q4H PRN 04/29/21 04/29/21 Unknown History sennosides 8.6 mg-docusate sodium 1 tab-cap PO BID PRN 04/29/21 04/29/21 Unknown History 50 mg capsule (Senna Plus) topiramate 25 mg tablet 25 mg PO DAILY 04/29/21 04/29/21 04/29/21 History Physical Exam Vital Signs: Vital Signs: Last Vital Signs Temp 98.6 F 05/03/21 16:42 Pulse 77 05/03/21 16:42 Resp 18 05/03/21 16:42 BP 109/55 L 05/03/21 16:42 Pulse Ox 94 05/03/21 16:00 Body Mass Index 27.6 Const: General: cooperative, healthy appearing and comfortable Orientation/consciousness: oriented to person, oriented to place and oriented to time HENMT: Head: Yes normal to inspection Neck: Neck: Yes normal visual inspection Carotids: no bruits Chest: Chest palpation & inspection: normal inspection of the chest Resp: Effort & Inspection: normal respiratory effort and able to speak in complete sentences Auscultation: clear to auscultation bilaterally, no crackles, no rales, no rhonchi and no wheezes Cardio: Rate: regular rate Rhythm: regular rhythm Heart sounds: S1 normal heart sound present and S2 normal heart sound present Bruits: no carotid bruits Peripheral pulses: Peripheral pulses 2+ throughout GI: Inspection: Yes normal to inspection Skin: Other: Bleeding from PICC puncture site Wounds: no wounds Hair: normal Neuro: General: oriented to person, oriented to place and oriented to time Cranial nerves: Yes CN's II-XII intact bilaterally and Yes Normal hearing present Cognition (Neuro): normal cognition Motor exam (neuro): 5/5 motor strength present throughout Extrem: Other: venous exam: No significant superficial varicosities or spider telangiectasias, minimal edema General: No clubbing, No cyanosis and No edema Psych: Appearance: grossly normal Mental Status: mental status grossly normal Speech and movement: Normal speech and movement present Results Labs Result diagrams: 05/03/21 05:53 05/03/21 05:53 Labs: Abnormal lab results 05/02/21 05/03/21 05/03/21 Range/Units 13:17 05:53 05:53 WBC 2.0 L (4.8-10.8) X10*3/uL RBC 2.06 L (4.20-5.50) X10*6/uL Hgb 6.6 L* (12.0-16.0) g/dl Hct 20.3 L* (37.0-47.0) % MCV 98.5 H (80.0-98.0) fL RDW 20.6 H (11.0-16.0) % Plt Count 29 L (160-400) X10*3/uL PT (9.9-13.0) SEC INR (0.9-1.1) APTT (24.1-38.0) SEC Fibrinogen (259-690) MG/DL POC Glucose (60-115) mg/dL Random Vancomycin 10.1 L (15-20) mcg/mL Crossmatch ([facility]) See Detail 05/03/21 05/03/21 Range/Units 06:52 08:04 WBC (4.8-10.8) X10*3/uL RBC (4.20-5.50) X10*6/uL Hgb (12.0-16.0) g/dl Hct (37.0-47.0) % MCV (80.0-98.0) fL RDW (11.0-16.0) % Plt Count (160-400) X10*3/uL PT 19.7 H (9.9-13.0) SEC INR 1.7 H (0.9-1.1) APTT 44.7 H D (24.1-38.0) SEC Fibrinogen 197 L (259-690) MG/DL POC Glucose 55 L* (60-115) mg/dL Random Vancomycin (15-20) mcg/mL Crossmatch ([facility]) Short CBC 05/03/21 Range/Units 05:53 WBC 2.0 L (4.8-10.8) X10*3/uL Hgb 6.6 L* (12.0-16.0) g/dl Hct 20.3 L* (37.0-47.0) % Plt Count 29 L (160-400) X10*3/uL BMP 05/03/21 05:53 Creatinine 0.62 Urine 04/30/21 Range/Units 06:45 Urine Color YELLOW Urine Appearance CLEAR Urine pH 7.0 (5.0-8.0) Ur Specific [place] 1.010 (1.005-1.025) Urine Protein NEG (NEG-TRACE) MG/DL Urine Glucose (UA) NEG (NEG) MG/DL All other labs normal. Assessment and Plan (1) Bleeding at insertion site: Status: Acute In short patient has bleeding from her PICC insertion site. Factors include platelet count of 29 him her INR is up to 1.7. Factors have been repleted. At the current time the PICC line was relatively dry. Dressing was changed. Would recommend reinforcing the dressing and an Carlos A wrap. At the current time it does appear to be stable. Would recommend leaving in PICC line as long as required. She reports that she will be going on hospice and the PICC line may possibly be removed tomorrow. Stable for now. We will follow on an as-needed basis. Thank you for allowing us to assist in her care. Procedures Date of Service Date of Service: 05/03/21
[2021-05-03] MEDS: Mupirocin 2 % Oint 22 GM TUBE 1 APPL TOPICAL ×2 (17:02→20:56)
--- NOTE | 2021-05-03 17:02 | HO.PM.IMPN ---
Subjective Subjective Date of Service: 05/03/21 Interval History: osteo, anemia Review of Systems bleeding at the site of PICC line,epistaxis Physical Exam Vital Signs: Vital Signs: Last Vital Signs Temp 98.6 F 05/03/21 16:42 Pulse 77 05/03/21 16:42 Resp 18 05/03/21 16:42 BP 109/55 L 05/03/21 16:42 Pulse Ox 94 05/03/21 16:00 Body Mass Index 27.6 General: AO X 3, no acute distress HEENT: Epistaxis seems to be improved, no mucosal for bleeding in the mouth. Resp:? CTA bilateral, no rales or wheezing CVS: S1,S2,RRR GI: +BS, NT, no distention Skin: No rash, or cyanosis. Extremities: Right arm PICC line area still has some oozing but slowly improving over the afternoon Neuro:? motor grossly intact Psych: appropriate affect Objective Data Active Medications Gabapentin (Gabapentin 600 Mg Tablet) 300 mg PO QID [facility] Last Admin: 05/03/21 12:28 Dose: 300 mg Documented by: SARA Piperacillin Sod/Tazobactam (Sod 3.375 gm/ Sodium Chloride) 50 mls @ 100 mls/hr IV Q6H [facility] Last Admin: 05/03/21 15:32 Dose: Not Given Documented by: ARON Non-Admin Reason: only one iv access available Vancomycin HCl 1,500 mg/ (Sodium Chloride) 500 mls @ 333.333 mls/hr IV Q24H [facility] Last Infusion: 05/03/21 10:45 Dose: 333.33 mls/hr Documented by: LARISA Tranexamic Acid 1,000 mg/ (Sodium Chloride) 260 mls @ 32.5 mls/hr IV .Q8H ONE Stop: 05/03/21 21:34 Last Admin: 05/03/21 14:24 Dose: 32.5 mls/hr Documented by: LARISA Lorazepam (Lorazepam 1 Mg Tablet) 1 mg PO Q4H PRN PRN Reason: Breakthrough alcohol withdrawa Stop: 05/04/21 05:00 Last Admin: 05/03/21 13:48 Dose: 1 mg Documented by: LARISA Melatonin (Melatonin 3 Mg Tablet) 3 mg PO BEDTIME PRN PRN Reason: Insomnia Methadone HCl (Methadone Hcl 20 Mg/2 Ml Oral.Conc) 60 mg PO BID [facility] Last Admin: 05/03/21 08:41 Dose: 60 mg Documented by: LARISA Morphine Sulfate (Morphine Sulfate 2 Mg/Ml Cartridge) 2 mg IVPUSH Q4H PRN; Protocol PRN Reason: Pain, Severe (Pain Scale 7-10) Last Admin: 05/03/21 10:57 Dose: 2 mg Documented by: RADHA-EHEAFab Mupirocin (Mupirocin 2 % Oint 22 Gm Tube) 1 appl TOPICAL TID [facility]; Protocol Last Admin: 05/03/21 10:50 Dose: Not Given Documented by: LARISA Non-Admin Reason: Patient Refused Pharmacy Consult (Consult Rx Vancomycin Dosing) 1 each MISCELLANE DAILY PRN PRN Reason: Consult order Pharmacy Consult (Consult Rx Perform Med Rec) 1 each MISCELLANE ONCE PRN PRN Reason: Consult order Sodium Chloride (0.9 % Sodium Chloride Flush 3 Ml Syringe) 3 ml IVFLUSH QSHIFT [facility] Last Admin: 05/03/21 07:46 Dose: 3 ml Documented by: LARISA Labs CBC & Chem 7: 05/03/21 05:53 05/03/21 05:53 Labs: Laboratory Results - last 24 hr 05/01/21 05/02/21 05/02/21 02:56 13:17 17:43 MCV MCH MCHC RDW Plt Count MPV Absolute Nucleated RBC Nucleated RBC % (auto) PT INR APTT Fibrinogen Estim Creat Clear Calc Estimated GFR POC Glucose 77 Random Vancomycin Lyme Screen IgG & IgM <0.90 Blood Type AB Positive Antibody Screen NEGATIVE Crossmatch ([facility]) See Detail 05/02/21 05/03/21 05/03/21 21:43 05:53 05:53 MCV MCH MCHC RDW Plt Count MPV Absolute Nucleated RBC Nucleated RBC % (auto) PT INR APTT Fibrinogen Estim Creat Clear Calc 107.2 Estimated GFR > 60 POC Glucose 73 Random Vancomycin 10.1 L Lyme Screen IgG & IgM Blood Type Antibody Screen Crossmatch ([facility]) 05/03/21 05/03/21 05/03/21 05:53 06:52 08:04 MCV 98.5 H MCH 32.0 MCHC 32.5 RDW 20.6 H Plt Count 29 L MPV Not Reportable Absolute Nucleated RBC 0.000 Nucleated RBC % (auto) 0.0 PT 19.7 H INR 1.7 H APTT 44.7 H D Fibrinogen 197 L Estim Creat Clear Calc Estimated GFR POC Glucose 55 L* Random Vancomycin Lyme Screen IgG & IgM Blood Type Antibody Screen Crossmatch ([facility]) Microbiology Microbiology Results: Microbiology 04/30/21 Unknown Urine Culture - Preliminary Urine clean catch - Urine briscoe top Gram negative bayron Enterococcus/Streptococcus sp Assessment and Plan (1) Bleeding at insertion site: Status: Acute Assessment and Plan: 40 year old female with advanced liver diease here with? infected leg, feet ulcers with possible osteomyltis, she had been on hospice for end stage liver disease but has terminated hospice. 1.Feet/leg ulcer with possible osteomylitis: continue Zosyn, Vanco Surgery--no indication for debridment or I and D ID--6 weeks of Ertapenem if no MRSA o/w Vanco Do not use PICC line -since oozing Morphine for pain 2.Nose bleeding, bleeding IV site--Vit K given yesterday, bleeding was improving but subsequently this morning again started oozing from the PICC line site: Given another dose of IV vitamin K,ffpx2 , 1 prbc and platlets also added. nose bleeding stopped. coaguloapathy INR 1.8, no bleeding monitor End stage liver disease Patient decided to go back to hospice after discussion with her family-she does not want any IV antibiotic currently so will switch diet antibiotic to p.o. Hematology recommendations noted , vascular also consulted to look picc line site . oozing seems improving in the evening 3.Hypokaelmia--oral replacment, check mag 4.Anemia of chronic disease, H/H stable.? DVT: no heparin or Lovenox d/t high INR and anemia,scd ? leg ulcer Above management discussed with the patient in detail length including use of IV antibiotic, use of blood products, and code status patient is DNR DNI now, case management will reinstate hospice for the morning. Quality Stroke Does the patient have a stroke diagnosis?: No VTE Prior VTE?: No VTE Risk Level:: Medical - moderate - high VTE Device Contraindication: Procedure Contraindicated VTE Drug Contraindication: N/A - Med Ordered
[2021-05-03] MEDS: Amoxicillin/Potassium Clav 875 MG TABLET PO (19:50)
[2021-05-03 20:28] LABS: Hematocrit 20.5 % (37.0-47.0); Hemoglobin 6.5 g/dl (12.0-16.0)
[2021-05-04] VITALS: BP 127/68; PULSE 76; RESP 18; TEMP 35.9; O2SAT 96
[2021-05-04 00:16] VITALS: BP 127/68; RESP 18; TEMP 24.4
[2021-05-04 04:00] VITALS: BP 123/61; PULSE 82; RESP 18; TEMP 36.7; O2SAT 95
[2021-05-04] MEDS: Morphine Sulfate 2 MG/ML CARTRIDGE IVPUSH ×2 (06:17→14:13)
[2021-05-04 07:38] VITALS: BP 128/75; PULSE 76; RESP 18; TEMP 36; O2SAT 97
[2021-05-04 08:22] LABS: Hemoglobin 7.4 g/dl (12.0-16.0)
[2021-05-04 08:24] LABS: Hematocrit 22.9 % (37.0-47.0)
[2021-05-04] MEDS: Amoxicillin/Potassium Clav 875 MG TABLET PO (08:26)
[2021-05-04] MEDS: Gabapentin 600 MG TABLET 300 MG PO ×2 (08:26→14:12)
[2021-05-04] MEDS: Mupirocin 2 % Oint 22 GM TUBE 1 APPL TOPICAL (08:27)
[2021-05-04] MEDS: methADONE HCl 20 MG/2 ML ORAL.CONC 60 MG PO (08:27)
[2021-05-04 08:37] LABS: Creatinine Clr Calc Pharmacy 116.6; Estimated Glomerular Filt Rate > 60
[2021-05-04] MEDS: 0.9 % Sodium Chloride Flush 3 ML SYRINGE IVFLUSH (09:18)
[2021-05-04] MEDS: Phytonadione (Vit K1) 10 MG in 0.9 % Sodium Chloride 50 ML 51 MG IV (09:27)
--- NOTE | 2021-05-04 10:16 | MHC.CLN ---
F/U PATIENT CONTINUES WITH USUALLY POOR INTAKE X 5 DAYS. DIET=REGULAR WITH ENSURE TID PER HER PREFERENCE. PLAN IS TO DISCHARGE TO HOME WITH HOSPICE REFERRAL.
[2021-05-04] MEDS: LORazepam 1 MG TABLET PO (10:20)
[2021-05-04 10:42] LABS: Glucose, Whole Blood 62 mg/dL (60-115)
[2021-05-04 11:37] VITALS: BP 135/78; PULSE 82; RESP 18; TEMP 36.3; O2SAT 97
--- NOTE | 2021-05-04 12:17 | PM.DS ---
DS: Providers Provider Date of Service: 05/04/21 Date of admission: 04/29/21 16:43 Primary care physician: Antoine Ghosh MD Consults: 04/29/21 16:35 Consult to Infectious Diseases Routine Consulting Provider: Mary Gutierrez Reason for consultation: osteomylitis 04/30/21 09:02 Consult to General Surgery Routine Consulting Provider: Lars Polo Reason for consultation: leg abscess 05/03/21 07:58 Consult to Hematology / Oncology Routine Consulting Provider: Carie Dixon Reason for consultation: cogulapathy/liver disease Has provider been notified: No 05/03/21 16:03 Consult to Vascular Surgery Routine Consulting Provider: John Tuttle Reason for consultation: picc line oozing , hx of liver dis Has provider been notified: No DS: Diagnosis Discharge Diagnosis (1) Bleeding at insertion site: Status: Acute DS: Summary Hospital Course Hospital Course: Feet/leg ulcer with possible osteomylitis:Patient came to the hospital because of osteomyelitis: Started on IV antibiotic because she initially decided not to stay on hospice but subsequently she decline IV antibiotic -wants to go home back on hospice. Discussed with her the risk of not getting IV antibiotic and including worsening of infection and -she understand and still does not want IV antibiotic. Will send her home at least with p.o. antibiotic for now. Advanced liver disease patient was on hospice. Epistaxis/PICC line bleeding: Given platelet, transfusion PRBC, IV vitamin K: Subsequently the patient bleeding seems to be stopped, PICC line removed. H&H stable in 7.5 range. Further management outpatient as per PCP patient is going home with hospice. Above management discussed with the patient in detail length she understand and in agreement with the above plan, time spent 50 minutes and 50% time spent on counseling. Significant findings: As above. Procedures performed: None. Treatment and response: As above. Complications: None. Time Spent with Patient Time attestation: Total time spent providing and/or coordinating discharge services: Discharge coordination time: Greater than 30 minutes Quality: Stroke Does the patient have a stroke diagnosis?: No Physical Exam Vital Signs: Vital Signs: Last Vital Signs Temp 97.3 F 05/04/21 11:37 Pulse 82 05/04/21 11:37 Resp 18 05/04/21 11:37 BP 135/78 05/04/21 11:37 Pulse Ox 97 05/04/21 11:37 Body Mass Index 27.6 ? General: AO X 3, no acute distress HEENT:? Epistaxis seems to be improved, no mucosal for bleeding in the mouth. Resp:? CTA bilateral, no rales or wheezing CVS: S1,S2,RRR GI: +BS, NT, no distention Skin: No rash, or cyanosis. Extremities:? Right arm PICC removed , no active bleeding. Neuro:? motor grossly intact Psych: appropriate affect. DS: Data Data Completed and Pending Completed studies during hospitalization [Text1]: Procedures Excision of Left Foot Skin, External Approach (12/21/20) Inspection of Upper Intestinal Tract, Via Natural or Artificial Opening Endoscopic (12/21/20) Transfusion of Nonautologous Frozen Plasma into Peripheral Vein, Percutaneous Approach (12/21/20) Transfusion of Nonautologous Platelets into Peripheral Vein, Percutaneous Approach (12/21/20) Transfusion of Nonautologous Red Blood Cells into Peripheral Vein, Percutaneous Approach (12/21/20) Labs on day of discharge: Laboratory Results - last 24 hr 05/02/21 05/03/21 05/04/21 13:17 20:00 05:38 Hgb 6.5 L* Hct 20.5 L* Creatinine 0.57 Estim Creat Clear Calc 116.6 Estimated GFR > 60 POC Glucose Blood Type AB Positive Antibody Screen NEGATIVE Crossmatch (AHG) See Detail 05/04/21 05/04/21 10:38 Unknown Hgb 7.4 L Hct 22.9 L Creatinine Estim Creat Clear Calc Estimated GFR POC Glucose 62 Blood Type Antibody Screen Crossmatch (AHG) Preliminary micro results at discharge 04/29/21 15:20 Blood Culture - Preliminary Blood - Venous No growth after 48 hours. 04/29/21 15:04 Blood Culture - Preliminary Blood - Venous No growth after 48 hours. Discharge Plan Discharge Patient Disposition: Hospice - Home Discharge Diagnosis: Advanced liver disease, epistaxis/PICC line site bleeding, osteomyelitis. Referrals: Antoine Ghosh MD [Primary Care Provider] - 1 Week Discharge Medications: New doxycycline hyclate 100 mg Tablet 100 mg PO Q12H Qty: 82 RF: 0 amoxicillin-pot clavulanate 875-125 mg Tablet 875 mg PO Q12H Qty: 40 RF: 0 Continued omeprazole 20 mg Capsule,Delayed Release(Dr/Ec) 20 mg PO BID RF: 0 methadone 10 mg Tablet 60 mg PO BID RF: 0 oxycodone 5 mg Tablet 5 mg PO Q4H PRN (Reason: Pain (Scale Score 4-6)) RF: 0 lorazepam 0.5 mg Tablet 0.5 mg PO Q6H PRN (Reason: Anxiety) RF: 0 gabapentin 600 mg tablet 600 mg PO QID RF: 0 spironolactone 25 mg tablet 25 mg PO BID RF: 0 furosemide 20 mg tablet 20 mg PO BID RF: 0 lactulose 10 gram/15 mL solution 10 g PO TID RF: 0 potassium chloride 20 mEq tablet extended release 20 meq PO DAILY RF: 0 topiramate 25 mg Tablet 25 mg PO DAILY RF: 0 guaifenesin 100 mg/5 mL Liquid 200 mg PO Q4H PRN (Reason: Cough) RF: 0 bisacodyl 10 mg Suppository 10 mg VA DAILY PRN (Reason: Constipation) RF: 0 atropine 1 % Drops 2 drp SUBLINGUAL Q4H PRN (Reason: Secretions) RF: 0 Senna Plus 8.6-50 mg Capsule 1 tab-cap PO BID PRN (Reason: Constipation) RF: 0 Discharge Orders: Discharge Order (Routine); Ordered 05/04/21 Ordered By: Wiley Lee Diet: advance to usual diet Activity on Discharge: As tolerated Stand Alone Forms: Patient Portal Discharge page Activity Restrictions/Additional Instructions: Wound Care Instructions: Cleanse all wounds with wound cleanser or normal saline. Apply EPC cream to periwound of all wounds on left agustin, ankle and heel and right foot, apply Hydrofera blue to left agustin, left ankle and left heel then cover with non woven gauze and roll gauze. Cut 3 small strips of silver alginate and tuck into small holes on right agustin leaving tails out, also cut silver alginate and place in wound bed of right foot ulcer cover all wounds with non woven gauze and roll gauze. Apply Woundres' gel to left elbow and cover with foam dressing. Dressing changes to be done every other day. Care Plan Goals: Patient came to the hospital because of osteomyelitis: Started on IV antibiotic because she initially decided not to stay on hospice but subsequently she decline IV antibiotic -wants to go home back on hospice. Discussed with her the risk of not getting IV antibiotic and including worsening of infection and -she understand and still does not want IV antibiotic. Will send her home at least with p.o. antibiotic for now. Advanced liver disease patient was on hospice. Epistaxis/PICC line bleeding: Given platelet, transfusion PRBC, IV vitamin K: Subsequently the patient bleeding seems to be stopped, PICC line removed. H&H stable in 7.5 range. Further management outpatient as per PCP patient is going home with hospice. Health Concerns: As above. Plan of Treatment: As above. Assessment: As above.
--- NOTE | 2021-05-04 12:19 | MHC.CM.PN ---
Addendum entered by Jaycee Belle 05/04/21 14:42: met with hospice liason, they met with patient and had her sign [facility] will leave the hospitla today at 2pm via [facility] going to her home address where her family will be waiting for her , she already has her own commode and hospitla bed at home , other equipement to be delivered today , as well as the hospice nurse getting the methadone script for pain, hospice nurse will be there early eveing to do assessment patient is aware of this and aCCEPTING DISCHARGE PLAN HOME WITH [facility] Original Note: nurse childcare director note electronic medical record reviewed along with case discussed on multiple disciplinary rounds, patient will be discharged home today with ,[facility] (liason to come meet with patient at 12 noon today ) they will arrange home equipement for delivery to her home and confirmed with hospice nurse by [phone that the hospic nurse will have hospice md arranged for methadone script for pain management discharge plqn home to her home address [facility] - transport 1;30-2pm hospice [facility] patient to re sign in imm 05/03/21
== END 2021-05-04 15:16 | disposition hospice, home (50) | DRG 344 ==
LOC: HO.ED 15:53 → HO.EDOVER 16:49 → HO.S3 18:40
PROVIDERS: Hospitalist; Internal Medicine; Admitting Provider Internal Medicine; Emergency Provider Emergency Medicine; PCP Internal Medicine; Visit Provider Internal Medicine
DX: M86.8X7 Other osteomyelitis, ankle and foot (principal); D68.9 Coagulation defect, unspecified; D69.6 Thrombocytopenia, unspecified; L03.115 Cellulitis of right lower limb; F11.20 Opioid dependence, uncomplicated; L89.623 Pressure ulcer of left heel, stage 3; K72.10 Chronic hepatic failure without coma; L03.116 Cellulitis of left lower limb; R04.0 Epistaxis; T82.838A Hemorrhage due to vascular prosthetic devices, implants and grafts, initial encounter; E87.6 Hypokalemia; D63.8 Anemia in other chronic diseases classified elsewhere; R82.71 Bacteriuria; F10.20 Alcohol dependence, uncomplicated; R94.31 Abnormal electrocardiogram [ECG] [EKG]; F17.210 Nicotine dependence, cigarettes, uncomplicated; Z71.6 Tobacco abuse counseling; Z20.822 Contact with and (suspected) exposure to COVID-19; Z79.899 Other long term (current) drug therapy
CPT/HCPCS: 36415; 36573; 73620; 80048; 80051; 80076; 80202; 81001; 82077; 82565; 82947; 83605; 83735; 85014; 85018; 85025; 85027; 85384; 85610; 85730; 86617; 86618; 86850; 86900; 86901; 86920; 86922; 87040; 87086; 87088; 87186; 87635; 93005; 96361; 96374; 96375; 99285; C1751; J2270; J2543; J3370; J3430; J3475; P9016; P9017; P9035